=== PATIENT | female | born 1950 | race Caucasian/White ===

== ENCOUNTER 2017-10-13 09:01 | Emergency (ER) | payer OTHER, BC ==
[~2017-10-13] VITALS: Ht 154.9 cm; Wt 68.5 kg
[~2017-10-13 09:01] MED LIST: AMIT10TA6 PO; CYCL10TA9 PO; FLEC150T PO; GBPN400C PO; HUM10VIA2; HYDR-2997 PO; HYDR-31; INSASP10V SC; INSU100I5 SQ; ISM30TCR PO; LISI20TA PO; LOVA20TA2 PO; LYRICA; METF-380 PO; METO-333 PO; MOME13HF2 IH; MTF500T; RIVA1TAB PO; SOTA80TA22 PO; TRAM-21 PO
[2017-10-13] MEDS ORDERED: NS IV 1000 ML 1,000 ML IV ONE (09:09)
[2017-10-13 09:37] LABS: BASOPHILS % (AUTO) 0 % (0-10); EOSINOPHILS # (AUTO) 0.1 10^3/uL (0.0-0.3); EOSINOPHILS % (AUTO) 2 % (0-10); HEMATOCRIT 38 % (35-52); HEMOGLOBIN 13.1 G/DL (11.5-16.0); LYMPHOCYTES # (AUTO) 2.1 X 10^3 (1.0-4.0); LYMPHOCYTES % (AUTO) 29 % (12-44); MEAN CORPUSCULAR HEMOGLOBIN 30 PG (25-34); MEAN CORPUSCULAR HGB CONC 34 G/DL (32-36); MEAN CORPUSCULAR VOLUME 87 FL (80-99); MEAN PLATELET VOLUME 9.6 FL (7.4-10.4); MONOCYTES # (AUTO) 0.4 X 10^3 (0.0-1.0); MONOCYTES % (AUTO) 5 % (0-12); NEUTROPHILS # (AUTO) 4.6 X 10^3 (1.8-7.8); NEUTROPHILS % (AUTO) 64 % (42-75); PLATELET COUNT 170 10^3/uL (130-400); RED BLOOD COUNT 4.39 10^6/uL (4.35-5.85); RED CELL DISTRIBUTION WIDTH 13.4 % (10.0-14.5); WHITE BLOOD COUNT 7.2 10^3/uL (4.3-11.0)
[2017-10-13 09:47] LABS: BILIRUBIN,URINE NEGATIVE (NEGATIVE); CLARITY,URINE SLIGHTLY CLOUDY; COLOR,URINE YELLOW; GLUCOSE, URINE (UA) 2+ (NEGATIVE); KETONES,URINE NEGATIVE (NEGATIVE); LEUKOCYTE ESTERASE ,URINE 1+ (NEGATIVE); NITRITE,URINE NEGATIVE (NEGATIVE); PH,URINE 8 (5-9); PROTEIN,URINE 1+ (NEGATIVE); UROBILINOGEN,URINE NORMAL (NORMAL)
[2017-10-13 09:49] LABS: INR 1.1 (0.8-1.4); PROTHROMBIN TIME PATIENT 14.4 SEC (12.2-14.7)
[2017-10-13 10:00] LABS: ALANINE AMINOTRANSFERASE 11 U/L (0-55); ALBUMIN 4.1 GM/DL (3.2-4.5); ALKALINE PHOSPHATASE 103 U/L (40-136); BILIRUBIN,TOTAL 0.4 MG/DL (0.1-1.0); BUN/CREATININE RATIO 21; CALCIUM 9.2 MG/DL (8.5-10.1); CARBON DIOXIDE 25 MMOL/L (21-32); CHLORIDE 107 MMOL/L (98-107); CREATININE SERUM 0.78 MG/DL (0.60-1.30); GFR ESTIMATED > 60; GLUCOSE 220 MG/DL (70-105); POTASSIUM 3.8 MMOL/L (3.6-5.0); SODIUM 141 MMOL/L (135-145); TOTAL PROTEIN 7.5 GM/DL (6.4-8.2)
[2017-10-13 10:14] LABS: BACTERIA,URINE FEW /HPF; RBC,URINE RARE /HPF; SQUAMOUS EPITHELIAL CELL,UR 0-2 /HPF; WBC,URINE 0-2 /HPF
[2017-10-13] MEDS ORDERED: IOHEXOL 350 MG/ML 100 ML (OMNIPAQUE 350) VIAL IV ONE (10:15)
[2017-10-13] MEDS ORDERED: CATHETER FLUSH 10 ML SYR IV PRN (10:15)
[2017-10-13] MEDS ORDERED: NS 250 ML (IVPB) BAG IV ONE (10:15)
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
[2017-10-13] MEDS ORDERED: CYCL5TAB PO (12:20)
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
--- OUTSIDE RECORDS SUMMARY | 2017-10-13 12:43 | XMS REPORT | CCD ---
Author Author SHELLI FRANZ Organization Unknown Address [address] [address] [place], [place] [id number] Care Team Providers Care Quill Machine Tender Name Role Phone CHAMA ER, ESTRELLA DO Attphys CHAMA ER, ESTRELLA DO Prisurg Vital Signs Unknown or Not Available. Allergies Allergy Code Allergy Type Reaction Status PHENERGAN 430957 Drug allergy BREATHING PROBLEMS Active ETOMIDATE 4177 Drug allergy LARYNGOSPASM, VENTRICULAR ARRHYTHMIA Active Procedures Procedure Code Procedure Type Date FOOT [address] 07/20/2015 History of Immunizations Immunization Code Date pneumococcal, unspecified formulation 109 06/25/2012 Influenza, seasonal, injectable 141 05/10/2012 Problems Problem Code Start Date Resolved Date Status ATRIAL FIBRILLATION WITH RAPID VENTRICULAR RESPONSE 343832619 Active Results Unknown or Not Available. Active Medications Unknown or Not Available. Medications Administered During Visit Unknown or Not Available. Encounters Encounter Diagnosis Diagnosis Code Start Date Foot pain [id number] 07/20/2015 Social History Smoking Status Code Start Date End Date Never smoker [id number] Patient Decision Aids Unknown or Not Available. Discharge Instructions You were admitted to [facility] on 07/20/2015 with a principal diagnosis of Foot pain . You were discharged from [facility] on 07/20/2015. Should you have any questions prior to discharge, please contact a member of your healthcare team. If you have left the hospital and have any questions, please contact your primary care physician. Chief Complaint and Reason For Visit Chief Complaint Date of Onset FOOT PAIN Function Status Unknown or Not Available. Plan of Care Unknown or Not Available. Referral/Transition of Care Unknown or Not Available.
--- OUTSIDE RECORDS SUMMARY | 2017-10-13 12:43 | XMS REPORT | Clinical Summary ---
Author Author [facility] Organization [facility] Address Unknown Phone Unavailable Care Team Providers Care Store Group Manager Name Role Phone Unverified, Unverified Md PCP Unavailable Jovana Young MD Unavailable Source Comments Some departments are not documenting in the electronic medical record. If you do not see the information that you expected, contact Release of Information in the Health Information Management department at [phone] for further assistance in locating additional records.[facility] Allergies Not on File Current Medications Not on file Active Problems Problem Noted Date Displacement of lumbar intervertebral disc without myelopathy 05/01/2008 Social History Tobacco Use Types Packs/Day Years Used Date Never Assessed Sex Assigned at Date Recorded Not on file Last Filed Vital Signs Not on file Plan of Treatment Health Maintenance Due Date Last Done Comments HEPATITIS C SCREENING 1951 PHYSICAL (COMPREHENSIVE) 1958 EXAM PERTUSSIS VACCINE 1962 TETANUS VACCINE 01/08/1968 BREAST CANCER SCREENING 1991 COLORECTAL CANCER 2001 SCREENING SHINGLES VACCINE 2011 OSTEOPOROSIS SCREENING 01/08/2016 PREVNAR/PNEUMOVAX (#1) 01/08/2016 INFLUENZA VACCINE 04/23/2018 Results Not on filefrom Last 3 Months
--- OUTSIDE RECORDS SUMMARY | 2017-10-13 12:44 | XMS REPORT ---
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 Name Role Phone Jason Hui PCP Unavailable Jason Hui PreferredProvider Unavailable Allergies and Adverse Reactions Name Reaction Notes Phenergan Plan of Treatment Planned Activity Comments Planned Date Planned Time Plan/Goal Uncontrolled Diabetes and Thyroid Nodules [facility] 06/09/2017 12:00 AM Medications Active Name Start Date Estimated Completion Date SIG Comments Pen Needle 31 gauge x 3/16" miscellaneous needle 02/27/2014 USES 3 INJECTIONS A DAY metformin 1,000 mg oral tablet 02/28/2014 take 1 tablet (1,000 mg) by oral route 2 times per day with morning and evening meals metformin 1,000 mg oral tablet 09/05/2014 TAKE 1 TABLET BY MOUTH TWICE DAILY WITH MORNING AND EVENING MEALS metformin 1,000 mg oral tablet 09/08/2014 TAKE 1 TABLET BY MOUTH TWICE DAILY WITH MORNING AND EVENING MEALS carvedilol 3.125 mg oral tablet take 1 tablet (3.125 mg) by oral route once daily Benicar 40 mg oral tablet take 1 tablet (40 mg) by oral route once daily Levemir FlexTouch 100 unit/mL (3 mL) subcutaneous insulin pen 06/25/2015 inject 45 units by subcutaneous route twice a day tramadol 50 mg oral tablet 06/25/2015 take 1 tablet (50 mg) by oral route every 6 hours as needed Novolog Flexpen 100 unit/mL subcutaneous insulin pen 09/11/2015 INJECT 14 UNITS SUBCUTANEOUSLY WITH BREAKFAST. LUNCH, AND SUPPER acetaminophen-codeine 300-30 mg oral tablet 12/08/2015 take 1 tablet by oral route every 4 hours as needed amiodarone 400 mg oral tablet take 1 tablet (400 mg) by oral route once daily potassium chloride 10 mEq oral capsule, extended release 05/22/2017 take 2 capsules (20 meq) by oral route once daily with food for 30 days Name Start Date Expiration Date SIG Comments Bactrim DS 800-160 mg oral tablet 10/29/2009 11/08/2009 take 1 tablet by oral route every 12 hours for 10 days Keflex 500 mg oral capsule 01/21/2010 01/28/2010 take 1 capsule (500 mg) by oral route every 12 hours for 7 days Reglan 10 mg oral tablet 11/24/2010 12/24/2010 take 1 tablet (10 mg) by oral route twice daily prednisone 20 mg oral tablet 07/06/2011 07/16/2011 take 1 tablet by oral route daily for 10 days nabumetone 500 mg oral tablet 07/19/2011 take 1 tablet (500 mg) by oral route 2 times per day with food indomethacin 50 mg oral capsule 10/28/2011 11/04/2011 take 1 capsule (50 mg) by oral route 3 times per day with food for 7 days "stopped it 2-3 weeks ago due to high glucose" Bactrim DS 800-160 mg oral tablet 10/28/2011 11/04/2011 take 1 tablet by oral route every 12 hours for 7 days insulin syringe-needle U-100 1 mL 31 gauge x 5/16 miscellaneous syringe 201111/22/2011 USE DIRECTED FOUR TIMES DAILY Levemir 100 unit/mL subcutaneous solution 11/02/2011 11/14/2011 inject 45 units by subcutaneous route twice daily "using pen" Augmentin 500-125 mg oral tablet 06/26/2012 07/03/2012 take 1 tablet by oral route every 12 hours for 7 days Pen Needle 31 gauge x 3/16" miscellaneous needle 09/17/2012 09/17/2012 Uses 3 injections a day cephalexin 500 mg oral tablet 11/08/2012 11/18/2012 take 1 tablet (500 mg) by oral route every 12 hours for 10 days Augmentin 500-125 mg oral tablet 03/20/2013 03/27/2013 take 1 tablet by oral route every 12 hours for 7 days Novolog Flexpen 100 unit/mL subcutaneous insulin pen 09/05/2013 08/31/2014 INJECT 12 UNITS SUBCUTANEOUSLY WITH BREAKFAST. LUNCH, AND SUPPER gabapentin 600 mg oral tablet 02/28/2014 08/22/2015 TAKE 1 TABLET BY MOUTH FOUR TIMES DAILY Xarelto 20 mg oral tablet 06/25/2015 12/22/2015 take 1 tablet (20 mg) by oral route once daily with the evening meal for 30 days amoxicillin-pot clavulanate 500-125 mg oral tablet 08/31/2015 09/07/2015 take 1 tablet by oral route every 12 hours for 7 days Accu-Chek Compact Test miscellaneous strip 09/07/2015 02/04/2016 Check glucose 4 times a day [id number] Zostavax (PF) 19,400 unit/0.65 mL subcutaneous suspension for reconstitution 05/09/2016 05/10/2016 inject 0.65 milliliter by subcutaneous route once Discontinued Name Start Date Discontinued Date SIG Comments Aldara 5 % topical cream in packet 10/29/2009 10/05/2010 apply to the affected area(s) before bedtime by topical route 3 times per week and leave on skin for 6 to 10 hours fenofibrate 160 mg oral tablet 01/27/2010 12/03/2014 take 1 tablet (160 mg) by oral route once daily meloxicam 15 mg oral tablet 10/05/2010 07/19/2011 take 1 tablet (15 mg) by oral route once daily as needed Zofran (as hydrochloride) 4 mg/5 mL oral solution 11/22/2010 11/08/2012 take 5- 10 milliliters by oral route every 6 hours as needed Klor-Con M20 20 mEq oral tablet,ER particles/crystals 09/25/2012 take 1 tablet (20 meq) by oral route once daily with food "not takiing" Diflucan 150 mg oral tablet 03/02/2011 10/28/2011 take 1 tablet (150 mg) by oral route once amoxicillin 500 mg oral capsule 10/28/2011 take 1 capsule (500 mg) by oral route every 12 hours for 7 days Medrol (Tom) 4 mg oral tablets,dose pack 10/28/2011 take as directed Lasix 20 mg oral tablet 11/01/2011 09/25/2012 take 1 tablet (20 mg) by oral route once daily as needed amitriptyline 10 mg oral tablet 01/24/2012 12/03/2014 take 1 tablet by oral route once a day (at bedtime) cyclobenzaprine 5 mg oral tablet 01/24/2012 04/30/2013 take 1 tablet by oral route once a day (at bedtime) as needed cephalexin 500 mg oral tablet 01/24/2012 09/25/2012 take 1 tablet (500 mg) by oral route every 12 hours Tessalon 200 mg oral capsule 06/26/2012 11/08/2012 take 1 capsule (200 mg) by oral route 3 times per day as needed Claritin-D 12 Hour 5-120 mg oral tablet extended release 12 hr 06/26/20122012 take 1 tablet by oral route every 12 hours naproxen 500 mg oral tablet 11/08/2012 07/11/2014 take 1 tablet (500 mg) by oral route 2 times per day with food "not taking now" Dulera 100-5 mcg/actuation inhalation HFA aerosol inhaler 04/30/20132014 inhale 2 puffs by inhalation route 2 times per day in the morning and evening flecainide 100 mg oral tablet 12/03/2014 take 1 tablet (100 mg) by oral route every 12 hours cyclobenzaprine 10 mg oral tablet 08/05/2013 07/11/2014 take 1 tablet (10 mg ) by oral route at bedtime as needed Betapace 80 mg oral tablet 12/03/2014 take 1 tablet (80 mg) by oral route [address] Brown duloxetine 30 mg oral capsule,delayed release(/EC) 07/11/2014 06/25/2015 take 1 capsule (30 mg) by oral route once a day hydrocodone-acetaminophen 7.5-325 mg oral tablet 07/11/2014 06/25/2015 take 1 tablet by oral route every 6 hours as needed for pain diltiazem HCl 120 mg oral capsule, extended release 06/25/2015 take 1 capsule (120 mg) by oral route once daily carvedilol 12.5 mg oral tablet 06/25/2015 take 1 tablet (12.5 mg) by oral route every 12 hours with food dose change sotalol 120 mg oral tablet 06/25/2015 take 1 tablet (120 mg) by oral route 2 times per day benzonatate 200 mg oral capsule 08/31/2015 05/09/2016 take 1 capsule (200 mg) by oral route 3 times per day as needed Levemir FlexTouch 100 unit/mL (3 mL) subcutaneous insulin pen 09/22/20152015 INJECT 43 UNITS BY SUBCUTANEOUS ROUTE TWICE A DAY Levemir FlexTouch 100 unit/mL (3 mL) subcutaneous insulin pen 09/22/20152015 INJECT 43 UNITS BY SUBCUTANEOUS ROUTE TWICE A DAY has an insulin pump Problem List Description Status Onset Diabetes Mellitus, Type II Active 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 Hyperlipidemia Active Vital Signs Date Time BP-Sys(mm[Hg] BP-Helga(mm[Hg]) HR(bpm) RR(rpm) Temp WT HT HC BMI BSA BMI Percentile O2 Sat(%) 05/22/2017 10:41:00 AM 152 mmHg 88 mmHg 80 bpm 20 rpm 98.1 F 153 lbs 61 in 28.91 kg/m2 1.73 m2 100 % 05/09/2016 9:17:00 AM 138 mmHg 70 mmHg 83 bpm 20 rpm 97.7 F 160 lbs 61 in 30.2314 kg/m 1.7674 m 99 % 12/08/2015 1:34:00 PM 132 mmHg 60 mmHg 87 bpm 22 rpm 99 F 152 lbs 61 in 28.72 kg/m2 1.72 m2 99 % 06/25/2015 10:17:00 AM 138 mmHg 72 mmHg 80 bpm 20 rpm 98.2 F 152 lbs 61 in 28.7199 kg/m 1.7226 m 98 % 12/03/2014 10:31:00 AM 130 mmHg 66 mmHg 66 bpm 20 rpm 98.1 F 143 lbs 61 in 27.02 kg/m2 1.67 m2 98 % 07/11/2014 9:39:00 AM 138 mmHg 88 mmHg 153 bpm 20 rpm 98.7 F 150 lbs 61 in 28.342 kg/m 1.7112 m 98 % 12/24/2013 3:55:00 PM 130 mmHg 62 mmHg 69 bpm 18 rpm 97.9 F 151 lbs 61 in 28.53 kg/m2 1.72 m2 99 % 10/30/2013 10:56:00 AM 150 mmHg 74 mmHg 81 bpm 16 rpm 96.2 F 152 lbs 61 in 28.7199 kg/m 1.7226 m 97 % 08/05/2013 8:52:00 AM 138 mmHg 78 mmHg 61 bpm 20 rpm 98 F 168 lbs 61 in 31.74 kg/m2 1.81 m2 100 % 04/30/2013 10:08:00 AM 138 mmHg 78 mmHg 148 bpm 22 rpm 98.2 F 168 lbs 61 in 31.743 kg/m 1.811 m 98 % 03/20/2013 8:54:00 AM 150 mmHg 80 mmHg 78 bpm 16 rpm 98.9 F 163 lbs 61 in 30.80 kg/m2 1.78 m2 99 % 11/08/2012 10:13:00 AM 136 mmHg 78 mmHg 70 bpm 18 rpm 97.8 F 156 lbs 09/25/2012 9:30:00 AM 148 mmHg 80 mmHg 76 bpm 16 rpm 97.8 F 152 lbs 61 in 28.72 kg/m2 1.72 m2 06/26/2012 10:33:00 AM 136 mmHg 74 mmHg 89 bpm 18 rpm 98.6 F 154.375 lbs 61 in 29.1686 kg/m 1.736 m 99 % 01/24/2012 8:08:00 AM 134 mmHg 72 mmHg 78 bpm 22 rpm 98.2 F 145 lbs 61 in 27.40 kg/m2 1.68 m2 10/28/2011 8:03:00 AM 132 mmHg 76 mmHg 70 bpm 18 rpm 97.9 F 143 lbs 61 in 27.0193 kg/m 1.6708 m 10/17/2011 11:28:00 AM 136 mmHg 74 mmHg 89 bpm 18 rpm 97.9 F 149.125 lbs 61 in 28.18 kg/m2 1.71 m2 07/19/2011 8:12:00 AM 132 mmHg 82 mmHg 84 bpm 16 rpm 97.8 F 150 lbs 61 in 28.342 kg/m 1.7112 m 07/06/2011 3:15:00 PM 130 mmHg 74 mmHg 68 bpm 18 rpm 98.3 F 156 lbs 61 in 29.48 kg/m2 1.75 m2 03/02/2011 2:58:00 PM 120 mmHg 74 mmHg 100 bpm 20 rpm 99.4 F 169.25 lbs 02/14/2011 9:49:00 AM 134 mmHg 78 mmHg 74 bpm 18 rpm 98.3 F 164 lbs 12/01/2010 8:15:00 AM 128 mmHg 78 mmHg 62 bpm 18 rpm 98.2 F 157 lbs 11/22/2010 8:54:00 AM 128 mmHg 72 mmHg 104 bpm 22 rpm 98.6 F 153 lbs 100 % 10/05/2010 3:04:00 PM 144 mmHg 82 mmHg 72 bpm 18 rpm 98 F 163 lbs 02/08/2010 9:17:00 AM 124 mmHg 78 mmHg 76 bpm 145 lbs 01/21/2010 10:13:00 AM 130 mmHg 68 mmHg 70 bpm 16 rpm 98.3 F 144 lbs 10/29/2009 8:21:00 AM 134 mmHg 76 mmHg 70 bpm 20 rpm 98.6 F 147 lbs Social History Name Description Comments Tobacco Never smoker History of Procedures Date Ordered Description Order Status 06/25/2015 12:00 AM LIPID PANEL Reviewed 06/25/2015 12:00 AM GLYCOSYLATED HEMOGLOBIN TEST Reviewed 06/25/2015 12:00 AM COMPREHEN METABOLIC PANEL Reviewed 06/25/2015 12:00 AM Endocrinology Consultation Reviewed 07/06/2011 12:00 AM METABOLIC PANEL TOTAL CA Reviewed 07/06/2011 12:00 AM C-REACTIVE PROTEIN Reviewed 07/06/2011 12:00 AM RBC SED RATE AUTOMATED Reviewed 07/19/2011 12:00 AM X-RAY EXAM OF FOOT Reviewed 12/08/2015 12:00 AM CHEST X-RAY 2VW FRONTAL&LATL Reviewed 12/08/2015 12:00 AM Decadron, Per 1 Mg [facility]# [address]-25 Reviewed 12/08/2015 12:00 AM Depo-Medrol, Per 80 Mg [facility]#[address]-33 Reviewed 05/09/2016 12:00 AM PNEUMOCOCCAL VACC 13 HARDY IM Reviewed 10/17/2011 12:00 AM COMPLETE CBC W/AUTO DIFF WBC Reviewed 10/17/2011 12:00 AM PROTHROMBIN TIME Reviewed 10/17/2011 12:00 AM ASSAY OF BLOOD/URIC ACID Reviewed 10/18/2011 12:00 AM RBC SED RATE AUTOMATED Reviewed 10/18/2011 12:00 AM GLYCOSYLATED HEMOGLOBIN TEST Reviewed 05/22/2017 12:00 AM Rocephin 500 Mg Injection Reviewed 06/05/2017 12:00 AM METABOLIC PANEL TOTAL CA Reviewed 11/02/2009 12:00 AM BREATHING CAPACITY TEST Reviewed 04/30/2013 12:00 AM CHEST X-RAY 2VW FRONTAL&LATL Reviewed 04/30/2013 12:00 AM AIRWAY INHALATION TREATMENT Reviewed 05/09/2013 12:00 AM CHEST X-RAY 2VW FRONTAL&LATL Reviewed 08/05/2013 12:[address] HEAD/BRAIN W/O & W/DYE Reviewed 08/05/2013 12:00 AM BREATHING CAPACITY TEST Reviewed 12/24/2013 12:00 AM ECG MONIT/REPRT UP TO 48 HRS Reviewed 12/24/2013 12:00 AM TTE W/O DOPPLER COMPLETE Reviewed 12/24/2013 12:00 AM Carotid Doppler Reviewed 01/21/2010 12:00 AM COMPREHEN METABOLIC PANEL Reviewed 01/21/2010 12:00 AM LIPID PANEL Reviewed 01/21/2010 12:00 AM GLYCOSYLATED HEMOGLOBIN TEST Reviewed 01/21/2010 12:00 AM MICROALBUMIN SEMIQUANT Reviewed 01/21/2010 12:00 AM DRAINAGE OF SKIN ABSCESS Reviewed 02/08/2010 12:00 AM Urine drug screen Reviewed 07/11/2014 12:00 AM Physiatry Consult Reviewed 12/01/2010 12:00 AM METABOLIC PANEL TOTAL CA Reviewed 02/14/2011 12:00 AM METABOLIC PANEL TOTAL CA Reviewed 02/14/2011 12:00 AM C-REACTIVE PROTEIN Reviewed 03/07/2011 12:00 AM METABOLIC PANEL TOTAL CA Reviewed 03/07/2011 12:00 AM GLYCOSYLATED HEMOGLOBIN TEST Reviewed Results Summary Date and Description Results 01/22/2010 8:22 AM TRIGLYCERIDES 666.0 mg/dLCHOLESTEROL 241.0 mg/dLHDL 34.0 mg/ dLTOT CHOL/HDL 7.1 LDL (CALC) INVALID MG/DLGLYCOHEMOGLOBIN A1C 10.30 %GLUCOSE 336.0 mg/dLSODIUM 138.0 mmol/LPOTASSIUM 3.40 mmol/LCHLORIDE 102.0 mmol/LCO2 22.0 mmol/LBUN 8.0 mg/dLCREATININE 0.70 mg/dLSGOT/AST 15.0 IU/LSGPT/ALT 7.0 IU/ LALK PHOS 93.0 IU/LTOTAL PROTEIN 7.30 g/dLALBUMIN 3.90 g/dLTOTAL BILI 0.40 mg/ dLCALCIUM 9.10 mg/dLAGE 60 GFR NonAA 86 GFR AA 104 eGFR >60 mL/min/1.73 m2eGFR AA* >60 CREAT UR 57.20 mg/dLMICROALBUMIN UR 19.0 ug/mLALB:CREAT RATIO 33 12/01/2010 9:15 AM GLUCOSE 49.0 mg/dLSODIUM 143.0 mmol/LPOTASSIUM 3.30 mmol/ LCHLORIDE 101.0 mmol/LCO2 30.0 mmol/LBUN 12.0 mg/dLCREATININE 0.50 mg/dLCALCIUM 9.10 mg/dLAGE 60 GFR NonAA 126 GFR AA 153 eGFR >60 mL/min/1.73 m2eGFR AA* >60 02/14/2011 10:25 AM C REACTIVE PROTEIN 6.0 mg/LGLUCOSE 88.0 mg/dLSODIUM 143.0 mmol/LPOTASSIUM 3.60 mmol/LCHLORIDE 104.0 mmol/LCO2 26.0 mmol/LBUN 11.0 mg/ dLCREATININE 0.70 mg/dLCALCIUM 9.40 mg/dLAGE 61 GFR NonAA 85 GFR AA 103 eGFR > 60 mL/min/1.73 m2eGFR AA* >60 03/08/2011 11:00 AM GLUCOSE 160.0 mg/dLSODIUM 141.0 mmol/LPOTASSIUM 3.70 mmol/ LCHLORIDE 105.0 mmol/LCO2 21.0 mmol/LBUN 13.0 mg/dLCREATININE 0.70 mg/dLCALCIUM 9.50 mg/dLAGE 61 GFR NonAA 85 GFR AA 103 eGFR >60 mL/min/1.73 m2eGFR AA* >60 GLYCOHEMOGLOBIN A1C 6.80 % 07/06/2011 3:50 PM C REACTIVE PROTEIN 5.0 mg/LGLUCOSE 361.0 mg/dLSODIUM 140.0 mmol/LPOTASSIUM 3.80 mmol/LCHLORIDE 102.0 mmol/LCO2 24.0 mmol/LBUN 9.0 mg/ dLCREATININE 1.0 mg/dLCALCIUM 9.60 mg/dLAGE 61 GFR NonAA 57 GFR AA 69 eGFR 57 eGFR AA* >60 SEDRATE 24.0 mm/hr 10/17/2011 12:00 PM WBC 7.3 RBC 4.46 HGB 13.50 g/dLHCT 39.0 %MCV 87.0 fLMCH 30.30 pgMCHC 34.60 g/dLRDW SD 42 RDW CV 13.20 %MPV 9.60 fLPLT 142 NRBC# 0.00 NRBC% 0.0 %NEUT 59.60 %%LYMP 33.50 %%MONO 5.60 %%EOS 1.20 %%BASO 0.10 %#NEUT 4.32 #LYMP 2.43 #MONO 0.41 #EOS 0.09 #BASO 0.01 MANUAL DIFF NOT IND PROTIME 10.60 secsINR 1.0 URIC ACID 3.9 mg/dL 10/18/2011 8:45 PM GLYCOHEMOGLOBIN A1C 10.20 %SEDRATE 31.0 mm/hr 06/25/2015 11:22 AM TRIGLYCERIDES 182.0 mg/dLCHOLESTEROL 180.0 mg/dLHDL 50.0 mg /dLTOT CHOL/HDL 3.6 LDL (CALC) 94.0 mg/dLGLUCOSE 99.0 mg/dLSODIUM 142.0 mmol/ LPOTASSIUM 4.20 mmol/LCHLORIDE 112.0 mmol/LCO2 21.0 mmol/LBUN 17.0 mg/ dLCREATININE 0.70 mg/dLSGOT/AST 17.0 IU/LSGPT/ALT 12.0 IU/LALK PHOS 86.0 IU/ LTOTAL PROTEIN 6.30 g/dLALBUMIN 4.10 g/dLTOTAL BILI 0.50 mg/dLCALCIUM 9.30 mg/ dLAGE 65 GFR NonAA 84 GFR AA 102 eGFR >60 mL/min/1.73meGFR AA* >60 Hemoglobin A1c 9.10 %Estim. Avg Glu (eAG) 214 05/26/2017 8:02 AM GLUCOSE 97.0 mg/dLSODIUM 145.0 mmol/LPOTASSIUM 3.40 mmol/ LCHLORIDE 112.0 mmol/LCO2 25.0 mmol/LBUN 9.0 mg/dLCREATININE 0.70 mg/dLCALCIUM 8.80 mg/dLAGE 67 GFR NonAA 84 GFR AA 102 eGFR >60 mL/min/1.73meGFR AA* >60 History Of Immunizations Name Date Admin Mfg Name Mfg Code Trade Name Lot# Route Inj Vis Given Vis Pub CVX Pneumococcal 05/09/2016 [id number] [facility] Prevnar 13 [id number] Intramuscular Left Deltoid 05/09/2016 05/28/2015 133 History of Past Illness Name Date of Onset Comments Diabetes Mellitus, Type II Hyperlipidemia 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 Bronchitis, Chronic Oct 29 2009 8:23AM Subcutaneous Nodule Oct 29 2009 8:23AM Diabetes Mellitus, Type II Jan 21 2010 10:15AM Hyperlipidemia, Mixed Jan 21 2010 10:15AM Sebaceous Cyst Jan 21 2010 11:32PM General Medical Exam, Adult Feb 08 2010 9:19AM Bursitis, right knee Oct 05 2010 3:05PM Gastroenteritis, Viral Nov 22 2010 8:56AM Hypokalemia Dec 01 2010 8:15AM Polymyalgia Rheumatica Dec 01 2010 8:15AM Hypokalemia Feb 14 2011 9:48AM Polymyalgia Rheumatica Feb 14 2011 9:48AM Diabetes Mellitus, Type II Feb 14 2011 9:48AM Diabetes Mellitus, Type II Mar 02 2011 2:57PM Edema bilateral lower extremities Mar 02 2011 2:57PM Polymyalgia Rheumatica Jul 06 2011 3:17PM Arthralgia Jul 06 2011 3:17PM Pain in foot, Left Heel Jul 19 2011 8:16AM Edema left lower ext. Oct 17 2011 11:30AM Petechial Rash Oct 17 2011 11:30AM Diabetes Mellitus, Type II Oct 18 2011 1:39PM Polymyalgia Rheumatica Oct 18 2011 1:39PM Edema left lower ext. Oct 28 2011 8:05AM Diabetes Mellitus, Type II Oct 28 2011 8:05AM Cellulitis left foot Oct 28 2011 8:05AM Myalgia Jan 24 2012 8:10AM Headache Jan 24 2012 8:10AM Neuropathy, right foot Jan 24 2012 8:10AM Upper Respiratory Infections Jun 26 2012 10:35AM Diabetes Mellitus, Type II Sep 25 2012 9:32AM Hyperlipidemia Sep 25 2012 9:32AM Atrial Fibrillation Sep 25 2012 9:32AM Osteoarthritis, hand Sep 25 2012 9:32AM Cellulitis Nov 08 2012 10:15AM Right Acute Otitis Media Mar 20 2013 8:55AM Chronic Cough Apr 30 2013 10:10AM Shortness of breath Apr 30 2013 10:10AM Cough May 09 2013 9:40AM Tension Headache Aug 05 2013 8:54AM Blurred Vision Aug 05 2013 8:54AM Bronchitis, Acute Aug 05 2013 8:54AM Postoperative Follow-up Nov 06 2013 10:56AM Basal Cell Nov 06 2013 10:56AM Basal Cell Carcinoma of Skin Oct 30 2013 10:59AM Sebaceous Cyst Oct 30 2013 10:59AM Syncope Dec 24 2013 3:57PM Basal cell carcinoma of skin, site unspecified Jan 31 2014 7:25AM Lumbar back pain Jul 11 2014 9:42AM Left Radiculopathy of leg Jul 11 2014 9:42AM Depressive Disorder Jul 11 2014 9:42AM Diabetes Mellitus, Type II Dec 03 2014 10:33AM Hyperlipidemia Dec 03 2014 10:33AM Systolic CHF, acute Dec 03 2014 10:33AM Resolved Atrial fibrillation Dec 03 2014 10:33AM Mixed hyperlipidemia Jun 25 2015 10:19AM Diabetes mellitus type 2, uncontrolled Jun 25 2015 10:19AM Other osteoarthritis involving multiple joints Jun 25 2015 10:19AM Shortness of breath Dec 08 2015 1:36PM Chronic obstructive pulmonary disease with (acute) exacerbation Dec 08 2015 1 :36PM Need for Prevnar vaccine May 09 2016 9:19AM Paroxysmal atrial fibrillation May 09 2016 9:19AM Diabetes Mellitus, Type II May 09 2016 9:19AM Hypokalemia May 22 2017 10:43AM Hypokalemia May 26 2017 11:41AM Payers Insurance Name Company Name Plan Name Plan Number Policy Number Policy Group Number Start Date [employer] [place] [id number] Tuesday, 2015 [employer] [place] [id number] October [facility] PMRV PHYS/DS [id number] N/A History of Encounters Visit Date Visit Type Provider 05/22/2017 Office visit Jason Hui DO 05/09/2016 Office visit Jason Hui DO 12/08/2015 Office visit Jason Hui DO 06/25/2015 Office visit Jason Hui DO 12/05/2014 Hospital Oneal Madsen MD 12/03/2014 Office visit Jason Hui DO 07/11/2014 Office visit Jason Hui DO 04/15/2014 Hospital Oneal Madsen MD 2014 Procedures Ant Calvillo MD 12/24/2013 Office visit Jason Hui DO 11/06/2013 Office visit Ant Calvillo MD 10/30/2013 Procedures Ant Calvillo MD 08/18/2013 Hospital Oneal Madsen MD 08/05/2013 Office visit Jason Hui DO 04/30/2013 Office visit Jason Hui DO 03/20/2013 Office visit Jason Hui DO 11/08/2012 Office visit Jason Hui DO 09/25/2012 Office visit Jason Hui DO 09/19/2012 Hospital Oneal Madsen MD 06/26/2012 Office visit Venus Calle APRN 06/22/2012 Hospital Oneal Madsen MD 01/24/2012 Office visit Jason Hui DO 10/30/2011 Hospital Robinson Del Rosario MD 10/29/2011 Hospital Oneal Madsen MD 10/29/2011 Hospital Robinson Del Rosario MD 10/28/2011 [facility] Oneal Madsen MD 10/28/2011 Office visit Jason Hui DO 10/17/2011 Office visit Venus Luc C.O.D. CLERK 07/19/2011 Office visit Jason Hui DO 07/06/2011 Office visit Venus Luc C.O.D. CLERK 03/02/2011 Office visit Venus Luc C.O.D. CLERK 02/14/2011 Office visit Jason Hui DO 12/01/2010 Office visit Jason Hui DO 11/27/2010 Hospital Gabriele Lim MD 11/26/2010 [facility] Gabriele Lim MD 11/25/2010 [facility] Gabriele Lim MD 11/25/2010 [facility] Oneal Madsen MD 11/22/2010 Office visit Jason Hui DO 10/05/2010 Office visit Jason Hui DO 02/08/2010 Office visit Ant Toscano PA-C 01/21/2010 Office visit Jason Hui DO 12/04/2009 Laboratory Hilario Padron MD 12/04/2009 Laboratory Hilario Padron MD 10/29/2009 Office visit Jason Hui DO
--- OUTSIDE RECORDS SUMMARY | 2017-10-13 12:45 | XMS REPORT ---
Author Jason Taylor [facility] Address [address] [place], [place] [id number] Care Team Providers Care Head Transfer Clerk Name Role Phone Jason Hui PCP Unavailable Allergies and Adverse Reactions Name Reaction Notes Phenergan Plan of Treatment Not available. Medications Active Name Start Date Estimated Completion Date SIG Comments Dulera Inhalation HFA Aerosol Inhaler 100-5 mcg/actuation 04/30/2013 inhale 2 puffs by inhalation route 2 times per day in the morning and evening Levemir FlexTouch subcutaneous insulin pen 100 unit/mL (3 mL) 02/19/2014 inject 43 units by subcutaneous route twice a day Pen Needle miscellaneous needle 31 x 3/16 " 02/27/2014 USES 3 INJECTIONS A DAY metformin Oral Tablet 1,000 mg 02/28/2014 take 1 tablet (1,000 mg) by oral route 2 times per day with morning and evening meals gabapentin Oral Tablet 600 mg 02/28/2014 08/22/2015 TAKE 1 TABLET BY MOUTH FOUR TIMES DAILY Xarelto oral tablet 20 mg take 1 tablet (20 mg) by oral route once daily with the evening meal Dr. Brown duloxetine oral capsule,delayed release(/EC) 30 mg 07/11/2014 take 1 capsule (30 mg) by oral route once a day hydrocodone-acetaminophen oral tablet 7.5-325 mg 07/11/2014 take 1 tablet by oral route every 6 hours as needed for pain Novolog Flexpen subcutaneous insulin pen 100 unit/mL 09/05/2014 INJECT 12 UNITS SUBCUTANEOUSLY WITH BREAKFAST. LUNCH, AND SUPPER metformin oral tablet 1,000 mg 09/05/2014 TAKE 1 TABLET BY MOUTH TWICE DAILY WITH MORNING AND EVENING MEALS metformin oral tablet 1,000 mg 09/08/2014 TAKE 1 TABLET BY MOUTH TWICE DAILY WITH MORNING AND EVENING MEALS diltiazem HCl oral capsule, extended release 120 mg take 1 capsule (120 mg) by oral route once daily carvedilol oral tablet 12.5 mg take 1 tablet (12.5 mg) by oral route every 12 hours with food sotalol oral tablet 120 mg take 1 tablet (120 mg) by oral route 2 times per day Name Start Date Expiration Date SIG Comments Bactrim DS Oral Tablet 160-800 mg 10/29/2009 11/08/2009 take 1 tablet by oral route every 12 hours for 10 days Keflex Oral Capsule 500 mg 01/21/2010 01/28/2010 take 1 capsule (500 mg) by oral route every 12 hours for 7 days Reglan Oral Tablet 10 mg 11/24/2010 12/24/2010 take 1 tablet (10 mg) by oral route twice daily prednisone Oral Tablet 20 mg 07/06/2011 07/16/2011 take 1 tablet by oral route daily for 10 days nabumetone Oral Tablet 500 mg 07/19/2011 take 1 tablet (500 mg) by oral route 2 times per day with food indomethacin Oral Capsule 50 mg 10/28/2011 11/04/2011 take 1 capsule (50 mg) by oral route 3 times per day with food for 7 days "stopped it 2-3 weeks ago due to high glucose" Bactrim DS Oral Tablet 800-160 mg 10/28/2011 11/04/2011 take 1 tablet by oral route every 12 hours for 7 days insulin syringe-needle U-100 Miscellaneous Syringe 1 mL 31 x 5/16" 10/28/2011 USE DIRECTED FOUR TIMES DAILY Levemir Subcutaneous Solution 100 unit/mL 11/02/2011 11/14/2011 inject 45 units by subcutaneous route twice daily "using pen" Augmentin Oral tablet 500-125 mg 06/26/2012 07/03/2012 take 1 tablet by oral route every 12 hours for 7 days Pen Needle Misc.(Non-Drug; Combo Route) 31 x 3/16 " 09/17/2012 09/17/2012 Uses 3 injections a day cephalexin Oral tablet 500 mg 11/08/2012 11/18/2012 take 1 tablet (500 mg) by oral route every 12 hours for 10 days Augmentin Oral tablet 500-125 mg 03/20/2013 03/27/2013 take 1 tablet by oral route every 12 hours for 7 days Accu-Chek Compact Test Miscellaneous Strip 07/26/2013 12/23/2013 TEST DIRECTED FOUR TIMES DAILY Novolog Flexpen subcutaneous insulin pen 100 unit/mL 09/05/2013 08/31/2014 INJECT 12 UNITS SUBCUTANEOUSLY WITH BREAKFAST. LUNCH, AND SUPPER Discontinued Name Start Date Discontinued Date SIG Comments Aldara Topical Packet 5 % 10/29/2009 10/05/2010 apply to the affected area(s) before bedtime by topical route 3 times per week and leave on skin for 6 to 10 hours Fenofibrate Oral Tablet 160 mg 01/27/2010 12/03/2014 take 1 tablet (160 mg) by oral route once daily Meloxicam Oral Tablet 15 mg 10/05/2010 07/19/2011 take 1 tablet (15 mg) by oral route once daily as needed Zofran Oral Solution 4 mg/5 mL 11/22/2010 11/08/2012 take 5-10 milliliters by oral route every 6 hours as needed Klor-Con M20 Oral Tablet, ER Particles/Crystals mEq 09/25/2012 take 1 tablet (20 meq) by oral route once daily with food "not takiing" Diflucan Oral Tablet 150 mg 03/02/2011 10/28/2011 take 1 tablet (150 mg) by oral route once amoxicillin Oral Capsule 500 mg 10/28/2011 take 1 capsule (500 mg) by oral route every 12 hours for 7 days Medrol (Tom) Oral Tablets, Dose Pack 4 mg 10/28/2011 take as directed Lasix Oral Tablet 20 mg 11/01/2011 09/25/2012 take 1 tablet (20 mg) by oral route once daily as needed amitriptyline Oral Tablet 10 mg 01/24/2012 12/03/2014 take 1 tablet by oral route once a day (at bedtime) cyclobenzaprine Oral Tablet 5 mg 01/24/2012 04/30/2013 take 1 tablet by oral route once a day (at bedtime) as needed cephalexin Oral Tablet 500 mg 01/24/2012 09/25/2012 take 1 tablet (500 mg) by oral route every 12 hours Tessalon Oral capsule 200 mg 06/26/2012 11/08/2012 take 1 capsule (200 mg) by oral route 3 times per day as needed Claritin-D 12 Hour Oral tablet extended release 12 hr 5-120 mg 06/26/20122012 take 1 tablet by oral route every 12 hours naproxen Oral tablet 500 mg 11/08/2012 07/11/2014 take 1 tablet (500 mg) by oral route 2 times per day with food "not taking now" flecainide oral tablet 100 mg 12/03/2014 take 1 tablet (100 mg) by oral route every 12 hours cyclobenzaprine oral tablet 10 mg 08/05/2013 07/11/2014 take 1 tablet (10 mg ) by oral route at bedtime as needed Betapace oral tablet 80 mg 12/03/2014 take 1 tablet (80 mg) by oral route [address] 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 Hyperlipidemia Active Vital Signs Date Time BP-Sys(mm[Hg] BP-Helga(mm[Hg]) HR(bpm) RR(rpm) Temp WT HT HC BMI BSA BMI Percentile O2 Sat(%) 12/03/2014 10:31:00 AM 130 mmHg 66 mmHg [...] of Procedures Date Ordered Description Order Status 07/06/2011 12:00 AM METABOLIC PANEL TOTAL CA Reviewed 07/06/2011 12:00 AM C-REACTIVE PROTEIN Reviewed 07/06/2011 12:00 AM RBC SED RATE AUTOMATED Reviewed 07/19/2011 12:00 AM X-RAY EXAM OF FOOT Reviewed 10/17/2011 12:00 AM COMPLETE CBC W/AUTO DIFF WBC Returned 10/17/2011 12:00 AM PROTHROMBIN TIME Returned 10/17/2011 12:00 AM ASSAY OF BLOOD/URIC ACID Returned 10/18/2011 12:00 AM RBC SED RATE AUTOMATED Returned 10/18/2011 12:00 AM GLYCOSYLATED HEMOGLOBIN TEST Returned 11/02/2009 12:00 AM BREATHING CAPACITY TEST Reviewed 04/30/2013 12:00 AM CHEST X-RAY 2VW FRONTAL&LATL Reviewed 05/09/2013 12:00 AM CHEST X-RAY 2VW FRONTAL&LATL Reviewed 08/05/2013 12:[address] HEAD/BRAIN W/O & W/DYE Reviewed 12/24/2013 12:00 AM ECG MONIT/REPRT UP TO 48 HRS Reviewed 12/24/2013 12:00 AM TTE W/O DOPPLER COMPLETE Reviewed 12/24/2013 12:00 AM Carotid Doppler Reviewed 01/21/2010 12:00 AM COMPREHEN METABOLIC PANEL Reviewed 01/21/2010 12:00 AM LIPID PANEL Reviewed 01/21/2010 12:00 AM LIPID PANEL Reviewed 01/21/2010 12:00 AM GLYCOSYLATED HEMOGLOBIN TEST Reviewed 01/21/2010 12:00 AM MICROALBUMIN SEMIQUANT Reviewed 01/21/2010 12:00 AM DRAINAGE OF SKIN ABSCESS Reviewed 02/08/2010 12:00 AM Urine drug screen Reviewed 12/01/2010 12:00 AM METABOLIC PANEL TOTAL CA Reviewed 02/14/2011 12:00 AM METABOLIC PANEL TOTAL CA Reviewed 02/14/2011 12:00 AM C-REACTIVE PROTEIN Reviewed 03/07/2011 12:00 AM METABOLIC PANEL TOTAL CA Reviewed 03/07/2011 12:00 AM GLYCOSYLATED HEMOGLOBIN TEST Reviewed Results Summary Data and Description Results 01/22/2010 8:22 AM TRIGLYCERIDES 666.0 mg/dLCHOLESTEROL 241.0 mg/dLHDL 34.0 mg/ dLLDL (CALC) INVALID MG/DLGLYCOHEMOGLOBIN A1C 10.30 %GLUCOSE 336.0 mg/dLSODIUM 138.0 mmol/LPOTASSIUM 3.40 mmol/LCHLORIDE 102.0 mmol/LCO2 22.0 mmol/LBUN 8.0 mg/ dLCREATININE 0.70 mg/dLSGOT/AST 15.0 IU/LSGPT/ALT 7.0 IU/LALK PHOS 93.0 IU/ LTOTAL PROTEIN 7.30 g/dLALBUMIN 3.90 g/dLTOTAL BILI 0.40 mg/dLCALCIUM 9.10 mg/ dLeGFR >60 mL/min/1.73 [id number] UR 57.20 mg/dLMICROALBUMIN UR 19.0 ug/mLALB: CREAT RATIO 33 12/01/2010 9:15 AM GLUCOSE 49.0 mg/dLSODIUM 143.0 mmol/LPOTASSIUM 3.30 mmol/ LCHLORIDE 101.0 mmol/LCO2 30.0 mmol/LBUN 12.0 mg/dLCREATININE 0.50 mg/dLCALCIUM 9.10 mg/dLeGFR >60 mL/min/1.73 m2 02/14/2011 10:25 AM C REACTIVE PROTEIN 6.0 mg/LGLUCOSE 88.0 mg/dLSODIUM 143.0 mmol/LPOTASSIUM 3.60 mmol/LCHLORIDE 104.0 mmol/LCO2 26.0 mmol/LBUN 11.0 mg/ dLCREATININE 0.70 mg/dLCALCIUM 9.40 mg/dLeGFR >60 mL/min/1.73 m2 03/08/2011 11:00 AM GLUCOSE 160.0 mg/dLSODIUM 141.0 mmol/LPOTASSIUM 3.70 mmol/ LCHLORIDE 105.0 mmol/LCO2 21.0 mmol/LBUN 13.0 mg/dLCREATININE 0.70 mg/dLCALCIUM 9.50 mg/dLeGFR >60 mL/min/1.73 [id number] A1C 6.80 % 07/06/2011 3:50 PM C REACTIVE PROTEIN 5.0 mg/LGLUCOSE 361.0 mg/dLSODIUM 140.0 mmol/LPOTASSIUM 3.80 mmol/LCHLORIDE 102.0 mmol/LCO2 24.0 mmol/LBUN 9.0 mg/ dLCREATININE 1.0 mg/dLCALCIUM 9.60 mg/dLeGFR 57 SEDRATE 24.0 mm/hr 10/17/2011 12:00 PM WBC 7.3 RBC 4.46 HGB 13.50 g/dLHCT 39.0 %MCV 87.0 fLMCH 30.30 pgMCHC 34.60 g/dLRDW CV 13.20 %MPV 9.60 fLPLT 142 %NEUT 59.60 %%LYMP 33.50 %%MONO 5.60 %%EOS 1.20 %%BASO 0.10 %#NEUT 4.32 #LYMP 2.43 #MONO 0.41 #EOS 0.09 #BASO 0.01 PROTIME 10.60 secsINR 1.0 URIC ACID 3.9 mg/dL 10/18/2011 8:45 PM GLYCOHEMOGLOBIN A1C 10.20 %SEDRATE 31.0 mm/hr History Of Immunizations Not available. History of Past Illness Name Date of [...] Resolved Atrial fibrillation Dec 03 2014 10:33AM Payers Insurance Name Company Name Plan Name Plan Number Policy Number Policy Group Number [id number] October [facility] PMRV PHYS/DS [id number] N/A History of Encounters Visit Date Visit Type Provider 12/03/2014 Office visit Jason Hui DO 07/11/2014 [...] 10/30/2011 Hospital Robinson Del Rosario MD 10/29/2011 [facility] Robinson Del Rosario MD 10/29/2011 Hospital Oneal Madsen MD 10/28/2011 Office visit Jason Hui DO 10/28/2011 [facility] Oneal Madsen MD 10/17/2011 Office visit Venus Calle MARKET DEVELOPMENT MANAGER 07/19/2011 Office visit Jason Hui DO 07/06/2011 Office visit Venus Calle MARKET DEVELOPMENT MANAGER 03/02/2011 Office visit Venus Calle MARKET DEVELOPMENT MANAGER 02/14/2011 Office visit Jason Hui DO 12/01/2010 Office visit Jason Hui DO 11/27/2010 [facility] Gabriele Lim MD 11/26/2010 [facility] Gabriele Lim MD 11/25/2010 [facility] Oneal Madsen MD 11/25/2010 [facility] Gabriele Lim MD 11/22/2010 Office visit Jason Hui DO 10/05/2010 Office visit Jason Hui DO 02/08/2010 Office visit Ant Toscano PA-C 01/21/2010 Office visit Jason Hui DO 12/04/2009 Laboratory Hilario Padron MD 12/04/2009 Laboratory Hilario Padron MD 10/29/2009 Office visit Jason Hui DO
--- OUTSIDE RECORDS SUMMARY | 2017-10-13 12:46 | XMS REPORT ---
Author Jason Taylor [facility] Address [address] [place], [place] [address] Care Team Providers Care Meter Reader Chief Name Role Phone Jason Hui PCP Unavailable Allergies and Adverse Reactions Name Reaction Notes Phenergan Plan of Treatment Planned Activity Comments Planned Date Planned Time Plan/Goal Uncontrolled Diabetes and Thyroid Nodules AIRWAY INHALATION TREATMENT 04/30/2013 12:00 AM BREATHING CAPACITY TEST 08/05/2013 12:00 AM Medications Active Name Start Date Estimated Completion Date SIG Comments Pen Needle 31 gauge x 3/16" miscellaneous needle 02/27/2014 USES 3 INJECTIONS A DAY metformin 1,000 mg oral tablet 02/28/2014 take 1 tablet (1,000 mg) by oral route 2 times per day with morning and evening meals gabapentin 600 mg oral tablet 02/28/2014 08/22/2015 TAKE 1 TABLET BY MOUTH FOUR TIMES DAILY Novolog Flexpen 100 unit/mL subcutaneous insulin pen 09/05/2014 INJECT 12 UNITS SUBCUTANEOUSLY WITH BREAKFAST. 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 Hyperlipidemia Active Vital Signs Date Time BP-Sys(mm[Hg] BP-Helga(mm[Hg]) HR(bpm) RR(rpm) Temp WT HT HC BMI BSA BMI Percentile O2 Sat(%) 06/25/2015 10:17:00 AM 138 mmHg 72 mmHg 80 bpm 20 rpm 98.2 F 152 lbs 61 in 28.72 kg/m2 1.72 m2 98 % 12/03/2014 10:31:00 AM 130 mmHg 66 mmHg 66 bpm 20 rpm 98.1 F 143 lbs 61 in 27.0193 kg/m 1.6708 m 98 % 07/11/2014 9:39:00 AM 138 mmHg 88 mmHg 153 bpm 20 rpm 98.7 F 150 lbs 61 in 28.34 kg/m2 1.71 m2 98 % 12/24/2013 3:55:00 PM 130 mmHg 62 mmHg 69 bpm 18 rpm 97.9 F 151 lbs 61 in 28.5309 kg/m 1.7169 m 99 % 10/30/2013 10:56:00 AM 150 mmHg 74 mmHg 81 bpm 16 rpm 96.2 F 152 lbs 61 in 28.72 kg/m2 1.72 m2 97 % 08/05/2013 8:52:00 AM 138 mmHg 78 mmHg 61 bpm 20 rpm 98 F 168 lbs 61 in 31.743 kg/m 1.811 m 100 % 04/30/2013 10:08:00 AM 138 mmHg 78 mmHg 148 bpm 22 rpm 98.2 F 168 lbs 61 in 31.74 kg/m2 1.81 m2 98 % 03/20/2013 8:54:00 AM 150 mmHg 80 mmHg 78 bpm 16 rpm 98.9 F 163 lbs 61 in 30.7983 kg/m 1.7839 m 99 % 11/08/2012 10:13:00 AM 136 mmHg 78 mmHg 70 bpm 18 rpm 97.8 F 156 lbs 09/25/2012 9:30:00 AM 148 mmHg 80 mmHg 76 bpm 16 rpm 97.8 F 152 lbs 61 in 28.7199 kg/m 1.7226 m 06/26/2012 10:33:00 AM 136 mmHg 74 mmHg 89 bpm 18 rpm 98.6 F 154.375 lbs 61 in 29.17 kg/m2 1.74 m2 99 % 01/24/2012 8:08:00 AM 134 mmHg 72 mmHg 78 bpm 22 rpm 98.2 F 145 lbs 61 in 27.3972 kg/m 1.6825 m 10/28/2011 8:03:00 AM 132 mmHg 76 mmHg 70 bpm 18 rpm 97.9 F 143 lbs 61 in 27.02 kg/m2 1.67 m2 10/17/2011 11:28:00 AM 136 mmHg 74 mmHg 89 bpm 18 rpm 97.9 F 149.125 lbs 61 in 28.1766 kg/m 1.7062 m 07/19/2011 8:12:00 AM 132 mmHg 82 mmHg 84 bpm 16 rpm 97.8 F 150 lbs 61 in 28.34 kg/m2 1.71 m2 07/06/2011 3:15:00 PM 130 mmHg 74 mmHg 68 bpm 18 rpm 98.3 F 156 lbs 61 in 29.4756 kg/m 1.7451 m 03/02/2011 2:58:00 PM 120 mmHg 74 mmHg [...] 06/25/2015 12:00 AM COMPREHEN METABOLIC PANEL Reviewed 07/06/2011 12:00 AM METABOLIC PANEL TOTAL [...] 241.0 mg/dLHDL 34.0 mg/ dLLDL (CALC) INVALID MG/DLGLUCOSE 336.0 mg/dLSODIUM 138.0 mmol/LPOTASSIUM 3.40 mmol/LCHLORIDE 102.0 mmol/LCO2 22.0 mmol/LBUN 8.0 mg/dLCREATININE 0.70 mg/dLSGOT /AST 15.0 IU/LSGPT/ALT 7.0 IU/LALK PHOS 93.0 IU/LTOTAL PROTEIN 7.30 g/dLALBUMIN 3.90 g/dLTOTAL BILI 0.40 mg/dLCALCIUM 9.10 mg/dLeGFR >60 mL/min/1.73 [id number] UR 57.20 mg/dLMICROALBUMIN UR 19.0 ug/mLALB:CREAT RATIO [...] mg/dLCREATININE 0.70 mg/dLCALCIUM 9.50 mg/dLeGFR >60 mL/min/1.73 m2 07/06/2011 3:50 PM C REACTIVE PROTEIN 5.0 [...] URIC ACID 3.9 mg/dL 10/18/2011 8:45 PM SEDRATE 31.0 mm/hr 06/04/2015 10:15 AM TSH 0.390 uIU/mL 06/25/2015 11:22 AM TRIGLYCERIDES 182.0 mg/dLCHOLESTEROL 180.0 mg/dLHDL 50.0 mg /dLLDL (CALC) 94.0 mg/dLGLUCOSE 99.0 mg/dLSODIUM 142.0 mmol/LPOTASSIUM 4.20 mmol /LCHLORIDE 112.0 mmol/LCO2 21.0 mmol/LBUN 17.0 mg/dLCREATININE 0.70 mg/dLSGOT/ AST 17.0 IU/LSGPT/ALT 12.0 IU/LALK PHOS 86.0 IU/LTOTAL PROTEIN 6.30 g/dLALBUMIN 4.10 g/dLTOTAL BILI 0.50 mg/dLCALCIUM 9.30 mg/dLeGFR >60 mL/min/1.73m History Of Immunizations Not available. History of [...] involving multiple joints Jun 25 2015 10:19AM Payers Insurance Name Company Name Plan Name Plan Number Policy Number Policy Group Number Start Date [employer] [place] [id number] Tuesday, 2015 [employer] [place] [id number] October [facility] PMRV PHYS/DS [id number] N/A History of Encounters Visit Date Visit Type Provider 06/25/2015 Office visit Jason Hui DO 12/05/2014 Hospital Oneal Madsen MD 12/03/2014 Office visit Jason Hui DO 07/11/2014 Office visit Jason Hui DO 04/15/2014 Hospital Oneal Madsen MD 2014 Procedures Ant Calvillo MD 12/24/2013 Office visit Jason Hui DO 11/06/2013 Office visit Ant Calvillo MD 10/30/2013 Procedures Ant Calvillo MD 08/18/2013 [facility] Oneal Madsen MD 08/05/2013 Office visit Jason Hui DO 04/30/2013 Office visit Jason Hui DO 03/20/2013 Office visit Jason Hui DO 11/08/2012 Office visit Jason Hui DO 09/25/2012 Office visit Jason Hui DO 09/19/2012 Hospital Oneal Madsen MD 06/26/2012 Office visit Venus Calle PREDATORY ANIMAL TRAPPER 06/22/2012 Hospital Oneal Madsen MD 01/24/2012 Office visit Jason Hui DO 10/30/2011 Hospital Robinson Del Rosario MD 10/29/2011 [facility] Oneal Madsen MD 10/29/2011 [facility] Robinson Del Rosario MD 10/28/2011 Hospital Oneal Madsen MD 10/28/2011 Office visit Jason Hui DO 10/17/2011 Office visit Venus Calle PREDATORY ANIMAL TRAPPER 07/19/2011 Office visit Jason Hui DO 07/06/2011 Office visit Venus Calle PREDATORY ANIMAL TRAPPER 03/02/2011 Office visit Venus Calle PREDATORY ANIMAL TRAPPER 02/14/2011 Office visit Jason Hui DO 12/01/2010 Office visit Jason Hui DO 11/27/2010 [facility] Gabriele Lim MD 11/26/2010 [facility] Gabriele Lim MD 11/25/2010 [facility] Gabriele Lim MD 11/25/2010 [facility] Oneal Madsen MD 11/22/2010 Office visit Jason Hui DO 10/05/2010 Office visit Jason Hui DO 02/08/2010 Office visit Ant Toscano PA-C 01/21/2010 Office visit Jason Hui DO 12/04/2009 Laboratory Hilario Padron MD 12/04/2009 Laboratory Hilario Padron MD 10/29/2009 Office visit Jason Hui DO
--- OUTSIDE RECORDS SUMMARY | 2017-10-13 12:47 | XMS REPORT ---
Author Jason Taylor [facility] Address [address] [place], [place] [id number] Care Team Providers Care Camp Dining Room Attendant Name Role Phone Jason Hui PCP Unavailable [...] with the evening meal for 30 days benzonatate 200 mg oral capsule 08/31/2015 take 1 capsule (200 mg) by oral route 3 times per day as needed amoxicillin-pot clavulanate 500-125 mg oral tablet 08/31/2015 09/07/2015 take 1 tablet by oral route every 12 hours for 7 days Accu-Chek Compact Test miscellaneous strip 09/07/2015 02/04/2016 Check glucose 4 times a day Dx:e11.65 Novolog Flexpen 100 unit/mL subcutaneous insulin pen 09/07/2015 INJECT 12 UNITS SUBCUTANEOUSLY WITH BREAKFAST. LUNCH, AND SUPPER Name Start Date Expiration Date SIG Comments [...] 1 TABLET BY MOUTH FOUR TIMES DAILY Discontinued Name Start Date Discontinued Date SIG [...] BILI 0.40 mg/dLCALCIUM 9.10 mg/dLeGFR >60 mL/min/1.73 [id number] UR 57.20 mg/dLMICROALBUMIN UR 19.0 ug/mLALB:CREAT RATIO [...] Group Number Start Date [employer]BS [employer] [place] [id number] Tuesday, 2015 [employer] [place] [id number] October [facility] PMRV PHYS/DS [id number] N/A History of Encounters Visit Date Visit Type Provider 06/25/2015 Office visit Jason Hui DO 12/05/2014 Hospital Oneal Madsen MD 12/03/2014 Office visit Jason Hui DO 07/11/2014 Office visit Jason Hui DO 04/15/2014 Julien Madsen MD 2014 Procedures Ant Calvillo MD [...] Madsen MD 06/26/2012 Office visit Venus Calle TOURING PRODUCTION MANAGER 06/22/2012 Hospital Oneal Madsen MD 01/24/2012 Office visit Jason Hui DO 10/30/2011 [facility] Robinson Del Rosario MD 10/29/2011 [facility] Oneal Madsen MD 10/29/2011 [facility] Robinson Del Rosario MD 10/28/2011 [facility] Oneal Madsen MD 10/28/2011 Office visit Jason Hui DO 10/17/2011 Office visit Venus Calle TOURING PRODUCTION MANAGER 07/19/2011 Office visit Jason Hui DO 07/06/2011 Office visit Venus Calle TOURING PRODUCTION MANAGER 03/02/2011 Office visit Venus Calle TOURING PRODUCTION MANAGER 02/14/2011 Office visit Jason Hui DO 12/01/2010 Office visit Jason Hui DO 11/27/2010 [facility] Gabriele Lim MD 11/26/2010 [facility] Gabriele Lim MD 11/25/2010 [facility] Gabriele Lim MD 11/25/2010 [facility] Oneal Madsen MD 11/22/2010 Office visit Jason Hui DO 10/05/2010 Office visit Jason Hui DO 02/08/2010 Office visit Ant Toscano PA-C 01/21/2010 Office visit Jason Hui DO 12/04/2009 Laboratory Hilario Padron MD 12/04/2009 Laboratory Hilario Padron MD 10/29/2009 Office visit Jason Hui DO
--- OUTSIDE RECORDS SUMMARY | 2017-10-13 12:47 | XMS REPORT ---
Author Jason Taylor [facility] Address [address] [place], [place] [address] Care Team Providers Care Gatehouse Attendant Name Role Phone Jason Hui PCP [...] route 3 times per day as needed Accu-Chek Compact Test miscellaneous strip 09/07/2015 02/04/2016 Check glucose 4 times a day [id number]:e11.65 Novolog Flexpen 100 unit/mL subcutaneous insulin pen 09/11/2015 INJECT 14 UNITS SUBCUTANEOUSLY WITH BREAKFAST. LUNCH, AND SUPPER Levemir FlexTouch 100 unit/mL (3 mL) subcutaneous insulin pen 09/22/2015 INJECT 43 UNITS BY SUBCUTANEOUS ROUTE TWICE A DAY acetaminophen-codeine 300-30 mg oral tablet 12/08/2015 take 1 tablet by oral route every 4 hours as needed Name Start Date Expiration Date SIG Comments [...] 1 TABLET BY MOUTH FOUR TIMES DAILY amoxicillin-pot clavulanate 500-125 mg oral tablet 08/31/2015 09/07/2015 take 1 tablet by oral route every 12 hours for 7 days Discontinued Name Start Date Discontinued Date SIG [...] HC BMI BSA BMI Percentile O2 Sat(%) 12/08/2015 1:34:00 PM 132 mmHg 60 mmHg [...] 12/08/2015 12:00 AM CHEST X-RAY 2VW FRONTAL&LATL Returned 10/17/2011 12:00 AM COMPLETE CBC W/AUTO DIFF [...] BILI 0.40 mg/dLCALCIUM 9.10 mg/dLeGFR >60 mL/min/1.73 [id number] UR 57.20 mg/dLMICROALBUMIN UR 19.0 ug/mLALB:CREAT RATIO [...] BILI 0.50 mg/dLCALCIUM 9.30 mg/dLeGFR >60 mL/min/1.73m Hemoglobin A1c 9.10 % History Of Immunizations Not available. History of [...] (acute) exacerbation Dec 08 2015 1 :36PM Payers Insurance Name Company Name Plan Name Plan Number Policy Number Policy Group Number Start Date [employer] [place] [id number] Tuesday, 2015 [employer] [place] [id number] October [facility] PMRV PHYS/DS [id number] N/A History of Encounters Visit Date Visit Type Provider 12/08/2015 Office visit Jason Hui DO 06/25/2015 Office visit Jason Hui DO 12/05/2014 Hospital Oneal Madsen MD 12/03/2014 Office visit Jason Ez DO 07/11/2014 Office visit Jason Ez DO 04/15/2014 Hospital Oneal Madsen MD 2014 Procedures Ant Calvillo MD 12/24/2013 Office visit Jason Ez DO 11/06/2013 Office visit Ant Calvillo MD 10/30/2013 Procedures Ant Calvillo MD 08/18/2013 Hospital Oneal Madsen MD 08/05/2013 Office visit Jason Ez DO 04/30/2013 Office visit Jason Ez DO 03/20/2013 Office visit Jason Ez DO 11/08/2012 Office visit Jason Ez DO 09/25/2012 Office visit Jason Ez DO 09/19/2012 [facility] Oneal Madsen MD 06/26/2012 Office visit Venus Calle SUPERVISOR CHLORINE LIQUEFACTION 06/22/2012 [facility] Oneal Madsen MD 01/24/2012 Office visit Jason Ez DO 10/30/2011 [facility] Robinson Del Rosario MD 10/29/2011 [facility] Oneal Madsen MD 10/29/2011 [facility] Robinson Del Rosario MD 10/28/2011 [facility] Oneal Madsen MD 10/28/2011 Office visit Jason Ez DO 10/17/2011 Office visit Venus Calle SUPERVISOR CHLORINE LIQUEFACTION 07/19/2011 Office visit Jason Ez DO 07/06/2011 Office visit Venus Calle SUPERVISOR CHLORINE LIQUEFACTION 03/02/2011 Office visit Venus Calle SUPERVISOR CHLORINE LIQUEFACTION 02/14/2011 Office visit Jason Ez DO 12/01/2010 Office visit Jason Ez DO 11/27/2010 [facility] Gabriele Lim MD 11/26/2010 [facility] Gabriele Lim MD 11/25/2010 [facility] Gabriele Lim MD 11/25/2010 Hospital Oneal Madsen MD 11/22/2010 Office visit Jason Ez DO 10/05/2010 Office visit Jason Ez DO 02/08/2010 Office visit Ant Toscano PA-C 01/21/2010 Office visit Jason Ez DO 12/04/2009 Laboratory Hilario Padron MD 12/04/2009 Laboratory Hilario Padron MD 10/29/2009 Office visit Jason Ez DO
--- OUTSIDE RECORDS SUMMARY | 2017-10-13 12:48 | XMS REPORT ---
Author Jason Taylor [facility] Address [address] [address] [facility] [address] [place], [place] [phone] Care Team Providers Care Psychiatric Social Worker Name Role Phone Jason Hui PCP Unavailable Jason Hui PreferredProvider Unavailable Allergies and Adverse Reactions Name Reaction Notes Phenergan Plan of Treatment Planned Activity Comments Planned Date Planned Time Plan/Goal Uncontrolled Diabetes and Thyroid Nodules Medications Active Name Start Date Estimated Completion Date SIG Comments Pen Needle 31 gauge x /" miscellaneous needle 02/27/2014 USES 3 INJECTIONS A [...] syringe-needle U-100 1 mL 31 gauge x 16 miscellaneous syringe 201111/22/2011 USE DIRECTED FOUR TIMES DAILY Levemir 100 unit/mL subcutaneous solution 11/02/2011 11/14/2011 inject 45 units by subcutaneous route twice daily "using pen" Augmentin 500-125 mg oral tablet 06/26/2012 07/03/2012 take 1 tablet by oral route every 12 hours for 7 days Pen Needle 31 gauge x 16" miscellaneous needle 09/17/2012 09/17/2012 Uses 3 injections [...] 12/08/2015 12:00 AM Decadron, Per [address] [facility]# [address]-25 Reviewed 12/08/2015 12:00 AM Depo-Medrol, Per [address] [facility]#[id number] Reviewed 05/09/2016 12:00 AM PNEUMOCOCCAL VACC 13 HARDY IM Reviewed 10/17/2011 12:00 AM COMPLETE CBC W/AUTO DIFF WBC Reviewed 10/17/2011 12:00 AM PROTHROMBIN TIME Reviewed 10/17/2011 12:00 AM ASSAY OF BLOOD/URIC ACID Reviewed 10/18/2011 12:00 AM RBC SED RATE AUTOMATED Reviewed 10/18/2011 12:00 AM GLYCOSYLATED HEMOGLOBIN TEST Reviewed 06/09/2017 12:00 AM METABOLIC PANEL TOTAL CA Reviewed 05/22/2017 12:00 AM Rocephin 500 Mg [...] AA 102 eGFR >60 mL/min/1.73meGFR AA* >60 06/13/2017 7:37 AM GLUCOSE 172.0 mg/dLSODIUM 142.0 mmol/LPOTASSIUM 3.70 mmol/ LCHLORIDE 108.0 mmol/LCO2 26.0 mmol/LBUN 16.0 mg/dLCREATININE 0.90 mg/dLCALCIUM 9.20 mg/dLAGE 67 GFR NonAA 63 GFR AA 76 eGFR >60 mL/min/1.73meGFR AA* >60 History Of Immunizations Name Date Admin Mfg Name Mfg Code Trade Name Lot# Route Inj Vis Given Vis Pub CVX Pneumococcal 05/09/2016 Allen WAL Prevnar 13 [id number] Intramuscular Left Deltoid 05/09/2016 05/28/2015 133 History [...] 2017 10:43AM Hypokalemia May 26 2017 11:41AM Cellulitis of left lower extremity May 22 2017 10:43AM Payers Insurance Name Company Name Plan Name Plan Number Policy Number Policy Group Number Start Date [employer] [place] [id number] Tuesday, 2015 [employer] [place] [id number] October [facility] PMRV PHYS/DS [id number] N/A History of Encounters Visit Date Visit [...] Madsen MD 06/26/2012 Office visit Venus Calle JUNIOR NETWORK ADMINISTRATOR 06/22/2012 Hospital Oneal Madsen MD 01/24/2012 Office visit Jason Hui DO 10/30/2011 [facility] Robnison Del Rosario MD 10/29/2011 [facility] Oneal Madsen MD 10/29/2011 [facility] Robinson Del Rosario MD 10/28/2011 Hospital Oneal Madsen MD 10/28/2011 Office visit Jason Hui DO 10/17/2011 Office visit Venus Calle JUNIOR NETWORK ADMINISTRATOR 07/19/2011 Office visit Jason Hui DO 07/06/2011 Office visit Venus Calle JUNIOR NETWORK ADMINISTRATOR 03/02/2011 Office visit Venus Calle JUNIOR NETWORK ADMINISTRATOR 02/14/2011 Office visit Jason Hui DO 12/01/2010 [...]
--- OUTSIDE RECORDS SUMMARY | 2017-10-13 12:49 | XMS REPORT ---
Author Jason Taylor [facility] Address [address] [place], [place] [phone] Care Team Providers Care Band Sewer Name Role Phone Jason Hui PCP Unavailable [...] (400 mg) by oral route once daily Name Start Date Expiration Date SIG Comments [...] syringe-needle U-100 1 mL 31 gauge x 12/06 miscellaneous syringe 201111/22/2011 USE DIRECTED FOUR TIMES DAILY Levemir 100 unit/mL subcutaneous solution 11/02/2011 11/14/2011 inject 45 units by subcutaneous route twice daily "using pen" Augmentin 500-125 mg oral tablet 06/26/2012 07/03/2012 take 1 tablet by oral route every 12 hours for 7 days Pen Needle 31 gauge x 10/06" miscellaneous needle 09/17/2012 09/17/2012 Uses 3 injections [...] HC BMI BSA BMI Percentile O2 Sat(%) 05/09/2016 9:17:00 AM 138 mmHg 70 mmHg 83 bpm 20 rpm 97.7 F 160 lbs 61 in 30.23 kg/m2 1.77 m2 99 % 12/08/2015 1:34:00 PM 132 mmHg 60 mmHg 87 bpm 22 rpm 99 F 152 lbs 61 in 28.7199 kg/m 1.7226 m 99 % 06/25/2015 10:17:00 AM 138 mmHg [...] 12/08/2015 12:00 AM Decadron, Per 1 Mg [facility]# [id number] Reviewed 12/08/2015 12:00 AM Depo-Medrol, Per 80 Mg [facility]#[id number] Reviewed 05/09/2016 12:00 AM PNEUMOCOCCAL VACC 13 [...] BILI 0.40 mg/dLCALCIUM 9.10 mg/dLeGFR >60 mL/min/1.73 [id number] UR 57.20 mg/dLMICROALBUMIN UR 19.0 ug/mLALB:CREAT RATIO [...] 9.30 mg/dLeGFR >60 mL/min/1.73m History Of Immunizations Name Date Admin Mfg Name Mfg Code Trade Name Lot# Route Inj Vis Given Vis Pub CVX Pneumococcal 05/09/2016 Allen WAL Prevnar 13 [id number] Intramuscular Left Deltoid 05/09/2016 05/28/2015 133 History [...] Mellitus, Type II May 09 2016 9:19AM Payers Insurance Name Company Name Plan Name Plan Number Policy Number Policy Group Number Start Date [employer] [place] [id number] Tuesday, 2015 [employer] [place] [id number] October [facility] PMRV PHYS/DS [id number] N/A History of Encounters Visit Date Visit Type Provider 05/09/2016 Office visit Jason Hui DO 12/08/2015 [...] Madsen MD 06/26/2012 Office visit Venus Calle NUCLEAR WASTE MANAGEMENT ENGINEER 06/22/2012 Hospital Oneal Madsen MD 01/24/2012 Office visit Jason Hui DO 10/30/2011 [facility] Robinson Del Rosario MD 10/29/2011 [facility] Oneal Madsen MD 10/29/2011 [facility] Robinson Del Rosario MD 10/28/2011 [facility] Oneal Madsen MD 10/28/2011 Office visit Jason Hui DO 10/17/2011 Office visit Venus Calle NUCLEAR WASTE MANAGEMENT ENGINEER 07/19/2011 Office visit Jason Hui DO 07/06/2011 Office visit Venus Calle NUCLEAR WASTE MANAGEMENT ENGINEER 03/02/2011 Office visit Venus Calle NUCLEAR WASTE MANAGEMENT ENGINEER 02/14/2011 Office visit Jason Hui DO 12/01/2010 Office visit Jason Hui DO 11/27/2010 [facility] Gabriele Lim MD 11/26/2010 [facility] Gabriele Lim MD 11/25/2010 [facility] Gabriele Lim MD 11/25/2010 [facility] Oneal Madsen MD 11/22/2010 Office visit Jason Hui DO 10/05/2010 Office visit Jason Hui DO 02/08/2010 Office visit Ant Toscano PA-C 01/21/2010 Office visit Jason Hui DO 12/04/2009 Laboratory Hilario Padron MD 12/04/2009 Laboratory Hilario Padron MD 10/29/2009 Office visit Jason Hui DO
[2017-10-13 12:50] VITALS: BP 162/70
--- OUTSIDE RECORDS SUMMARY | 2017-10-13 12:50 | XMS REPORT ---
Author Jason Taylor [facility] Address [address] [place], [place] [phone] Care Team Providers Care Screen Printing Machine Operator Helper Name Role Phone Jason Hui PCP Unavailable Jason Hui PreferredProvider Unavailable Allergies and Adverse Reactions Name Reaction Notes Phenergan Plan of Treatment Planned Activity Comments Planned Date Planned Time Plan/Goal Uncontrolled Diabetes and Thyroid Nodules [facility] 06/09/2017 12:00 AM Medications Active Name Start [...] 12/08/2015 12:00 AM Decadron, Per 1 Mg [facility]# [id number] Reviewed 12/08/2015 12:00 AM Depo-Medrol, Per 80 Mg [facility]#[id number] Reviewed 05/09/2016 12:00 AM PNEUMOCOCCAL VACC 13 [...] Vis Given Vis Pub CVX Pneumococcal 05/09/2016 Qnefz-Fsdbtg-BirqzigMagdalena [facility] Prevnar 13 [id number] Intramuscular Left Deltoid 05/09/2016 05/28/2015 133 History [...] Group Number Start Date [employer] [place] [id number] Tuesday, 2015 [employer] [place] [id number] October [facility] PMRV PHYS/DS [id number] N/A History of Encounters Visit Date Visit Type Provider 05/22/2017 Office visit Jason Hui DO 05/09/2016 Office visit Jason Hui DO 12/08/2015 Office visit Jason Hui DO 06/25/2015 Office visit Jason Hui DO 12/05/2014 [facility] Oneal Madsen MD 12/03/2014 Office visit Jason [...] 10/30/2011 Hospital Robinson Del Rosario MD 10/29/2011 [facility] Oneal Madsen MD 10/29/2011 [facility] Robinson Del Rosario MD 10/28/2011 [facility] Oneal Madsen MD 10/28/2011 Office visit Jason Hui DO 10/17/2011 Office visit Venus Calle DRY MOLDER 07/19/2011 Office visit Jason Hui DO 07/06/2011 Office visit Venus Calle DRY MOLDER 03/02/2011 Office visit Venus Calle DRY MOLDER 02/14/2011 Office visit Jason Hui DO 12/01/2010 Office visit Jason Hui DO 11/27/2010 [facility] Gabriele Lim MD 11/26/2010 [facility] Gabriele Lim MD 11/25/2010 [facility] Gabriele Lim MD 11/25/2010 [facility] Oneal Madsen MD 11/22/2010 Office visit Jason Hui DO 10/05/2010 Office visit Jason Hui DO 02/08/2010 Office visit Ant Toscano PA-C 01/21/2010 Office visit Jason Hui DO 12/04/2009 Laboratory Hilario Padron MD 12/04/2009 Laboratory Hilario Padron MD 10/29/2009 Office visit Jason Hui DO
--- OUTSIDE RECORDS SUMMARY | 2017-10-13 12:51 | XMS REPORT ---
Author Jason Taylor [facility] Address [address] [place], [place] [phone] Care Team Providers Care Willower Name Role Phone Jason Hui PCP Unavailable Jason Hui PreferredProvider Unavailable Allergies and Adverse Reactions Name Reaction Notes Phenergan Plan of Treatment Planned Activity Comments Planned Date Planned Time Plan/Goal Uncontrolled Diabetes and Thyroid Nodules [facility] 06/09/2017 12:00 AM Medications Active Name [...] 12/08/2015 12:00 AM Decadron, Per 1 Mg [facility]# [address]-15 Reviewed 12/08/2015 12:00 AM Depo-Medrol, Per 80 Mg [facility]#[address]-84 Reviewed 05/09/2016 12:00 AM PNEUMOCOCCAL VACC 13 [...] Vis Given Vis Pub CVX Pneumococcal 05/09/2016 Ctdif-Abdofs-AvxkzauMagdalena [facility] Prevnar 13 [id number] Intramuscular Left Deltoid 05/09/2016 05/28/2015 133 History [...] Group Number Start Date [employer] [place] [id number] Tuesday, 2015 [employer] [place] [id number] October [facility] PMRV PHYS/DS [id number] N/A History of Encounters Visit Date Visit [...] 10/29/2011 Hospital Robinson Del Rosario MD 10/28/2011 [facility] Oneal Madsen MD 10/28/2011 Office visit Jason Hui DO 10/17/2011 Office visit Venus Luc TRAIN CONTROLLER 07/19/2011 Office visit Jason Hui DO 07/06/2011 Office visit Venus Luc TRAIN CONTROLLER 03/02/2011 Office visit Venus Luc TRAIN CONTROLLER 02/14/2011 Office visit Jason Hui DO 12/01/2010 Office visit Jason Hui DO 11/27/2010 Hospital Gabriele Lim MD 11/26/2010 [facility] Gabriele Lim MD 11/25/2010 [facility] Gabriele Lim MD 11/25/2010 [facility] Oneal Madsen MD 11/22/2010 Office visit Jason Hui DO 10/05/2010 Office visit Jason Hui DO 02/08/2010 Office visit Ant Toscano PA-C 01/21/2010 Office visit Jason Hui DO 12/04/2009 Laboratory Hilario Padron MD 12/04/2009 Laboratory Hilario Padron MD 10/29/2009 Office visit Jason Hui DO
--- OUTSIDE RECORDS SUMMARY | 2017-10-13 12:52 | XMS REPORT | CCD ---
Author Author BRAYAN PATTERSON Organization Unknown Address [address] [place] [phone] Care Team Providers Care Wool Puller Name Role Phone EVELYN HOSPITALISTGIOVANNI MD Attphys HUY SEWELL DO Prisurg Vital Signs Vital Sign Value Unit Date/Time Recent/Initial? Weight Measured 151.1 lbs 11/13/2014 16:55 Initial VS Height 61 in 11/13/2014 16:55 Initial VS BMI (Body Mass Index) 28.55 kg/m^2 11/13/2014 16:55 Initial VS BSA (Body Surface Area) 1.72 m^2 11/13/2014 16:55 Initial VS Body Temperature 100.7 degrees 11/13/2014 16:55 Initial VS BP Systolic 120 mmHg 11/13/2014 16:56 Initial VS BP Diastolic 75 mmHg 11/13/2014 16:56 Initial VS Respiratory Rate 22 bpm 11/13/2014 16:57 Initial VS Heart Rate 154 bpm 11/13/2014 16:57 Initial VS O2 % BldC Oximetry 97 % 11/13/2014 16:57 Initial VS Body Temperature 100 degrees 11/13/2014 21:48 Most Recent VS BP Systolic 110 mmHg 11/13/2014 22:16 Most Recent VS BP Diastolic 58 mmHg 11/13/2014 22:16 Most Recent VS Respiratory Rate 29 bpm 11/13/2014 22:18 Most Recent VS Heart Rate 89 bpm 11/13/2014 22:18 Most Recent VS O2 % BldC Oximetry 97 % 11/13/2014 22:18 Most Recent VS Allergies Allergy Code Allergy Type Reaction Status PHENERGAN 200439 Drug allergy BREATHING PROBLEMS Active ETOMIDATE 4177 Drug allergy LARYNGOSPASM, VENTRICULAR ARRHYTHMIA Active Procedures Procedure Code Procedure Type Date ATRIAL CARDIOVERSION 9961 ICD-9 CM, Volume 3 11/13/2014 US ECHO 2D COMP WITH DOPP AND COLOR 84168069 SNOMED CT LOCM 300-349 MG/ML, PER ML 449831271 SNOMED CT 11/13/2014 CT CHEST W/CONTRAST 77366901 SNOMED CT 11/13/2014 CX CHEST [address] 11/13/2014 ^SENSITIVITY 663709834 SNOMED CT 11/13/2014 BEDSIDE GLUCOSE 97567334 SNOMED [address] 11/13/[address] 11/13/2014 TROPONIN-I ADV 503221811 SNOMED CT 11/13/2014 CULTURE NASAL 223951549 SNOMED [address] 11/13/[address] 11/13/[address] 11/13/[address] 11/13/2014 ^CBC W/AUTO DIFF 7835135 SNOMED CT 11/13/2014 TROPONIN-I ADV 503362681 SNOMED CT 11/13/2014 URINALYSIS C&S IF IND 671188203 SNOMED CT 11/13/2014 C REACTIVE PROTEIN 08235401 SNOMED CT 11/13/2014 INFLUENZA A & B 953205082 SNOMED CT 11/13/2014 COMPREHENSIVE METABOLIC PANEL 878834704 SNOMED CT 2014 CBC W/ AUTO DIFF (RFLX MAN DIFF IF IND) 2305405 SNOMED CT 11/13/2014 TECH ASSIST HOURLY 290018909 SNOMED CT 11/13/2014 BAN AERO ECLIPSE TREATMENT #[address] 2014 BAN AERO ECLIPSE TREATMENT 51257807 SNOM[address] CT 11/13/2014 BAN AERO ECLIPSE TREATMENT 77893913 SNOMED CT 11/13/2014 BAN AERO ECLIPSE TREATMENT 31264201 SNOMED CT 11/13/2014 OXYGEN/HOUR 183050044 SNOMED CT 11/13/2014 History of Immunizations Immunization Code Date pneumococcal, unspecified formulation 109 06/25/2012 Influenza, seasonal, injectable 141 05/10/2012 Problems Problem Code Start Date Resolved Date Status ATRIAL FIBRILLATION WITH RAPID VENTRICULAR RESPONSE 438404869 Active Results BEDSIDE GLUCOSE - Collect Date/Time: 11/13/2014 21:28 Test Name Code Test Result Test Units Test Ref Range GLUCOSE POCT 360 MG/DL L=70 H=100 COMPREHENSIVE METABOLIC PANEL - Collect Date/Time: 11/13/2014 13:10 Test Name Code Test Result Test Units Test Ref Range GLUCOSE 2345-7 292 MG/DL L=70 H=100 SODIUM 2951-2 139 MEQ/L L=135 H=148 POTASSIUM 2823-3 3.7 MEQ/L L=3.5 H=5.3 CHLORIDE 2075-0 105 MEQ/L L=96 H=110 CO2 2028-9 19 MEQ/L L=22 H=29 BUN 3094-0 5 MG/DL L=8 H=22 CREATININE 2160-0 0.7 MG/DL L=0.6 H=1.6 SGOT/AST 1920-8 13 IU/L L=10 H=40 SGPT/ALT 1742-6 6 IU/L L=8 H=54 ALK PHOS 6768-6 72 IU/L L=35 H=115 TOTAL PROTEIN 2885-2 7.3 G/DL L=5.5 H=8.5 ALBUMIN 1751-7 4.4 G/DL L=3.1 H=5.4 TOTAL BILI 1975-2 1.6 MG/DL L=0.0 H=1.5 CALCIUM 11929-8 9.2 MG/DL L=8.2 H=10.6 AGE 64 yrs GFR NonAA 85 GFR AA 103 eGFR >60 N/A eGFR AA* >60 N/A CBC W/ AUTO DIFF (RFLX MAN DIFF IF IND) - Collect Date/Time: 11/13/2014 13:10 Test Name Code Test Result Test Units Test Ref Range WBC 17501-9 8.0 TH/CMM L=4.5 H=10.8 RBC 789-8 4.52 ML/CMM L=4.20 H=5.40 HGB 718-7 13.4 G/DL L=12.0 H=16.0 HCT 4544-3 40.0 % L=37.0 H=47.0 MCV 89 FL L=81 H=99 MCH 29.6 PG L=27.0 H=33.0 MCHC 33.5 G/DL L=31.0 H=36.0 RDW SD 44 FL L=36 H=50 RDW CV 13.6 % L=0.0 H=14.8 MPV 10.1 FL L=9.3 H=12.5 PLT 777-3 123 TH/CMM L=130 H=440 NRBC# 0.00 TH/CMM L=0.00 H=0.00 NRBC% 0.0 /100WBC L=0.0 H=2.0 %NEUT 80.6 % %LYMP 14.6 % %MONO 4.4 % %EOS 0.3 % %BASO 0.1 % #NEUT 6.41 TH/CMM L=2.10 H=8.20 #LYMP 1.16 TH/CMM L=0.90 H=5.20 #MONO 0.35 TH/CMM L=0.16 H=1.00 #EOS 0.02 TH/CMM L=0.00 H=0.80 #BASO 0.01 TH/CMM L=0.00 H=0.20 MANUAL DIFF NOT IND N/A INFLUENZA A & B - Collect Date/Time: 11/13/2014 13:10 Test Name Code Test Result Test Units Test Ref Range INFLUENZA A & B 6437-8 NO INFLUENZA A OR B DETECTED N/A RSV - Collect Date/Time: 11/13/2014 13:10 Test Name Code Test Result Test Units Test Ref Range RSV 5876-8 NEGATIVE N/A NL: NEGATIVE C REACTIVE PROTEIN - Collect Date/Time: 11/13/2014 13:10 Test Name Code Test Result Test Units Test Ref Range C REACTIVE PROTEIN 1988-5 2.6 MG/DL L=0.0 H= 1.0 TROPONIN-I ADV - Collect Date/Time: 11/13/2014 20:40 Test Name Code Test Result Test Units [place] [address]-1 <0.04 ng/mL L=0.04 H= 0.40 TROPONIN-I ADV - Collect Date/Time: 11/13/2014 13:45 Test Name Code Test Result Test Units [place] [address]-2 <0.04 ng/mL L=0.04 H= 0.40 TSH - Collect Date/Time: 11/13/2014 13:10 Test Name Code Test Result Test Units Test Ref Range TSH 55092-8 0.60 mIU/L L=0.35 H=4.94 MAGNESIUM - Collect Date/Time: 11/13/2014 20:40 Test Name Code Test Result Test Units Test Ref Range MAGNESIUM 51375-2 2.2 MG/DL L=1.7 H=2.8 MAGNESIUM - Collect Date/Time: 11/13/2014 13:10 Test Name Code Test Result Test Units Test Ref Range MAGNESIUM 88070-1 1.4 MG/DL L=1.7 H=2.8 URINALYSIS C&S IF IND - Collect Date/Time: 11/13/2014 13:30 Test Name Code Test Result Test Units Test Ref Range COLOR YELLOW N/A NL: YELLOW APPEARANCE CLEAR N/A NL: CLEAR SPEC GRAV 1.025 N/A NL: 1.002 - 1.022 pH 5.5 N/A NL: 5 - 9 PROTEIN TRACE N/A NL: NEGATIVE mg/dl GLUCOSE 500 N/A NL: NEGATIVE mg/dl KETONE >=80 N/A NL: NEGATIVE mg/dl BILIRUBIN NEGATIVE N/A NL: NEGATIVE BLOOD SMALL N/A NL: NEGATIVE NITRITE NEGATIVE N/A NL: NEGATIVE LEUK SCREEN NEGATIVE N/A NL: NEGATIVE WBC/HPF RARE N/A NL: NEGATIVE RBC/HPF 0-5 N/A NL: NEGATIVE CASTS/LPF NEGATIVE N/A NL: NEGATIVE CRYSTALS NEGATIVE N/A NL: NEGATIVE MUCOUS THRDS 1+ N/A NL: NEGATIVE BACTERIA FEW N/A NL: NEGATIVE EPITH CELLS FEW SQUAMOUS N/A NL: NEGATIVE TRICHOMONAS NEGATIVE N/A NL: NEGATIVE YEAST NEGATIVE N/A NL: NEGATIVE CULT SET UP? NO N/A Active Medications Unknown or Not Available. Medications Administered During Visit Medication Dose Units Frequency Route Date/ Time of Last Dose NS 1000 ML IV [PREDEFINED] (7983) X1 IV 11/13/2014 17:35 METOPROLOL [LOPRESSOR] INJ: 5MG/5ML VIAL 5 MG X1 IVP 11/13/2014 18:06 DUONEB [IPRATROPIUM/ALBUTEROL] 0.5/3 MG 1 UD QID (RT ONLY ) INHALE 11/13/2014 19:43 BUDESONIDE [PULMICORT] RESP 0.5MG/2ML 1 DOSE Q 12 HRS (RT ONLY) INHALE 11/13/2014 19:43 ONDANSETRON [ZOFRAN] INJ 4 MG/2 ML VIAL 4 MG PRN Q 6 HRS SIVP 11/13/2014 20:29 ROCEPHIN IV [PREDEFINED]: 1GM IV Q 12 HR Q12H IVPB 11/13/2014 20:24 ZITHROMAX 500MG ADV IV [PREDEFINED] Q24H IVPB 11/13/2014 20:54 MAGNESIUM SULFATE : 1GM/2ML 2 GM X1 IVP 18:21 ETOMIDATE 2 MG PER 1 Ml 10 mL Vial 14 MG X1 IVP 11/13/2014 18:40 METOPROLOL [LOPRESSOR] INJ: 5MG/5ML VIAL 5 MG X1 IVP 11/13/2014 18:34 NS + KCL 20MEQ 1000ML IV [PREDEFINED] CONT IV IV 11/13/2014 20:29 MORPHINE INJ: 2MG/ML 1 ML SYRINGE 2 MG X1 IVP 11/13/2014 20:59 FUROSEMIDE (LASIX): 40 MG/4 ML VIAL 40 MG X1 IVP 11/13/2014 21:12 MORPHINE INJ: 2MG/ML 1 ML SYRINGE 2 MG X1 IVP 11/13/2014 21:12 METOPROLOL [LOPRESSOR] INJ: 5MG/5ML VIAL 2.5 MG X1 IVP 11/13/2014 21:28 ONDANSETRON [ZOFRAN] INJ 4 MG/2 ML VIAL 4 MG X1 SIVP 11/13/2014 21:45 INSULIN [NOVOLOG] 100UNITS/ML (SQ) 10ML 8 EA X1 SUB Q 11/13/2014 21:53 ONDANSETRON [ZOFRAN] INJ 4 MG/2 ML VIAL 4 MG X1 SIVP 11/13/2014 22:37 Encounters Encounter Diagnosis Diagnosis Code Start Date ATRIAL FIBRILLATION 35736 11/13/2014 Social History Smoking Status Code Start Date End Date Never smoker [id number] Patient Decision Aids Unknown or Not Available. Discharge Instructions You were admitted to [facility] on 11/13/2014 with a principal diagnosis of ATRIAL FIBRILLATION. You had the following procedures done: ATRIAL CARDIOVERSION You were discharged from [facility] on 11/13/2014. Should you have any questions prior to discharge, please contact a member of your healthcare team. If you have left the hospital and have any questions, please contact your primary care physician. CHIEF COMPLAINT: SORE THROAT STARTED YESTERDAY, DURING LAST NIGHT STARTED COUGHING, APPROX [id number] THIS AM PT WOKE SHORT OF BREATH, WITH FAST HR. WAITED TO SEE IF SHE CONVERTED ON HER OWN AT HOME, CAME IN TO ER THIS AFTERNOON Chief Complaint and Reason For Visit Chief Complaint Date of Onset atrial flutter Function Status Unknown or Not Available. Plan of Care Unknown or Not Available. Referral/Transition of Care Unknown or Not Available.
--- OUTSIDE RECORDS SUMMARY | 2017-10-13 12:53 | XMS REPORT ---
Author Jason Taylor [facility] Address [address] [place], [place] [phone] Care Team Providers Care Solar Project Coordination Specialist Name Role Phone Jason Hui PCP Unavailable Jason Hui PreferredProvider Unavailable Allergies and Adverse Reactions Name Reaction Notes Phenergan Plan of Treatment Planned Activity Comments Planned Date Planned Time Plan/Goal Uncontrolled Diabetes and Thyroid Nodules [facility] 06/09/2017 12:00 AM Medications Active [...] 12:00 AM Decadron, Per 1 Mg [facility]# [address]-07 Reviewed 12/08/2015 12:00 AM Depo-Medrol, Per 80 Mg [facility]#[address]-10 Reviewed 05/09/2016 12:00 AM PNEUMOCOCCAL VACC 13 [...] Vis Given Vis Pub CVX Pneumococcal 05/09/2016 Ojfbm-Vvectc-QbcrhicMagdalena [facility] Prevnar 13 [id number] Intramuscular Left Deltoid 05/09/2016 05/28/2015 133 History [...] Number Start Date [employer] [place] [id number] Tuesday, 2015 [employer] [place] [id number] October [facility] PMRV PHYS/DS [id number] N/A History of Encounters Visit Date Visit Type Provider 05/22/2017 Office visit Jason Hui DO 05/09/2016 Office visit Jason Hui DO 12/08/2015 Office visit Jason Hui DO 06/25/2015 Office visit Jason Hui DO 12/05/2014 [facility] Oneal Madsen MD 12/03/2014 Office visit [...] 10/30/2011 Hospital Robinson Del Rosario MD 10/29/2011 [facility] Oneal Madsen MD 10/29/2011 [facility] Robinson Del Rosario MD 10/28/2011 [facility] Oneal Madsen MD 10/28/2011 Office visit Jason Hui DO 10/17/2011 Office visit Venus Calle AUTOMATIC BANDSAW TENDER 07/19/2011 Office visit Jason Hui DO 07/06/2011 Office visit Venus Calle AUTOMATIC BANDSAW TENDER 03/02/2011 Office visit Venus Calle AUTOMATIC BANDSAW TENDER 02/14/2011 Office visit Jason Hui DO 12/01/2010 Office visit Jason Hui DO 11/27/2010 [facility] Gabriele Lim MD 11/26/2010 [facility] Gabriele Lim MD 11/25/2010 [facility] Gabriele Lim MD 11/25/2010 [facility] Oneal Madsen MD 11/22/2010 Office visit Jason Hui DO 10/05/2010 Office visit Jason Hui DO 02/08/2010 Office visit Ant Toscano PA-C 01/21/2010 Office visit Jason Hui DO 12/04/2009 Laboratory Hilario Padron MD 12/04/2009 Laboratory Hilario Padron MD 10/29/2009 Office visit Jason Hui DO
--- OUTSIDE RECORDS SUMMARY | 2017-10-13 12:54 | XMS REPORT ---
Author Jason Taylor [facility] Address [address] [place], [place] [id number] Care Team Providers Care Med Admin Name Role Phone Jason Hui PCP Unavailable [...] per day with morning and evening meals Novolog Flexpen 100 unit/mL subcutaneous insulin pen [...] route every 12 hours for 7 days Name Start Date Expiration Date SIG [...] BILI 0.40 mg/dLCALCIUM 9.10 mg/dLeGFR >60 mL/min/1.73 [id number] UR 57.20 mg/dLMICROALBUMIN UR 19.0 ug/mLALB:CREAT RATIO [...] Group Number Start Date [employer] [place] [id number] Tuesday, 2015 [employer] [place] [id number] October [facility] PMRV PHYS/DS [id number] N/A History of Encounters Visit Date Visit [...] 09/25/2012 Office visit Jason Hui DO 09/19/2012 [facility] Oneal Madsen MD 06/26/2012 Office visit Venus Calle EVENT ATTENDANT 06/22/2012 Hospital Oneal Madsen MD 01/24/2012 Office visit Jason Hui DO 10/30/2011 [facility] Robinson Del Rosario MD 10/29/2011 [facility] Oneal Madsen MD 10/29/2011 [facility] Robinson Del Rosario MD 10/28/2011 [facility] Oneal Madsen MD 10/28/2011 Office visit Jason Hui DO 10/17/2011 Office visit Venus Calle EVENT ATTENDANT 07/19/2011 Office visit Jason Hui DO 07/06/2011 Office visit Venus Calle EVENT ATTENDANT 03/02/2011 Office visit Venus Calle EVENT ATTENDANT 02/14/2011 Office visit Jason Hui DO 12/01/2010 Office visit Jason Hui DO 11/27/2010 [facility] Gabriele Lim MD 11/26/2010 [facility] [...]
--- OUTSIDE RECORDS SUMMARY | 2017-10-13 12:55 | XMS REPORT ---
Author Jason Taylor [facility] Address [address] [place], [place] [id number] Care Team Providers Care Quarry Supervisor Dimension Stone Name Role Phone Jason Hui PCP Unavailable [...] BILI 0.40 mg/dLCALCIUM 9.10 mg/dLeGFR >60 mL/min/1.73 [id number] UR 57.20 mg/dLMICROALBUMIN UR 19.0 ug/mLALB:CREAT RATIO [...] type 2, uncontrolled Jun 25 2015 10:19AM Payers Insurance Name Company Name Plan Name Plan Number Policy Number Policy Group Number Start Date [employer] [place] [id number] Tuesday, 2015 [employer] [place] [id number] October [facility] PMRV PHYS/DS [id number] N/A History of Encounters Visit Date Visit Type Provider 06/25/2015 Office visit Jason Hui DO 12/05/2014 [facility] Oneal Madsen MD 12/03/2014 Office visit Jason Hui DO 07/11/2014 Office visit Jason Hui DO 04/15/2014 Hospital Oneal Madsen MD 2014 Procedures Ant Calvillo MD 12/24/2013 Office visit Jason Hui DO 11/06/2013 Office visit Ant Calvillo MD 10/30/2013 Procedures Ant Calvillo MD 08/18/2013 [facility] Oneal Madsen MD 08/05/2013 Office visit Jason Hui DO 04/30/2013 Office visit Jason Hui DO 03/20/2013 Office visit Jason Hui DO 11/08/2012 Office visit Jason Hui DO 09/25/2012 Office visit Jason Hui DO 09/19/2012 [facility] Oneal Madsen MD 06/26/2012 Office visit Venus Calle KENNEL TECHNICIAN 06/22/2012 [facility] Oneal Madsen MD 01/24/2012 Office visit Jason Hui DO 10/30/2011 [facility] Robinson Del Rosario MD 10/29/2011 [facility] Oneal Madsen MD 10/29/2011 [facility] Robinson Del Rosario MD 10/28/2011 [facility] Oneal Madsen MD 10/28/2011 Office visit Jason Hui DO 10/17/2011 Office visit Venus Calle KENNEL TECHNICIAN 07/19/2011 Office visit Jason Hui DO 07/06/2011 Office visit Venus Calle KENNEL TECHNICIAN 03/02/2011 Office visit Venus Calle KENNEL TECHNICIAN 02/14/2011 Office visit Jason Hui DO 12/01/2010 Office visit Jason Hui DO 11/27/2010 Hospital Gabriele Lim MD 11/26/2010 [facility] [...]
--- OUTSIDE RECORDS SUMMARY | 2017-10-13 12:56 | XMS REPORT ---
Author Jason Taylor [facility] Address [address] [place], [place] [id number] Care Team Providers Care Cord Tire Builder Name Role Phone Jason Hui PCP Unavailable [...] BILI 0.40 mg/dLCALCIUM 9.10 mg/dLeGFR >60 mL/min/1.73 [id number] UR 57.20 mg/dLMICROALBUMIN UR 19.0 ug/mLALB:CREAT RATIO [...] Number Start Date [employer] [place] [id number] Tuesday, 2015 [employer] [place] [id number] October [facility] PMRV PHYS/DS [id number] N/A History of Encounters Visit Date Visit Type Provider 06/25/2015 Office visit Jason Hui DO 12/05/2014 [facility] Oneal Madsen MD 12/03/2014 Office visit Jason Hui DO 07/11/2014 Office visit Jason Hui DO 04/15/2014 Hospital Oneal Madsen MD 2014 Procedures Ant Calvillo MD 12/24/2013 Office visit Jason Hui DO 11/06/2013 Office visit Ant Calvillo MD 10/30/2013 Procedures Ant Calvillo MD 08/18/2013 [facility] Oenal Madsen MD 08/05/2013 Office visit Jason Hui DO 04/30/2013 Office visit Jason Hui DO 03/20/2013 Office visit Jason Hui DO 11/08/2012 Office visit Jason Hui DO 09/25/2012 Office visit Jason Hui DO 09/19/2012 [facility] Oneal Madsen MD 06/26/2012 Office visit Venus Calle METER SUPERVISOR 06/22/2012 [facility] Oneal Madsen MD 01/24/2012 Office visit Jason Hui DO 10/30/2011 [facility] Robinson Del Rosario MD 10/29/2011 [facility] Oneal Madsen MD 10/29/2011 [facility] Robinson Del Rosario MD 10/28/2011 [facility] Oneal Madsen MD 10/28/2011 Office visit Jason Hui DO 10/17/2011 Office visit Venus Calle METER SUPERVISOR 07/19/2011 Office visit Jason Hui DO 07/06/2011 Office visit Venus Calle METER SUPERVISOR 03/02/2011 Office visit Venus Calle METER SUPERVISOR 02/14/2011 Office visit Jason Hui DO 12/01/2010 Office visit Jason Hui DO 11/27/2010 Hospital Gabriele Lim MD 11/26/2010 [facility] Gbariele Lim MD 11/25/2010 [facility] Gabriele Lim MD 11/25/2010 [facility] Oneal Madsen MD 11/22/2010 Office visit Jason Hui DO 10/05/2010 Office visit Jason Hui DO 02/08/2010 Office visit Ant Toscano PA-C 01/21/2010 Office visit Jason Hui DO 12/04/2009 Laboratory Hilario Padron MD 12/04/2009 Laboratory Hilario Padron MD 10/29/2009 Office visit Jason Hui DO
== END 2017-10-13 12:50 ==
LOC: EDUNIT# 09:01 → ER 09:02 → UNDOADMOB 12:30 → 4TH 12:30 → ER 12:50
DX: S16.1XXA Strain of muscle, fascia and tendon at neck level, initial encounter (principal); S39.012A Strain of muscle, fascia and tendon of lower back, initial encounter; Z87.59 Personal history of other complications of pregnancy, childbirth and the puerperium; Z79.4 Long term (current) use of insulin; Z90.710 Acquired absence of both cervix and uterus; Z88.8 Allergy status to other drugs, medicaments and biological substances; V47.5XXA Car driver injured in collision with fixed or stationary object in traffic accident, initial encounter
CPT/HCPCS: 36415; 70450; 71045; 71260; 72125; 72128; 72131; 73030; 73523; 74177; 80053; 81000; 85025; 85610; 85730; 93005; 93041; 96360

== ENCOUNTER 2019-01-14 11:32 | Emergency (ER) | payer BC ==
[~2019-01-14] VITALS: Ht 154.9 cm; Wt 68.5 kg
[~2019-01-14 11:32] MED LIST changes: +CYCL5TAB PO
--- OUTSIDE RECORDS SUMMARY | 2019-01-14 11:37 | XMS REPORT | CCD ---
Author Author TIFFANIE SAMSON Unknown Address [address] [facility] [address] [place] [address] Care Team Providers Care Assisted Living Administrator Name Role Phone CORONA ER, ESTRELLA DO Attphys [place] ER, ESTRELLA DO Prisurg Allergies Allergy Code Allergy Type Reaction Status PHENERGAN 843015 Drug allergy BREATHING PROBLEMS Active ETOMIDATE 4170 Drug allergy LARYNGOSPASM, VENTRICULAR ARRHYTHMIA Active Active Medications Unknown or Not Available. Problems Problem Code Start Date Resolved Date Status ATRIAL FIBRILLATION WITH RAPID VENTRICULAR RESPONSE 937030002 09/19/2012 Active Procedures Procedure Code Procedure Type Date VENOUS UPP OR LOW EXT UNILATERAL 315186492 SNOMED CT 05/04/2017 C REACTIVE PROTEIN 18544040 SNOMED CT 05/04/2017 LACTIC ACID 6922017 SNOM[address] 05/04/2017 D DIMER QUANT 994401474 SNOMED CT 05/04/2017 COMPREHENSIVE METABOLIC PANEL 314959510 SNOMED CT 05/04/2017 CBC W/ AUTO DIFF (RFLX MAN DIFF IF IND) 0404539 SNOMED CT 05/04/2017 ^CBC W/AUTO DIFF 4561610 SNOMED CT 05/04/2017 Results COMPREHENSIVE METABOLIC PANEL - Collect Date/Time: 05/04/2017 10:35 Test Name Code Test Result Test Units Test Ref Range GLUCOSE 2345-7 146 MG/DL L=70 H=100 SODIUM 2951-2 143 MEQ/L L=135 H=148 POTASSIUM 2823-3 3.2 MEQ/L L=3.5 H=5.3 CHLORIDE 2075-0 107 MEQ/L L=96 H=110 CO2 2028-9 29 MEQ/L L=22 H=29 BUN 3094-0 10 MG/DL L=8 H=22 CREATININE 2160-0 0.7 MG/DL L=0.6 H=1.6 SGOT/AST 1920-8 17 IU/L L=10 H=40 SGPT/ALT 1742-6 6 IU/L L=8 H=54 ALK PHOS 6768-6 94 IU/L L=35 H=115 TOTAL PROTEIN 2885-2 7.8 G/DL L=5.5 H=8.5 ALBUMIN 1751-7 4.2 G/DL L=3.1 H=5.4 TOTAL BILI 1975-2 0.5 MG/DL L=0.0 H=1.5 CALCIUM 40565-0 9.4 MG/DL L=8.2 H=10.6 AGE 67 yrs GFR NonAA 84 GFR AA 102 eGFR >60 N/A eGFR AA* >60 N/A CBC W/ AUTO DIFF (RFLX MAN DIFF IF IND) - Collect Date/Time: 05/04/2017 10:35 Test Name Code Test Result Test Units Test Ref Range WBC 21547-8 6.1 TH/CMM L=4.5 H=10.8 RBC 789-8 4.21 ML/CMM L=4.20 H=5.40 HGB 718-7 12.6 G/DL L=12.0 H=16.0 HCT 4544-3 37.1 % L=37.0 H=47.0 MCV 88 FL L=81 H=99 MCH 29.9 PG L=27.0 H=33.0 MCHC 34.0 G/DL L=31.0 H=36.0 RDW SD 43 FL L=36 H=50 RDW CV 13.5 % L=0.0 H=14.8 MPV 9.0 FL L=9.3 H=12.5 PLT 777-3 191 TH/CMM L=130 H=440 NRBC# 0.00 TH/CMM L=0.00 H=0.00 NRBC% 0.0 /100WBC L=0.0 H=2.0 %NEUT 47.7 % %LYMP 42.0 % %MONO 6.9 % %EOS 2.8 % %BASO 0.3 % #NEUT 2.92 TH/CMM L=2.10 H=8.20 #LYMP 2.57 TH/CMM L=0.90 H=5.20 #MONO 0.42 TH/CMM L=0.16 H=1.00 #EOS 0.17 TH/CMM L=0.00 H=0.80 #BASO 0.02 TH/CMM L=0.00 H=0.20 MANUAL DIFF NOT IND N/A D DIMER QUANT - Collect Date/Time: 05/04/2017 10:35 Test Name Code Test Result Test Units Test Ref Range D-DIMER QUANT 58572-2 0.33 MG/L FEU L=0.00 H=0.50 PT/PTT - Collect Date/Time: 05/04/2017 10:35 Test Name Code Test Result Test Units Test Ref Range PROTIME 5964-2 10.8 SEC L=9.9 H=11.9 INR 00222-4 1.0 PTT 3173-2 25.6 SEC L=22.2 H=37.2 C REACTIVE PROTEIN - Collect Date/Time: 05/04/2017 10:35 Test Name Code Test Result Test Units Test Ref Range C REACTIVE PROTEIN 1988-5 <0.5 MG/DL L=0.0 H=1.0 LACTIC ACID - Collect Date/Time: 05/04/2017 10:35 Test Name Code Test Result Test Units Test Ref Range LACTIC ACID 2524-7 1.2 mmol/L L=0.5 H=1.6 Function Status Unknown or Not Available. History of Immunizations Immunization Code Date pneumococcal, unspecified formulation 109 06/25/2012 Pneumococcal conjugate PCV 13 133 05/09/2016 Influenza, seasonal, injectable 141 05/10/2012 Plan of Treatment Unknown or Not Available. Social History Smoking Status Code Start Date End Date Never smoker [id number] Vital Signs Unknown or Not Available. Function Status Unknown or Not Available. Goals Unknown or Not Available. ASSESSMENTS Unknown or Not Available. Health Concerns Section Unknown or Not Available.
--- OUTSIDE RECORDS SUMMARY | 2019-01-14 11:37 | XMS REPORT | Clinical Summary ---
Author Author [facility] Address Unknown Phone Unavailable Care Team Providers Care Reagent Tender Helper Name Role Phone Unverified, Unverified Md PCP Unavailable Jovana Young MD Unavailable Source Comments Some departments are not documenting in the electronic medical record. If you d o not see the information that you expected, contact Release of Information in [facility] Health Information Management department at [phone] for further assistan ce in locating additional records.[facility] Allergies Not on File Medications Not on file Active Problems Problem Noted Date Displacement of lumbar intervertebral disc without myelopathy 05/01/2008 Social History Date Tobacco Use Types Packs/Day Years Used Never Assessed Sex Assigned at Date Recorded Not on file Industry Job Start Date Occupation Not on file Not on file Not on file Travel End Travel History Travel Start No recent travel history available. Last Filed Vital Signs Not on file Plan of Treatment Health Maintenance Due Date Last Done Comments HEPATITIS C SCREENING 1951 PHYSICAL (COMPREHENSIVE) 1958 EXAM DTAP/TDAP VACCINES (1 - 1969 Tdap) BREAST CANCER SCREENING 1991 COLORECTAL CANCER 2001 SCREENING SHINGLES RECOMBINANT 2001 VACCINE (1 of 2) OSTEOPOROSIS 01/08/2016 SCREENING/MONITORING PNEUMONIA (PCV13/PPSV23) 01/08/2016 VACCINES (1 of 2 - PCV13) INFLUENZA VACCINE 04/23/2019 Results Not on filefrom Last 3 Months
--- OUTSIDE RECORDS SUMMARY | 2019-01-14 11:37 | XMS REPORT | Clinical Summary ---
Author Author [facility] Organization [facility] Address Unknown Phone Unavailable Care Team Providers Care President Sales And Marketing Name Role Phone PCP Unavailable Allergies Not on File Current Medications Not on file Active Problems Not on file Social History Tobacco Use Types Packs/Day Years Used Date Never Assessed Sex Assigned at Date Recorded Not on file Last Filed Vital Signs Not on file Plan of Treatment Not on file Results Not on filefrom Last 3 Months
--- OUTSIDE RECORDS SUMMARY | 2019-01-14 11:38 | XMS REPORT | CCD ---
Author Author TIFFANIE SAMSON Unknown Address [address] [facility] [address] [place] [address] Care Team Providers Care Silo Operator Name Role Phone JOEY RAGLAND MD Attphys 0 JOEY RAGLAND MD Prisurg 0 Allergies Allergy Code Allergy Type Reaction Status PHENERGAN 784990 Drug allergy BREATHING PROBLEMS Active ETOMIDATE 4177 Drug allergy LARYNGOSPASM, VENTRICULAR ARRHYTHMIA Active Active Medications Unknown or Not Available. Problems Problem Code Start Date Resolved Date Status ATRIAL FIBRILLATION WITH RAPID VENTRICULAR RESPONSE [id number] 09/19/2012 Active Procedures Procedure Code Procedure Type Date LACTIC ACID 1329789 SNOMED CT 05/21/2017 BASIC METABOLIC PANEL 551761936 SNOMED CT 05/21/2017 CBC W/ AUTO DIFF (RFLX MAN DIFF IF IND) 1162499 SNOMED CT 05/21/2017 ^CBC W/AUTO DIFF 6381310 SNOMED CT 05/21/2017 Results BASIC METABOLIC PANEL - Collect Date/Time: 05/21/2017 14:55 Test Name Code Test Result Test Units Test Ref Range GLUCOSE 2345-7 177 MG/DL L=70 H=100 SODIUM 2951-2 141 MEQ/L L=135 H=148 POTASSIUM 2823-3 2.9 MEQ/L L=3.5 H=5.3 CHLORIDE 2075-0 106 MEQ/L L=96 H=110 CO2 2028-9 23 MEQ/L L=22 H=29 BUN 3094-0 9 MG/DL L=8 H=22 CREATININE 2160-0 0.7 MG/DL L=0.6 H=1.6 CALCIUM 35123-7 9.2 MG/DL L=8.2 H=10.6 AGE 67 yrs GFR NonAA 84 GFR AA 102 eGFR >60 N/A eGFR AA* >60 N/A CBC W/ AUTO DIFF (RFLX MAN DIFF IF IND) - Collect Date/Time: 05/21/2017 14:55 Test Name Code Test Result Test Units Test Ref Range WBC 91587-0 8.8 TH/CMM L=4.5 H=10.8 RBC 789-8 4.02 ML/CMM L=4.20 H=5.40 HGB 718-7 12.0 G/DL L=12.0 H=16.0 HCT 4544-3 34.8 % L=37.0 H=47.0 MCV 87 FL L=81 H=99 MCH 29.9 PG L=27.0 H=33.0 MCHC 34.5 G/DL L=31.0 H=36.0 RDW SD 42 FL L=36 H=50 RDW CV 13.2 % L=0.0 H=14.8 MPV 9.3 FL L=9.3 H=12.5 PLT 777-3 162 TH/CMM L=130 H=440 NRBC# 0.00 TH/CMM L=0.00 H=0.00 NRBC% 0.0 /100WBC L=0.0 H=2.0 %NEUT 64.4 % %LYMP 27.6 % %MONO 6.9 % %EOS 0.6 % %BASO 0.2 % #NEUT 5.68 TH/CMM L=2.10 H=8.20 #LYMP 2.43 TH/CMM L=0.90 H=5.20 #MONO 0.61 TH/CMM L=0.16 H=1.00 #EOS 0.05 TH/CMM L=0.00 H=0.80 #BASO 0.02 TH/CMM L=0.00 H=0.20 MANUAL DIFF NOT IND N/A LACTIC ACID - Collect Date/Time: 05/21/2017 14:55 Test Name Code Test Result Test Units Test Ref Range LACTIC ACID 2524-7 2.5 mmol/L L=0.5 H=1.6 Function Status Unknown or Not Available. History of Immunizations Immunization Code Date pneumococcal, unspecified formulation 109 06/25/2012 Pneumococcal conjugate PCV 13 133 05/09/2016 Influenza, seasonal, injectable 141 05/10/2012 Plan of Treatment Unknown or Not Available. Social History Smoking Status Code Start Date End Date Never smoker [id number] Vital Signs Unknown or Not Available. Function Status Unknown or Not Available. Goals Unknown or Not Available. ASSESSMENTS Unknown or Not Available. Health Concerns Section Unknown or Not Available.
--- OUTSIDE RECORDS SUMMARY | 2019-01-14 11:39 | XMS REPORT ---
Author Jason Taylor [facility] Address [address] [facility] [address] [place], [place] [id number] Care Team Providers Care Climatologist Name Role Phone Jason uHi PCP Jason Hui PreferredProvider Allergies and Adverse Reactions Name Reaction Notes Phenergan etomidate "stopped heart" Plan of Treatment Planned Activity Comments Planned Date Planned Time Plan/Goal Uncontrolled Diabetes and Thyroid Nodules Medications Active Name Start Date Estimated Completion Date SIG Comments Novolog Flexpen 100 unit/mL subcutaneous insulin pen 09/11/2015 INJECT 14 UNITS SUBCUTANEOUSLY WITH BREAKFAST. LUNCH, AND SUPPER acetaminophen-codeine 300-30 mg oral tablet 12/08/2015 take 1 tablet by oral route every 4 hours as needed gabapentin 600 mg oral tablet 07/06/2018 12/28/2019 TAKE 1 TABLET BY MOUTH FOUR TIMES DAILY metformin 1,000 mg oral tablet 07/06/2018 07/01/2019 TAKE 1 TABLET BY MOUTH TWICE DAILY WITH MORNING AND EVENING MEALS for 90 days diltiazem HCl 120 mg oral capsule,extended release 24 hr take 1 capsule (120 mg) by oral route once daily pravastatin 20 mg oral tablet take 1 tablet (20 mg) by oral route once daily duloxetine 30 mg oral capsule,delayed release(DR/EC) take 2 capsules (60 mg) by oral route once daily amiodarone 400 mg oral tablet take 1 tablet (400 mg) by oral route once daily Toprol XL 50 mg oral tablet extended release 24 hr take 1 tablet (50 mg) by oral route once daily Lasix 40 mg oral tablet take 1 tablet (40 mg) by oral route once daily potassium chloride 10 mEq oral tablet extended release take 1 tablet (10 meq) by oral route once daily with food clindamycin HCl 300 mg oral capsule 12/27/2018 01/06/2019 take 1 capsule (300 mg) by oral route 2 times per day for 10 days Name Start Date Expiration Date SIG [...] route every 12 hours for 7 days Levemir 100 unit/mL subcutaneous solution 11/02/2011 11/14/2011 inject 45 units by subcutaneous route twice daily "using pen" Augmentin 500-125 mg oral tablet 06/26/2012 07/03/2012 take 1 tablet by oral route every 12 hours for 7 days cephalexin 500 mg oral tablet 11/08/2012 11/18/2012 take 1 tablet (500 mg) by oral route every 12 hours for 10 days Augmentin 500-125 mg oral tablet 03/20/2013 03/27/2013 take 1 tablet by oral route every 12 hours for 7 days Xarelto 20 mg oral tablet 06/25/2015 12/22/2015 take 1 tablet (20 mg) by oral route once daily with the evening meal for 30 days amoxicillin-pot clavulanate 500-125 mg oral tablet 08/31/2015 09/07/2015 take 1 tablet by oral route every 12 hours for 7 days Zostavax (PF) 19,400 unit/0.65 mL subcutaneous suspension [...] mg/5 mL oral solution 11/22/2010 11/08/2012 take 5-10 milliliters by oral [...] mg oral tablet extended release 12 hr 06/26/2012 09/25/2012 take 1 tablet by oral route every 12 hours naproxen 500 mg oral tablet 11/08/2012 07/11/2014 take 1 tablet (500 mg) by oral route 2 times per day with food "not taking now" Dulera 100-5 mcg/actuation inhalation HFA aerosol inhaler 04/30/2013 06/25/2015 inhale 2 puffs by inhalation route 2 times per day in the morning and evening flecainide 100 mg oral tablet 12/03/2014 take 1 tablet (100 mg) by oral route every 12 hours cyclobenzaprine 10 mg oral tablet 08/05/2013 07/11/2014 take 1 tablet (10 mg) by oral route at bedtime as needed Betapace 80 mg oral tablet 12/03/2014 take 1 tablet (80 mg) by oral route 2 times per day duloxetine 30 mg oral capsule,delayed release(DR/EC) 07/11/2014 06/25/2015 take 1 capsule (30 mg) [...] by oral route 2 times per day carvedilol 3.125 mg oral tablet 12/11/2018 take 1 tablet (3.125 mg) by oral route once daily Benicar 40 mg oral tablet 07/06/2018 take 1 tablet (40 mg) by oral route once daily tramadol 50 mg oral tablet 06/25/2015 07/06/2018 take 1 tablet (50 mg) by oral route every 6 hours as needed benzonatate 200 mg oral capsule 08/31/2015 05/09/2016 take 1 capsule (200 mg) by oral route 3 times per day as needed Levemir FlexTouch 100 unit/mL (3 mL) subcutaneous insulin pen 09/22/2015 05/09/2016 INJECT 43 UNITS BY SUBCUTANEOUS ROUTE TWICE A DAY has an insulin pump amiodarone 400 mg oral tablet 07/06/2018 take 1 tablet (400 mg) by oral route once daily dose change potassium chloride 10 mEq oral capsule, extended release 05/22/2017 07/06/2018 take 2 capsules (20 meq) by oral route once daily with food for 30 days amiodarone 400 mg oral tablet 12/11/2018 take 2 tablets by oral route once daily dose updated Problem List Description Status Onset Diabetes Mellitus, Type II Active 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# [address]-07 Reviewed 12/08/2015 12:00 AM Depo-Medrol, Per [address] [facility]#[address]-41 Reviewed 05/09/2016 12:00 AM PNEUMOCOCCAL VACC 13 [...] 12:00 AM CHEST X-RAY 2VW FRONTAL&LATL Reviewed 12/11/2018 12:00 AM COMPLETE CBC W/AUTO DIFF WBC Reviewed 12/11/2018 12:00 AM COMPREHEN METABOLIC PANEL Reviewed 08/05/2013 12:[address] HEAD/BRAIN W/O [...] AM TRIGLYCERIDES 666.0 mg/dLCHOLESTEROL 241.0 mg/dLHDL 34.0 mg/dLTOT CHOL/HDL 7.1 LDL (CALC) INVALID MG/DLGLYCOHEMOGLOBIN A1C 10.30 %GLUCOSE 336.0 mg/dLSODIUM 138.0 mmol/LPOTASSIUM 3.40 mmol/LCHLORIDE 102.0 mmol/LCO2 22.0 mmol/LBUN 8.0 mg/dLCREATININE 0.70 mg/dLSGOT/AST 15.0 IU/LSGPT/ALT 7.0 IU/LALK PHOS 93.0 IU/LTOTAL PROTEIN 7.30 g/dLALBUMIN 3.90 g/dLTOTAL BILI 0.40 mg/dLCALCIUM 9.10 mg/dLAGE 60 GFR NonAA 86 GFR AA 104 eGFR >60 mL/min/1.73 m2eGFR AA* >60 CREAT UR 57.20 mg/dLMICROALBUMIN UR 19.0 ug/mLALB:CREAT RATIO 33 12/01/2010 9:15 AM GLUCOSE 49.0 mg/dLSODIUM 143.0 mmol/LPOTASSIUM 3.30 mmol/LCHLORIDE 101.0 mmol/LCO2 30.0 mmol/LBUN 12.0 mg/dLCREATININE 0.50 mg/dLCALCIUM 9.10 mg/dLAGE 60 GFR NonAA 126 GFR AA 153 eGFR >60 mL/min/1.73 m2eGFR AA* >60 02/14/2011 10:25 AM C REACTIVE PROTEIN 6.0 mg/LGLUCOSE 88.0 mg/dLSODIUM 143.0 mmol/LPOTASSIUM 3.60 mmol/LCHLORIDE 104.0 mmol/LCO2 26.0 mmol/LBUN 11.0 mg/dLCREATININE 0.70 mg/dLCALCIUM 9.40 mg/dLAGE 61 GFR NonAA 85 GFR AA 103 eGFR >60 mL/min/1.73 m2 eGFR AA* >60 03/08/2011 11:00 AM GLUCOSE 160.0 mg/dLSODIUM 141.0 mmol/LPOTASSIUM 3.70 mmol/LCHLORIDE 105.0 mmol/LCO2 21.0 mmol/LBUN 13.0 mg/dLCREATININE 0.70 mg/dLCALCIUM 9.50 mg/dLAGE 61 GFR NonAA 85 GFR AA 103 eGFR >60 mL/min/1.73 m2eGFR AA* >60 GLYCOHEMOGLOBIN A1C 6.80 % 07/06/2011 3:50 PM C REACTIVE PROTEIN 5.0 mg/LGLUCOSE 361.0 mg/dLSODIUM 140.0 mmol/LPOTASSIUM 3.80 mmol/LCHLORIDE 102.0 mmol/LCO2 24.0 mmol/LBUN 9.0 mg/dLCREATININE 1.0 mg/dLCALCIUM 9.60 mg/dLAGE 61 GFR NonAA [...] AM TRIGLYCERIDES 182.0 mg/dLCHOLESTEROL 180.0 mg/dLHDL 50.0 mg/dLTOT CHOL/HDL 3.6 LDL (CALC) 94.0 mg/dLGLUCOSE 99.0 mg/dLSODIUM 142.0 mmol/LPOTASSIUM 4.20 mmol/LCHLORIDE 112.0 mmol/LCO2 21.0 mmol/LBUN 17.0 mg/dLCREATININE 0.70 mg/dLSGOT/AST 17.0 IU/LSGPT/ALT 12.0 IU/LALK PHOS 86.0 IU/LTOTAL PROTEIN 6.30 g/dLALBUMIN 4.10 g/dLTOTAL BILI 0.50 mg/dLCALCIUM 9.30 mg/dLAGE 65 GFR NonAA 84 GFR AA 102 eGFR >60 mL/min/1.73meGFR AA* >60 Hemoglobin A1c 9.10 %Estim. Avg Glu (eAG) 214 05/26/2017 8:02 AM GLUCOSE 97.0 mg/dLSODIUM 145.0 mmol/LPOTASSIUM 3.40 mmol/LCHLORIDE 112.0 mmol/LCO2 25.0 mmol/LBUN 9.0 mg/dLCREATININE 0.70 mg/dLCALCIUM 8.80 mg/dLAGE 67 GFR NonAA 84 GFR AA 102 eGFR >60 mL/min/1.73meGFR AA* >60 06/13/2017 7:37 AM GLUCOSE 172.0 mg/dLSODIUM 142.0 mmol/LPOTASSIUM 3.70 mmol/LCHLORIDE 108.0 mmol/LCO2 26.0 mmol/LBUN 16.0 mg/dLCREATININE 0.90 mg/dLCALCIUM 9.20 mg/dLAGE 67 GFR NonAA 63 GFR AA 76 eGFR >60 mL/min/1.73meGFR AA* >60 07/06/2018 8:23 AM Falls in last 6 months? No Unsteady or worry about falling? No Fall Risk Assessment Not At Risk 12/11/2018 2:00 PM GLUCOSE 241 SODIUM 143 POTASSIUM 3.4 CHLORIDE 99 CO2 30 BUN 13 CREATININE 0.98 SGOT/AST 26 SGPT/ALT 18 ALK PHOS 92 TOTAL PROTEIN 7.8 ALBUMIN 4.6 TOTAL BILI 1.6 CALCIUM 9.8 AGE 68 GFR NonAA 57 GFR AA 69 eGFR 57 eGFR AA* >60 WBC 8.5 RBC 4.91 HGB 14.1 HCT 44.2 MCV 90 MCH 28.7 MCHC 31.9 RDW SD 46 RDW CV 14.2 MPV 9.6 PLT 264 NRBC# 0.00 NRBC% 0.0 %NEUT 70.1 %LYMP 22.5 %MONO 5.8 %EOS 0.8 %BASO 0.4 #NEUT 5.97 #LYMP 1.91 #MONO 0.49 #EOS 0.07 #BASO 0.03 MANUAL DIFF NOT IND History Of Immunizations Name Date Admin Mfg Name Mfg Code Trade Name Lot# Route Inj Vis Given Vis Pub CVX Pneumococcal 05/09/2016 Ryan-Magdalena WAL PREVNAR 13 [id number] Intramuscular Left Deltoid 05/09/2016 05/28/2015 133 History [...] disease with (acute) exacerbation Dec 08 2015 1:36PM Need for Prevnar vaccine May 09 2016 9:19AM Paroxysmal atrial fibrillation May 09 2016 9:19AM Diabetes Mellitus, Type II May 09 2016 9:19AM Hypokalemia May 22 2017 10:43AM Hypokalemia May 26 2017 11:41AM Cellulitis of left lower extremity May 22 2017 10:43AM Diabetes Mellitus, Type II Jul 06 2018 8:01AM Hyperlipidemia Jul 06 2018 8:01AM Atrial fibrillation with controlled ventricular rate Jul 06 2018 8:01AM Diabetes Mellitus, Type II Dec 11 2018 1:17PM Hyperlipidemia Dec 11 2018 1:17PM Acute on chronic systolic (congestive) heart failure Dec 11 2018 1:17PM Cellulitis of right lower extremity Dec 27 2018 9:07AM Payers Insurance Name Company Name Plan Name Plan Number Policy Number Policy Group Number Start Date [employer] [place] [id number] Tuesday, 2015 [employer] [place] [id number] N/A [employer] [place] [id number] October [facility] PMRV PHYS/DS [id number] N/A History of Encounters Visit Date Visit Type Provider 12/27/2018 Office visit Jason Hui DO 12/11/2018 Office visit Jason Hui DO 12/05/2018 Hospital Cheikh Marrero MD 11/14/2018 Hospital Oneal Madsen MD 07/06/2018 Office visit 07/06/2018 Office visit Jason Hui DO 06/21/2018 Julien Madsen MD 05/22/2017 Office visit Jason Hui DO 05/21/2017 Hospital Oneal Madsen MD 05/09/2016 Office visit Jason Hui DO 12/08/2015 Office visit Jason Hui DO 06/25/2015 Office visit Jason Hui DO 12/05/2014 Hospital Oneal Madsen MD 12/03/2014 Office visit Jason Hui DO 07/11/2014 Office visit Jason Hui DO 04/15/2014 Julien Madsen MD 2014 Procedures Ant Calvillo MD 12/24/2013 Office visit Jason Hui DO 11/06/2013 Office visit Ant Calvillo MD 10/30/2013 Procedures Ant Calvillo MD 08/18/2013 [facility] Oneal Madsen MD 08/05/2013 Office visit Jason Ez DO 04/30/2013 Office visit Jason Ez DO 03/20/2013 Office visit Jason Ez DO 11/08/2012 Office visit Jason Leggettte DO 09/25/2012 Office visit Jason Hui DO 09/19/2012 Hospital Oneal Madsen MD 06/26/2012 Office visit Venus Calle HUB BORER 06/22/2012 Hospital Oneal Madsen MD 01/24/2012 Office visit Jason Hui DO 10/30/2011 [facility] Robinson Del Rosario MD 10/29/2011 Hospital Oneal Madsen MD 10/29/2011 [facility] Robinson Del Rosario MD 10/28/2011 Hospital Oneal Madsen MD 10/28/2011 Office visit Jason Hui DO 10/17/2011 Office visit Venus Calle HUB BORER 07/19/2011 Office visit Jason Hui DO 07/06/2011 Office visit Venus Calle HUB BORER 03/02/2011 Office visit Venus Calle HUB BORER 02/14/2011 Office visit Jason Hui DO 12/01/2010 Office visit Jason Hui DO 11/27/2010 [facility] Gabriele Lim MD 11/26/2010 [facility] Gabriele Lim MD 11/25/2010 Hospital Gabriele Lim MD 11/25/2010 [facility] Oneal Madsen MD 11/22/2010 Office visit Jason Hui DO 10/05/2010 Office visit Jason Hui DO 02/08/2010 Office visit Ant Toscano PA-C 01/21/2010 Office visit Jason Hui DO 12/04/2009 Laboratory Hilario Padron MD 12/04/2009 Laboratory Hilario Padron MD 10/29/2009 Office visit Jason Hui DO
--- OUTSIDE RECORDS SUMMARY | 2019-01-14 11:40 | XMS REPORT ---
Author Author Jason Hui [facility] Address [address] [facility] [address] [place], [place] [id number] Care Team Providers Care Structural Steel Worker Apprentice Name Role Phone Jason Hui PCP Jason uHi PreferredProvider Allergies and Adverse Reactions Name Reaction [...] by oral route once daily with food Name Start Date Expiration Date SIG Comments [...] HC BMI BSA BMI Percentile O2 Sat(%) 12/11/2018 1:15:00 PM 116 mmHg 70 mmHg 89 bpm 22 rpm 97.5 F 155 lbs 61 in 29.2867 kg/m 1.7395 m 98 % 07/06/2018 7:59:00 AM 160 mmHg 82 mmHg 87 bpm 18 rpm 97.5 F 160 lbs 61 in 30.23 kg/m2 1.77 m2 100 % 05/22/2017 10:41:00 AM 152 mmHg 88 mmHg 80 bpm 20 rpm 98.1 F 153 lbs 61 in 28.9088 kg/m 1.7283 m 100 % 05/09/2016 9:17:00 AM 138 mmHg [...] 12/08/2015 12:00 AM Decadron, Per 1 Mg [facility][NOTE 3]# [id number] Reviewed 12/08/2015 12:00 AM Depo-Medrol, Per 80 Mg [facility][NOTE 3]#[id number] Reviewed 05/09/2016 12:00 AM PNEUMOCOCCAL VACC 13 [...] Vis Pub CVX Pneumococcal 05/09/2016 Allen WAL PREVNAR 13 [id number] Intramuscular Left Deltoid 05/09/2016 05/28/2015 133 History [...] (congestive) heart failure Dec 11 2018 1:17PM Payers Insurance Name Company Name Plan Name Plan Number Policy Number Policy Group Number Start Date [employer] [place] [id number] Tuesday, 2015 [employer] [place] [id number] N/A [employer] [place] [id number] October [facility] PMRV PHYS/DS [id number] N/A History of Encounters Visit Date Visit Type Provider 12/11/2018 Office visit Jason Hui DO 07/06/2018 Office visit 07/06/2018 Office visit Jason Hui DO 06/21/2018 Hospital Oneal Madsen MD 05/22/2017 Office visit Jason Hui [...] MD 10/30/2013 Procedures Ant Calvillo MD 08/18/2013 [facility] Oneal Madsen MD 08/05/2013 Office visit Jason Hui DO 04/30/2013 Office visit Jason Hui DO 03/20/2013 Office visit Jason Hui DO 11/08/2012 Office visit Jason Hui DO 09/25/2012 Office visit Jason Hui DO 09/19/2012 [facility] Oneal Madsen MD 06/26/2012 Office visit Venus Calle APRN 06/22/2012 [facility] Oneal Madsen MD 01/24/2012 Office visit Jason Hui DO 10/30/2011 Hospital Robinson Del Rosario MD 10/29/2011 Hospital Oneal Madsen MD 10/29/2011 [facility] Robinson Del Rosario MD 10/28/2011 Hospital Oneal Madsen MD 10/28/2011 Office visit Jason Hui DO 10/17/2011 Office visit Venus Calle BREAK UP WORKER 07/19/2011 Office visit Jason Hui DO 07/06/2011 Office visit Venus Calle BREAK UP WORKER 03/02/2011 Office visit Venus Calle BREAK UP WORKER 02/14/2011 Office visit Jason Hui DO 12/01/2010 Office visit Jason Hui DO 11/27/2010 [facility] Gabriele Lim MD 11/26/2010 [facility] Gabriele Lim MD 11/25/2010 [facility] Gabriele Lim MD 11/25/2010 [facility] Oneal Madsen MD 11/22/2010 Office visit Jason Hui DO 10/05/2010 Office visit Jason Hui DO 02/08/2010 Office visit Ant Toscano PA-C 01/21/2010 Office visit Jason Hui DO 12/04/2009 Laboratory Hilario Padron MD 12/04/2009 Laboratory Hilario Padron MD 10/29/2009 Office visit Jason Hui DO
--- OUTSIDE RECORDS SUMMARY | 2019-01-14 11:41 | XMS REPORT ---
Author Jason Taylor [facility] Address [address] [place], [place] [id number] Care Team Providers Care Roofing Superintendent Name Role Phone aJson Hui PCP Jason Hui PreferredProvider Allergies and Adverse Reactions Name Reaction Notes Phenergan etomidate "stopped heart" Plan of Treatment Planned Activity Comments Planned Date Planned Time Plan/Goal Uncontrolled Diabetes and Thyroid Nodules CBC W/ AUTO DIFF (RFLX MAN DIFF IF IND). 12/11/2018 12:00 AM CMP 12/11/2018 12:00 AM Medications Active Name Start Date [...] 12/08/2015 12:00 AM Decadron, Per 1 Mg [facility]# [address]-81 Reviewed 12/08/2015 12:00 AM Depo-Medrol, Per 80 Mg [facility]#[id number] Reviewed 05/09/2016 12:00 AM PNEUMOCOCCAL VACC 13 [...] No Fall Risk Assessment Not At Risk History Of Immunizations Name Date Admin Mfg Name Mfg Code Trade Name Lot# Route Inj Vis Given Vis Pub CVX Pneumococcal 05/09/2016 Allen CUELLAR 13 [id number] Intramuscular Left Deltoid 05/09/2016 05/28/2015 133 History [...] 2018 1:17PM Hyperlipidemia Dec 11 2018 1:17PM Payers Insurance Name Company Name Plan Name Plan Number Policy Number Policy Group Number Start Date [employer] [place] [id number] Tuesday, 2015 [employer] [place] [id number] N/A [employer] [place] [id number] October [facility] PMRV PHYS/DS [id number] N/A History of Encounters Visit Date Visit Type Provider 12/11/2018 Office visit Jason Hui DO 07/06/2018 Office visit 07/06/2018 Office visit Jason Hui DO 06/21/2018 [facility] Oneal Madsen MD 05/22/2017 Office visit Jason Hui DO 05/21/2017 Hospital Oneal Madsen MD 05/09/2016 Office visit Jason Ez DO 12/08/2015 Office visit Jason Ez DO 06/25/2015 Office visit Jason Ez DO 12/05/2014 [facility] Oneal Madsen MD 12/03/2014 Office visit Jason Ez DO 07/11/2014 Office visit Jason Ez DO 04/15/2014 [facility] Oneal Madsen MD 2014 Procedures Ant Calvillo MD 12/24/2013 Office visit Jason Hui DO 11/06/2013 Office visit Ant Calvillo MD 10/30/2013 Procedures Ant Calvillo MD 08/18/2013 [facility] Oneal Madsen MD 08/05/2013 Office visit Jason Ez DO 04/30/2013 Office visit Jason Ez DO 03/20/2013 Office visit Jason Ez DO 11/08/2012 Office visit Jason Ez DO 09/25/2012 Office visit Jason Hui DO 09/19/2012 [facility] Oneal Madsen MD 06/26/2012 Office visit Venus Calle DRY HOUSE OPERATOR 06/22/2012 [facility] Oneal Madsen MD 01/24/2012 Office visit Jason Hui DO 10/30/2011 [facility] Robinson Del Rosario MD 10/29/2011 [facility] Oneal Madsen MD 10/29/2011 [facility] Robinson Del Rosario MD 10/28/2011 [facility] Oneal Madsen MD 10/28/2011 Office visit Jason Hui DO 10/17/2011 Office visit Venus Calle DRY HOUSE OPERATOR 07/19/2011 Office visit Jason Hui DO 07/06/2011 Office visit Venus Calle DRY HOUSE OPERATOR 03/02/2011 Office visit Venus Calle DRY HOUSE OPERATOR 02/14/2011 Office visit Jason Ez DO 12/01/2010 Office visit Jason Hui DO [...]
--- OUTSIDE RECORDS SUMMARY | 2019-01-14 11:42 | XMS REPORT ---
Author Author Jason Hui [facility] Address [address] [facility] [address] [place], [place] [id number] Care Team Providers Care In Classroom Tutor Name Role Phone Jason Hui PCP Jason Hui PreferredProvider Allergies and Adverse Reactions Name Reaction Notes Phenergan etomidate "stopped heart" Plan of Treatment Planned Activity Comments Planned Date Planned Time Plan/Goal Uncontrolled Diabetes and Thyroid Nodules Medications Active Name Start Date Estimated Completion Date SIG Comments carvedilol 3.125 mg oral tablet take 1 tablet (3.125 mg) by oral route once daily Levemir FlexTouch 100 unit/mL (3 mL) subcutaneous insulin pen 06/25/2015 inject 45 units by subcutaneous route twice a day Novolog Flexpen 100 unit/mL subcutaneous insulin pen 09/11/2015 INJECT 14 UNITS SUBCUTANEOUSLY WITH BREAKFAST. LUNCH, AND SUPPER acetaminophen-codeine 300-30 mg oral tablet 12/08/2015 take 1 tablet by oral route every 4 hours as needed amiodarone 400 mg oral tablet take 2 tablets by oral route once daily gabapentin 600 mg oral tablet 07/06/2018 12/28/2019 TAKE 1 TABLET BY MOUTH FOUR TIMES DAILY metformin 1,000 mg oral tablet 07/06/2018 07/01/2019 TAKE 1 TABLET BY MOUTH TWICE DAILY WITH MORNING AND EVENING MEALS for 90 days Name Start Date Expiration Date SIG [...] UNITS SUBCUTANEOUSLY WITH BREAKFAST. 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# [id number] Reviewed 12/08/2015 12:00 AM Depo-Medrol, Per [address] [facility]#[id number] Reviewed 05/09/2016 12:00 AM PNEUMOCOCCAL VACC 13 [...] CVX Pneumococcal 05/09/2016 Allen WAL PREVNAR 13 [id number] Intramuscular Left Deltoid 05/09/2016 05/28/2015 133 History [...] controlled ventricular rate Jul 06 2018 8:01AM Payers Insurance Name Company Name Plan Name Plan Number Policy Number Policy Group Number Start Date [employer] [place] [id number] Tuesday, 2015 [employer] [place] [id number] October [facility] PMRV PHYS/DS [id number] N/A History of Encounters Visit Date Visit Type Provider 07/06/2018 Office visit 07/06/2018 Office visit Jason Hui DO 05/22/2017 Office visit Jason Hui DO 05/21/2017 Hospital Oneal Madsen MD 05/09/2016 Office visit Jason Hui DO 12/08/2015 Office visit Jason Hui DO 06/25/2015 Office visit Jason Hui DO 12/05/2014 [facility] Oneal Madsen MD 12/03/2014 Office visit Jason Hui DO 07/11/2014 Office visit Jason Hui DO 04/15/2014 Julien Madsen MD 2014 Procedures Ant Calvillo MD 12/24/2013 Office visit Jason Hui DO 11/06/2013 Office visit Ant Calvillo MD 10/30/2013 Procedures Ant Calvillo MD 08/18/2013 [facility] Oneal Madsen MD 08/05/2013 Office visit Jason Hui DO 04/30/2013 Office visit Jason Hui DO 03/20/2013 Office visit Jason Hui DO 11/08/2012 Office visit Jason Hui DO 09/25/2012 Office visit Jason Hui DO 09/19/2012 Hospital Oneal Madsen MD 06/26/2012 Office visit Venus Calle PRINCIPLE SOFTWARE ENGINEER 06/22/2012 Hospital Oneal Madsen MD 01/24/2012 Office visit Jason Hui DO 10/30/2011 [facility] Robinson Del Rosario MD 10/29/2011 [facility] Oneal Madsen MD 10/29/2011 [facility] Robinson Del Rosario MD 10/28/2011 [facility] Oneal Madsen MD 10/28/2011 Office visit Jason Hui DO 10/17/2011 Office visit Venus Calle PRINCIPLE SOFTWARE ENGINEER 07/19/2011 Office visit Jason Hui DO 07/06/2011 Office visit Venus Calle PRINCIPLE SOFTWARE ENGINEER 03/02/2011 Office visit Venus Calle PRINCIPLE SOFTWARE ENGINEER 02/14/2011 Office visit Jason Hui DO 12/01/2010 Office visit Jason Hui DO 11/27/2010 [facility] Gabriele Lim MD 11/26/2010 [facility] Gabriele Lim MD 11/25/2010 [facility] Gabriele Lim MD 11/25/2010 [facility] Oneal Madsen MD 11/22/2010 Office visit Jason Hui DO 10/05/2010 Office visit Jason Hui DO 02/08/2010 Office visit Ant Toscano PA-C 01/21/2010 Office visit Jason Hui DO 12/04/2009 Laboratory Hilario Padron MD 12/04/2009 Laboratory Hilario Padrno MD 10/29/2009 Office visit Jason Hui DO
[2019-01-14] MEDS ORDERED: NS IV 1000 ML 1,000 ML IV SCH (11:47)
--- OUTSIDE RECORDS SUMMARY | 2019-01-14 11:53 | XMS REPORT ---
Author Author Jason Hui [facility] Address [address] [place], [place] [id number] Care Team Providers Care Lipcoat Sprayer Name Role Phone Jason Hui PCP Jason [...] mL 31 gauge x 5/16 miscellaneous syringe 10/28/2011 11/22/2011 USE DIRECTED FOUR TIMES DAILY Levemir 100 [...] 12:00 AM Decadron, Per 1 Mg [facility]# [id number] Reviewed 12/08/2015 12:00 AM Depo-Medrol, Per 80 Mg [facility]#[id number] Reviewed 05/09/2016 12:00 AM PNEUMOCOCCAL VACC 13 [...] CVX Pneumococcal 05/09/2016 [facility] Prevnar 13 [id number] Intramuscular Left Deltoid 05/09/2016 05/28/2015 133 History of Past Illness Name Date of Onset Comments Diabetes Mellitus, Type II Hyperlipidemia 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 Bronchitis, Chronic Apr 8 2010 8:23AM Subcutaneous Nodule Oct 29 2009 8:23AM [...] Group Number Start Date [employer] [place] [id number] Tuesday, 2015 [employer] [place] [id number] October [facility] PMRV PHYS/DS [id number] N/A History of Encounters Visit Date Visit Type Provider 05/22/2017 Office visit Jason Hui DO 05/21/2017 [...] Madsen MD 06/26/2012 Office visit Venus Calle DISASTER RECOVERY MANAGER 06/22/2012 Hospital Oneal Madsen MD 01/24/2012 Office visit Jason Hui DO 10/30/2011 [facility] Robinson Del Rosario MD 10/29/2011 Hospital Oneal Madsen MD 10/29/2011 [facility] Robinson Del Rosario MD 10/28/2011 [facility] Oneal Madsen MD 10/28/2011 Office visit Jason Hui DO 10/17/2011 Office visit Venus Calle DISASTER RECOVERY MANAGER 07/19/2011 Office visit Jason Hui DO 07/06/2011 Office visit Venus Calle DISASTER RECOVERY MANAGER 03/02/2011 Office visit Venus Calle DISASTER RECOVERY MANAGER 02/14/2011 Office visit Jason Hui DO 12/01/2010 Office visit Jason Hui DO 11/27/2010 [facility] Gabriele Lim MD 11/26/2010 [facility] Gabriele Lim MD 11/25/2010 [facility] Gabriele Lim MD 11/25/2010 [facility] Oneal Madsen MD 11/22/2010 Office visit Jason Hui DO 10/05/2010 Office visit Jason Hui DO 02/08/2010 Office visit Ant Toscano PA-C 01/21/2010 Office visit Jason Hui DO 12/04/2009 Laboratory Hilario Padron MD 12/04/2009 Laboratory Hilario Padron MD 10/29/2009 Office visit Jason Hui DO
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
[2019-01-14] MEDS ORDERED: ACETAMINOPHEN 500 MG TAB (TYLENOL) PO PRN (12:00)
[2019-01-14 12:21] LABS: BASOPHILS % (AUTO) 0 % (0-10); EOSINOPHILS # (AUTO) 0.2 10^3/uL (0.0-0.3); EOSINOPHILS % (AUTO) 4 % (0-10); HEMATOCRIT 39 % (35-52); HEMOGLOBIN 12.1 G/DL (11.5-16.0); LYMPHOCYTES # (AUTO) 1.4 X 10^3 (1.0-4.0); LYMPHOCYTES % (AUTO) 28 % (12-44); MEAN CORPUSCULAR HEMOGLOBIN 28 PG (25-34); MEAN CORPUSCULAR HGB CONC 31 G/DL (32-36); MEAN CORPUSCULAR VOLUME 92 FL (80-99); MEAN PLATELET VOLUME 9.8 FL (7.4-10.4); MONOCYTES # (AUTO) 0.3 X 10^3 (0.0-1.0); MONOCYTES % (AUTO) 6 % (0-12); NEUTROPHILS # (AUTO) 3.1 X 10^3 (1.8-7.8); NEUTROPHILS % (AUTO) 62 % (42-75); PLATELET COUNT 201 10^3/uL (130-400); RED CELL DISTRIBUTION WIDTH 15.6 % (10.0-14.5); WHITE BLOOD COUNT 5.1 10^3/uL (4.3-11.0)
[2019-01-14 12:36] LABS: INR 1.3 (0.8-1.4); PROTHROMBIN TIME PATIENT 16.8 SEC (12.2-14.7)
[2019-01-14 12:41] LABS: ALANINE AMINOTRANSFERASE 7 U/L (0-55); ALBUMIN 4.1 GM/DL (3.2-4.5); ALKALINE PHOSPHATASE 82 U/L (40-136); BILIRUBIN,TOTAL 0.7 MG/DL (0.1-1.0); BUN/CREATININE RATIO 8; CALCIUM 9.1 MG/DL (8.5-10.1); CARBON DIOXIDE 22 MMOL/L (21-32); CHLORIDE 107 MMOL/L (98-107); CREATININE SERUM 0.97 MG/DL (0.60-1.30); GFR ESTIMATED 57; GLUCOSE 281 MG/DL (70-105); POTASSIUM 3.5 MMOL/L (3.6-5.0); SODIUM 141 MMOL/L (135-145); TOTAL PROTEIN 7.2 GM/DL (6.4-8.2)
[2019-01-14] MEDS ORDERED: PIPERACILLIN/TAZOBACTAM (BULK) 4.5 GM in NS (IVPB) 100 ML IV ONE (13:00)
--- NOTE | 2019-01-14 13:24 | Diagnostic Imaging Report ---
Indication: Fever and leg swelling. Time of exam: 1:19 PM Correlation is made with prior study from 10/13/2017. The heart is enlarged but stable. Dual-lead left subclavian cardiac pacemaker has tips in the region of the right atrium and right ventricle. Lungs are clear. No infiltrate or failure is seen. There is no effusion or pneumothorax. Impression: Stable chest. No acute feature is detected. Dictated by: Dictated on workstation # [id number]
[2019-01-14 13:44] LABS: BILIRUBIN,URINE NEGATIVE (NEGATIVE); CLARITY,URINE CLEAR; COLOR,URINE YELLOW; GLUCOSE, URINE (UA) 1+ (NEGATIVE); KETONES,URINE NEGATIVE (NEGATIVE); LEUKOCYTE ESTERASE ,URINE 1+ (NEGATIVE); NITRITE,URINE NEGATIVE (NEGATIVE); PH,URINE 5 (5-9); PROTEIN,URINE 2+ (NEGATIVE); UROBILINOGEN,URINE NORMAL (NORMAL)
--- NOTE | 2019-01-14 13:46 | ED Integumentary General ---
General Chief Complaint: Skin/Wound Problems Stated Complaint: BLISTERS Nursing Triage Note: PT HAS WEEPING CELLULITUS TO RIGHT LEG THAT STARTED ABOUT 3 DAYS AGO. PT STATES FEVER YESTERDAY. PT STATES NAUSEA BUT NO VOMITING. PT STATES SHE WAS IN THE HOSPITAL 1 MONTH AGO WITH SEPSIS DUE TO RIGHT LEG BEING INFECTED. History of Present Illness Date Seen by Provider: Jan 14, 2019 Time Seen by Provider: 11:40 Initial Comments 69-year-old female reports 2-3 day history of blisters, cellulitis and weeping wounds from her right lower extremity. 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 She was treated for similar symptoms at [facility] in October 2018, she finished a course of doxycycline and clindamycin. She is a type I diabetic reports her morning glucose to be 120. She has a history of atrial fibrillation and was cardioverted by her environmental health officer at [facility] last Monday. She desires to be evaluated here but if she needs to be admitted she wants to be taken to [facility]. Timing/Duration: getting worse Severity: moderate Location: extremities (right lower extremity cellulitis with weeping wounds) Possible Cause: no cause identified Associated Symptoms: blisters, change in skin texture, edema Allergies and Home Medications Allergies Coded Allergies: promethazine (Verified Allergy, Intermediate, 10/02/07) Home Medications Amitriptyline Hcl 10 Mg Tablet, 1 EACH PO DAILY, (Reported) Cyclobenzaprine HCl 5 Mg Tablet, 5 MG PO Q8H Prescribed by: VAMSHI ZIMMERMAN on 10/13/17 1220 Cyclobenzaprine Hcl 10 Mg Tablet, 1 EACH PO TID PRN for SPASMS, (Reported) Flecainide Acetate 150 Mg Tablet, 100 MG PO BID PRN for palpitations, (Reported) Gabapentin 400 Mg Cap, 600 MG PO QID, (Reported) Insulin Aspart 10 Unit/0.1 Ml Vial, 8 UNIT SC UD, (Reported) DAILY AT LUNCH Insulin Aspart 10 Unit/0.1 Ml Vial, 6 UNIT SC UD, (Reported) DAILY WITH EVENING MEAL Insulin Aspart 10 Unit/0.1 Ml Vial, 6 UNIT SC UD, (Reported) DAILY WITH BREAKFAST Insulin Determir 100 Unit/1 Ml Insuln.pen, 100 UNIT SQ BID, (Reported) Metformin Hcl 1,000 Mg Tablet, 1 EACH PO BID WITH MEALS, (Reported) Rivaroxaban 1 Each Tab.ds.pk, 1 EACH PO DAILY, (Reported) Sotalol Hcl 80 Mg Tablet, 40 MG PO BID, (Reported) Tramadol Hcl 50 Mg Tablet, 100 MG PO Q6H PRN for PAIN, (Reported) Patient Home Medication List Home Medication List Reviewed: Yes Review of Systems Review of Systems Constitutional: no symptoms reported, see HPI Cardiovascular: see HPI; No chest pain; Hx of Intervention, other (atrial fibrillation) Gastrointestinal: no symptoms reported, see HPI Skin: see HPI, change in color, rash (right lower extremity distal to the knee extending to the ankle, no right foot involvement.) Psychiatric/Neurological: No Symptoms Reported, See HPI All Other Systems Reviewed Negative Unless Noted: Yes Past Hbwqhyi-Ffjgxx-Siotve Hx Past Med/Social Hx: Reviewed Nursing Past Med/Soc Hx Patient Social History Alcohol Use: Denies Use Recreational Drug Use: No Smoking Status: Never a Smoker 2nd Hand Smoke Exposure: No Recent Foreign Travel: No Contact w/Someone Who Travel: No Recent Infectious Disease Expo: No Recent Hopitalizations: Yes Physical Abuse: No Sexual Abuse: No Past Medical History Surgeries: Yes Section, Gallbladder, Hysterectomy, Orthopedic, Pacemaker Respiratory: Yes COPD Cardiac: Yes Atrial Fibrillation, High Cholesterol, Hypertension Neurological: No Reproductive Disorders: No Genitourinary: No Gastrointestinal: Yes Gastroesophageal Reflux Musculoskeletal: Yes Chronic Back Pain Endocrine: Yes (INSULIN PUMP) Diabetes, Insulin dep HEENT: No Cancer: No Psychosocial: No Blood Disorders: No Physical Exam Vital Signs Vital Signs - First Documented 01/14/19 01/14/19 11:40 13:40 Temp 98.0 Pulse 164 Resp 18 B/P (MAP) 144/108 (120) Pulse Ox 99 O2 Delivery Room Air Capillary Refill : Less Than 3 Seconds General Appearance: WD/WN, no apparent distress HEENT: PERRL/EOMI, normal ENT inspection, TMs normal, pharynx normal Neck: non-tender, full range of motion, supple, normal inspection Cardiovascular: normal peripheral pulses, no edema, tachycardia Respiratory: chest non-tender, lungs clear, normal breath sounds Gastrointestinal: normal bowel sounds, non tender, soft; No distended, No guarding, No rebound, No tenderness Extremities: normal range of motion, no pedal edema, normal capillary refill, other (pedal pulses 1+ and symmetric) Neurologic/Psychiatric: no motor/sensory deficits, alert, normal mood/affect, oriented x 3 Skin: normal color, warm/dry Skin Problem Location: lower extremities (right lower extremity distal to the knee) Skin Problem Character: drainage (serosanguineous. Distal to knee and extending to just above ankle. No foot invlovment. Circumferential), rash, scales, swelling, vesicular Lymphatic: no adenopathy Progress/Results/Core Measures Results/Orders Lab Results Laboratory Tests Test 01/14/19 12:00 01/14/19 13:35 01/14/19 14:20 Range/Units White Blood Count 5.1 4.3-11.0 10^3/uL Red Blood Count 4.27 L 4.35-5.85 10^6/uL Hemoglobin 12.1 11.5-16.0 G/DL Hematocrit 39 35-52 % Mean Corpuscular Volume 92 80-99 FL Mean Corpuscular Hemoglobin 28 25-34 PG Mean Corpuscular Hemoglobin Concent 31 L 32-36 G/DL Red Cell Distribution Width 15.6 H 10.0-14.5 % Platelet Count 201 130-400 10^3/uL Mean Platelet Volume 9.8 7.4-10.4 FL Neutrophils (%) (Auto) 62 42-75 % Lymphocytes (%) (Auto) 28 12-44 % Monocytes (%) (Auto) 6 0-12 % Eosinophils (%) (Auto) 4 0-10 % Basophils (%) (Auto) 0 0-10 % Neutrophils # (Auto) 3.1 1.8-7.8 X 10^3 Lymphocytes # (Auto) 1.4 1.0-4.0 X 10^3 Monocytes # (Auto) 0.3 0.0-1.0 X 10^3 Eosinophils # (Auto) 0.2 0.0-0.3 10^3/uL Basophils # (Auto) 0.0 0.0-0.1 10^3/uL Prothrombin Time 16.8 H 12.2-14.7 SEC INR Comment 1.3 0.8-1.4 Activated Partial Thromboplast Time 29 24-35 SEC Sodium Level 141 135-145 MMOL/L Potassium Level 3.5 L 3.6-5.0 MMOL/L Chloride Level 107 98-107 MMOL/L Carbon Dioxide Level 22 21-32 MMOL/L Anion Gap 12 5-14 MMOL/L Blood Urea Nitrogen 8 7-18 MG/DL Creatinine 0.97 0.60-1.30 MG/DL Estimat Glomerular Filtration Rate 57 BUN/Creatinine Ratio 8 Glucose Level 281 H 70-105 MG/DL Lactic Acid Level 2.39 *H 2.32 *H 0.50-2.00 MMOL/L Calcium Level 9.1 8.5-10.1 MG/DL Corrected Calcium 9.0 8.5-10.1 MG/DL Total Bilirubin 0.7 0.1-1.0 MG/DL Aspartate Amino Transf (AST/SGOT) 14 5-34 U/L Alanine Aminotransferase (ALT/SGPT) 7 0-55 U/L Alkaline Phosphatase 82 40-136 U/L Troponin I < 0.028 <0.028 NG/ML Total Protein 7.2 6.4-8.2 GM/DL Albumin 4.1 3.2-4.5 GM/DL Digoxin Level < 0.30 L 0.80-2.00 NG/ML Urine Color YELLOW Urine Clarity CLEAR Urine pH 5 5-9 Urine Specific [place] 1.025 H 1.016-1.022 Urine Protein 2+ H NEGATIVE Urine Glucose (UA) 1+ H NEGATIVE Urine Ketones NEGATIVE NEGATIVE Urine Nitrite NEGATIVE NEGATIVE Urine Bilirubin NEGATIVE NEGATIVE Urine Urobilinogen NORMAL NORMAL MG/DL Urine Leukocyte Esterase 1+ H NEGATIVE Urine RBC (Auto) NEGATIVE NEGATIVE Urine RBC NONE /HPF Urine WBC 2-5 /HPF Urine Squamous Epithelial Cells 10-25 H /HPF Urine Crystals NONE /LPF Urine Bacteria TRACE /HPF Urine Casts NONE /LPF Urine Mucus NEGATIVE /LPF Urine Culture Indicated CULTURE PENDING My Orders Orders - DAVID SIMEON Cbc With Automated Diff (01/14/19 11:47) Comprehensive Metabolic Panel (01/14/19 11:47) Blood Culture (01/14/19 11:47) Urinalysis (01/14/19 11:47) Urine Culture (01/14/19 11:47) Protime With Inr (01/14/19 11:47) Partial Thromboplastin Time (01/14/19 11:47) Chest 1 View, Ap/Pa Only (01/14/19 11:47) Acetaminophen Tablet (Tylenol Tablet) (01/14/19 12:00) Ed Iv/Invasive Line Start (01/14/19 11:47) Ekg Tracing (01/14/19 11:47) Troponin I (01/14/19 11:47) Vital Signs Adult Sepsis Patie Q15M (01/14/19 11:47) O2 (01/14/19 11:47) Ns Iv 1000 Ml (Sodium Chloride 0.9%) (01/14/19 11:47) Lactic Acid Analyzer (01/14/19 11:47) Piperacillin/Tazobactam (Bulk) (Zosyn In (01/14/19 13:00) Digoxin (01/14/19 14:12) Metoprolol Tartrate Injection (Lopressor (01/14/19 14:30) Wound Culture (01/14/19 14:32) Metoprolol Tartrate Injection (Lopressor (01/14/19 14:31) Medications Given in ED Current Medications Medications Dose Ordered Sig/Mariza Route Start Time Stop Time Status Last Admin Dose Admin Acetaminophen 1,000 mg ONCE PRN PO 01/14/19 12:00 01/14/19 12:52 DC 01/14/19 12:51 1,000 MG Metoprolol Tartrate 5 mg ONCE ONCE IV 01/14/19 14:30 01/14/19 14:35 DC 01/14/19 14:40 5 MG Piperacillin Sod/ Tazobactam Sod 4.5 gm/Sodium Chloride 120 ml @ 240 mls/hr ONCE ONCE IV 01/14/19 13:00 01/14/19 13:29 DC 01/14/19 13:20 240 MLS/HR Vital Signs/I&O 01/14/19 01/14/19 01/14/19 01/14/19 11:40 13:32 13:40 15:14 Temp 98.0 98.0 98.0 Pulse 164 164 164 Resp 18 18 18 B/P (MAP) 144/108 (120) 144/108 144/108 (120) Pulse Ox 99 99 100 100 O2 Delivery Room Air Room Air Blood Pressure Mean: 120 Progress Progress Note : Time: 11:40 Progress Note Patient seen and evaluated will start normal saline 30 ML's per kilogram, labs for sepsis workup, EKG, troponin, and wound cultures. Will monitor her cardiac rhythm. She denies any pain at the present time. 1245 patient continues to have weeping from the right leg wound. Discussed her EKG and labs with her. She is requesting transfer to [place], to [facility], she reports a bad experience with a environmental health officer here and she would prefer to be treated where she is normally admitted. 1330 spoke to her PCP, Dr. Gray, she does not admit patients to the hospital recommended contacting the hospitalist. Spoke to Dr. Witt at [facility] is the hospitalist he would prefer the patient be seen in the emergency department at [facility] and admitted from there. [address] Limon in ED at [facility], agreed to accept patient on transfer. Continues to have A-Fib, rate 100-140, will give to Toprol 5 mg per IV. Second lactic acid drawn. Dressing applied to right lower extremity wound. 1430 Contacted [facility] for transport. 1500 repeat lactic acid was 2.3, digoxin level less than 0.3. Heart rate improved after metoprolol 80-100. Initial ECG Impression Date: Jan 14, 2019 Initial ECG Impression Time: 12:18 Initial ECG Rate: 147 Initial ECG Rhythm: A Fib/Flutter Initial ECG Intervals QRSD 92, QT 320, QTC 501. Menard QRS 91, T 2129. Initial ECG Impression: Atrial Fibrillation Initial ECG Comparisson: Unchanged Comment Reviewed with Dr. Munoz, agreed with interpretation. Diagnostic Imaging Diagonstic Imaging: Xray Plain Films/CT/US/NM/MRI: chest Comments NAME: RAVI PAYAN MED REC#: [id number] PT STATUS: REG ER : 1950 PHYSICIAN: DAVID SIMEON ADMIT DATE: 01/14/19/ER Draft Date of Exam:01/14/19 CHEST 1 VIEW, AP/PA ONLY Indication: Fever and leg swelling. Time of exam: 1:19 PM Correlation is made with prior study from 10/13/2017. The heart is enlarged but stable. Dual-lead left subclavian cardiac pacemaker has tips in the region of the right atrium and right ventricle. Lungs are clear. No infiltrate or failure is seen. There is no effusion or pneumothorax. Impression: Stable chest. No acute feature is detected. Dictated on workstation # [id number] Dict: 01/14/19 1322 Trans: 01/14/19 1324 [facility] [id number] Interpreted by: ANKUSH GUZMAN MD Electronically signed by: Departure Impression Primary Impression: Cellulitis of right lower extremity Additional Impression: Atrial fibrillation Qualified Codes: I48.2 - Chronic atrial fibrillation Disposition: XFER SHT-TRM HOSP Condition: Stable Transfer Time Spoke to Accepting Phy: 14:00 Transfer Progress Notes Spoke to [facility] Hospitalist, Dr. Ben Lundberg and then ED Dr. Limon, agreed to accept patient via ED. Transfer Facility: [facility] Method of Transfer: EMS Departure-Patient Inst. Referrals: SALLY HOBBS DO (PCP/Family) Primary Care Physician DAVID SIMEON Jan 14, 2019 13:46
[2019-01-14 13:53] LABS: BACTERIA,URINE TRACE /HPF
[2019-01-14] MEDS ORDERED: meTOprolol 5 MG/5 ML (LOPRESSOR) VIAL IV ONE (14:30)
[2019-01-14] MEDS ORDERED: meTOprolol 5 MG/5 ML (LOPRESSOR) VIAL ONE (14:31)
[2019-01-14 15:14] VITALS: BP 110/68
--- NOTE | 2019-01-16 18:10 | NUR ---
LAB REPORT A CULTURE REPORT FROM ON LICENSE OF [facility] PATIENT WAS TRANSFERED TO [facility],[place] CALLED LAB AND ASKED SILVIA TO FAX TO [facility].
== END 2019-01-14 15:15 | disposition short-term general hospital (02) ==
LOC: EDUNIT# 11:32 → ER 11:33
DX: L03.115 Cellulitis of right lower limb (principal); I48.91 Unspecified atrial fibrillation; J44.9 Chronic obstructive pulmonary disease, unspecified; I10 Essential (primary) hypertension; E78.00 Pure hypercholesterolemia, unspecified; K21.9 Gastro-esophageal reflux disease without esophagitis; E11.9 Type 2 diabetes mellitus without complications; Z88.8 Allergy status to other drugs, medicaments and biological substances; Z79.4 Long term (current) use of insulin; Z90.710 Acquired absence of both cervix and uterus; Z95.0 Presence of cardiac pacemaker
CPT/HCPCS: 36415; 71045; 80053; 80162; 81000; 83605; 84484; 85025; 85610; 85730; 87040; 87070; 87077; 87088; 87186; 87205; 93005

== ENCOUNTER 2019-05-23 13:40 | Outpatient (RCR) | payer BC | END 2019-05-23 15:04 | disposition home or self-care (01) | PROVIDERS: ATTEND Nurse Practitioner Family | DX: I69.354 Hemiplegia and hemiparesis following cerebral infarction affecting left non-dominant side (principal); I48.91 Unspecified atrial fibrillation; Z95.0 Presence of cardiac pacemaker ==

== ENCOUNTER 2020-09-27 18:35 | Observation (INO) | payer BC, MEDICARE ==
[2020-09-27] VITALS (9 sets, daily range): BP systolic 127–158; BP diastolic 67–81
[~2020-09-27] VITALS: Ht 152.4 cm; Wt 59.0 kg
[2020-09-27] MEDS ORDERED: NITROGLYCERIN 2% OINT 1 GM UNIT DOSE PACKET TOP STA (18:47)
[2020-09-27 18:55] LABS: BASOPHILS % (AUTO) 0 % (0-10); EOSINOPHILS # (AUTO) 0.1 10^3/uL (0.0-0.3); EOSINOPHILS % (AUTO) 1 % (0-10); HEMATOCRIT 36 % (35-52); HEMOGLOBIN 11.9 g/dL (11.5-16.0); LYMPHOCYTES # (AUTO) 2.2 10^3/uL (1.0-4.0); LYMPHOCYTES % (AUTO) 33 % (12-44); MEAN CORPUSCULAR HEMOGLOBIN 30 pg (25-34); MEAN CORPUSCULAR HGB CONC 33 g/dL (32-36); MEAN CORPUSCULAR VOLUME 89 fL (80-99); MEAN PLATELET VOLUME 9.6 fL (9.0-12.2); MONOCYTES # (AUTO) 0.4 10^3/uL (0.0-1.0); MONOCYTES % (AUTO) 6 % (0-12); NEUTROPHILS % (AUTO) 60 % (42-75); PLATELET COUNT 196 10^3/uL (130-400); WHITE BLOOD COUNT 6.6 10^3/uL (4.3-11.0)
[2020-09-27 19:03] LABS: ALBUMIN 3.9 GM/DL (3.2-4.5); CHLORIDE 111 MMOL/L (98-107); POTASSIUM 3.9 MMOL/L (3.6-5.0); SODIUM 143 MMOL/L (135-145)
[2020-09-27 19:05] LABS: AMYLASE 77 U/L (25-125); CALCIUM 8.7 MG/DL (8.5-10.1); INR 1.1 (0.8-1.4); PROTHROMBIN TIME PATIENT 14.2 SEC (12.2-14.7)
[2020-09-27 19:06] LABS: GLUCOSE 133 MG/DL (70-105); TOTAL PROTEIN 7.1 GM/DL (6.4-8.2)
[2020-09-27 19:07] LABS: CARBON DIOXIDE 21 MMOL/L (21-32)
[2020-09-27 19:08] LABS: BILIRUBIN,TOTAL 0.4 MG/DL (0.1-1.0)
[2020-09-27 19:09] LABS: ALKALINE PHOSPHATASE 88 U/L (40-136)
[2020-09-27 19:10] LABS: CREATININE SERUM 0.86 MG/DL (0.60-1.30); GFR ESTIMATED > 60
[2020-09-27 19:11] LABS: BUN/CREATININE RATIO 19
[2020-09-27 19:12] LABS: ALANINE AMINOTRANSFERASE 11 U/L (0-55)
--- NOTE | 2020-09-27 19:13 | ED Chest Pain ---
General Chief Complaint: Chest Pain Stated Complaint: CP Nursing Triage Note: PT HAS A CHIEF COMPLAINT OF CHEST PAIN THAT STARTED THIS MORNING. PT ARRIVED BY [facility]. 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 EMS BROUGHT PATIENT IN, STARTED AN IV IN LEFT HAND (20 GAUGE) AND GAVE PT ONE SUBLINGUAL NITRO. THE NITRO HELPED THE PAIN TO BRING IT DOWN FROM A 10 TO A 7/8. PT STATED SHE BROUGHT THE PAIN UP PREVIOUSLY WITH STATISTICAL METHODS TEACHER ABOUT PAIN AROUND PACEMAKER AND UNDER LEFT BREAST. PT HAS ANOTHER APPOINTMENT NEXT MONDAY. PT IS ALERT, ORIENTED X 4 ON ARRIVAL. VITALS WERE DONE, EKG WAS COMPLETED, BLOOD WAS DRAWN AND REPORT WAS GIVEN TO PROVIDER. 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 STATES SHE HAS HAD PAIN OVER HER PACEMAKER SINCE IT WAS PUT IN 4 YEARS AGO. STATES PAIN WAS 10/10--[facility] GAVE 324 MG ASPIRIN AND EMS GAVE NTG X 1--STATES PAIN DOWN TO 7-8/10 NOW. WAS SLIGHTLY SHORT OF BREATH WHEN THE PAIN BEGAN WAS NAUSEATED BEFORE SHE LEFT TO GO TO WORK BROKE OUT IN A SWEAT WHEN PAIN BEGAN BECAME DIZZY SO SHE PULLED OVER AND CALLED 911. NOT DIZZY NOW NOT SURE IF SHE WAS HAVING SOME PALPITATIONS OR NOT PT HAS ATRIAL FIBRILLATION AND IS ON ELIQUIS AND AMIODARIONE AND ENTRESTO AND METOPROLOL. PT HAS A PACEMAKER IN PLACE X 4 YEARS PT HAS HAD CARDIAC ABLATION 05/2019, FOLLOWED BY MAZE PROCEDURE 05/2020 AND LEFT LATERAL APPENDAGE CLIP 05/2020 NO HISTORY OF CAD OR WI OR STENTS. STATES SHE HAD SOME CHEST PAIN THIS AM, BUT WENT AWAY ON IT'S OWN, AND FELT FINE FOR THE REST OF THE DAY, UNTIL SHE WAS DRIVING TO WORK [employer] [employer]. PT IS ALSO INSULIN DEPENDENT DIABETIC WITH INSULIN PUMP. PCP: [facility]. [facility] [place] STATISTICAL METHODS TEACHER": DR. DE LA CRUZ AND DR. PIERSON IN [place], [place]--HAS ROUTINE CARDIOLOGY FOLLOW UP 10/06/20 Allergies and Home Medications Allergies Coded Allergies: promethazine (Verified Allergy, Intermediate, 10/02/07) clindamycin (Verified Allergy, Unknown, 09/27/20) hydrocodone (Verified Allergy, Unknown, 09/27/20) morphine (Verified Allergy, Unknown, 09/27/20) Home Medications Amitriptyline Hcl 10 Mg Tablet, 1 EACH PO DAILY, (Reported) Cyclobenzaprine HCl 5 Mg Tablet, 5 MG PO Q8H Prescribed by: VAMSHI ZIMMERMAN on 10/13/17 1220 Cyclobenzaprine Hcl 10 Mg Tablet, 1 EACH PO TID PRN for SPASMS, (Reported) Flecainide Acetate 150 Mg Tablet, 100 MG PO BID PRN for palpitations, (Reported) Gabapentin 400 Mg Cap, 600 MG PO QID, (Reported) Insulin Aspart 10 Unit/0.1 Ml Vial, 8 UNIT SC UD, (Reported) DAILY AT LUNCH Insulin Aspart 10 Unit/0.1 Ml Vial, 6 UNIT SC UD, (Reported) DAILY WITH EVENING MEAL Insulin Aspart 10 Unit/0.1 Ml Vial, 6 UNIT SC UD, (Reported) DAILY WITH BREAKFAST Insulin Determir 100 Unit/1 Ml Insuln.pen, 100 UNIT SQ BID, (Reported) Metformin Hcl 1,000 Mg Tablet, 1 EACH PO BID WITH MEALS, (Reported) Rivaroxaban 1 Each Tab.ds.pk, 1 EACH PO DAILY, (Reported) Sotalol Hcl 80 Mg Tablet, 40 MG PO BID, (Reported) Tramadol Hcl 50 Mg Tablet, 100 MG PO Q6H PRN for PAIN, (Reported) Patient Home Medication List Home Medication List Reviewed: Yes Review of Systems Review of Systems Constitutional: see HPI, diaphoresis, dizziness Respiratory: See HPI, Shortness of Air Cardiovascular: See HPI, Chest Pain; Denies Edema; Lightheadedness Gastrointestinal: See HPI; Denies Abdominal Pain; Nausea; Denies Vomiting Genitourinary: No Symptoms Reported Musculoskeletal: no symptoms reported Skin: no symptoms reported Psychiatric/Neurological: Anxiety, Pre-Existing Deficit (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) Endocrine: See HPI Hematologic/Lymphatic: No Symptoms Reported Past Gaakttr-Rjbycl-Nyacyx Hx Patient Social History Alcohol Use: Denies Use Drug of Choice: GRAHAM Smoking Status: Never a Smoker 2nd Hand Smoke Exposure: No Recent Infectious Disease Expo: No Past Medical History Surgeries: Yes Cardiac, Section, Gallbladder, Hysterectomy, Orthopedic, Pacemaker Respiratory: Yes COPD Cardiac: Yes (PACEMAKER, CARDIAC ABLATION, MAZE PROCEDURE, LEFT APPENDAGE CLIPPED) Atrial Fibrillation, High Cholesterol, Hypertension, Irregular Heartbeat Neurological: Yes Neuropathy (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) Reproductive Disorders: No Genitourinary: No Gastrointestinal: Yes Gastroesophageal Reflux Musculoskeletal: Yes Chronic Back Pain Endocrine: Yes (INSULIN PUMP) Diabetes, Insulin dep HEENT: No Cancer: No Psychosocial: No Integumentary: No Blood Disorders: No Family Medical History PAST SURGICAL HISTORY: -LEFT EYE SURGERY FOR RETINAL BLEED 3 YEARS AGO - X 2 IN 1969, 1970 -HYSTERECTOMY 1979 -CHOLECYSTECTOMY ( OPEN ) 1983 -LEFT FOOT SURGERY 7 YEARS AGO -LUMBAR LAMINECTOMY 20 YEARS AGO -PACEMAKER 4 YEARS AGO -CARDIAC ABLATION 05/2019 -MAZE PROCEDURE 05/2020 -LEFT LATERAL APPENDAGE CLIP 05/2020 Physical Exam Vital Signs Vital Signs - First Documented Capillary Refill : Less Than 3 Seconds Height, Weight, BMI Height: 5'1.00" Weight: 151lbs. 0.0oz. 68.804454ap; 24.00 BMI Method:Stated General Appearance: No Apparent Distress, WD/WN, Anxious (VERY ) Neck: Full Range of Motion, Normal Inspection, Non Tender, Supple; No Carotid Bruit, No JVD Respiratory: Normal Breath Sounds, No Accessory Muscle Use, No Respiratory Distress, Other (DOES HAVE TENDERNESS OVER PACEMAKER SITE. NO SIGNS OF INFECTION) Cardiovascular: Regular Rate, Rhythm, No Edema, No JVD, No Murmur, Normal Peripheral Pulses Gastrointestinal: Non Tender, Soft, Other (INSULIN PUMP IN PLACE) Extremity: Normal Capillary Refill, Normal Inspection, Normal Range of Motion, Non Tender, No Calf Tenderness, No Pedal Edema Neurologic/Psychiatric: Alert, Oriented x3, No Motor/Sensory Deficits (PERIPHERAL NEUROPATHY WITH SUBJECTIVE TINGLING TO HANDS AND FEET), public relations senior associate II-XII Norm as Tested, Other (VERY ANXIOUS) Skin: Normal Color, Warm/Dry Progress/Results/Core Measures Results/Orders Lab Results Laboratory Tests Test 09/27/20 18:44 Range/Units White Blood Count 6.6 4.3-11.0 10^3/uL Red Blood Count 3.98 3.80-5.11 10^6/uL Hemoglobin 11.9 11.5-16.0 g/dL Hematocrit 36 35-52 % Mean Corpuscular Volume 89 80-99 fL Mean Corpuscular Hemoglobin 30 25-34 pg Mean Corpuscular Hemoglobin Concent 33 32-36 g/dL Red Cell Distribution Width 12.7 10.0-14.5 % Platelet Count 196 130-400 10^3/uL Mean Platelet Volume 9.6 9.0-12.2 fL Immature Granulocyte % (Auto) 0 % Neutrophils (%) (Auto) 60 42-75 % Lymphocytes (%) (Auto) 33 12-44 % Monocytes (%) (Auto) 6 0-12 % Eosinophils (%) (Auto) 1 0-10 % Basophils (%) (Auto) 0 0-10 % Neutrophils # (Auto) 4.0 1.8-7.8 10^3/uL Lymphocytes # (Auto) 2.2 1.0-4.0 10^3/uL Monocytes # (Auto) 0.4 0.0-1.0 10^3/uL Eosinophils # (Auto) 0.1 0.0-0.3 10^3/uL Basophils # (Auto) 0.0 0.0-0.1 10^3/uL Immature Granulocyte # (Auto) 0.0 0.0-0.1 10^3/uL Prothrombin Time 14.2 12.2-14.7 SEC INR Comment 1.1 0.8-1.4 Activated Partial Thromboplast Time 26 24-35 SEC Sodium Level 143 135-145 MMOL/L Potassium Level 3.9 3.6-5.0 MMOL/L Chloride Level 111 H 98-107 MMOL/L Carbon Dioxide Level 21 21-32 MMOL/L Anion Gap 11 5-14 MMOL/L Blood Urea Nitrogen 16 7-18 MG/DL Creatinine 0.86 0.60-1.30 MG/DL Estimat Glomerular Filtration Rate > 60 BUN/Creatinine Ratio 19 Glucose Level 133 H 70-105 MG/DL Calcium Level 8.7 8.5-10.1 MG/DL Corrected Calcium 8.8 8.5-10.1 MG/DL Magnesium Level 2.0 1.6-2.4 MG/DL Total Bilirubin 0.4 0.1-1.0 MG/DL Aspartate Amino Transf (AST/SGOT) 26 5-34 U/L Alanine Aminotransferase (ALT/SGPT) 11 0-55 U/L Alkaline Phosphatase 88 40-136 U/L Total Creatine Kinase 34 29-168 U/L Creatine Kinase MB 0.7 <6.6 NG/ML Myoglobin 18.1 10.0-92.0 NG/ML Troponin I < 0.028 <0.028 NG/ML B-Type Natriuretic Peptide 27.7 <100.0 PG/ML Total Protein 7.1 6.4-8.2 GM/DL Albumin 3.9 3.2-4.5 GM/DL Amylase Level 77 25-125 U/L Lipase 30 8-78 U/L TSH [place] Testing 0.79 0.35-4.94 UIU/ML My Orders Orders - VAMSHI ZIMMERMAN DO Ed Iv/Invasive Line Start (09/27/20 18:47) Ekg Tracing (09/27/20 18:47) O2 (09/27/20 18:47) Monitor-Rhythm Ecg Trace Only (09/27/20 18:47) Amylase (09/27/20 18:47) BNP (09/27/20 18:47) Cbc With Automated Diff (09/27/20 18:47) Comprehensive Metabolic Panel (09/27/20 18:47) Creatine Kinase (09/27/20 18:47) Creatine Kinase Mb (09/27/20 18:47) Lipase (09/27/20 18:47) Magnesium (09/27/20 18:47) Protime With Inr (09/27/20 18:47) Partial Thromboplastin Time (09/27/20 18:47) Thyroid Analyzer (09/27/20 18:47) Myoglobin Serum (09/27/20 18:47) Troponin I (09/27/20 18:47) Chest 1 View, Ap/Pa Only (09/27/20 18:47) Nitroglycerin Ointment (Nitrobid Ointme (09/27/20 18:47) Fentanyl Injection (Sublimaze Injection (09/27/20 20:30) Vital Signs/I&O 09/27/20 09/27/20 18:40 18:40 Temp 37.3 Pulse 86 Resp 18 B/P (MAP) 148/86 (106) Pulse Ox 98 O2 Delivery Room Air Room Air Blood Pressure Mean: 106 Progress Progress Note : Progress Note GIVEN NITROPASTE--STATES PAIN DOWN TO 5/10 GIVEN FENTANYL FOR PAIN WITH SOME IMPROVEMENT NO DETERIORATION IN PT'S CONDITION DURING ER STAY Initial ECG Impression Date: Sep 27, 2020 Initial ECG Impression Time: 18:43 Initial ECG Rate: 83 Initial ECG Rhythm: Normal Sinus (ATRIAL PACED COMPLEXES) Diagnostic Imaging Comments CXR--PER RADIOLOGIST REPORT FINDINGS: There is a dual-chamber pacemaker. There are postop changes from left atrial appendage clipping. Heart size and pulmonary vascularity are normal. Lungs are clear. There is no effusion or pneumothorax. IMPRESSION: No acute abnormality in the chest. Reviewed: Reviewed by Me Departure Communication (Admissions) 2019--SPOKE WITH DR. ROCHA, HOSPITALIST, ACCEPTS PT FOR ADMIT. WILL CONSULT CARDIOLOGY IN AM. Impression Primary Impression: Chest pain Additional Impressions: History of permanent cardiac pacemaker placement History of atrial fibrillation Anxiety HTN (hypertension) IDDM (insulin dependent diabetes mellitus) Disposition: ADMITTED INPATIENT Condition: Improved Admissions Decision to Admit Reason: Admit from ER (General) Decision to Admit/Date: Sep 27, 2020 Time/Decision to Admit Time: 20:20 Departure-Patient Inst. Referrals: JAZMIN HELTON APRN (PCP) Primary Care Physician VAMSHI ZIMMERMAN DO Sep 27, 2020 19:13
[2020-09-27 19:14] LABS: CREATINE KINASE 34 U/L (29-168); LIPASE 30 U/L (8-78)
[2020-09-27 19:22] LABS: CREATINE KINASE MB 0.7 NG/ML (<6.6)
[2020-09-27 19:34] LABS: TSH (THYROID ANALYZER) 0.79 UIU/ML (0.35-4.94)
--- NOTE | 2020-09-27 19:34 | Diagnostic Imaging Report ---
INDICATION: Chest pain. EXAMINATION: Portable chest at 7:22 p.m. FINDINGS: There is a dual-chamber pacemaker. There are postop changes from left atrial appendage clipping. Heart size and pulmonary vascularity are normal. Lungs are clear. There is no effusion or pneumothorax. IMPRESSION: No acute abnormality in the chest. Dictated by: Dictated on workstation # [id number]
[2020-09-27] MEDS ORDERED: fentaNYL INJ 100 MCG/2 ML AMP IVP ONE (20:30)
[2020-09-27] MEDS ORDERED: ONDANSETRON 4 MG/2 ML (SDV) Z0FRAN IV PRN (21:15)
[2020-09-27] MEDS ORDERED: CATHETER FLUSH 10 ML SYR IV PRN (21:15)
[2020-09-27] MEDS ORDERED: fentaNYL INJ 100 MCG/2 ML AMP IV PRN (21:15)
[2020-09-27] MEDS: CATHETER FLUSH 10 ML SYR IV SCH (22:00)
[2020-09-28] VITALS (11 sets, daily range): BP systolic 114–140; BP diastolic 53–84
[2020-09-28 03:11] LABS: BASOPHILS % (AUTO) 0 % (0-10); EOSINOPHILS # (AUTO) 0.1 10^3/uL (0.0-0.3); EOSINOPHILS % (AUTO) 1 % (0-10); HEMATOCRIT 35 % (35-52); HEMOGLOBIN 11.5 g/dL (11.5-16.0); LYMPHOCYTES # (AUTO) 2.4 10^3/uL (1.0-4.0); LYMPHOCYTES % (AUTO) 37 % (12-44); MEAN CORPUSCULAR HEMOGLOBIN 30 pg (25-34); MEAN CORPUSCULAR HGB CONC 33 g/dL (32-36); MEAN CORPUSCULAR VOLUME 91 fL (80-99); MEAN PLATELET VOLUME 9.2 fL (9.0-12.2); MONOCYTES # (AUTO) 0.4 10^3/uL (0.0-1.0); MONOCYTES % (AUTO) 6 % (0-12); NEUTROPHILS # (AUTO) 3.5 10^3/uL (1.8-7.8); NEUTROPHILS % (AUTO) 55 % (42-75); PLATELET COUNT 166 10^3/uL (130-400); WHITE BLOOD COUNT 6.4 10^3/uL (4.3-11.0)
[2020-09-28 03:32] LABS: ALBUMIN 3.7 GM/DL (3.2-4.5); CHLORIDE 112 MMOL/L (98-107); POTASSIUM 3.4 MMOL/L (3.6-5.0); SODIUM 144 MMOL/L (135-145)
[2020-09-28 03:33] LABS: CALCIUM 8.4 MG/DL (8.5-10.1)
[2020-09-28 03:34] LABS: TOTAL PROTEIN 6.3 GM/DL (6.4-8.2); TRIGLYCERIDES 69 MG/DL (<150); VLDL CHOLESTEROL 14 MG/DL (5-40)
[2020-09-28 03:35] LABS: CARBON DIOXIDE 23 MMOL/L (21-32); GLUCOSE 92 MG/DL (70-105)
[2020-09-28 03:36] LABS: BILIRUBIN,TOTAL 0.4 MG/DL (0.1-1.0)
[2020-09-28 03:38] LABS: ALKALINE PHOSPHATASE 77 U/L (40-136); CREATININE SERUM 0.78 MG/DL (0.60-1.30); GFR ESTIMATED > 60
[2020-09-28 03:39] LABS: BUN/CREATININE RATIO 17; CHOLESTEROL 149 MG/DL (< 200)
[2020-09-28 03:40] LABS: HDL CHOLESTEROL 54 MG/DL (40-60)
[2020-09-28 03:41] LABS: ALANINE AMINOTRANSFERASE 9 U/L (0-55)
[2020-09-28] MEDS: NITROGLYCERIN 2% OINT 1 GM UNIT DOSE PACKET TOP SCH ×2 (04:32→08:14)
[2020-09-28] MEDS: inSUlin ASPART (NovoLOG) 1 UNIT/0.01 ML (CHARGE PER UNIT) SC SCH ×4 (06:04→21:00)
[2020-09-28] MEDS: CATHETER FLUSH 10 ML SYR IV SCH ×3 (06:04→23:55)
[2020-09-28] MEDS: ASPIRIN E.C. 81 MG (ECOTRIN) TAB PO SCH ×2 (08:14→09:47)
--- NOTE | 2020-09-28 08:21 | Consultation-Cardiology ---
HPI-Cardiology Cardiology Consultation: Date of Consultation 09/28/20 Date of Admission 09-27-20 Attending Physician Mariaa Piper MD Admitting Physician Brooke Zheng Aprn Consulting Physician Suzie Jackson MD HPI: Chief Complaint: Chest pain Ms. Payan is a 70 yr old female admitted to ICU 1 from the ED with c/o CP. She is very tearful this morning. She states she has had chest pain off and on for approx 8-9 yrs. She reports yesterday she had chest pain, left sided, radiated around to her back which lasted all day. She reports at times activity would make it worse, at other times it did not affect it at all. She denies any c/o SOB, syncope or near syncope. She reports when she has chest pain she will usually rest and it will resolve on its own. She reports she received nitro in the ED which did provide some relief, but has not completely resolved her pain. She states she sees Dr. Rich with cardiology services at [place] and Dr. Lake of EP services at [place]. She reports she saw him approx a month ago and is d/t see him next week. She reports she has had LA appendage clip with MAZE procedure in [address] Shannon and feels her pain has been worse since then. She reports she had a pacemaker placed by Dr. Madsen at [facility] approx 5 yrs ago. She states she did have a stress test and echo with Dr. Shannon last year, she is unsure of the results. No c/o fever or chills. No c/o injury to chest or pacemaker site recently. She reports no n/v/d. Review of Systems-Cardiology Review of Systems Constitutional: No chills, No fever; lightheadedness, tiredness Eyes: No vision change Ears/Nose/Throat: No epistaxis, No recent hearing loss Respiratory: As described under HPI Cardiovascular: As described under HPI Gastrointestinal: As described under HPI Genitourinary: No dysuria, No hematuria Musculoskeletal: As describe under HPI Skin: No rash on exposed areas, No ulcerations on exposed areas Psychiatric/Neurological: anxiety; No depression, No seizure, No focal weakness, No syncope Hematologic: No bleeding abnormalities WHD-Derjlp-Pzdvvp Hx Patient Social History Smoking Status: Never a Smoker 2nd Hand Smoke Exposure: No Have you traveled recently?: No Alcohol Use?: No Pt feels they are or have been: No Past Medical History PMH As described under Assessment. Family Medical History Family Medical History: She reports her mother had cancer and her father had emphysema. She does not report any family h/o CAD. Allergies and Home Medications Allergies Coded Allergies: promethazine (Verified Allergy, Intermediate, 10/02/07) clindamycin (Verified Allergy, Unknown, 09/27/20) hydrocodone (Verified Allergy, Unknown, 09/27/20) morphine (Verified Allergy, Unknown, 09/27/20) Home Medications Amiodarone HCl 100 Mg Tablet, 100 MG PO DAILY, (Reported) LAST FILLED 07-10-2020 #30 Apixaban 5 Mg Tablet, 5 MG PO BID, (Reported) Benzonatate 200 Mg Capsule, 200 MG PO TID PRN for COUGH, (Reported) Insulin Aspart 100 Unit/1 Ml Susp, UNITS SC PER PUMP, (Reported) Insulin Determir 1,000 Units/10 Ml Soln, 11 UNITS SC DAILY PRN for IF INSULIN PUMP IS UNAVALIABLE, (Reported) Metoprolol Succinate 50 Mg Tab.er.24h, 50 MG PO DAILY, (Reported) HOLD IF SBP IS LESS THAN 120 Peg 400/Hypromellose/Glycerin 15 Ml Drops, 2 DROPS OU PRN PRN for DRY EYES, (Reported) Polyethylene Glycol 3350 17 Gm Powd.pack, 17 GM PO DAILY PRN for CONSTIPATION- 2ND LINE, (Reported) Potassium Chloride 10 Meq Tablet.er, 10 MEQ PO DAILY, (Reported) Pravastatin Sodium 20 Mg Tablet, 20 MG PO HS, (Reported) Sacubitril/Valsartan 1 Each Tablet, 1 EA PO BID, (Reported) Spironolactone 25 Mg Tablet, 12.5 MG PO DAILY, (Reported) TAKES OF A 25MG Vit C/E/Zn/Coppr/Lutein/Zeaxan 1 Each Capsule, 1 EACH PO DAILY, (Reported) Physical Exam-Cardiology Physical Exam Vital Signs/I&O 09/29/20 09/29/20 09/29/20 09/29/20 01:00 04:00 06:46 07:58 Temp 36.8 Pulse 71 77 72 87 Resp 18 18 B/P (MAP) 122/66 (84) 133/77 (95) Pulse Ox 99 97 O2 Delivery Room Air Room Air 09/29/20 09/29/20 08:00 10:05 Pulse 86 Resp 16 B/P (MAP) 153/74 (100) Pulse Ox 100 95 O2 Delivery Room Air Room Air 09/29/20 00:00 Intake Total 900 ml Balance 900 ml Capillary Refill : Less Than 3 Seconds Constitutional: AAO x 3, well-developed, well-nourished HEENT: PERRL, hearing is well preserved, oral hygience is good Neck: No carotid bruit; carotid pulses are 2 + bilaterally Respiratory: No accessory muscle use, No respiratory distress; chest expansion is symmetric, chest is bilaterally symmetric, lungs clear to auscultation Cardiovascular: regular rate-rhythm; No JVD; S1 and S2 Gastrointestinal: No tender; soft, round, audible bowel sounds Extremities: no lower extremity edema bilateral Neurologic/Psychiatric: grossly intact (moves all extremities) Skin: No rash on exposed areas, No ulcerations on exposed areas Data Review Labs Radiology NAME: RAVI PAYAN [facility] REC#: [id number] PT STATUS: REG ER : 1950 PHYSICIAN: VAMSHI ZIMMERMAN DO ADMIT DATE: 09/27/20/ER Signed Date of Exam:09/27/20 CHEST 1 VIEW, AP/PA ONLY INDICATION: Chest pain. EXAMINATION: Portable chest at 7:22 p.m. FINDINGS: There is a dual-chamber pacemaker. There are postop changes from left atrial appendage clipping. Heart size and pulmonary vascularity are normal. Lungs are clear. There is no effusion or pneumothorax. IMPRESSION: No acute abnormality in the chest. Dictated by: Dictated on workstation # [id number] Dict: 09/27/201928 Trans: 09/27/201934 [facility] [id number] Interpreted by: MARGARITA CARRASCO MD Electronically signed by: MARGARITA CARRASCO MD 09/27/201934 ECG Impression ECG Comment atrial pacing A/P-Cardiology Assessment/Admission Diagnosis Chest pain of undetermined etiology H/O SSS - post pacemaker implant [address] Madsen at [facility] for stroke prophylaxis H/O LA appendage clip with MAZE procedure by Dr. Shannon in May 2020 H/O ablation [place] [address] Shannon Reports h/o CHF DM - insulin pump - managed by Dr. Durand of endocrinology services HLD - statin tx H/O CVA approx 2 years ago - no residual Discussion and Recomendations Chest pain of undetermined etiology - no evidence of ACS thus far Request records from [place], Dr. Shannon Request records from [facility] Advise resumption of Entresto, Amiodarone, Aldactone, BB and OAC Echocardiogram today Continue tele Monitor lab closely Replace electrolytes as indicated Further recs will be based on her hospital course We would like to thank medical services for this consult I have spoken with Dr. Naidu of medical services this morning JESSICA PRINCE Sep 28, 2020 08:21
[2020-09-28] MEDS ORDERED: hydrOXYzine (ATARAX) 10 MG TAB PO PRN (09:00)
[2020-09-28] MEDS ORDERED: KCL 10 MEQ TAB (MICRO K) PO ONE (09:00)
--- NOTE | 2020-09-28 09:03 | History & Physical-Hospitalist ---
History of Present Illness HPI/Chief Complaint Pt is a 70yoCF with a PMH of IDDM, HTn, and a-fib who presented to the ER due to chest pain. She states she was driving to work and her pain started bu really it has been going on for a while. She varied the timeframe of symptoms from a few days to a few months throughout our interview but ultimately she believes it started before her surgery in May but has worsened recently. She states she had 10/10 chest pain around her left chest. She was SOB and diaphoretic with this. She called EMS from the side of the road and was given a nitro which took her pain down to a 7/10. She has a LA appendage clipping with [facility] in [facility] on last year with Dr Shannon in [place]. She is supposed to see him next week. She is very tearful during my exam and reports she thinks some of her symptoms are due to her anxiety. Source: patient Date Seen 09/28/20 Time Seen by a Provider: 08:45 Attending Physician Mariaa Piper MD PCP Brooke Zheng Aprn Referring Physician Date of Admission Sep 27, 2020 at 20:20 Home Medications & Allergies Home Medications Reviewed patient Home Medication Reconciliation performed by pharmacy medication reconciliations robot technician and/or nursing. Patients Allergies have been reviewed. Allergies Allergies Coded Allergies promethazine (Verified Allergy, Intermediate, 10/02/07) clindamycin (Verified Allergy, Unknown, 09/27/20) hydrocodone (Verified Allergy, Unknown, 09/27/20) morphine (Verified Allergy, Unknown, 09/27/20) Past Mndwusd-Vmnrqj-Eplgnp Hx Past Med/Social Hx: Reviewed Nursing Past Med/Soc Hx Patient Social History Alcohol Use: Denies Use Recreational Drug Use: No Drug of Choice: DEINIES Smoking Status: Never a Smoker 2nd Hand Smoke Exposure: No Recent Foreign Travel: No Contact w/other who traveled: No Recent Infectious Disease Expo: No Past Medical History Surgeries: Cardiac, Section, Gallbladder, Hysterectomy, Orthopedic, Pacemaker Cardiac: Atrial Fibrillation, High Cholesterol, Hypertension, Irregular Heartbeat Neurological: Neuropathy (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) Reproductive: No Gastrointestinal: Gastroesophageal Reflux Musculoskeletal: Chronic Back Pain Endocrine: Diabetes, Insulin dep History of Blood Disorders: No Family History PAST SURGICAL HISTORY: -LEFT EYE SURGERY FOR RETINAL BLEED 3 YEARS AGO - X 2 IN 1969, 1970 -HYSTERECTOMY 1979 -CHOLECYSTECTOMY ( OPEN ) 1983 -LEFT FOOT SURGERY 7 YEARS AGO -LUMBAR LAMINECTOMY 20 YEARS AGO -PACEMAKER 4 YEARS AGO -CARDIAC ABLATION 05/2019 -MAZE PROCEDURE 05/2020 -LEFT LATERAL APPENDAGE CLIP 05/2020 Review of Systems Constitutional: No chills, No fever EENTM: no symptoms reported Respiratory: see HPI, short of breath Cardiovascular: see HPI, chest pain; No edema; Hx of Intervention, palpitations Gastrointestinal: see HPI Genitourinary: No dysuria, No frequency Musculoskeletal: no symptoms reported Skin: no symptoms reported Psychiatric/Neurological: Anxiety Physical Exam Physical Exam Vital Signs Vital Signs - First Documented 09/27/20 23:16 O2 Flow Rate 1.00 Capillary Refill : Less Than 3 Seconds Height, Weight, BMI Height: 5'1.00" Weight: 151lbs. 0.0oz. 68.234789od; 25.57 BMI Method:Stated General Appearance: No Apparent Distress, Anxious, Other (tearful during exam) HEENT: PERRL/EOMI, Moist Mucous Membranes Neck: Normal Inspection, Supple Respiratory: Lungs Clear, No Respiratory Distress Cardiovascular: Regular Rate, Rhythm, No Murmur Gastrointestinal: Normal Bowel Sounds, Non Tender, Soft Extremity: No Calf Tenderness, No Pedal Edema Neurologic/Psychiatric: Alert, Oriented x3 Skin: Normal Color, Warm/Dry Results Results/Procedures Labs Patient resulted labs reviewed. Imaging: Reviewed Imaging Report Imaging [facility] [place] NAME: RAVI PAYAN [facility] REC#: [id number] PT STATUS: REG ER : 1950 PHYSICIAN: VAMSHI ZIMMERMAN DO ADMIT DATE: 09/27/20/ER Signed Date of Exam:09/27/20 CHEST 1 VIEW, AP/PA ONLY INDICATION: Chest pain. EXAMINATION: Portable chest at 7:22 p.m. FINDINGS: There is a dual-chamber pacemaker. There are postop changes from left atrial appendage clipping. Heart size and pulmonary vascularity are normal. Lungs are clear. There is no effusion or pneumothorax. IMPRESSION: No acute abnormality in the chest. Dictated by: Dictated on workstation # [id number] Dict: 09/27/201928 Trans: 09/27/201934 [facility] [id number] Interpreted by: MARGARITA CARRASCO MD Electronically signed by: MARGARITA CARRASCO MD 09/27/201934 Assessment/Plan Admission Diagnosis Chest pain Admission Status: Observation Assessment and Plan Chest pain A-fib Troponin negative x2 Monitor on telemetry Request records from [place] Cardiology consulted, appreciate recs Continue home meds when med rec available IDDMII On insulin pump and BS 92 Continue home insulin regimen Anxiety Reports worsening anxiety due to symptoms, tearful while I was in room Atarax added prn DVT ppx: FRANCISCA Willoughby MD Sep 28, 2020 09:03
[2020-09-28] MEDS: SACUBITRIL/VALSARTAN 24/26 MG (ENTRESTO) TABLET PO SCH ×2 (09:46→21:14)
[2020-09-28] MEDS: APIXABAN 5 MG (ELIQUIS) TABLET PO SCH ×2 (09:47→21:14)
[2020-09-28] MEDS: AMIODARONE 200 MG (CORDARONE) TAB PO SCH (09:47)
[2020-09-28] MEDS ORDERED: INSU100V5 SC (10:09)
[2020-09-28] MEDS ORDERED: BENZ200C51 PO (10:09)
[2020-09-28] MEDS ORDERED: SPIR25TA5 PO (10:09)
[2020-09-28] MEDS ORDERED: POTA10TA PO (10:09)
[2020-09-28] MEDS ORDERED: PEG15DRO9 OU (10:09)
[2020-09-28] MEDS ORDERED: PRAV20TA3 PO (10:09)
[2020-09-28] MEDS ORDERED: METO50TA7 PO (10:09)
[2020-09-28] MEDS ORDERED: POLY17PO6 PO (10:09)
[2020-09-28] MEDS ORDERED: APIX5TAB PO (10:09)
[2020-09-28] MEDS ORDERED: INSU100V16 SC (10:09)
[2020-09-28] MEDS ORDERED: SACU1TAB2 PO (10:09)
[2020-09-28] MEDS ORDERED: VIT1CAPS44 PO (10:09)
[2020-09-28] MEDS ORDERED: AMIO100T PO (10:16)
--- NOTE | 2020-09-28 16:46 | Consultation-Cardiology ---
HPI-Cardiology Cardiology Consultation: Date of Consultation 09/28/20 Time Seen by a Provider: 09:10 Date of Admission Attending Physician Mariaa Piper MD Admitting Physician Brooke Zheng Aprn Consulting Physician PRESTON ARENAS MD, MA, FACP, FACC, FSCAI, CCDS HPI: Chief Complaint: CC: Chest pain HPI Ms. Oneal is a 70 yr old female admitted to ICU 1 from the ED with c/o CP. She is very tearful this morning. She states she has had chest pain off and on for approx 8-9 yrs. She reports yesterday she had chest pain, left sided, radiated around to her back which lasted all day. She reports at times activity would make it worse, at other times it did not affect it at all. She denies any c/o SOB, syncope or near syncope. She reports when she has chest pain she will usually rest and it will resolve on its own. She reports she received nitro in the ED which did provide some relief, but has not completely resolved her pain. She states she sees Dr. Rich with cardiology services at [place] and Dr. Lake of EP services at [facility]. She reports she saw him approx a month ago and is d/t see him next week. She reports she has had LA appendage clip with MAZE procedure in May [address] Shannon and feels her pain has been worse since then. She reports she had a pacemaker placed by Dr. Madsen at [facility] approx 5 yrs ago. She states she did have a stress test and echo with Dr. Shannon last year, she is unsure of the results. No c/o fever or chills. No c/o injury to chest or pacemaker site recently. She reports no n/v/d. Review of Systems-Cardiology Review of Systems Constitutional: No chills, No fever; lightheadedness, tiredness Eyes: No vision change Ears/Nose/Throat: No epistaxis, No recent hearing loss Respiratory: As described under HPI Cardiovascular: As described under HPI Gastrointestinal: As described under HPI Genitourinary: No dysuria, No hematuria Musculoskeletal: As describe under HPI Skin: No rash on exposed areas, No ulcerations on exposed areas Psychiatric/Neurological: anxiety; No depression, No seizure, No focal weakness, No syncope Hematologic: No bleeding abnormalities HSS-Clkovz-Rxuwug Hx Patient Social History Smoking Status: Never a Smoker 2nd Hand Smoke Exposure: No Have you traveled recently?: No Alcohol Use?: No Pt feels they are or have been: No Past Medical History PMH As described under Assessment. Family Medical History Family Medical History: She reports her mother had cancer and her father had emphysema. She does not report any family h/o CAD. Allergies and Home Medications Allergies Coded Allergies: promethazine (Verified Allergy, Intermediate, 10/02/07) clindamycin (Verified Allergy, Unknown, 09/27/20) hydrocodone (Verified Allergy, Unknown, 09/27/20) morphine (Verified Allergy, Unknown, 09/27/20) Home Medications Amiodarone HCl 100 Mg Tablet, 100 MG PO DAILY, (Reported) LAST FILLED 07-10-2020 #30 Apixaban 5 Mg Tablet, 5 MG PO BID, (Reported) Benzonatate 200 Mg Capsule, 200 MG PO TID PRN for COUGH, (Reported) Insulin Aspart 100 Unit/1 Ml Susp, UNITS SC PER PUMP, (Reported) Insulin Determir 1,000 Units/10 Ml Soln, 11 UNITS SC DAILY PRN for IF INSULIN PUMP IS UNAVALIABLE, (Reported) Metoprolol Succinate 50 Mg Tab.er.24h, 50 MG PO DAILY, (Reported) HOLD IF SBP IS LESS THAN 120 Peg 400/Hypromellose/Glycerin 15 Ml Drops, 2 DROPS OU PRN PRN for DRY EYES, (Reported) Polyethylene Glycol 3350 17 Gm Powd.pack, 17 GM PO DAILY PRN for CONSTIPATION- 2ND LINE, (Reported) Potassium Chloride 10 Meq Tablet.er, 10 MEQ PO DAILY, (Reported) Pravastatin Sodium 20 Mg Tablet, 20 MG PO HS, (Reported) Sacubitril/Valsartan 1 Each Tablet, 1 EA PO BID, (Reported) Spironolactone 25 Mg Tablet, 12.5 MG PO DAILY, (Reported) TAKES OF A 25MG Vit C/E/Zn/Coppr/Lutein/Zeaxan 1 Each Capsule, 1 EACH PO DAILY, (Reported) Patient Home Medication List Home Medication List Reviewed: Yes Physical Exam-Cardiology Physical Exam Vital Signs/I&O 09/28/20 09/28/20 09/28/20 09/28/20 05:00 06:00 06:31 07:27 Temp 36.6 Pulse 70 67 69 Resp 13 14 B/P (MAP) 134/75 (94) 124/72 (89) Pulse Ox 97 94 O2 Delivery Nasal Cannula Room Air O2 Flow Rate 1.00 09/28/20 09/28/20 09/28/20 09/28/20 08:00 08:00 11:33 12:00 Temp 36.1 Pulse 76 88 Resp 18 B/P (MAP) 137/64 (88) Pulse Ox 99 100 87 O2 Delivery Room Air Room Air Room Air 09/28/20 09/28/20 12:36 13:00 Pulse 79 89 Resp 18 B/P (MAP) 120/64 (82) Pulse Ox 99 O2 Delivery Room Air 09/28/20 00:00 Intake Total 50 ml Balance 50 ml Capillary Refill : Less Than 3 Seconds Constitutional: AAO x 3, well-developed, well-nourished HEENT: PERRL, hearing is well preserved, oral hygience is good Neck: No carotid bruit; carotid pulses are 2 + bilaterally Respiratory: No accessory muscle use, No respiratory distress; chest expansion is symmetric, chest is bilaterally symmetric, lungs clear to auscultation Cardiovascular: regular rate-rhythm; No JVD; S1 and S2 Gastrointestinal: No tender; soft, round, audible bowel sounds Extremities: no lower extremity edema bilateral Neurologic/Psychiatric: grossly intact (moves all extremities) Skin: No rash on exposed areas, No ulcerations on exposed areas Data Review Labs Laboratory Tests 09/27/20 18:44: White Blood Count 6.6, Red Blood Count 3.98, Hemoglobin 11.9, Hematocrit 36, Mean Corpuscular Volume 89, Mean Corpuscular Hemoglobin 30, Mean Corpuscular Hemoglobin Concent 33, Red Cell Distribution Width 12.7, Platelet Count 196, Mean Platelet Volume 9.6, Immature Granulocyte % (Auto) 0, Neutrophils (%) (Auto) 60, Lymphocytes (%) (Auto) 33, Monocytes (%) (Auto) 6, Eosinophils (%) (Auto) 1, Basophils (%) (Auto) 0, Neutrophils # (Auto) 4.0, Lymphocytes # (Auto) 2.2, Monocytes # (Auto) 0.4, Eosinophils # (Auto) 0.1, Basophils # (Auto) 0.0, Immature Granulocyte # (Auto) 0.0, Prothrombin Time 14.2, INR Comment 1.1, Activated Partial Thromboplast Time 26, Sodium Level 143, Potassium Level 3.9, Chloride Level 111H, Carbon Dioxide Level 21, Anion Gap 11, Blood Urea Nitrogen 16, Creatinine 0.86, Estimat Glomerular Filtration Rate > 60, BUN/Creatinine Ratio 19, Glucose Level 133H, Calcium Level 8.7, Corrected Calcium 8.8, Magnesium Level 2.0, Total Bilirubin 0.4, Aspartate Amino Transf (AST/SGOT) 26, Alanine Aminotransferase (ALT/SGPT) 11, Alkaline Phosphatase 88, Total Creatine Kinase 34, Creatine Kinase MB 0.7, Myoglobin 18.1, Troponin I < 0.028, B-Type Natriuretic Peptide 27.7, Total Protein 7.1, Albumin 3.9, Amylase Level 77, Lipase 30, TSH [place] Testing 0.79 09/28/20 02:50: White Blood Count 6.4, Red Blood Count 3.87, Hemoglobin 11.5, Hematocrit 35, Zahraa n Corpuscular Volume 91, Mean Corpuscular Hemoglobin 30, Mean Corpuscular Hemoglobin Concent 33, Red Cell Distribution Width 12.7, Platelet Count 166, Mean Platelet Volume 9.2, Immature Granulocyte % (Auto) 0, Neutrophils (%) (Auto) 55, Lymphocytes (%) (Auto) 37, Monocytes (%) (Auto) 6, Eosinophils (%) (Auto) 1, Basophils (%) (Auto) 0, Neutrophils # (Auto) 3.5, Lymphocytes # (Auto) 2.4, Monocytes # (Auto) 0.4, Eosinophils # (Auto) 0.1, Basophils # (Auto) 0.0, Immature Granulocyte # (Auto) 0.0, Sodium Level 144, Potassium Level 3.4L, Chloride Level 112H, Carbon Dioxide Level 23, Anion Gap 9, Blood Urea Nitrogen 13, Creatinine 0.78, Estimat Glomerular Filtration Rate > 60, BUN/Creatinine Ratio 17, Glucose Level 92, Calcium Level 8.4L, Corrected Calcium 8.6, Total Bilirubin 0.4, Aspartate Amino Transf (AST/SGOT) 18, Alanine Aminotransferase (ALT/SGPT) 9, Alkaline Phosphatase 77, Troponin I < 0.028, Total Protein 6.3L, Albumin 3.7, Triglycerides Level 69, Cholesterol Level 149, LDL Cholesterol Direct 92, VLDL Cholesterol 14, HDL Cholesterol 54 Laboratory Tests 09/27/20 18:44 09/28/20 02:50 A/P-Cardiology Assessment/Admission Diagnosis Chest pain of undetermined etiology; no evidence of ACS. Pt reports a card cath last year in did not show significant CAD H/O SSS - post pacemaker implant [address] Madsen at [facility] PAF Eliquis for stroke prophylaxis H/O LA appendage clip with MAZE procedure by Dr. Shannon in May 2020 H/O ablation [place] [address] Shannon Reports h/o CHF DM - insulin pump - managed by Dr. Durand of endocrinology services HLD - statin tx H/O CVA approx 2 years ago - no residual Discussion and Recomendations Chest pain of undetermined etiology - no evidence of ACS thus far Request records from [place], Dr. Shannon Request records from [facility] Advise resumption of Entresto, Amiodarone, Aldactone, BB and OAC Echocardiogram today Continue tele Monitor lab closely Replace electrolytes as indicated Further recs will be based on her hospital course We would like to thank Medical services for this consult PRESTON ARENAS MD FACP FACC CCDS Sep 28, 2020 16:46
[2020-09-28] MEDS ORDERED: ACETAMINOPHEN 500 MG TAB (TYLENOL) PO PRN (17:45)
[2020-09-29] VITALS: BP 122/66
[2020-09-29 04:00] VITALS: BP 122/66
[2020-09-29] MEDS: inSUlin ASPART (NovoLOG) 1 UNIT/0.01 ML (CHARGE PER UNIT) SC SCH ×3 (06:35→16:00)
[2020-09-29] MEDS: CATHETER FLUSH 10 ML SYR IV SCH ×2 (06:35→10:07)
[2020-09-29] MEDS: APIXABAN 5 MG (ELIQUIS) TABLET PO SCH (07:56)
[2020-09-29] MEDS: SACUBITRIL/VALSARTAN 24/26 MG (ENTRESTO) TABLET PO SCH (07:56)
[2020-09-29] MEDS: ASPIRIN E.C. 81 MG (ECOTRIN) TAB PO SCH (07:56)
[2020-09-29] MEDS: AMIODARONE 200 MG (CORDARONE) TAB PO SCH (07:56)
[2020-09-29 07:58] VITALS: BP 133/77
[2020-09-29] MEDS ORDERED: REGADENOSON 0.4 MG/5 ML SYR (LEXISCAN) IV ONE ×2 (08:30→09:03)
--- NOTE | 2020-09-29 09:28 | Progress Note - Hospitalist ---
Subjective HPI/CC On Admission Date Seen by Provider: Sep 29, 2020 Time Seen by Provider: 09:25 Pt is a 70yoCF with a PMH of IDDM, HTn, and a-fib who presented to the ER due to chest pain. She states she was driving to work and her pain started bu really it has been going on for a while. She varied the timeframe of symptoms from a few days to a few months throughout our interview but ultimately she believes it started before her surgery in May but has worsened recently. She states she had 10/10 chest pain around her left chest. She was SOB and diaphoretic with th is. She called EMS from the side of the road and was given a nitro which took her pain down to a 7/10. She has a LA appendage clipping with [facility] in [facility] on last year with Dr Shannon in [place]. She is supposed to see him next week. She is very tearful during my exam and reports she thinks some of her symptoms are due to her anxiety. Subjective/Events-last exam Pt reports feeling much better today. Still anxious but no more chest pain and overall feeling better. Discussed plan with her about stress test today per Dr Jackson and she is very relieved to have a further workup. Objective Exam Vital Signs Vital Signs Date Time Temp Pulse Resp B/P (MAP) Pulse Ox O2 Delivery O2 Flow Rate FiO2 09/29/20 08:00 100 Room Air 09/29/20 07:58 36.8 87 18 133/77 (95) 09/28/20 05:00 1.00 Capillary Refill : Less Than 3 Seconds General Appearance: No Apparent Distress, Anxious Respiratory: Lungs Clear, No Respiratory Distress Cardiovascular: Regular Rate, Rhythm, No Murmur Neurologic/Psychiatric: Alert, Oriented x3 Results/Procedures Lab Patient resulted labs reviewed. Assessment/Plan Assessment and Plan Assess & Plan/Chief Complaint Chest pain A-fib Troponin negative x2 Monitor on telemetry Request records from [place], still awaiting these Cardiology consulted, appreciate recs Plan for stress test today Continue amiodarona, entresto, ASA, and Eliquis IDDMII On insulin pump and BS 92 Continue home insulin regimen Anxiety Reports worsening anxiety due to symptoms Atarax added prn DVT ppx: FRANCISCA Rodriguez MD Sep 29, 2020 09:28
[2020-09-29 10:05] VITALS: BP 153/74
[2020-09-29 12:00] VITALS: BP 119/75
--- NOTE | 2020-09-29 12:45 | Progress Note - Cardiology ---
Cardiology SOAP Progress Note Subjective: No c/o CP this morning No c/o SOB, palpitations, syncope or near syncope States she is feeling better Objective: I&O/Vital Signs Weight (Pounds): 151 Weight (Ounces): 0.0 Weight (Calculated Kilograms): 68.587549 Constitutional: AAO x 3, well-developed, well-nourished Respiratory: No accessory muscle use, No respiratory distress; chest expansion is symmetric, chest is bilaterally symmetric, lungs clear to auscultation Cardiovascular: regular rate-rhythm; No JVD; S1 and S2 Gastrointestional: No tender; soft, round, audible bowel sounds Extremities: no lower extremity edema bilateral Neurologic/Psychiatric: grossly intact (moves all extremities) Skin: No rash on exposed areas, No ulcerations on exposed areas Results/Procedures: Labs A/P: Assessment: Chest pain of undetermined etiology; no evidence of ACS. Pt reports a card cath last year in did not show significant CAD Echo of 3--21 shows LVEF 55-60%. H/O SSS - post pacemaker implant [address] Madsen at [facility] PAF Eliquis for stroke prophylaxis H/O LA appendage clip with MAZE procedure by Dr. Shannon in May 2020 H/O ablation [place] [address] Shannon Reports h/o CHF DM - insulin pump - managed by Dr. Durand of endocrinology services HLD - statin tx H/O CVA approx 2 years ago - no residual Plan: Chest pain of undetermined etiology - no evidence of ACS thus far - advis MPI to be done today Request records from Dr. Mirtha Hays - still waiting Request records from [facility] - per [facility] - no records found Continue current medication regimen Monitor lab closely Replace electrolytes as indicated JESSICA PRINCE Sep 29, 2020 12:45
[2020-09-29 15:52] VITALS: BP 125/71
--- NOTE | 2020-09-29 17:29 | STRESS TEST ---
DATE OF SERVICE: 09/29/2020 RESTING AND POST REGADENOSON TECHNETIUM-99M TETROFOSMIN SPECT CT IMAGING ORDERING PHYSICIAN: Janelle Sandoval APRN PRIMARY PHYSICIAN: Dr. Naidu. CLINICAL DIAGNOSIS: Chest discomfort. Baseline images were carried out after injection of 11 mCi of technetium-99m Tetrofosmin. This was followed by 0.4 mg regadenoson and 31.4 mCi of technetium-99m Tetrofosmin for stress imaging. The electrocardiogram showed sinus rhythm at baseline. Isolated premature atrial contractions were seen. The electrocardiogram did not change significantly with regadenoson infusion. Review of images at rest and following stress does not indicate any significant perfusion defects consistent with myocardial ischemia or infarction. Gated images showed normal global left ventricular systolic function with normal regional wall motion. Left ventricular ejection fraction is calculated to be 53%. Left ventricular end diastolic volume is 31 mL. TID is absent (1.07). CONCLUSIONS: 1. No evidence of any significant myocardial ischemia or infarction on this study. 2. Normal regional wall motion. 3. Normal global left ventricular systolic function with a calculated ejection fraction of 53%. Job ID: [id number] DocumentID: [id number] Dictated Date: 09/29/2020 16:43:42 Machine Tool Technician Instructor Date: 09/29/2020 17:28:37 Dictated By: PRESTON ARENAS MD, MA, FACP, FACC,
--- NOTE | 2020-09-29 18:55 | Progress Note - Cardiology ---
Cardiology SOAP Progress Note Subjective: No cp or palp or syncope No shortness of breath No weakness No n/v/d Wishes to go home and resume work tomorrow Objective: I&O/Vital Signs 09/29/20 09/29/20 09/29/20 09/29/20 07:58 08:00 10:05 12:00 Temp 36.8 Pulse 87 86 88 Resp 18 16 16 B/P (MAP) 133/77 (95) 153/74 (100) 119/75 (90) Pulse Ox 97 100 95 97 O2 Delivery Room Air Room Air Room Air Room Air 09/29/20 09/29/20 12:57 15:52 Temp 36.4 Pulse 88 86 Resp 18 B/P (MAP) 125/71 (89) Pulse Ox 96 O2 Delivery Room Air 09/29/20 00:00 Intake Total 900 ml Balance 900 ml Weight (Pounds): 151 Weight (Ounces): 0.0 Weight (Calculated Kilograms): 68.546229 Constitutional: AAO x 3, well-developed, well-nourished Respiratory: No accessory muscle use, No respiratory distress; chest expansion is symmetric, chest is bilaterally symmetric, lungs clear to auscultation Cardiovascular: regular rate-rhythm; No JVD; S1 and S2 Gastrointestional: No tender; soft, round, audible bowel sounds Extremities: no lower extremity edema bilateral Neurologic/Psychiatric: grossly intact (moves all extremities) Skin: No rash on exposed areas, No ulcerations on exposed areas Results/Procedures: Labs Laboratory Tests 09/28/20 02:50 A/P: Assessment: Chest pain of undetermined etiology; no evidence of ACS - Pt reports a card cath last year in did not show significant CAD - Echo of 09-28-20 shows LVEF 55-60% - MPI of 09-29-20: no ischemia or infarcton H/o SSS and PAF - post pacemaker implant in or around [address] Madsen at [facility] for stroke prophylaxis - H/o ablation [place] [address] Shannon - H/o LA appendage clip with MAZE procedure by Dr. Shannon in May 2020 Cardiac risk factors - DM - insulin pump - managed by Dr. Durand of endocrinology services - HLD - statin tx H/O CVA approx 2 years ago - no residual Plan: Cardiac w/u at this hospital (see above) does not indicate any ACS Continue current medication regimen I discussed her w/u with her I discussed her case with Dr Naidu Outpt cardiac f/u advised PRESTON ARENAS MD FACP FAC CCDS Sep 29, 2020 18:55
--- NOTE | 2020-10-02 10:39 | Physician Query-Final Dx ---
NATHEN QUINONES 10/02/20 1039: Final Diagnosis Give Final Diagnosis Please give Final Diagnosis FRANCISCA SOLORIO MD 10/04/20 1726: Final Diagnosis Give Final Diagnosis Chest pain NATHEN QUINONES Oct 02, 2020 10:39 FRANCISCA SOLORIO MD Oct 04, 2020 17:26
== END 2020-09-29 18:38 | disposition home or self-care (01) ==
LOC: EDUNIT# 18:35 → ER 18:36 → ICU 20:20 → CSD 09-29 12:36 → UNDODISOB 09-29 18:30
PROVIDERS: ADMIT Internal Medicine; ATTEND Internal Medicine
DX: R07.9 Chest pain, unspecified (principal); I11.0 Hypertensive heart disease with heart failure; I50.9 Heart failure, unspecified; I48.0 Paroxysmal atrial fibrillation; E78.5 Hyperlipidemia, unspecified; J44.9 Chronic obstructive pulmonary disease, unspecified; G89.29 Other chronic pain; E78.00 Pure hypercholesterolemia, unspecified; K21.9 Gastro-esophageal reflux disease without esophagitis; E11.40 Type 2 diabetes mellitus with diabetic neuropathy, unspecified; F41.9 Anxiety disorder, unspecified; Z79.4 Long term (current) use of insulin; Z79.899 Other long term (current) drug therapy; Z79.01 Long term (current) use of anticoagulants; Z88.5 Allergy status to narcotic agent; Z88.1 Allergy status to other antibiotic agents; Z88.8 Allergy status to other drugs, medicaments and biological substances; Z95.0 Presence of cardiac pacemaker; Z90.710 Acquired absence of both cervix and uterus; Z86.73 Personal history of transient ischemic attack (TIA), and cerebral infarction without residual deficits; Z96.41 Presence of insulin pump (external) (internal)
CPT/HCPCS: 71045; 78452; 80053 ×2; 80061; 82150; 82550; 82553; 83690; 83735; 83874; 83880; 84443; 84484 ×2; 85025 ×2; 85610; 85730; 93005 ×3; 93017; 93041; 93306; 96374; 99284; A9502; G0378; 36415

== ENCOUNTER 2020-10-30 13:46 | Observation (INO) | payer BC, MEDICARE ==
[~2020-10-30] VITALS: Ht 154 cm; Wt 63.0 kg
[~2020-10-30 13:46] MED LIST changes: +AMIO100T PO; +APIX5TAB PO; +BENZ200C51 PO; +INSU100V16 SC; +INSU100V5 SC; +METO50TA7 PO; +PEG15DRO9 OU; +POLY17PO6 PO; +POTA10TA PO; +PRAV20TA3 PO; +SACU1TAB2 PO; +SPIR25TA5 PO; +VIT1CAPS44 PO
[2020-10-30] MEDS ORDERED: ASPIRIN 81 MG CHEW (CHILDREN'S ASA) PO ONE (14:00)
--- NOTE | 2020-10-30 14:05 | ED Cardiac General ---
History of Present Illness General Chief Complaint: Chest Pain Stated Complaint: CP,DIZZINESS Source: patient (SOMEWHAT LIMITED HISTORIAN) History of Present Illness Date Seen by Provider: Oct 30, 2020 Time Seen by Provider: 13:48 Initial Comments PT ARRIVES VIA POV FROM HOME C/O CHEST PAIN, PALPITATIONS, SHORTNESS OF BREATH, FEELING TIRED, AND DIZZINESS AND FEELING LIKE SHE IS GOING TO PASS OUT FOR THE LAST 2-3 DAYS WENT TO [facility] IN [place] EARLIER THIS MORNING FOR THIS PROBLEM. EKG WAS DONE WHICH SHOWED ATRIAL FIBRILLATION PT HAS LONGSTANDING HISTORY OF ATRIAL FIBRILLATION, HAS HAD MULTIPLE PROCEDURES, INCLUDING PACEMAKER, AND IS ON ELIQUIS DENIES ANY MISSED DOSES OF MEDICATIONS OR CHANGES IN MEDICATIONS--TOOK MORNING MEDICATIONS PT IS ALSO ON ENTRESTO AND METOPROLOL RATES PAIN 5-12/31. NO RADIATION OF PAIN PAIN IN CENTER OF CHEST AND ALSO OVER PACEMAKER--STATES SHE ALWAYS HAS PAIN OVER PACEMAKER LATER PT STATES THAT AMIODARONE WAS STOPPED A MONTH AGO, AND WAS SUPPOSED TO HAVE STARTED SOTALOL, BUT STATES "THE PHARMACY NEVER GOT THE ORDER"--HAS NOT ATTEMPTED TO CONTACT HER CARDIOLOGISTS AT ANY TIME NO SWEATS NO NAUSEA/VOMITING NO ACTUAL SYNCOPE NO SWELLING IN FEET /LEGS--STATES RIGHT LEG IS ALWAYS A LITTLE SWOLLEN HAS HAD THE SAME MULTIPLE TIMES IN THE PAST. PT IS ALSO INSULIN DEPENDENT DIABETIC ON INSULIN PUM--STATES BLOOD GLUCOSE WAS 113 EARLIER DENIES ANY OTHER COVID-19 SYMPTOMS OR KNOWN EXPOSURE TO COVID-19 HAS NOT HAD COVID-19 VACCINE. PT SEEN HERE 09/27/20 FOR CHEST PAIN PCP: [facility] IN [place] PLATING DEPARTMENT HELPER: DR. DE LA CRUZ, EP PLATING DEPARTMENT HELPER IN [place], [place] AND DR. CODY PIERSON IN [place], [place] Allergies and Home Medications Allergies Coded Allergies: promethazine (Verified Allergy, Intermediate, 10/02/07) clindamycin (Verified Allergy, Unknown, 09/27/20) hydrocodone (Verified Allergy, Unknown, 09/27/20) morphine (Verified Allergy, Unknown, 09/27/20) Home Medications Amiodarone HCl 100 Mg Tablet, 100 MG PO DAILY, (Reported) LAST FILLED 07-10-2020 #30 Apixaban 5 Mg Tablet, 5 MG PO BID, (Reported) Benzonatate 200 Mg Capsule, 200 MG PO TID PRN for COUGH, (Reported) Insulin Aspart 100 Unit/1 Ml Susp, UNITS SC PER PUMP, (Reported) Insulin Determir 1,000 Units/10 Ml Soln, 11 UNITS SC DAILY PRN for IF INSULIN PUMP IS UNAVALIABLE, (Reported) Metoprolol Succinate 50 Mg Tab.er.24h, 50 MG PO DAILY, (Reported) HOLD IF SBP IS LESS THAN 120 Peg 400/Hypromellose/Glycerin 15 Ml Drops, 2 DROPS OU PRN PRN for DRY EYES, (Reported) Polyethylene Glycol 3350 17 Gm Powd.pack, 17 GM PO DAILY PRN for CONSTIPATION- 2ND LINE, (Reported) Potassium Chloride 10 Meq Tablet.er, 10 MEQ PO DAILY, (Reported) Pravastatin Sodium 20 Mg Tablet, 20 MG PO HS, (Reported) Sacubitril/Valsartan 1 Each Tablet, 1 EA PO BID, (Reported) Spironolactone 25 Mg Tablet, 12.5 MG PO DAILY, (Reported) TAKES OF A 25MG Vit C/E/Zn/Coppr/Lutein/Zeaxan 1 Each Capsule, 1 EACH PO DAILY, (Reported) Patient Home Medication List Home Medication List Reviewed: Yes Review of Systems Review of Systems Constitutional: see HPI; No diaphoresis; dizziness, malaise Respiratory: See HPI, Shortness of Air Cardiovascular: See HPI, Chest Pain; Denies Edema; Irregular Heart Rate, Lightheadedness, Palpitations; Denies Syncope Gastrointestinal: No Symptoms Reported; Denies Abdominal Pain, Denies Nausea, Denies Vomiting Genitourinary: No Symptoms Reported Musculoskeletal: no symptoms reported; No gout Skin: no symptoms reported Psychiatric/Neurological: Anxiety; Denies Headache, Denies Numbness, Denies Paresthesia, Denies Seizure, Denies Tingling, Denies Weakness Endocrine: No Symptoms Reported Hematologic/Lymphatic: No Symptoms Reported Past Ndmxoed-Pdnfnn-Bkvvpf Hx Past Med/Social Hx: Reviewed and Corrections made Patient Social History Alcohol Use: Denies Use Drug of Choice: DENIES Smoking Status: Never a Smoker 2nd Hand Smoke Exposure: No Past Medical History Surgeries: Yes Cardiac, Section, Gallbladder, Hysterectomy, Orthopedic, Pacemaker Respiratory: Yes COPD Cardiac: Yes (PACEMAKER, CARDIAC ABLATION, MAZE PROCEDURE, LEFT APPENDAGE CLI PPED) Atrial Fibrillation, High Cholesterol, Hypertension, Irregular Heartbeat Neurological: Yes (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;HX OF CVA 2019-NO RESIDUAL) Neuropathy, Stroke Reproductive Disorders: No Genitourinary: No Gastrointestinal: Yes Gastroesophageal Reflux Musculoskeletal: Yes Chronic Back Pain Endocrine: Yes (INSULIN PUMP) Diabetes, Insulin dep HEENT: Yes (DIABETIC RETINOPATHY) Cancer: No Psychosocial: No Integumentary: No Blood Disorders: No Family Medical History PAST SURGICAL HISTORY: -LEFT EYE SURGERY FOR RETINAL BLEED 3 YEARS AGO - X 2 IN 1969, 1970 -HYSTERECTOMY 1979 -CHOLECYSTECTOMY ( OPEN ) 1983 -LEFT FOOT SURGERY 7 YEARS AGO -LUMBAR LAMINECTOMY 20 YEARS AGO -PACEMAKER 4 YEARS AGO -CARDIAC ABLATION 05/2019 -MAZE PROCEDURE 05/2020 -LEFT LATERAL APPENDAGE CLIP 05/2020 -PT REPORTS CARDIAC CATH DONE IN IN 2019 SHOWED NO SIGNIFICANT CAD. ECHOCARDIOGRAM 09/28/20--EF 55-60% MPI 09/29/20--NO INSCHEMIA OR INFARCTIONS Physical Exam Vital Signs Vital Signs - First Documented 10/30/20 13:46 Temp 36.3 Pulse 84 Resp 16 B/P (MAP) 140/68 (92) Pulse Ox 98 O2 Delivery Room Air Capillary Refill : Height, Weight, BMI Height: 5'1.00" Weight: 151lbs. 0.0oz. 68.342390df; 25.57 BMI Method:Stated General Appearance: No Apparent Distress, WD/WN, Anxious (EXTREMELY ANXIOUS), Other (WALKS INTO ER ON HER OWN WITHOUT DIFFICULTY) Neck: Normal Inspection, Non Tender, Supple; No Carotid Bruit, No JVD Respiratory: Normal Breath Sounds, No Accessory Muscle Use, No Respiratory Distress, Other (DOES HAVE TENDERNESS OVER PACEMAKER SITE. NO SIGNS OF INFECTION) Cardiovascular: No Edema, No JVD, No Murmur, Normal Peripheral Pulses, Irregularly Irregular, Other (RATE VARIES FROM 80-120'S) Gastrointestinal: Non Tender, Soft, Other (INSULIN PUMP IN PLACE) Extremity: Normal Capillary Refill, Normal Inspection, Normal Range of Motion, Non Tender, No Calf Tenderness, No Pedal Edema Neurologic/Psychiatric: Alert, Oriented x3, No Motor/Sensory Deficits (SUBJECTIVE TINGLING IN HANDS AND FEET, BUT DOES HAVE SENSATION), supervisor photoengraving II-XII Norm as Tested Skin: Normal Color, Warm/Dry; No Rash Progress/Results/Core Measures Results/Orders Lab Results Laboratory Tests Test 10/30/20 13:55 Range/Units White Blood Count 7.5 4.3-11.0 10^3/uL Red Blood Count 4.42 3.80-5.11 10^6/uL Hemoglobin 13.2 11.5-16.0 g/dL Hematocrit 39 35-52 % Mean Corpuscular Volume 88 80-99 fL Mean Corpuscular Hemoglobin 30 25-34 pg Mean Corpuscular Hemoglobin Concent 34 32-36 g/dL Red Cell Distribution Width 13.2 10.0-14.5 % Platelet Count 197 130-400 10^3/uL Mean Platelet Volume 9.3 9.0-12.2 fL Immature Granulocyte % (Auto) 0 % Neutrophils (%) (Auto) 65 42-75 % Lymphocytes (%) (Auto) 27 12-44 % Monocytes (%) (Auto) 6 0-12 % Eosinophils (%) (Auto) 1 0-10 % Basophils (%) (Auto) 0 0-10 % Neutrophils # (Auto) 4.9 1.8-7.8 10^3/uL Lymphocytes # (Auto) 2.1 1.0-4.0 10^3/uL Monocytes # (Auto) 0.4 0.0-1.0 10^3/uL Eosinophils # (Auto) 0.1 0.0-0.3 10^3/uL Basophils # (Auto) 0.0 0.0-0.1 10^3/uL Immature Granulocyte # (Auto) 0.0 0.0-0.1 10^3/uL Prothrombin Time 13.9 12.2-14.7 SEC INR Comment 1.0 0.8-1.4 Activated Partial Thromboplast Time 28 24-35 SEC Sodium Level 144 135-145 MMOL/L Potassium Level 3.1 L 3.6-5.0 MMOL/L Chloride Level 111 H 98-107 MMOL/L Carbon Dioxide Level 21 21-32 MMOL/L Anion Gap 12 5-14 MMOL/L Blood Urea Nitrogen 12 7-18 MG/DL Creatinine 0.91 0.60-1.30 MG/DL Estimat Glomerular Filtration Rate > 60 BUN/Creatinine Ratio 13 Glucose Level 120 H 70-105 MG/DL Calcium Level 9.3 8.5-10.1 MG/DL Corrected Calcium 9.1 8.5-10.1 MG/DL Magnesium Level 1.9 1.6-2.4 MG/DL Total Bilirubin 0.7 0.1-1.0 MG/DL Aspartate Amino Transf (AST/SGOT) 17 5-34 U/L Alanine Aminotransferase (ALT/SGPT) 9 0-55 U/L Alkaline Phosphatase 100 40-136 U/L Total Creatine Kinase 52 29-168 U/L Creatine Kinase MB 1.1 <6.6 NG/ML Myoglobin 38.9 10.0-92.0 NG/ML Troponin I < 0.028 <0.028 NG/ML B-Type Natriuretic Peptide 37.1 <100.0 PG/ML Total Protein 7.4 6.4-8.2 GM/DL Albumin 4.3 3.2-4.5 GM/DL Amylase Level 79 25-125 U/L Lipase 20 8-78 U/L TSH [place] Testing 0.79 0.35-4.94 UIU/ML My Orders Orders - VAMSHI ZIMMERMAN DO Cbc With Automated Diff (10/30/20 13:58) Magnesium (10/30/20 13:58) Chest 1 View, Ap/Pa Only (10/30/20 13:58) Ekg Tracing (10/30/20 13:58) Comprehensive Metabolic Panel (10/30/20 13:58) Myoglobin Serum (10/30/20 13:58) Protime With Inr (10/30/20 13:58) Partial Thromboplastin Time (10/30/20 13:58) O2 (10/30/20 13:58) Monitor-Rhythm Ecg Trace Only (10/30/20 13:58) Ed Iv/Invasive Line Start (10/30/20 13:58) Creatine Kinase (10/30/20 13:58) Creatine Kinase Mb (10/30/20 13:58) Lipase (10/30/20 13:58) Amylase (10/30/20 13:58) BNP (10/30/20 13:58) Troponin I (10/30/20 13:58) Nitroglycerin 0.4 Mg Btl 25's (Nitrostat (10/30/20 14:00) Aspirin Chewable Tablet (Baby Aspirin Ch (10/30/20 14:00) Thyroid Analyzer (10/30/20 13:58) Ekg Tracing (10/30/20 15:02) Medications Given in ED Current Medications Medications Dose Ordered Sig/Mariza Route Start Time Stop Time Status Last Admin Dose Admin Aspirin 324 mg ONCE ONCE PO 10/30/20 14:00 10/30/20 14:01 DC 10/30/20 14:11 324 MG Nitroglycerin 0.4 mg UD PRN SL 10/30/20 14:00 10/30/20 16:11 DC 10/30/20 14:28 0.4 MG Vital Signs/I&O 10/30/20 13:46 Temp 36.3 Pulse 84 Resp 16 B/P (MAP) 140/68 (92) Pulse Ox 98 O2 Delivery Room Air Progress Progress Note : Progress Note GIVEN ASPIRIN AND NTG X 2 WITH COMPLETE RELIEF OF PAIN HEART RATE DOWN TO 90'S AND REMAINED THERE. PT MUCH CALMER Initial ECG Impression Date: Oct 30, 2020 Initial ECG Impression Time: 13:50 Initial ECG Rate: 125 Initial ECG Rhythm: A Fib/Flutter (WITH SOME ATRIAL PACED COMPLEXES) Initial ECG Impression: Nonspecific Changes EKG : EKG Time: 15:07 Rate: 86 Comment ATRIAL PACED COMPLEXES, IVCD, PAC'S Diagnostic Imaging Comments CXR--PER RADIOLOGIST REPORT IMPRESSION: 1. Chronic findings in the chest with no acute pulmonary abnormality seen. Reviewed: Reviewed by Mi Departure Communication (Admissions) 1504--SPOKE WITH DR. SOLORIO, HOSPITALIST, ACCEPTS PT FOR ADMIT 1505--SPOKE WITH DR. KHAN, PLATING DEPARTMENT HELPER, NO ADDITIONAL RECOMMENDATIONS AT THIS TIME Impression Primary Impression: Chest pain Additional Impressions: ATRIAL FIBRILLATION Anxiety IDDM (insulin dependent diabetes mellitus) HTN (hypertension) History of permanent cardiac pacemaker placement Disposition: ADMITTED INPATIENT Condition: Improved Admissions Decision to Admit Reason: Admit from ER (General) Decision to Admit/Date: Oct 30, 2020 Time/Decision to Admit Time: 15:00 Departure-Patient Inst. Referrals: FERNANDO RAMOS MD (PCP) Primary Care Physician JAZMIN HELTON APRN (Family) Primary Care Physician VAMSHI ZIMMERMAN DO Oct 30, 2020 14:05
[2020-10-30 14:10] LABS: BASOPHILS % (AUTO) 0 % (0-10); EOSINOPHILS # (AUTO) 0.1 10^3/uL (0.0-0.3); EOSINOPHILS % (AUTO) 1 % (0-10); HEMATOCRIT 39 % (35-52); HEMOGLOBIN 13.2 g/dL (11.5-16.0); LYMPHOCYTES # (AUTO) 2.1 10^3/uL (1.0-4.0); LYMPHOCYTES % (AUTO) 27 % (12-44); MEAN CORPUSCULAR HEMOGLOBIN 30 pg (25-34); MEAN CORPUSCULAR HGB CONC 34 g/dL (32-36); MEAN CORPUSCULAR VOLUME 88 fL (80-99); MEAN PLATELET VOLUME 9.3 fL (9.0-12.2); MONOCYTES # (AUTO) 0.4 10^3/uL (0.0-1.0); MONOCYTES % (AUTO) 6 % (0-12); NEUTROPHILS # (AUTO) 4.9 10^3/uL (1.8-7.8); NEUTROPHILS % (AUTO) 65 % (42-75); PLATELET COUNT 197 10^3/uL (130-400); WHITE BLOOD COUNT 7.5 10^3/uL (4.3-11.0)
[2020-10-30] MEDS: NITROGLYCERIN 0.4 MG SL TABS BTL 25'S SL PRN ×3 (14:12→14:28)
[2020-10-30 14:17] LABS: PROTHROMBIN TIME PATIENT 13.9 SEC (12.2-14.7)
[2020-10-30 14:18] LABS: ALBUMIN 4.3 GM/DL (3.2-4.5); CHLORIDE 111 MMOL/L (98-107); POTASSIUM 3.1 MMOL/L (3.6-5.0); SODIUM 144 MMOL/L (135-145)
[2020-10-30 14:19] LABS: AMYLASE 79 U/L (25-125); CALCIUM 9.3 MG/DL (8.5-10.1)
[2020-10-30 14:20] LABS: GLUCOSE 120 MG/DL (70-105); TOTAL PROTEIN 7.4 GM/DL (6.4-8.2)
[2020-10-30 14:21] LABS: CARBON DIOXIDE 21 MMOL/L (21-32)
[2020-10-30 14:22] LABS: BILIRUBIN,TOTAL 0.7 MG/DL (0.1-1.0)
[2020-10-30 14:24] LABS: ALKALINE PHOSPHATASE 100 U/L (40-136); CREATININE SERUM 0.91 MG/DL (0.60-1.30); GFR ESTIMATED > 60
[2020-10-30 14:25] LABS: BUN/CREATININE RATIO 13
[2020-10-30 14:27] LABS: ALANINE AMINOTRANSFERASE 9 U/L (0-55); MAGNESIUM 1.9 MG/DL (1.6-2.4)
[2020-10-30 14:28] LABS: CREATINE KINASE 52 U/L (29-168); LIPASE 20 U/L (8-78)
[2020-10-30 14:36] LABS: CREATINE KINASE MB 1.1 NG/ML (<6.6)
--- NOTE | 2020-10-30 14:46 | Diagnostic Imaging Report ---
HISTORY: Chest pain COMPARISON: 09/27/2020 TECHNIQUE: Frontal view of the chest. FINDINGS: Lung volumes are large. There is stable cardiomegaly. There is no pleural effusion or pneumothorax. The left-sided pacemaker leads appear normal. Calcification adjacent to the right humeral head likely represents calcific tendinitis. IMPRESSION: 1. Chronic findings in the chest with no acute pulmonary abnormality seen. Dictated by: Dictated on workstation # [id number]
[2020-10-30 14:48] LABS: TSH (THYROID ANALYZER) 0.79 UIU/ML (0.35-4.94)
[2020-10-30] MEDS ORDERED: NITROGLYCERIN 0.4 MG SL TABS BTL 25'S SL PRN (16:15)
[2020-10-30] MEDS ORDERED: CATHETER FLUSH 10 ML SYR IV PRN (16:15)
[2020-10-30] MEDS ORDERED: ONDANSETRON 4 MG/2 ML (SDV) Z0FRAN IVP PRN (16:15)
[2020-10-30] MEDS: inSUlin ASPART (NovoLOG) 1 UNIT/0.01 ML (CHARGE PER UNIT) SC SCH ×2 (16:19→20:46)
[2020-10-30] MEDS ORDERED: fentaNYL INJ 100 MCG/2 ML AMP IV PRN (16:30)
[2020-10-30] MEDS ORDERED: AMLO-250 PO (17:05)
[2020-10-30] MEDS ORDERED: TOPI25TA10 PO (17:30)
[2020-10-30] MEDS ORDERED: SOTA80TA62 PO (17:30)
[2020-10-30] MEDS: CATHETER FLUSH 10 ML SYR IV SCH (22:21)
[2020-10-30] MEDS ORDERED: MILK OF MAGNESIA 400 MG/5 ML 30 ML UDC PO PRN (22:45)
[2020-10-30] MEDS ORDERED: MELATONIN 3 MG TABLET PO PRN (22:45)
[2020-10-30] MEDS ORDERED: ANTACID SUSP 30 ML UDC (MYLANTA) PO PRN (22:45)
[2020-10-30] MEDS ORDERED: ONDANSETRON 4 MG/2 ML (SDV) Z0FRAN IV PRN (22:45)
[2020-10-30] MEDS ORDERED: BENZONATATE 100 MG (TESSALON) CAPSULE PO PRN (22:45)
[2020-10-30] MEDS ORDERED: ACETAMINOPHEN 325 MG TABLET PO PRN (22:45)
[2020-10-31 03:16] LABS: BASOPHILS % (AUTO) 0 % (0-10); EOSINOPHILS # (AUTO) 0.1 10^3/uL (0.0-0.3); EOSINOPHILS % (AUTO) 2 % (0-10); HEMATOCRIT 37 % (35-52); HEMOGLOBIN 12.2 g/dL (11.5-16.0); LYMPHOCYTES # (AUTO) 2.3 10^3/uL (1.0-4.0); LYMPHOCYTES % (AUTO) 39 % (12-44); MEAN CORPUSCULAR HEMOGLOBIN 29 pg (25-34); MEAN CORPUSCULAR HGB CONC 33 g/dL (32-36); MEAN CORPUSCULAR VOLUME 90 fL (80-99); MEAN PLATELET VOLUME 9.5 fL (9.0-12.2); MONOCYTES # (AUTO) 0.4 10^3/uL (0.0-1.0); MONOCYTES % (AUTO) 7 % (0-12); NEUTROPHILS # (AUTO) 3.1 10^3/uL (1.8-7.8); NEUTROPHILS % (AUTO) 52 % (42-75); PLATELET COUNT 173 10^3/uL (130-400)
[2020-10-31 03:40] LABS: ALANINE AMINOTRANSFERASE 8 U/L (0-55); ALBUMIN 3.9 GM/DL (3.2-4.5); ALKALINE PHOSPHATASE 85 U/L (40-136); BILIRUBIN,TOTAL 0.8 MG/DL (0.1-1.0); BUN/CREATININE RATIO 12; CALCIUM 8.8 MG/DL (8.5-10.1); CARBON DIOXIDE 21 MMOL/L (21-32); CHOLESTEROL 159 MG/DL (< 200); CREATININE SERUM 0.81 MG/DL (0.60-1.30); GFR ESTIMATED > 60; GLUCOSE 73 MG/DL (70-105); HDL CHOLESTEROL 57 MG/DL (40-60); POTASSIUM 2.8 MMOL/L (3.6-5.0); SODIUM 145 MMOL/L (135-145); TOTAL PROTEIN 6.7 GM/DL (6.4-8.2); TRIGLYCERIDES 94 MG/DL (<150); VLDL CHOLESTEROL 19 MG/DL (5-40)
[2020-10-31 03:42] LABS: CHLORIDE 112 MMOL/L (98-107)
[2020-10-31] MEDS ORDERED: DEXTROSE 50% 50 ML (IMS) SYR IV ONE (04:15)
[2020-10-31] MEDS: CATHETER FLUSH 10 ML SYR IV SCH (04:26)
[2020-10-31] MEDS: inSUlin ASPART (NovoLOG) 1 UNIT/0.01 ML (CHARGE PER UNIT) SC SCH ×2 (06:24→11:50)
[2020-10-31] MEDS ORDERED: KCL 20 MEQ TAB (K-DUR) PO SCH (07:00)
[2020-10-31] MEDS ORDERED: NS IV 500 ML 500 ML IV SCH (07:45)
[2020-10-31] MEDS ORDERED: NS IV 1000 ML 1,000 ML ONE (07:52)
[2020-10-31] MEDS: POTASSIUM CL 10MEQ/50ML IVPB 50 ML IV SCH ×2 (08:02→11:50)
[2020-10-31] MEDS ORDERED: AMIO200T6 PO (08:36)
--- NOTE | 2020-10-31 08:38 | Discharge Inst-Simple/Standard ---
Discharge Inst-Standard Discharge Medications New, Converted or Re-Newed RX: Transmitted to Pharmacy Patient Instructions/Follow Up Plan of Care/Instructions/FU: Please continue to take your medications as written. Please follow up with your primary care doctor next week and with your research center director/EP in the next 1-2 weeks to follow up this hospital stay. Activity as Tolerated: Yes Discharge Diet: Cardiac Diet Return to The Hospital For: Chest pain, dizziness, cough, fever, shortness of breath, palpitations, if you feel you are getting worse. FRANCISCA SOLORIO MD Oct 31, 2020 08:38
[2020-10-31] MEDS ORDERED: ASPIRIN E.C. 81 MG (ECOTRIN) TAB PO SCH (09:00)
[2020-10-31] MEDS ORDERED: amLODIPine 5 MG (NORVASC) TAB PO SCH (09:00)
[2020-10-31] MEDS ORDERED: SPIRONOLACTONE 25 MG (ALDACTONE) TAB PO SCH (09:00)
[2020-10-31] MEDS ORDERED: AMIODARONE 200 MG (CORDARONE) TAB PO SCH (09:00)
[2020-10-31] MEDS ORDERED: meTOproloL SUCCINATE 50 MG (TOPROL XL) TAB PO SCH (09:00)
[2020-10-31] MEDS ORDERED: APIXABAN 5 MG (ELIQUIS) TABLET PO SCH (09:00)
[2020-10-31] MEDS ORDERED: SACUBITRIL/VALSARTAN 24/26 MG (ENTRESTO) TABLET PO SCH (09:00)
--- NOTE | 2020-10-31 09:05 | Short Stay Summary-Hospitalist ---
History of Present Illness HPI/Chief Complaint Pt is a 70yoCF with a PMH of atrial fibrillation, CHF, IDDM, HTn, who presented to the ER due to chest pain and dizziness. She was here roughly 1 month ago with similar symptoms and had a negative stress test. She follow up with Dr Shannon on 10/06 who took her off her amiodarone and scheduled her for a cath. Dr Pinto did a cath on 10/08 and it was reported as clean. Over the past week or so she has had dizziness and palpitations and she thought she was in a-fib. Dr Pinto thought she was supposed to be on sotalol but this was never arranged by her EP. She saw her PCP yesterday and an EKG was done and revealed her to be in a-fib with a rate of 144. She was refer to the ER. Her rate was controlled by the time she arrived here though but she was admitted for observation. She has done well overnight and is in sinus rhythm now. She became slightly hypoglycemia last night and got a half amp of D50 and her BS has improved. Source: patient Date Seen 10/31/20 Time Seen by a Provider: 08:55 Attending Physician Francisca Naidu MD PCP Carloz Zayas MD Referring Physician Date of Admission Oct 30, 2020 at 15:27 Home Medications & Allergies Home Medications Reviewed patient Home Medication Reconciliation performed by pharmacy medication reconciliations insulator technician and/or nursing. Patients Allergies have been reviewed. Allergies Allergies Coded Allergies promethazine (Verified Allergy, Intermediate, 10/02/07) clindamycin (Verified Allergy, Unknown, 09/27/20) hydrocodone (Verified Allergy, Unknown, 09/27/20) morphine (Verified Allergy, Unknown, 09/27/20) Past Icotqqo-Dqhiyd-Dmpwnp Hx Past Med/Social Hx: Reviewed and Corrections made Patient Social History Alcohol Use: Denies Use Recreational Drug Use: No Drug of Choice: DENIES Smoking Status: Never a Smoker 2nd Hand Smoke Exposure: No Recent Foreign Travel: No Contact w/other who traveled: No Recent Hopitalizations: Yes Recent Infectious Disease Expo: No Immunizations Up To Date Tetanus Booster (TDap): Unknown Date of Influenza Vaccine: Jun 23, 2020 Past Medical History Surgeries: Cardiac, Section, Gallbladder, Hysterectomy, Orthopedic, Pacemaker Cardiac: Atrial Fibrillation, High Cholesterol, Hypertension, Irregular Heartbeat Neurological: Neuropathy, Stroke Reproductive: No Gastrointestinal: Gastroesophageal Reflux Musculoskeletal: Chronic Back Pain Endocrine: Diabetes, Insulin dep History of Blood Disorders: No Family History Reviewed Nursing Family Hx PAST SURGICAL HISTORY: -LEFT EYE SURGERY FOR RETINAL BLEED 3 YEARS AGO - X 2 IN 1969, 1970 -HYSTERECTOMY 1979 -CHOLECYSTECTOMY ( OPEN ) 1983 -LEFT FOOT SURGERY 7 YEARS AGO -LUMBAR LAMINECTOMY 20 YEARS AGO -PACEMAKER 4 YEARS AGO -CARDIAC ABLATION 05/2019 -MAZE PROCEDURE 05/2020 -LEFT LATERAL APPENDAGE CLIP 05/2020 -PT REPORTS CARDIAC CATH DONE IN IN 2019 SHOWED NO SIGNIFICANT CAD. ECHOCARDIOGRAM 09/28/20--EF 55-60% MPI 09/29/20--NO INSCHEMIA OR INFARCTIONS Review of Systems Constitutional: No chills, No diaphoresis, No fever, No malaise EENTM: no symptoms reported Respiratory: No cough, No short of breath Cardiovascular: chest pain; No edema; Hx of Intervention, palpitations Gastrointestinal: no symptoms reported Genitourinary: no symptoms reported Musculoskeletal: no symptoms reported Skin: no symptoms reported Psychiatric/Neurological: No Symptoms Reported Physical Exam Physical Exam Vital Signs Vital Signs - First Documented 10/30/20 13:46 Temp 36.3 Pulse 84 Resp 16 B/P (MAP) 140/68 (92) Pulse Ox 98 O2 Delivery Room Air Capillary Refill : Less Than 3 Seconds Height, Weight, BMI Height: 5'1.00" Weight: 151lbs. 0.0oz. 68.681476jd; 26.56 BMI Method:Stated General Appearance: No Apparent Distress, WD/WN, Anxious (EXTREMELY ANXIOUS), Other (WALKS INTO ER ON HER OWN WITHOUT DIFFICULTY) Neck: Normal Inspection, Non Tender, Supple; No Carotid Bruit, No JVD Respiratory: Normal Breath Sounds, No Accessory Muscle Use, No Respiratory Distress, Other (DOES HAVE TENDERNESS OVER PACEMAKER SITE. NO SIGNS OF INFECTION) Cardiovascular: No Edema, No JVD, No Murmur, Normal Peripheral Pulses, Irregularly Irregular, Other (RATE VARIES FROM 80-120'S) Gastrointestinal: Non Tender, Soft, Other (INSULIN PUMP IN PLACE) Extremity: Normal Capillary Refill, Normal Inspection, Normal Range of Motion, Non Tender, No Calf Tenderness, No Pedal Edema Neurologic/Psychiatric: Alert, Oriented x3, No Motor/Sensory Deficits (SUB JECTIVE TINGLING IN HANDS AND FEET, BUT DOES HAVE SENSATION), real estate loan processor II-XII Norm as Tested Skin: Normal Color, Warm/Dry; No Rash Results Results/Procedures Labs Laboratory Tests 10/30/20 13:55 10/31/20 02:50 Patient resulted labs reviewed. Imaging: Reviewed Imaging Report Imaging [facility], [place] NAME: RAVI PAYAN [facility] REC#: [id number] PT STATUS: REG ER : 1950 PHYSICIAN: VAMSHI ZIMMERMAN DO ADMIT DATE: 10/30/20/ER Signed Date of Exam:10/30/20 CHEST 1 VIEW, AP/PA ONLY HISTORY: Chest pain COMPARISON: 09/27/2020 TECHNIQUE: Frontal view of the chest. FINDINGS: Lung volumes are large. There is stable cardiomegaly. There is no pleural effusion or pneumothorax. The left-sided pacemaker leads appear normal. Calcification adjacent to the right humeral head likely represents calcific tendinitis. IMPRESSION: 1. Chronic findings in the chest with no acute pulmonary abnormality seen. Dictated by: Dictated on workstation # [id number] Dict: 10/30/20 1441 Trans: 10/30/20 1514 CVB [id number] Interpreted by: JANINE BLUM MD Electronically signed by: JANINE BLUM MD 10/30/20 1514 Short Stay Diagnosis Discharge Diagnosis-Short Stay Admission Diagnosis Atrial Fibrillation Final Discharge Diagnosis Atrial Fibrillation Conclusion Plan Atrial Fibrillation Hypokalemia HTN CHF s/p multiple procedures and pacemaker; follows with EP at [facility] Cardiology consulted, appreciate recs Resume amiodarone per Dr Fernandez until she can follow up with Dr Shannon Replace potassium Has an appointment with Dr Pinto next week Troponin negative x2 Will DC home with outpatient follow up on amiodarone IDDM Was hypoglycemic last night Start regular diet Insulin pump on patient with CGM DVT ppx: On audraquFRANCISCA Ugalde MD Oct 31, 2020 09:05
--- NOTE | 2020-10-31 10:02 | Consultation-Cardiology ---
HPI-Cardiology Cardiology Consultation Date of Consultation 10/31/20 Date of Admission Time Seen by Provider: 09:57 Indication: Chest pain HPI 70-year-old lady with extensive cardiac history including congestive heart failure, atrial fibrillation, permanent pacemaker. Following with Dr. Gomez. Had extensive work-up as described below. Started to have chest pain, reported that she was in atrial fibrillation and came into the emergency room, since her hospitalization she has been in sinus rhythm/atrial paced rhythm. Denied any shortness of breath. No pedal edema. No syncope or near syncopal episode. Cardiac enzymes were negative, EKG did not show any acute changes Home Medications & Allergies Allergies: Coded Allergies: promethazine (Verified Allergy, Intermediate, 10/02/07) clindamycin (Verified Allergy, Unknown, 09/27/20) hydrocodone (Verified Allergy, Unknown, 09/27/20) morphine (Verified Allergy, Unknown, 09/27/20) Home Medication List Reviewed: Yes OTB-Xaxhie-Pdadls Hx Patient Social History Marital Status: Employed/Student: retired Recreational Drug Use: No Drug of Choice: DENIES Smoking Status: Never a Smoker 2nd Hand Smoke Exposure: No Recent Hopitalizations: Yes Have you traveled recently?: No Alcohol Use?: No Immunizations Up To Date Tetanus Booster (TDap): Unknown Date of Influenza Vaccine: Jun 23, 2020 Past Medical History Discussed below Review of Systems-General Review of Systems Constitutional: see HPI; No diaphoresis; dizziness, malaise EENTM: see HPI, no symptoms reported Respiratory: see HPI; No cough, No dyspnea on exertion, No hemoptysis, No orthopnea, No phlegm, No short of breath, No stridor, No wheezing, No other Cardiovascular: see HPI, chest pain, palpitations Gastrointestinal: no symptoms reported, see HPI Genitourinary: no symptoms reported, see HPI Musculoskeletal: no symptoms reported, see HPI; No gout Skin: no symptoms reported, see HPI Psychiatric/Neurological: See HPI, Anxiety; Denies Headache, Denies Numbness, Denies Paresthesia, Denies Seizure, Denies Tingling, Denies Weakness Reviewed Test Results Reviewed Test Results Lab Laboratory Tests Test 10/30/20 13:55 10/30/20 17:25 10/31/20 02:50 Range/Units White Blood Count 7.5 6.0 4.3-11.0 10^3/uL Red Blood Count 4.42 4.16 3.80-5.11 10^6/uL Hemoglobin 13.2 12.2 11.5-16.0 g/dL Hematocrit 39 37 35-52 % Mean Corpuscular Volume 88 90 80-99 fL Mean Corpuscular Hemoglobin 30 29 25-34 pg Mean Corpuscular Hemoglobin Concent 34 33 32-36 g/dL Red Cell Distribution Width 13.2 13.2 10.0-14.5 % Platelet Count 197 173 130-400 10^3/uL Mean Platelet Volume 9.3 9.5 9.0-12.2 fL Immature Granulocyte % (Auto) 0 0 % Neutrophils (%) (Auto) 65 52 42-75 % Lymphocytes (%) (Auto) 27 39 12-44 % Monocytes (%) (Auto) 6 7 0-12 % Eosinophils (%) (Auto) 1 2 0-10 % Basophils (%) (Auto) 0 0 0-10 % Neutrophils # (Auto) 4.9 3.1 1.8-7.8 10^3/uL Lymphocytes # (Auto) 2.1 2.3 1.0-4.0 10^3/uL Monocytes # (Auto) 0.4 0.4 0.0-1.0 10^3/uL Eosinophils # (Auto) 0.1 0.1 0.0-0.3 10^3/uL Basophils # (Auto) 0.0 0.0 0.0-0.1 10^3/uL Immature Granulocyte # (Auto) 0.0 0.0 0.0-0.1 10^3/uL Prothrombin Time 13.9 12.2-14.7 SEC INR Comment 1.0 0.8-1.4 Activated Partial Thromboplast Time 28 24-35 SEC Sodium Level 144 145 135-145 MMOL/L Potassium Level 3.1 L 2.8 L 3.6-5.0 MMOL/L Chloride Level 111 H 112 H 98-107 MMOL/L Carbon Dioxide Level 21 21 21-32 MMOL/L Anion Gap 12 12 5-14 MMOL/L Blood Urea Nitrogen 12 10 7-18 MG/DL Creatinine 0.91 0.81 0.60-1.30 MG/DL Estimat Glomerular Filtration Rate > 60 > 60 BUN/Creatinine Ratio 13 12 Glucose Level 120 H 73 70-105 MG/DL Calcium Level 9.3 8.8 8.5-10.1 MG/DL Corrected Calcium 9.1 8.9 8.5-10.1 MG/DL Magnesium Level 1.9 1.6-2.4 MG/DL Total Bilirubin 0.7 0.8 0.1-1.0 MG/DL Aspartate Amino Transf (AST/SGOT) 17 17 5-34 U/L Alanine Aminotransferase (ALT/SGPT) 9 8 0-55 U/L Alkaline Phosphatase 100 85 40-136 U/L Total Creatine Kinase 52 29-168 U/L Creatine Kinase MB 1.1 <6.6 NG/ML Myoglobin 38.9 10.0-92.0 NG/ML Troponin I < 0.028 < 0.028 <0.028 NG/ML B-Type Natriuretic Peptide 37.1 <100.0 PG/ML Total Protein 7.4 6.7 6.4-8.2 GM/DL Albumin 4.3 3.9 3.2-4.5 GM/DL Amylase Level 79 25-125 U/L Lipase 20 8-78 U/L TSH [place] Testing 0.79 0.35-4.94 UIU/ML Triglycerides Level 94 <150 MG/DL Cholesterol Level 159 < 200 MG/DL LDL Cholesterol Direct 90 1-129 MG/DL VLDL Cholesterol 19 5-40 MG/DL HDL Cholesterol 57 40-60 MG/DL Physical Exam Physical Exam Vital Signs Vital Signs - First Documented 10/30/20 13:46 Temp 36.3 Pulse 84 Resp 16 B/P (MAP) 140/68 (92) Pulse Ox 98 O2 Delivery Room Air Capillary Refill : Less Than 3 Seconds Height, Weight, BMI Height: 5'1.00" Weight: 151lbs. 0.0oz. [id number]; 26.56 BMI Method:Stated General Appearance: No Apparent Distress, WD/WN, Anxious (EXTREMELY ANXIOUS), Other (WALKS INTO ER ON HER OWN WITHOUT DIFFICULTY) Eyes: Bilateral Eye Normal Inspection, Bilateral Eye PERRL, Bilateral Eye EOMI HEENT: PERRL/EOMI, TMs Normal, Normal ENT Inspection, Pharynx Normal, Moist Mucous Membranes Neck: Normal Inspection, Non Tender, Supple; No Carotid Bruit, No JVD Respiratory: Normal Breath Sounds, No Accessory Muscle Use, No Respiratory Distress, Other (DOES HAVE TENDERNESS OVER PACEMAKER SITE. NO SIGNS OF INFECTION) Cardiovascular: Regular Rate, Rhythm, No Edema, No JVD, No Murmur, Normal Peripheral Pulses, Other (RATE VARIES FROM 80-120'S) Gastrointestinal: Non Tender, Soft, Other (INSULIN PUMP IN PLACE) Back: Normal Inspection, No CVA Tenderness, No Vertebral Tenderness Extremity: Normal Capillary Refill, Normal Inspection, Normal Range of Motion, Non Tender, No Calf Tenderness, No Pedal Edema Neurologic/Psychiatric: Alert, Oriented x3, No Motor/Sensory Deficits (SUBJECTIVE TINGLING IN HANDS AND FEET, BUT DOES HAVE SENSATION), noc engineer II-XII Norm as Tested Skin: Normal Color, Warm/Dry; No Rash Lymphatic: No Adenopathy A/P-Cardiology Admission Diagnosis Chest pain Palpitation Paroxysmal atrial fibrillation Congestive heart failure, chronic compensated left ventricular systolic dysfunction, nonischemic cardiomyopathy Assessment/Plan Paroxysmal atrial fibrillation, maintained on oral anticoagulation, patient was on amiodarone until about a month ago where it was stopped by Dr. Gomez, patient was not sure if she needed to start on sotalol. At this point she is back into atrial paced rhythm, I will restart her on amiodarone and advised her to contact her church administrator for any changes in the future. At this point it is safe to resume amiodarone at 200 mg twice daily and continue on Eliquis and monitor tolerance and response History of Maze procedure, left atrial appendage closure done in the past. Maintained on oral anticoagulation Congestive heart failure, nonischemic cardiomyopathy, chronic left ventricular systolic dysfunction, no documentation of her ejection fraction, maintained on Entresto and Coreg. Continue on current medications and monitor Hypokalemia, will replace it and instructed her on increasing potassium supp lement to 20 mEq daily. History of cardiac catheterization done multiple times in the past at least twice in the past 6 months and did not have any obstructive coronary artery disease Chest pain nonspecific etiology probably secondary to atrial fibrillation with rapid response. History of permanent pacemaker, [employer], did not interrogate it on this evaluation Diabetes mellitus, followed and managed by primary care physician STEVE KHAN MD Oct 31, 2020 10:02
[2020-10-31] MEDS ORDERED: KCL 10 MEQ TAB (MICRO K) PO ONE (14:30)
[2020-10-31 15:27] VITALS: BP 117/80
[2020-10-31] MEDS ORDERED: SIMvastatin 10 MG (ZOCOR) TAB PO SCH (21:00)
== END 2020-10-31 15:20 | disposition home or self-care (01) ==
LOC: EDUNIT# 13:46 → ER 13:47 → CSD 15:27
PROVIDERS: ADMIT Family Medicine; ATTEND Family Medicine
DX: I48.0 Paroxysmal atrial fibrillation (principal); I11.0 Hypertensive heart disease with heart failure; I42.8 Other cardiomyopathies; I50.22 Chronic systolic (congestive) heart failure; E78.00 Pure hypercholesterolemia, unspecified; E11.40 Type 2 diabetes mellitus with diabetic neuropathy, unspecified; E87.6 Hypokalemia; F41.9 Anxiety disorder, unspecified; K21.9 Gastro-esophageal reflux disease without esophagitis; G89.29 Other chronic pain; M54.9 Dorsalgia, unspecified; Z86.73 Personal history of transient ischemic attack (TIA), and cerebral infarction without residual deficits; Z79.899 Other long term (current) drug therapy; Z88.5 Allergy status to narcotic agent; Z79.4 Long term (current) use of insulin; Z90.710 Acquired absence of both cervix and uterus; Z95.0 Presence of cardiac pacemaker
CPT/HCPCS: 71045; 80053 ×2; 80061; 82150; 82550; 82553; 82962; 83690; 83735; 83874; 83880; 84443; 84484; 85025 ×2; 85610; 85730; 93005; 93041; 99284; G0378; 36415

== ENCOUNTER 2020-12-14 16:10 | Observation (INO) | payer BC, MEDICARE ==
[~2020-12-14] VITALS: Ht 154.9 cm; Wt 62.6 kg
[~2020-12-14 16:10] MED LIST changes: +AMIO200T6 PO; +AMLO-250 PO; +SOTA80TA62 PO; +TOPI25TA10 PO
--- NOTE | 2020-12-14 16:51 | ED Neurological Problem ---
General Chief Complaint: Altered Mental Status Stated Complaint: CONFUSION Source: patient, EMS Exam Limitations: no limitations History of Present Illness Date Seen by Provider: December 14, 2020 Time Seen by Provider: 16:30 Initial Comments Patient is a 70-year-old female who presents to the emergency department today with a chief complaint of altered mental status. Patient states that she was at home and had a sudden onset just prior to arrival of feeling confused not being able to remember her phone number or her son's phone number or her birthdate. Patient tells me that she has had a previous stroke about 2 years ago with left her with a little bit of left-sided weakness. Patient states for the last 2 years she has had intermittent infrequent episodes of memory loss/confusion. Patient is an insulin-dependent diabetic with an insulin pump. Her blood sugar is normal today. She denies any recent illnesses such as fevers, chills, cough, congestion. No recent nausea, vomiting, diarrhea or urinary complaints. Patient states that she suffers with chronic headaches. She states she saw a neurologist, Dr. Marlow with [facility] a couple of days ago with a complaint of some balance issues in recent weeks. 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 She has had no recent trauma. All other review of systems reviewed and negative except as stated above. Timing/Duration: 1 hour Severity: moderate Associated Symptoms: confusion Allergies and Home Medications Allergies Coded Allergies: promethazine (Verified Allergy, Intermediate, 10/02/07) clindamycin (Verified Allergy, Unknown, 09/27/20) hydrocodone (Verified Allergy, Unknown, 09/27/20) morphine (Verified Allergy, Unknown, 09/27/20) Home Medications Amiodarone HCl 200 Mg Tablet, 200 MG PO BID Prescribed by: FRANCISCA SOLORIO on 10/31/20 0836 Amlodipine Besylate 5 Mg Tablet, 5 MG PO DAILY, (Reported) Apixaban 5 Mg Tablet, 5 MG PO BID, (Reported) Benzonatate 200 Mg Capsule, 200 MG PO TID PRN for COUGH, (Reported) Insulin Aspart 100 Unit/1 Ml Susp, UNITS SC PER PUMP, (Reported) Insulin Determir 1,000 Units/10 Ml Soln, 11 UNITS SC DAILY PRN for IF INSULIN PUMP IS UNAVALIABLE, (Reported) Metoprolol Succinate 50 Mg Tab.er.24h, 50 MG PO DAILY, (Reported) HOLD IF SBP IS LESS THAN 120 Peg 400/Hypromellose/Glycerin 15 Ml Drops, 2 DROPS OU PRN PRN for DRY EYES, (Reported) Polyethylene Glycol 3350 17 Gm Powd.pack, 17 GM PO DAILY PRN for CONSTIPATION- 2ND LINE, (Reported) Potassium Chloride 10 Meq Tablet.er, 10 MEQ PO DAILY, (Reported) Pravastatin Sodium 20 Mg Tablet, 20 MG PO HS, (Reported) Sacubitril/Valsartan 1 Each Tablet, 1 EA PO BID, (Reported) Spironolactone 25 Mg Tablet, 12.5 MG PO DAILY, (Reported) TAKES OF A 25MG Topiramate 25 Mg Tablet, 25 MG PO BID, (Reported) Vit C/E/Zn/Coppr/Lutein/Zeaxan 1 Each Capsule, 1 EACH PO DAILY, (Reported) Patient Home Medication List Home Medication List Reviewed: Yes Review of Systems Review of Systems Constitutional: see HPI Eyes: No Symptoms Reported Ears, Nose, Mouth, Throat: no symptoms reported Respiratory: no symptoms reported Cardiovascular: no symptoms reported Gastrointestinal: no symptoms reported Genitourinary: no symptoms reported Musculoskeletal: no symptoms reported Skin: no symptoms reported Psychiatric/Neurological: Anxiety, Headache, Other (Trouble with memory) All Other Systems Reviewed Negative Unless Noted: Yes Past Ujkrnxb-Dpanfl-Okwkyq Hx Patient Social History Alcohol Use: Denies Use Drug of Choice: DENIES 2nd Hand Smoke Exposure: No Recent Hopitalizations: Yes Immunizations Up To Date Tetanus Booster (TDap): Unknown Date of Influenza Vaccine: Jun 23, 2020 Past Medical History Surgeries: Yes Cardiac, Section, Gallbladder, Hysterectomy, Orthopedic, Pacemaker Respiratory: Yes COPD Cardiac: Yes (PACEMAKER, CARDIAC ABLATION, MAZE PROCEDURE, LEFT APPENDAGE CLIPPED) Atrial Fibrillation, High Cholesterol, Hypertension, Irregular Heartbeat Neurological: Yes (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;HX OF CVA 2018-NO RESIDUAL) Neuropathy, Stroke Reproductive Disorders: No Genitourinary: No Gastrointestinal: Yes Gastroesophageal Reflux Musculoskeletal: Yes Chronic Back Pain Endocrine: Yes (INSULIN PUMP) Diabetes, Insulin dep HEENT: Yes (DIABETIC RETINOPATHY) Cancer: No Psychosocial: No Integumentary: No Blood Disorders: No Family Medical History PAST SURGICAL HISTORY: -LEFT EYE SURGERY FOR RETINAL BLEED 3 YEARS AGO - X 2 IN 1969, 1970 -HYSTERECTOMY 1979 -CHOLECYSTECTOMY ( OPEN ) 1983 -LEFT FOOT SURGERY 7 YEARS AGO -LUMBAR LAMINECTOMY 20 YEARS AGO -PACEMAKER 4 YEARS AGO -CARDIAC ABLATION 05/2019 -MAZE PROCEDURE 05/2020 -LEFT LATERAL APPENDAGE CLIP 05/2020 -PT REPORTS CARDIAC CATH DONE IN IN 2019 SHOWED NO SIGNIFICANT CAD. ECHOCARDIOGRAM 09/28/20--EF 55-60% MPI 09/29/20--NO INSCHEMIA OR INFARCTIONS Physical Exam Vital Signs Vital Signs - First Documented 12/14/20 16:12 Temp 36.0 Pulse 68 Resp 14 B/P (MAP) 141/74 (96) Pulse Ox 99 O2 Delivery Room Air Capillary Refill : Height, Weight, BMI Height: 5'1.00" Weight: 151lbs. 0.0oz. 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 She has a little bit of left-sided drift to the upper and lower extremity secondary to previous weakness from previous stroke. She initially presented confused and unable to remember her birthdate however this has cleared since she has been in the department. She has mild sensory deficit to the left leg which she states is chronic since her stroke 2 years ago she has a little bit of chronic weakness in the left upper extremity since her stroke 2 years ago) Crainal Nerves: normal hearing, normal speech, PERRL Coordination/Gait: normal finger to nose (Slow and deliberate), negative Romberg's sign Skin: normal color, warm/dry Stroke NIH Stroke Scale Assessment Select: Initial Level of Consciousness: 0=Alert (0), Level of Consciousness- Questions: 0=Answers both month/age (0), LOC Commands: 0=Performs both tasks (0), Gaze: Normal (0), Visual Jaramillo: 0=No visual loss (0), Facial Movement (Facial Paresis): 0=Normal symmetrical mnt (0), Motor Function-Arms Right: 0=No drift (0), Motor Function-Arms Left: 0=No drift (0), Motor Function-Legs Right: 0=No drift (0), Motor Function-Legs Left: 1=Drift (1), Limb Ataxia: 0=Absent (0), Sensory: 1=Mild to Moderate loss (1), Best Language: 1=Mild to moderat aphasia (1), Dysarthria: 0=Normal (0), Extinction & Inattention: 0=No abnormality (0), Total: 3 Progress/Results/Core Measures Results/Orders Lab Results Laboratory Tests Test 12/14/20 16:18 12/14/20 16:32 12/14/20 16:50 12/14/20 17:10 Range/Units White Blood Count 6.6 4.3-11.0 10^3/uL Red Blood Count 4.25 3.80-5.11 10^6/uL Hemoglobin 12.7 11.5-16.0 g/dL Hematocrit 38 35-52 % Mean Corpuscular Volume 88 80-99 fL Mean Corpuscular Hemoglobin 30 25-34 pg Mean Corpuscular Hemoglobin Concent 34 32-36 g/dL Red Cell Distribution Width 13.5 10.0-14.5 % Platelet Count 162 130-400 10^3/uL Mean Platelet Volume 10.8 9.0-12.2 fL Immature Granulocyte % (Auto) 0 % Neutrophils (%) (Auto) 58 42-75 % Lymphocytes (%) (Auto) 33 12-44 % Monocytes (%) (Auto) 7 0-12 % Eosinophils (%) (Auto) 2 0-10 % Basophils (%) (Auto) 1 0-10 % Neutrophils # (Auto) 3.8 1.8-7.8 10^3/uL Lymphocytes # (Auto) 2.2 1.0-4.0 10^3/uL Monocytes # (Auto) 0.4 0.0-1.0 10^3/uL Eosinophils # (Auto) 0.1 0.0-0.3 10^3/uL Basophils # (Auto) 0.0 0.0-0.1 10^3/uL Immature Granulocyte # (Auto) 0.0 0.0-0.1 10^3/uL Glucometer 128 H 70-110 MG/DL Urine Color YELLOW Urine Clarity SL CLOUDY Urine pH 7.5 5-9 Urine Specific [place] 1.015 L 1.016-1.022 Urine Protein TRACE H NEGATIVE Urine Glucose (UA) NEGATIVE NEGATIVE Urine Ketones NEGATIVE NEGATIVE Urine Nitrite NEGATIVE NEGATIVE Urine Bilirubin NEGATIVE NEGATIVE Urine Urobilinogen 0.2 < = 1.0 MG/DL Urine Leukocyte Esterase 1+ H NEGATIVE Urine RBC (Auto) NEGATIVE NEGATIVE Urine RBC NONE /HPF Urine WBC 5-10 H /HPF Urine Squamous Epithelial Cells 2-5 /HPF Urine Crystals NONE /LPF Urine Bacteria TRACE /HPF Urine Casts PRESENT /LPF Urine Hyaline Casts 10-25 H /LPF Urine Mucus NEGATIVE /LPF Urine Culture Indicated YES Urine Opiates Screen NEGATIVE NEGATIVE Urine Oxycodone Screen NEGATIVE NEGATIVE Urine Methadone Screen NEGATIVE NEGATIVE Urine Propoxyphene Screen NEGATIVE NEGATIVE Urine Barbiturates Screen NEGATIVE NEGATIVE Ur Tricyclic Antidepressants Screen NEGATIVE NEGATIVE Urine Phencyclidine Screen NEGATIVE NEGATIVE Urine Amphetamines Screen NEGATIVE NEGATIVE Urine Methamphetamines Screen NEGATIVE NEGATIVE Urine Benzodiazepines Screen NEGATIVE NEGATIVE Urine Cocaine Screen NEGATIVE NEGATIVE Urine Cannabinoids Screen NEGATIVE NEGATIVE Prothrombin Time 17.1 H 12.2-14.7 SEC INR Comment 1.4 0.8-1.4 Activated Partial Thromboplast Time 29 24-35 SEC Sodium Level 146 H 135-145 MMOL/L Potassium Level 3.9 3.6-5.0 MMOL/L Chloride Level 112 H 98-107 MMOL/L Carbon Dioxide Level 23 21-32 MMOL/L Anion Gap 11 5-14 MMOL/L Blood Urea Nitrogen 20 H 7-18 MG/DL Creatinine 1.32 H 0.60-1.30 MG/DL Estimat Glomerular Filtration Rate 40 BUN/Creatinine Ratio 15 Glucose Level 112 H 70-105 MG/DL Calcium Level 9.7 8.5-10.1 MG/DL Corrected Calcium 9.5 8.5-10.1 MG/DL Total Bilirubin 0.7 0.1-1.0 MG/DL Aspartate Amino Transf (AST/SGOT) 18 5-34 U/L Alanine Aminotransferase (ALT/SGPT) 11 0-55 U/L Alkaline Phosphatase 95 40-136 U/L Troponin I < 0.028 <0.028 NG/ML Total Protein 7.1 6.4-8.2 GM/DL Albumin 4.2 3.2-4.5 GM/DL Salicylates Level < 5.0 L 5.0-20.0 MG/DL Acetaminophen Level 13 10-30 UG/ML Serum Alcohol < 10 <10 MG/DL My Orders Orders - SARI JAMES MD Ed Iv/Invasive Line Start (12/14/20 16:46) Cbc With Automated Diff (12/14/20 16:46) Comprehensive Metabolic Panel (12/14/20 16:46) Troponin I (12/14/20 16:46) Ua Culture If Indicated (12/14/20 16:46) Ekg Tracing (12/14/20 16:46) Chest 1 View, Ap/Pa Only (12/14/20 16:46) Protime With Inr (12/14/20 16:46) Partial Thromboplastin Time (12/14/20 16:46) Drug Screen Stat (Urine) (12/14/20 16:46) Acetaminophen (12/14/20 16:46) Salicylate (12/14/20 16:46) Alcohol (12/14/20 16:46) Ct Head Wo (12/14/20 16:51) Urine Culture (12/14/20 16:50) Ns Iv 1000 Ml (Sodium Chloride 0.9%) (12/14/20 18:30) Vital Signs/I&O 12/14/20 16:12 Temp 36.0 Pulse 68 Resp 14 B/P (MAP) 141/74 (96) Pulse Ox 99 O2 Delivery Room Air Progress Progress Note : Time: 18:26 Progress Note Patient seen and examined, 70-year-old female with a presentation of altered mental status this evening. Patient evaluation includes CT scan of the brain without contrast, chest x-ray, basic laboratory studies including coagulation profile and urine toxicology with aspirin Tylenol and alcohol levels. Patient is noted to have an increase in her BUN and creatinine. Her normal creatinine is 0.7- 0.8 and today it is 1.3. Patient continues to be confused. She has repetitive questioning. She has no focal other neurologic deficits. She has an old stroke that affected her left side with a little sensory disturbance to the left lower extremity more than the left upper extremity. She has a little bit of left lower extremity drift greater than right. She states that this is old as a result of her stroke from 2 years ago. At baseline I believe her presentation NIH stroke scale would be at most a 2 for some confusion and the sensory and drift issues. I do not believe she would be a candidate for TPA. Her CT scan of the brain did show evidence of old stroke on the right side of her brain. Nothing new. The rest of her laboratory studies were unremarkable. I talked to her about staying in the hospital and receiving some fluid rehydration therapy and monitoring for her mental status change. She is agreeable to this plan of care but would like to be discharged tomorrow. I discussed the case with Dr. Piper on for the hospitalist service who accepts th e patient for observation admission to monitor her mental status and repeat her renal function panel in the morning. All questions are sought and answered. Initial ECG Impression Date: December 14, 2020 Initial ECG Impression Time: 16:21 Initial ECG Rate: 60 Initial ECG Intervals paced rhythm Initial ECG Impression: Normal Diagnostic Imaging Diagonstic Imaging: CT Comments [facility], [place] NAME: RAVI PAYAN [facility] REC#: [id number] PT STATUS: REG ER : 1950 PHYSICIAN: SARI JAMES MD ADMIT DATE: 12/14/20/ER Signed Date of Exam:12/14/20 CT HEAD WO EXAMINATION: CT head without contrast. TECHNIQUE: Multiple contiguous axial images were obtained through the brain without the use of intravenous contrast. All CT scans use one or more of the following dose optimizing techniques: automated exposure control, MA and/or KvP adjustment based on patient size and exam type or iterative reconstruction. HISTORY: Altered mental status. Confusion. COMPARISON: 10/13/2017. FINDINGS: No large acute territorial ischemia, mass, or hemorrhage. No midline shift or mass effect. Old infarct is seen in the right occipital lobe. The ventricles, cortical sulci, and basilar cisterns are patent and unremarkable. The orbits are normal. Paranasal sinuses are normal. Left-sided mastoid effusion is present. No soft tissue abnormality is seen. No osseus lesions or fractures are seen. IMPRESSION: 1. No large acute territorial ischemia, mass, or hemorrhage. 2. Old infarct in the right occipital lobe. Dictated by: Dictated on workstation # [id number] Dict: 12/14/20 1734 Trans: 12/14/20 174 [facility] [id number] Interpreted by: JAVIER CABRERA DO Electronically signed by: JAVIER CABRERA DO 12/14/201742 Departure Communication (Admissions) Time/Spoke to Admitting Phy: 18:[address] 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 Referrals: FERNANDO RAMOS MD (PCP) Primary Care Physician JAZMIN HELTON APRN (Family) Primary Care Physician SARI JAMES MD December 14, 2020 16:51
[2020-12-14 16:58] LABS: BASOPHILS % (AUTO) 1 % (0-10); EOSINOPHILS # (AUTO) 0.1 10^3/uL (0.0-0.3); EOSINOPHILS % (AUTO) 2 % (0-10); HEMATOCRIT 38 % (35-52); HEMOGLOBIN 12.7 g/dL (11.5-16.0); LYMPHOCYTES # (AUTO) 2.2 10^3/uL (1.0-4.0); LYMPHOCYTES % (AUTO) 33 % (12-44); MEAN CORPUSCULAR HEMOGLOBIN 30 pg (25-34); MEAN CORPUSCULAR HGB CONC 34 g/dL (32-36); MEAN CORPUSCULAR VOLUME 88 fL (80-99); MEAN PLATELET VOLUME 10.8 fL (9.0-12.2); MONOCYTES # (AUTO) 0.4 10^3/uL (0.0-1.0); MONOCYTES % (AUTO) 7 % (0-12); NEUTROPHILS # (AUTO) 3.8 10^3/uL (1.8-7.8); NEUTROPHILS % (AUTO) 58 % (42-75); PLATELET COUNT 162 10^3/uL (130-400); WHITE BLOOD COUNT 6.6 10^3/uL (4.3-11.0)
[2020-12-14 17:03] LABS: BILIRUBIN,URINE NEGATIVE (NEGATIVE); CLARITY,URINE SL CLOUDY; COLOR,URINE YELLOW; GLUCOSE, URINE (UA) NEGATIVE (NEGATIVE); KETONES,URINE NEGATIVE (NEGATIVE); LEUKOCYTE ESTERASE ,URINE 1+ (NEGATIVE); NITRITE,URINE NEGATIVE (NEGATIVE); PH,URINE 7.5 (5-9); PROTEIN,URINE TRACE (NEGATIVE)
[2020-12-14 17:14] LABS: BACTERIA,URINE TRACE /HPF
[2020-12-14 17:27] LABS: AMPHETAMINE SCREEN, URINE NEGATIVE (NEGATIVE); BARBITURATE SCREEN URINE NEGATIVE (NEGATIVE); BENZODIAZEPINES SCREEN URINE NEGATIVE (NEGATIVE); CANNABINOID SCREEN, URINE NEGATIVE (NEGATIVE); COCAINE SCREEN URINE NEGATIVE (NEGATIVE); METHADONE STAT NEGATIVE (NEGATIVE); METHAMPHETAMINE SCREEN URINE S NEGATIVE (NEGATIVE); OPIATE SCREEN URINE NEGATIVE (NEGATIVE); OXYCODONE STAT NEGATIVE (NEGATIVE); PROPOXYPHENE STAT NEGATIVE (NEGATIVE); TRICYCLIC ANTIDEPRESSANTS SCRE NEGATIVE (NEGATIVE)
[2020-12-14 17:30] LABS: ALBUMIN 4.2 GM/DL (3.2-4.5); CHLORIDE 112 MMOL/L (98-107); POTASSIUM 3.9 MMOL/L (3.6-5.0); SODIUM 146 MMOL/L (135-145)
[2020-12-14 17:31] LABS: CALCIUM 9.7 MG/DL (8.5-10.1); INR 1.4 (0.8-1.4); PROTHROMBIN TIME PATIENT 17.1 SEC (12.2-14.7)
[2020-12-14 17:32] LABS: GLUCOSE 112 MG/DL (70-105)
[2020-12-14 17:33] LABS: TOTAL PROTEIN 7.1 GM/DL (6.4-8.2)
[2020-12-14 17:34] LABS: BILIRUBIN,TOTAL 0.7 MG/DL (0.1-1.0); CARBON DIOXIDE 23 MMOL/L (21-32)
[2020-12-14 17:36] LABS: ALKALINE PHOSPHATASE 95 U/L (40-136); CREATININE SERUM 1.32 MG/DL (0.60-1.30); GFR ESTIMATED 40
[2020-12-14 17:37] LABS: ACETAMINOPHEN 13 UG/ML (10-30)
--- NOTE | 2020-12-14 17:37 | Diagnostic Imaging Report ---
EXAMINATION: CT head without contrast. TECHNIQUE: Multiple contiguous axial images were obtained through the brain without the use of intravenous contrast. All CT scans use one or more of the following dose optimizing techniques: automated exposure control, MA and/or KvP adjustment based on patient size and exam type or iterative reconstruction. HISTORY: Altered mental status. Confusion. COMPARISON: 10/13/2017. FINDINGS: No large acute territorial ischemia, mass, or hemorrhage. No midline shift or mass effect. Old infarct is seen in the right occipital lobe. The ventricles, cortical sulci, and basilar cisterns are patent and unremarkable. The orbits are normal. Paranasal sinuses are normal. Left-sided mastoid effusion is present. No soft tissue abnormality is seen. No osseus lesions or fractures are seen. IMPRESSION: 1. No large acute territorial ischemia, mass, or hemorrhage. 2. Old infarct in the right occipital lobe. Dictated by: Dictated on workstation # [id number]
[2020-12-14 17:38] LABS: BUN/CREATININE RATIO 15
[2020-12-14 17:39] LABS: ALANINE AMINOTRANSFERASE 11 U/L (0-55); SALICYLATE < 5.0 MG/DL (5.0-20.0)
--- NOTE | 2020-12-14 18:00 | Diagnostic Imaging Report ---
EXAMINATION: Chest 1 view. HISTORY: Altered mental status. COMPARISON: 10/30/2020. FINDINGS: The lung volumes are normal. No focal consolidation is seen. No large pleural effusion or pneumothorax is seen. The cardiomediastinal silhouette is normal in size and contour. A left pectoral pacemaker is in place. No acute osseous abnormality is seen. IMPRESSION: 1. No acute pleuroparenchymal process. Dictated by: Dictated on workstation # [id number]
[2020-12-14] MEDS ORDERED: NS IV 1000 ML 1,000 ML IV SCH (18:30)
[2020-12-14 20:00] VITALS: BP 138/63
[2020-12-14] MEDS ORDERED: CATHETER FLUSH 10 ML SYR IV PRN (20:30)
[2020-12-14] MEDS: NS IV 1000 ML 1,000 ML IV SCH (21:29)
[2020-12-14] MEDS: inSUlin ASPART (NovoLOG) 1 UNIT/0.01 ML (CHARGE PER UNIT) SC SCH (21:29)
[2020-12-15 00:15] VITALS: BP 102/64
[2020-12-15 00:24] VITALS: BP 141/74
[2020-12-15] MEDS ORDERED: RT-ALBUTEROL SULF 2.5 MG/3 ML PRE-MIX VIAL INH PRN (00:45)
[2020-12-15] MEDS: NS IV 1000 ML 1,000 ML IV SCH ×2 (02:01→12:30)
[2020-12-15 04:13] VITALS: BP 159/72
[2020-12-15 06:18] LABS: POTASSIUM 3.9 MMOL/L (3.6-5.0)
[2020-12-15 06:19] LABS: CALCIUM 8.4 MG/DL (8.5-10.1)
[2020-12-15 06:24] LABS: CREATININE SERUM 1.05 MG/DL (0.60-1.30)
[2020-12-15] MEDS: inSUlin ASPART (NovoLOG) 1 UNIT/0.01 ML (CHARGE PER UNIT) SC SCH ×3 (06:25→16:49)
[2020-12-15] MEDS ORDERED: cefTRIAXone FOR IV USE 1,000 MG in WATER (STERILE) FOR INJECTION 10 ML IV SCH (07:30)
[2020-12-15 08:00] VITALS: BP 134/63
[2020-12-15] MEDS ORDERED: ERGO50006 PO (10:30)
[2020-12-15] MEDS ORDERED: AMIO200T6 PO (10:30)
[2020-12-15] MEDS ORDERED: INDO50CA82 PO (10:30)
[2020-12-15] MEDS ORDERED: CLON0.5T4 PO (10:30)
[2020-12-15] MEDS ORDERED: AMPICILLIN IV NR ×2 (11:00)
[2020-12-15] MEDS ORDERED: [UNRECOGNIZED DRUG - OTHER] IV NR ×2 (11:00)
[2020-12-15] MEDS ORDERED: AMOX500C2 PO (11:04)
[2020-12-15 12:00] VITALS: BP 128/64
[2020-12-15 16:00] VITALS: BP 120/58
--- NOTE | 2020-12-16 12:44 | Discharge Summary ---
Discharge Summary Hospital Course Problems/Dx: (1) UTI (urinary tract infection) Status: Acute Qualifiers: Qualified Codes: N30.00 - Acute cystitis without hematuria (2) Acute kidney injury Status: Acute Hospital Course Date of Admission: December 14, 2020 at 18:23 Admission Diagnosis : UTI, AMIRA Family Physician/Provider: Brooke Zheng Aprn Date of Discharge: 12/15/20 Discharge Diagnosis: UTI, AMIRA Hospital Course: Rox Oneal is a 70 year old female who presented with altered mental status and was admitted with UTI and AMIRA. She was started on antibiotics and fluids and improved. Her urine culture was growing Enterococcus faecalis. She was discharged on Amoxicillin. She was discharged home in stable condition. Labs and Pending Lab Test: Laboratory Tests 12/15/20 16:11: Glucometer 136H Microbiology 12/14/20 Urine Culture - Preliminary, Resulted Enterococcus faecalis Home Meds Active Amoxicillin 500 Mg Capsule 500 Mg PO Q12H 7 Days Reported Amiodarone HCl 200 Mg Tablet 200 Mg PO DAILY Clonazepam 0.5 Mg Tablet 0.25-0.5 Mg PO BID PRN Vitamin D2 (Ergocalciferol (Vitamin D2)) 1,250 Mcg Capsule 1,250 Mcg PO SAT Indomethacin 50 Mg Capsule 50 Ng PO BID PRN Topiramate 25 Mg Tablet 50 Mg PO BID TAKES 2 (25MG) TABS Miralax (Polyethylene Glycol 3350) 17 Gm Powd.pack 17 Gm PO DAILY PRN Preservision Areds 2 Softgel (Vit C/E/Zn/Coppr/Lutein/Zeaxan) 1 Each Capsule 1 Each PO DAILY Visine Dry Eye Relief Drop (Peg 400/Hypromellose/Glycerin) 15 Ml Drops 2 Drops OU PRN PRN Benzonatate 200 Mg Capsule 200 Mg PO TID PRN K-Tab ER (Potassium Chloride) 10 Meq Tablet.er 10 Meq PO DAILY Entresto 24 mg-26 mg Tablet (Sacubitril/Valsartan) 1 Each Tablet 1 Ea PO BID LAST FILLED 10-09-2020 #60/30 DAY SUPPLY Eliquis (Apixaban) 5 Mg Tablet 5 Mg PO BID Levemir (Insulin Determir) 1,000 Units/10 Ml Soln 11 Units SC DAILY PRN Novolog (Insulin Aspart) 100 Unit/1 Ml Susp Units SC PER PUMP Pravastatin Sodium 20 Mg Tablet 20 Mg PO HS Metoprolol Succinate 50 Mg Tab.er.24h 50 Mg PO DAILY HOLD IF SBP IS LESS THAN 120 Spironolactone 25 Mg Tablet 12.5 Mg PO DAILY TAKES OF A 25MG Assessment/Pt Instructions Take medications as prescribed. Follow up with your PCP. Return with worsening symptoms. Discharge Planning: <30 minutes discharge planning Discharge Instructions Discharge Diet: No Restrictions Activity as Tolerated: Yes Discharge Physical Examination Vital Signs Vital Signs Date Time Temp Pulse Resp B/P (MAP) Pulse Ox O2 Delivery O2 Flow Rate FiO2 12/15/20 16:00 36.0 62 18 120/58 (78) 95 Room Air 12/15/20 00:24 21 General Appearance: No Apparent Distress, WD/WN HEENT: PERRL/EOMI, Pharynx Normal Respiratory: Lungs Clear, Normal Breath Sounds, No Respiratory Distress Cardiovascular: Regular Rate, Rhythm, No Edema, No Murmur Gastrointestinal: Normal Bowel Sounds, Non Tender, Soft Extremity: Normal Inspection, Non Tender, No Pedal Edema Skin: Normal Color, Warm/Dry Neurologic/Psychiatric: Alert, Oriented x3, No Motor/Sensory Deficits, Normal Mood/Affect Allergies: Coded Allergies: promethazine (Verified Allergy, Intermediate, 10/02/07) clindamycin (Verified Allergy, Unknown, 09/27/20) hydrocodone (Verified Allergy, Unknown, 09/27/20) morphine (Verified Allergy, Unknown, 09/27/20) Copy Copies To 1: FERNANDO RAMOS MD Discharge Summary Date of Admission December 14, 2020 at 18:23 Date of Discharge December 15, 2020 at 17:00 Discharge Date: December 15, 2020 Discharge Time: 17:00 Admission Diagnosis UTI, AMIRA Discharge Diagnosis (1) UTI (urinary tract infection) Status: Acute Qualifiers: Qualified Codes: N30.00 - Acute cystitis without hematuria (2) Acute kidney injury Status: Acute DENIZ ROCHA MD December 16, 2020 12:44
== END 2020-12-15 17:00 | disposition home or self-care (01) ==
LOC: EDUNIT# 16:10 → ER 16:11 → 4TH 18:23
PROVIDERS: ADMIT Internal Medicine; ATTEND Internal Medicine
DX: N30.00 Acute cystitis without hematuria (principal); N17.9 Acute kidney failure, unspecified; R41.82 Altered mental status, unspecified; I48.91 Unspecified atrial fibrillation; I10 Essential (primary) hypertension; E78.00 Pure hypercholesterolemia, unspecified; E11.40 Type 2 diabetes mellitus with diabetic neuropathy, unspecified; G89.29 Other chronic pain; M54.9 Dorsalgia, unspecified; K21.9 Gastro-esophageal reflux disease without esophagitis; Z79.899 Other long term (current) drug therapy; Z79.4 Long term (current) use of insulin; Z86.73 Personal history of transient ischemic attack (TIA), and cerebral infarction without residual deficits; Z90.710 Acquired absence of both cervix and uterus; Z95.0 Presence of cardiac pacemaker
CPT/HCPCS: 70450; 71045; 80048; 80053; 80306; 81000; 82947 ×2; 84484; 85025; 85610; 85730; 87077; 87088; 93005; 99283; G0480 ×3; 36415; 80320; 80329; 87186; G0378

== ENCOUNTER 2021-02-01 15:31 | Emergency (ER) | payer BC, MEDICARE ==
[~2021-02-01] VITALS: Ht 167 cm; Wt 62.6 kg
[~2021-02-01 15:31] MED LIST changes: +AMOX500C2 PO; +CLON0.5T4 PO; +ERGO1250 PO; +INDO50CA82 PO
[2021-02-01] MEDS ORDERED: ONDANSETRON 4 MG/2 ML (SDV) Z0FRAN IVP ONE (15:45)
[2021-02-01] MEDS ORDERED: PANTOPRAZOLE 40 MG (PROTONIX) VIAL IV ONE (15:45)
--- NOTE | 2021-02-01 15:54 | ED GI ---
General Stated Complaint: VOMITING BLOOD/CP Source of Information: Patient Exam Limitations: No Limitations History of Present Illness Date Seen by Provider: Feb 01, 2021 Time Seen by Provider: 15:36 Initial Comments Patient presents ER by private conveyance from home with chief complaint that she has been nauseated having some vomiting off and on since about 7:00 last night. She ate just prior to that. She feels some burning going up to the middle of her chest. She does not have a history of coronary disease. She had a cardiac catheterization a few months ago as a follow-up after an ablation for her atrial fibrillation. She is on Eliquis. Her cardiology team is at [facility]. Her primary care doctor is Dr. Zayas in [place]. She does not have a history of coronary disease stents or heart attacks. She is not having any shortness of air. She had an episode of vomiting just prior to coming in and saw bright red blood in it and this concerned her so she came to the ER. She does not have a history of cirrhosis, hepatitis, alcohol drinking, ulcers. She is not having any abdominal pain and rates her pain is just a mild discomfort now. She did not take anything for the discomfort or the nausea at home. She does have a history of hypertension, hyperlipidemia, diabetes. She is on an insulin pump. She does not smoke use drugs or drink alcohol. Allergies and Home Medications Allergies Coded Allergies: promethazine (Verified Allergy, Intermediate, 10/02/07) clindamycin (Verified Allergy, Unknown, 09/27/20) hydrocodone (Verified Allergy, Unknown, 09/27/20) morphine (Verified Allergy, Unknown, 09/27/20) Home Medications Amiodarone HCl 200 Mg Tablet, 200 MG PO DAILY, (Reported) Amoxicillin 500 Mg Capsule, 500 MG PO Q12H Prescribed by: DENIZ ROCHA on 12/15/20 1104 Apixaban 5 Mg Tablet, 5 MG PO BID, (Reported) Benzonatate 200 Mg Capsule, 200 MG PO TID PRN for COUGH, (Reported) Clonazepam 0.5 Mg Tablet, 0.25-0.5 MG PO BID PRN for ANXIETY, (Reported) Ergocalciferol (Vitamin D2) 1,250 Mcg Capsule, 1,250 MCG PO SAT, (Reported) Indomethacin 50 Mg Capsule, 50 NG PO BID PRN for PAIN-BREAKTHROUGH, (Reported) Insulin Aspart 100 Unit/1 Ml Susp, UNITS SC PER PUMP, (Reported) Insulin Determir 1,000 Units/10 Ml Soln, 11 UNITS SC DAILY PRN for IF INSULIN PUMP IS UNAVALIABLE, (Reported) Metoprolol Succinate 50 Mg Tab.er.24h, 50 MG PO DAILY, (Reported) HOLD IF SBP IS LESS THAN 120 Peg 400/Hypromellose/Glycerin 15 Ml Drops, 2 DROPS OU PRN PRN for DRY EYES, (Reported) Polyethylene Glycol 3350 17 Gm Powd.pack, 17 GM PO DAILY PRN for CONSTIPATION- 2ND LINE, (Reported) Potassium Chloride 10 Meq Tablet.er, 10 MEQ PO DAILY, (Reported) Pravastatin Sodium 20 Mg Tablet, 20 MG PO HS, (Reported) Sacubitril/Valsartan 1 Each Tablet, 1 EA PO BID, (Reported) LAST FILLED 10-09-2020 #60/30 DAY SUPPLY Spironolactone 25 Mg Tablet, 12.5 MG PO DAILY, (Reported) TAKES OF A 25MG Topiramate 25 Mg Tablet, 50 MG PO BID, (Reported) TAKES 2 (25MG) TABS Vit C/E/Zn/Coppr/Lutein/Zeaxan 1 Each Capsule, 1 EACH PO DAILY, (Reported) Patient Home Medication List Home Medication List Reviewed: Yes Review of Systems Review of Systems Constitutional: No chills, No diaphoresis EENTM: No Blurred Vision, No Double Vision Respiratory: Denies Cough, Denies Shortness of Air Cardiovascular: See HPI, Chest Pain; Denies Lightheadedness Gastrointestinal: Denies Constipated, Denies Diarrhea; Nausea; Denies Poor Fluid Intake; Vomiting Genitourinary: Denies Burning, Denies Discharge All Other Systems Reviewed Negative Unless Noted: Yes Past Gzpobhy-Jqowvy-Gljhfn Hx Patient Social History Tobacco Use?: No Use of E-Cig and/or Vaping dev: No Substance use?: No Alcohol Use?: No Immunizations Up To Date Tetanus Booster (TDap): Unknown Past Medical History Surgeries: Yes Cardiac, Section, Gallbladder, Hysterectomy, Orthopedic, Pacemaker Respiratory: Yes COPD Cardiac: Yes (PACEMAKER, CARDIAC ABLATION, MAZE PROCEDURE, LEFT APPENDAGE CLIPPED) Atrial Fibrillation, High Cholesterol, Hypertension, Irregular Heartbeat Neurological: Yes (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;HX OF CVA 2018-NO RESIDUAL) Neuropathy, Stroke Reproductive Disorders: No Genitourinary: No Gastrointestinal: Yes Gastroesophageal Reflux Musculoskeletal: Yes Chronic Back Pain Endocrine: Yes (INSULIN PUMP) Diabetes, Insulin dep HEENT: Yes (DIABETIC RETINOPATHY) Cancer: No Psychosocial: No Integumentary: No Blood Disorders: No Family Medical History PAST SURGICAL HISTORY: -LEFT EYE SURGERY FOR RETINAL BLEED 3 YEARS AGO - X 2 IN 1969, 1970 -HYSTERECTOMY 1979 -CHOLECYSTECTOMY ( OPEN ) 1983 -LEFT FOOT SURGERY 7 YEARS AGO -LUMBAR LAMINECTOMY 20 YEARS AGO -PACEMAKER 4 YEARS AGO -CARDIAC ABLATION 05/2019 -MAZE PROCEDURE 05/2020 -LEFT LATERAL APPENDAGE CLIP 05/2020 -PT REPORTS CARDIAC CATH DONE IN IN 2019 SHOWED NO SIGNIFICANT CAD. ECHOCARDIOGRAM 09/28/20--EF 55-60% MPI 09/29/20--NO INSCHEMIA OR INFARCTIONS Physical Exam Vital Signs Vital Signs - First Documented 02/01/21 15:38 O2 Delivery Room Air Capillary Refill : Height/Weight/BMI Height: 5'1.00" Weight: 151lbs. 0.0oz. 68.288245kf; 26.08 BMI Method:Stated General Appearance: WD/WN, other (Anxious affect) HEENT: PERRL/EOMI, pharynx normal Neck: full range of motion, normal inspection Respiratory: lungs clear, normal breath sounds, no respiratory distress, no accessory muscle use Cardiovascular: normal peripheral pulses, regular rate, rhythm Gastrointestinal: normal bowel sounds, non tender, soft Extremities: normal inspection, normal capillary refill Neurologic/Psychiatric: alert, oriented x 3 Skin: normal color, warm/dry Progress/Results/Core Measures Results/Orders Lab Results Laboratory Tests Test 02/01/21 15:50 Range/Units White Blood Count 4.9 4.3-11.0 10^3/uL Red Blood Count 4.07 3.80-5.11 10^6/uL Hemoglobin 12.1 11.5-16.0 g/dL Hematocrit 36 35-52 % Mean Corpuscular Volume 89 80-99 fL Mean Corpuscular Hemoglobin 30 25-34 pg Mean Corpuscular Hemoglobin Concent 34 32-36 g/dL Red Cell Distribution Width 13.6 10.0-14.5 % Platelet Count 166 130-400 10^3/uL Mean Platelet Volume 8.8 L 9.0-12.2 fL Immature Granulocyte % (Auto) 0 % Neutrophils (%) (Auto) 61 42-75 % Lymphocytes (%) (Auto) 30 12-44 % Monocytes (%) (Auto) 6 0-12 % Eosinophils (%) (Auto) 2 0-10 % Basophils (%) (Auto) 0 0-10 % Neutrophils # (Auto) 3.0 1.8-7.8 10^3/uL Lymphocytes # (Auto) 1.5 1.0-4.0 10^3/uL Monocytes # (Auto) 0.3 0.0-1.0 10^3/uL Eosinophils # (Auto) 0.1 0.0-0.3 10^3/uL Basophils # (Auto) 0.0 0.0-0.1 10^3/uL Immature Granulocyte # (Auto) 0.0 0.0-0.1 10^3/uL Prothrombin Time 13.8 12.2-14.7 SEC INR Comment 1.0 0.8-1.4 Activated Partial Thromboplast Time 30 24-35 SEC Sodium Level 145 135-145 MMOL/L Potassium Level 3.6 3.6-5.0 MMOL/L Chloride Level 112 H 98-107 MMOL/L Carbon Dioxide Level 23 21-32 MMOL/L Anion Gap 10 5-14 MMOL/L Blood Urea Nitrogen 15 7-18 MG/DL Creatinine 0.86 0.60-1.30 MG/DL Estimat Glomerular Filtration Rate > 60 BUN/Creatinine Ratio 17 Glucose Level 137 H 70-105 MG/DL Calcium Level 9.2 8.5-10.1 MG/DL Corrected Calcium 9.2 8.5-10.1 MG/DL Total Bilirubin 0.5 0.1-1.0 MG/DL Aspartate Amino Transf (AST/SGOT) 16 5-34 U/L Alanine Aminotransferase (ALT/SGPT) 7 0-55 U/L Alkaline Phosphatase 84 40-136 U/L Troponin I < 0.028 <0.028 NG/ML Total Protein 6.9 6.4-8.2 GM/DL Albumin 4.0 3.2-4.5 GM/DL Lipase 27 8-78 U/L My Orders Orders - RON ROBBINS Pantoprazole Injection (Protonix Injecti (02/01/21 15:45) Cbc With Automated Diff (02/01/21 15:45) Comprehensive Metabolic Panel (02/01/21 15:45) Protime With Inr (02/01/21 15:45) Partial Thromboplastin Time (02/01/21 15:45) Lipase (02/01/21 15:45) Ondansetron Injection (Zofran Injectio (02/01/21 15:45) Ed Iv/Invasive Line Start (02/01/21 15:45) Troponin I (02/01/21 16:04) Chest 1 View, Ap/Pa Only (02/01/21 16:04) Medications Given in ED Current Medications Medications Dose Ordered Sig/Mariza Route Start Time Stop Time Status Last Admin Dose Admin Ondansetron HCl 4 mg ONCE ONCE IVP 02/01/21 15:45 02/01/21 15:48 DC 02/01/21 15:56 4 MG Pantoprazole 40 mg ONCE ONCE IV 02/01/21 15:45 02/01/21 15:48 DC 02/01/21 15:56 40 MG Vital Signs/I&O 02/01/21 15:38 O2 Delivery Room Air Progress Progress Note #1: Time: 15:55 Progress Note Plan to check a CBC and some labs. Suspect she has erosive esophagitis from the vomiting and because of the Eliquis she had some bleeding. She has not had any black tarry stools to suggest this is an ongoing problem. Her previous hemoglobin was 12.7 from November, 2 months ago. Progress Note #2: Time: 16:56 Progress Note Hemoglobin is stable and the patient's had no further nausea or discomfort. Plan to let her go home with some Zofran and follow-up with Dr. Felix to discuss endoscopy. Told her to stop taking the Eliquis. She can resume the Eliquis after the surgeon tells her or after her symptoms have abated for a couple days. We will put her on Carafate and double her omeprazole to 20 twice daily. Initial ECG Impression Date: Feb 01, 2021 Initial ECG Impression Time: 15:39 Initial ECG Rate: 77 Initial ECG Intervals: Normal Initial ECG Impression: Normal, Nonspecific Changes Comment Atrial paced complexes. No clinically relevant ST elevation or depression. Diagnostic Imaging Diagonstic Imaging: Xray Plain Films/CT/US/NM/MRI: chest Comments NAME: RAVI PAYAN [facility] REC#: [id number] PT STATUS: REG ER : 1950 PHYSICIAN: RON ROBBINS MD ADMIT DATE: 02/01/21/ER Signed Date of Exam:02/01/21 CHEST 1 VIEW, AP/PA ONLY Indication: Chest pain, hematemesis Portable chest 4:32 PM There is a dual-chamber pacemaker. Patient's had left atrial appendage clipping. Heart size and pulmonary vascularity are normal. Lungs are clear. There are no effusions or pneumothoraces. IMPRESSION: Postsurgical changes in the chest. No acute abnormality seen. Dictated by: Dictated on workstation # [id number] Dict: 02/01/21 1635 Trans: 02/01/21 1636 TCB [id number] Interpreted by: MARGARITA CARRASCO MD Electronically signed by: MARGARITA CARRASCO MD 02/01/21 1636 Reviewed: Reviewed by Me Departure Impression Primary Impression: Esophagitis, acute Additional Impression: Gastroenteritis Disposition: 01 HOME, SELF-CARE Condition: Stable Departure-Patient Inst. Decision time for Depature: 16:57 Referrals: FAHAD FELIX,LOCAL PHYSICIAN (PCP) Primary Care Physician Patient Instructions: Acid Reflux, Adult and Adolescent ED Add. Discharge Instructions: Because you are on a blood thinner I suspect the esophagitis caused some extra bleeding today. This could be from a viral infection of the gut. I expect the symptoms will be self-limiting to 3 to 5 days or less. Use Zofran 1 tablet every 6 hours as necessary to quell your nausea. Stick to a liquid diet until you are no longer needing the Zofran and then you can advance to a soft diet. Call Dr. Felix and request follow-up appointment in the clinic to discuss EGD to look in your esophagus and stomach. Omeprazole 20 mg twice a day for the next 2 weeks and then resume your normal course. Carafate 1 tablet half an hour prior before meals and at bedtime for the next 2 weeks to help protect the lining of your stomach. If you have worsening vomiting and bleeding, chest pain or other worrisome symptoms then promptly return to the nearest ER. Scripts Ondansetron (Ondansetron Odt) 4 Mg Tab.rapdis 4 MG PO Q6H PRN for NAUSEA/VOMITING, #15 TAB 0 Refills Prov: RON ROBBINS 02/01/21 Omeprazole (Omeprazole) 20 Mg Tablet.dr 20 MG PO BID for 14 Days, #3 TAB 0 Refills Prov: RON ROBBINS 02/01/21 Sucralfate (Carafate) 1 Gm Tablet 1 GM PO QIDACHS for 14 Days, #56 TAB 0 Refills Prov: RON ROBBINS 02/01/21 Copy Copies To 1: FAHAD FELIX DO RON ROBBINS Feb 01, 2021 15:54
[2021-02-01 15:58] LABS: BASOPHILS % (AUTO) 0 % (0-10); EOSINOPHILS # (AUTO) 0.1 10^3/uL (0.0-0.3); EOSINOPHILS % (AUTO) 2 % (0-10); HEMATOCRIT 36 % (35-52); HEMOGLOBIN 12.1 g/dL (11.5-16.0); LYMPHOCYTES # (AUTO) 1.5 10^3/uL (1.0-4.0); LYMPHOCYTES % (AUTO) 30 % (12-44); MEAN CORPUSCULAR HEMOGLOBIN 30 pg (25-34); MEAN CORPUSCULAR HGB CONC 34 g/dL (32-36); MEAN CORPUSCULAR VOLUME 89 fL (80-99); MEAN PLATELET VOLUME 8.8 fL (9.0-12.2); MONOCYTES # (AUTO) 0.3 10^3/uL (0.0-1.0); MONOCYTES % (AUTO) 6 % (0-12); NEUTROPHILS % (AUTO) 61 % (42-75); PLATELET COUNT 166 10^3/uL (130-400); WHITE BLOOD COUNT 4.9 10^3/uL (4.3-11.0)
[2021-02-01 16:23] LABS: ALANINE AMINOTRANSFERASE 7 U/L (0-55); ALKALINE PHOSPHATASE 84 U/L (40-136); BILIRUBIN,TOTAL 0.5 MG/DL (0.1-1.0); BUN/CREATININE RATIO 17; CALCIUM 9.2 MG/DL (8.5-10.1); CARBON DIOXIDE 23 MMOL/L (21-32); CHLORIDE 112 MMOL/L (98-107); CREATININE SERUM 0.86 MG/DL (0.60-1.30); GFR ESTIMATED > 60; GLUCOSE 137 MG/DL (70-105); LIPASE 27 U/L (8-78); POTASSIUM 3.6 MMOL/L (3.6-5.0); SODIUM 145 MMOL/L (135-145); TOTAL PROTEIN 6.9 GM/DL (6.4-8.2)
[2021-02-01 16:33] LABS: PROTHROMBIN TIME PATIENT 13.8 SEC (12.2-14.7)
--- NOTE | 2021-02-01 16:37 | Diagnostic Imaging Report ---
Indication: Chest pain, hematemesis Portable chest 4:32 PM There is a dual-chamber pacemaker. Patient's had left atrial appendage clipping. Heart size and pulmonary vascularity are normal. Lungs are clear. There are no effusions or pneumothoraces. IMPRESSION: Postsurgical changes in the chest. No acute abnormality seen. Dictated by: Dictated on workstation # [id number]
[2021-02-01] MEDS ORDERED: SUCR1TAB36 PO (17:01)
[2021-02-01] MEDS ORDERED: ONDA4TAB11 PO (17:01)
[2021-02-01] MEDS ORDERED: OMEP20TA7 PO (17:01)
[2021-02-01 17:10] VITALS: BP 143/68
== END 2021-02-01 17:10 | disposition home or self-care (01) ==
LOC: EDUNIT# 15:31 → ER 15:33
DX: K20.90 Esophagitis, unspecified without bleeding (principal); K52.9 Noninfective gastroenteritis and colitis, unspecified; J44.9 Chronic obstructive pulmonary disease, unspecified; I10 Essential (primary) hypertension; I48.91 Unspecified atrial fibrillation; E78.00 Pure hypercholesterolemia, unspecified; E11.9 Type 2 diabetes mellitus without complications; Z86.73 Personal history of transient ischemic attack (TIA), and cerebral infarction without residual deficits; Z79.899 Other long term (current) drug therapy; Z79.01 Long term (current) use of anticoagulants; Z79.4 Long term (current) use of insulin
CPT/HCPCS: 36415; 71045; 80053; 83690; 84484; 85025; 85610; 85730; 93005

== ENCOUNTER 2021-02-02 09:42 | Outpatient (RCR) | payer BC, MEDICARE ==
[~2021-02-02 09:42] MED LIST changes: +OMEP20TA7 PO; +ONDA4TAB11 PO; +SUCR1TAB36 PO
== END 2021-03-09 15:30 | disposition home or self-care (01) ==
PROVIDERS: ATTEND Specialist
DX: R26.0 Ataxic gait (principal); I10 Essential (primary) hypertension; E11.9 Type 2 diabetes mellitus without complications; I48.91 Unspecified atrial fibrillation; Z95.0 Presence of cardiac pacemaker; Z79.4 Long term (current) use of insulin; Z86.73 Personal history of transient ischemic attack (TIA), and cerebral infarction without residual deficits

== ENCOUNTER 2021-02-09 19:54 | Emergency (ER) | payer BC, MEDICARE ==
[~2021-02-09] VITALS: Ht 167 cm; Wt 62.6 kg
[2021-02-09] MEDS ORDERED: ASPIRIN 81 MG CHEW (CHILDREN'S ASA) PO ONE (20:30)
[2021-02-09 20:33] LABS: BASOPHILS % (AUTO) 0 % (0-10); EOSINOPHILS % (AUTO) 0 % (0-10); HEMATOCRIT 38 % (35-52); HEMOGLOBIN 12.3 g/dL (11.5-16.0); LYMPHOCYTES # (AUTO) 0.7 10^3/uL (1.0-4.0); LYMPHOCYTES % (AUTO) 8 % (12-44); MEAN CORPUSCULAR HEMOGLOBIN 29 pg (25-34); MEAN CORPUSCULAR HGB CONC 33 g/dL (32-36); MEAN CORPUSCULAR VOLUME 90 fL (80-99); MONOCYTES # (AUTO) 0.5 10^3/uL (0.0-1.0); MONOCYTES % (AUTO) 6 % (0-12); NEUTROPHILS # (AUTO) 7.4 10^3/uL (1.8-7.8); NEUTROPHILS % (AUTO) 85 % (42-75); PLATELET COUNT 154 10^3/uL (130-400); WHITE BLOOD COUNT 8.7 10^3/uL (4.3-11.0)
[2021-02-09 20:44] LABS: FIBRIN DEGRADATION PRODUCTS 0.62 UG/ML (0.00-0.49); INR 1.1 (0.8-1.4); PROTHROMBIN TIME PATIENT 14.6 SEC (12.2-14.7)
[2021-02-09 20:49] LABS: ALBUMIN 4.2 GM/DL (3.2-4.5); BILIRUBIN,TOTAL 0.9 MG/DL (0.1-1.0); CALCIUM 8.9 MG/DL (8.5-10.1); CREATININE SERUM 1.19 MG/DL (0.60-1.30); MAGNESIUM 3.2 MG/DL (1.6-2.4); POTASSIUM 3.7 MMOL/L (3.6-5.0); TOTAL PROTEIN 7.3 GM/DL (6.4-8.2)
[2021-02-09] MEDS ORDERED: IOHEXOL 350 MG/ML 100 ML (OMNIPAQUE 350) VIAL IV ONE (21:30)
[2021-02-09] MEDS ORDERED: HOLD METFORMIN - RECEIVED CONTRAST 20 ML VIAL IV SCH (21:30)
[2021-02-09] MEDS ORDERED: NS 100 ML (IVPB) BAG IV ONE (21:30)
[2021-02-09] MEDS ORDERED: CATHETER FLUSH 10 ML SYR IV PRN (21:30)
[2021-02-09] MEDS ORDERED: LACTATED RINGERS 1,000 ML IV ONE (21:30)
[2021-02-09 21:34] LABS: BILIRUBIN,URINE NEGATIVE (NEGATIVE); CLARITY,URINE CLEAR; COLOR,URINE YELLOW; GLUCOSE, URINE (UA) NEGATIVE (NEGATIVE); KETONES,URINE 1+ (NEGATIVE); LEUKOCYTE ESTERASE ,URINE NEGATIVE (NEGATIVE); NITRITE,URINE NEGATIVE (NEGATIVE); PH,URINE 5.5 (5-9); PROTEIN,URINE NEGATIVE (NEGATIVE)
[2021-02-09 21:44] LABS: AMORPHOUS SEDIMENT,UR RARE AMOR URATES /LPF; BACTERIA,URINE TRACE /HPF
--- NOTE | 2021-02-09 21:47 | Diagnostic Imaging Report ---
PROCEDURE: CT angiography of the chest with contrast. TECHNIQUE: Multiple contiguous axial images were obtained through the chest after uneventful bolus administration of intravenous contrast. 3D reconstructed CTA MIP acquisitions were also performed. Auto Exposure Controls were utilized during the CT exam to meet ALARA standards for radiation dose reduction. INDICATION: Chest pain. Cardiac pacemaker. COMPARISON: 10/13/2017 FINDINGS: The heart is mildly enlarged but stable. Cardiac pacemaker leads are seen in the right heart. There is no pericardial effusion. There is no lymphadenopathy. The pulmonary arteries and aorta are grossly unremarkable. There is no dissection or aneurysm. No pulmonary embolism is seen. The lungs are clear throughout. No mass or nodular infiltrate is seen. There is no pleural effusion. Small hiatal hernia is present. Osseous structures are age-appropriate. Visualized upper abdominal solid organs are intact. IMPRESSION: 1. Small hiatal hernia. 2. Cardiac enlargement without pulmonary edema or acute infiltrate. 3. No pulmonary embolism or acute aortic pathology identified. Dictated by: Dictated on workstation # [id number]
--- NOTE | 2021-02-09 21:48 | Diagnostic Imaging Report ---
INDICATION: Chest pain COMPARISON: 02/01/2021 FINDINGS: Single view of the chest demonstrates stable cardiac enlargement. The lungs are clear. There is no pneumothorax. The pacemaker is in stable position. Osseous structures are age-appropriate. IMPRESSION: Stable cardiac enlargement without pulmonary edema or acute infiltrate. Dictated by: Dictated on workstation # [id number]
--- NOTE | 2021-02-09 21:52 | ED Chest Pain ---
General Chief Complaint: Chest Pain Stated Complaint: CHEST PAIN Nursing Triage Note: TO ED VIA POV AND AMBULATORY TO ROOM 3 WITH C/O CP ON AND OFF SINCE NOON TODAY. STATES IN CENTER OF CHEST AND LEFT ARM FEELS NUMB. 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 PT HX AFIB AND TAKES AMIODARONES QDAY AND ELIQUIS BID AND HAS NOT MISSED ANY DOSES. Source: patient, old records Exam Limitations: no limitations History of Present Illness Date Seen by Provider: Feb 09, 2021 Time Seen by Provider: 19:57 Initial Comments This is 71-year-old woman presents to the emergency room with complaints of intermittent left-sided chest pain throughout the day today. She is not having pain at present. She has had some radiation and numbness of pain into the left upper arm. She has a low-grade fever and also has felt a bit confused today. She denies any other symptoms of infectious illness. She has received 1 dose of the Covid vaccine. She has a significant cardiac history which includes atrial fibrillation, permanent pacemaker, heart failure, history of ablation, and history of Maze procedure. She denies missing any doses of her medications. Her primary academic manager is Dr. Shannon at [facility]. Patient had recent ED visit for gastritis/esophagitis. She reports compliance with medications prescribed at that time. She was advised follow-up for endoscopy during that visit. She is a type I diabetic with a blood sugar of 126. Pain has dissipated and she is not experiencing any pain at this time. Seems to be worse when lying flat or taking a deep breath. She later stated she has had intermittent episodes of this pain for the past 3 years since having her cardiac procedures. She has no evidence of coronary artery disease by cardiac catheterizations performed over the last several years. Allergies and Home Medications Allergies Coded Allergies: promethazine (Verified Allergy, Intermediate, 10/02/07) clindamycin (Verified Allergy, Unknown, 09/27/20) hydrocodone (Verified Allergy, Unknown, 09/27/20) morphine (Verified Allergy, Unknown, 09/27/20) Home Medications Amiodarone HCl 200 Mg Tablet, 200 MG PO DAILY, (Reported) Amoxicillin 500 Mg Capsule, 500 MG PO Q12H Prescribed by: DENIZ ROCHA on 12/15/20 1104 Apixaban 5 Mg Tablet, 5 MG PO BID, (Reported) Benzonatate 200 Mg Capsule, 200 MG PO TID PRN for COUGH, (Reported) Clonazepam 0.5 Mg Tablet, 0.25-0.5 MG PO BID PRN for ANXIETY, (Reported) Ergocalciferol (Vitamin D2) 1,250 Mcg Capsule, 1,250 MCG PO SAT, (Reported) Indomethacin 50 Mg Capsule, 50 NG PO BID PRN for PAIN-BREAKTHROUGH, (Reported) Insulin Aspart 100 Unit/1 Ml Susp, UNITS SC PER PUMP, (Reported) Insulin Determir 1,000 Units/10 Ml Soln, 11 UNITS SC DAILY PRN for IF INSULIN PUMP IS UNAVALIABLE, (Reported) Metoprolol Succinate 50 Mg Tab.er.24h, 50 MG PO DAILY, (Reported) HOLD IF SBP IS LESS THAN 120 Omeprazole 20 Mg Tablet.dr, 20 MG PO BID Prescribed by: RON ROBBINS on 02/01/211700 Ondansetron 4 Mg Tab.rapdis, 4 MG PO Q6H PRN for NAUSEA/VOMITING Prescribed by: RON ROBBINS on 02/01/211700 Peg 400/Hypromellose/Glycerin 15 Ml Drops, 2 DROPS OU PRN PRN for DRY EYES, (Reported) Polyethylene Glycol 3350 17 Gm Powd.pack, 17 GM PO DAILY PRN for CONSTIPATION- 2ND LINE, (Reported) Potassium Chloride 10 Meq Tablet.er, 10 MEQ PO DAILY, (Reported) Pravastatin Sodium 20 Mg Tablet, 20 MG PO HS, (Reported) Sacubitril/Valsartan 1 Each Tablet, 1 EA PO BID, (Reported) LAST FILLED 10-09-2020 #60/30 DAY SUPPLY Spironolactone 25 Mg Tablet, 12.5 MG PO DAILY, (Reported) TAKES OF A 25MG Sucralfate 1 Gm Tablet, 1 GM PO QIDACHS Prescribed by: RON ROBBINS on 02/01/211700 Topiramate 25 Mg Tablet, 50 MG PO BID, (Reported) TAKES 2 (25MG) TABS Vit C/E/Zn/Coppr/Lutein/Zeaxan 1 Each Capsule, 1 EACH PO DAILY, (Reported) Patient Home Medication List Home Medication List Reviewed: Yes Review of Systems Review of Systems Constitutional: no symptoms reported EENTM: No Symptoms Reported Respiratory: No Symptoms Reported Cardiovascular: See HPI Gastrointestinal: See HPI Genitourinary: No Symptoms Reported Musculoskeletal: no symptoms reported Skin: no symptoms reported Psychiatric/Neurological: See HPI Endocrine: No Symptoms Reported Hematologic/Lymphatic: No Symptoms Reported Past Veqdsfj-Byavqr-Zqbnoi Hx Patient Social History Tobacco Use?: No Substance use?: No Alcohol Use?: No Immunizations Up To Date Tetanus Booster (TDap): Unknown First/Initial COVID19 Vaccinat: APPROX 3 WEEKS AGO Second COVID19 Vaccination Jamie: TO BE HAD COVID19 Vaccine Cable Swager: LURDES Past Medical History Surgeries: Yes Cardiac (Ablation and maze procedure), Section, Gallbladder, Hysterectomy, Orthopedic, Pacemaker Respiratory: Yes COPD Cardiac: Yes (PACEMAKER, CARDIAC ABLATION, MAZE PROCEDURE, LEFT APPENDAGE CLIPPED) Atrial Fibrillation, High Cholesterol, Hypertension, Irregular Heartbeat Neurological: Yes (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;HX OF CVA 2018-NO RESIDUAL) Neuropathy, Stroke : No Reproductive Disorders: No Genitourinary: No Gastrointestinal: Yes Gastroesophageal Reflux Musculoskeletal: Yes Chronic Back Pain Endocrine: Yes (INSULIN PUMP) Diabetes, Insulin dep HEENT: Yes (DIABETIC RETINOPATHY) Cancer: No Psychosocial: No Integumentary: No Blood Disorders: No Family Medical History PAST SURGICAL HISTORY: -LEFT EYE SURGERY FOR RETINAL BLEED 3 YEARS AGO - X 2 IN 1969, 1970 -HYSTERECTOMY 1979 -CHOLECYSTECTOMY ( OPEN ) 1983 -LEFT FOOT SURGERY 7 YEARS AGO -LUMBAR LAMINECTOMY 20 YEARS AGO -PACEMAKER 4 YEARS AGO -CARDIAC ABLATION 05/2019 -MAZE PROCEDURE 05/2020 -LEFT LATERAL APPENDAGE CLIP 05/2020 -PT REPORTS CARDIAC CATH DONE IN IN 2019 SHOWED NO SIGNIFICANT CAD. ECHOCARDIOGRAM 09/28/20--EF 55-60% MPI 09/29/20--NO INSCHEMIA OR INFARCTIONS Physical Exam Vital Signs Vital Signs - First Documented 02/09/21 02/09/21 20:01 23:25 Temp 37.8 Pulse 90 Resp 16 B/P (MAP) 152/75 (100) Pulse Ox 96 O2 Delivery Room Air Capillary Refill : Less Than 3 Seconds Height, Weight, BMI Height: 5'1.00" Weight: 151lbs. 0.0oz. 68.493962eu; 22.00 BMI Method:Stated General Appearance: No Apparent Distress, WD/WN, Thin HEENT: PERRL/EOMI, Normal ENT Inspection Neck: Normal Inspection Respiratory: Chest Non Tender, Lungs Clear, Normal Breath Sounds, No Accessory Muscle Use Cardiovascular: Regular Rate, Rhythm, No Edema, No Murmur, Normal Peripheral Pulses Gastrointestinal: Non Tender, Soft; No Distended Extremity: Normal Inspection, Non Tender, No Pedal Edema Neurologic/Psychiatric: Alert, Oriented x3, No Motor/Sensory Deficits, Normal Mood/Affect, director targeted marketing II-XII Norm as Tested Skin: Normal Color, Warm/Dry Progress/Results/Core Measures Results/Orders Lab Results Laboratory Tests Test 02/09/21 20:14 02/09/21 20:15 02/09/21 20:30 02/09/21 21:30 Range/Units Glucometer 126 H 70-110 MG/DL White Blood Count 8.7 4.3-11.0 10^3/uL Red Blood Count 4.18 3.80-5.11 10^6/uL Hemoglobin 12.3 11.5-16.0 g/dL Hematocrit 38 35-52 % Mean Corpuscular Volume 90 80-99 fL Mean Corpuscular Hemoglobin 29 25-34 pg Mean Corpuscular Hemoglobin Concent 33 32-36 g/dL Red Cell Distribution Width 13.5 10.0-14.5 % Platelet Count 154 130-400 10^3/uL Mean Platelet Volume 9.0 9.0-12.2 fL Immature Granulocyte % (Auto) 0 % Neutrophils (%) (Auto) 85 H 42-75 % Lymphocytes (%) (Auto) 8 L 12-44 % Monocytes (%) (Auto) 6 0-12 % Eosinophils (%) (Auto) 0 0-10 % Basophils (%) (Auto) 0 0-10 % Neutrophils # (Auto) 7.4 1.8-7.8 10^3/uL Lymphocytes # (Auto) 0.7 L 1.0-4.0 10^3/uL Monocytes # (Auto) 0.5 0.0-1.0 10^3/uL Eosinophils # (Auto) 0.0 0.0-0.3 10^3/uL Basophils # (Auto) 0.0 0.0-0.1 10^3/uL Immature Granulocyte # (Auto) 0.0 0.0-0.1 10^3/uL Prothrombin Time 14.6 12.2-14.7 SEC INR Comment 1.1 0.8-1.4 Activated Partial Thromboplast Time 32 24-35 SEC D-Dimer 0.62 H 0.00-0.49 UG/ML Sodium Level 139 135-145 MMOL/L Potassium Level 3.7 3.6-5.0 MMOL/L Chloride Level 109 H 98-107 MMOL/L Carbon Dioxide Level 19 L 21-32 MMOL/L Anion Gap 11 5-14 MMOL/L Blood Urea Nitrogen 14 7-18 MG/DL Creatinine 1.19 0.60-1.30 MG/DL Estimat Glomerular Filtration Rate 45 BUN/Creatinine Ratio 12 Glucose Level 131 H 70-105 MG/DL Calcium Level 8.9 8.5-10.1 MG/DL Corrected Calcium 8.7 8.5-10.1 MG/DL Magnesium Level 3.2 H 1.6-2.4 MG/DL Total Bilirubin 0.9 0.1-1.0 MG/DL Aspartate Amino Transf (AST/SGOT) 18 5-34 U/L Alanine Aminotransferase (ALT/SGPT) 7 0-55 U/L Alkaline Phosphatase 104 40-136 U/L Myoglobin 51.3 10.0-92.0 NG/ML Troponin I < 0.028 <0.028 NG/ML C-Reactive Protein High Sensitivity 1.49 H 0.00-0.50 MG/DL B-Type Natriuretic Peptide 62.9 <100.0 PG/ML Total Protein 7.3 6.4-8.2 GM/DL Albumin 4.2 3.2-4.5 GM/DL Procalcitonin 0.16 H <0.10 NG/ML Influenza Type A (RT-PCR) Not Detected Not Detecte Influenza Type B (RT-PCR) Not Detected Not Detecte SARS-CoV-2 RNA (RT-PCR) Not Detected Not Detecte Urine Color YELLOW Urine Clarity CLEAR Urine pH 5.5 5-9 Urine Specific Brea 1.025 H 1.016-1.022 Urine Protein NEGATIVE NEGATIVE Urine Glucose (UA) NEGATIVE NEGATIVE Urine Ketones 1+ H NEGATIVE Urine Nitrite NEGATIVE NEGATIVE Urine Bilirubin NEGATIVE NEGATIVE Urine Urobilinogen 0.2 < = 1.0 MG/DL Urine Leukocyte Esterase NEGATIVE NEGATIVE Urine RBC (Auto) NEGATIVE NEGATIVE Urine RBC NONE /HPF Urine WBC 2-5 /HPF Urine Crystals PRESENT H /LPF Urine Amorphous Sediment RARE JOSEPHINE URATES H /LPF Urine Bacteria TRACE /HPF Urine Casts NONE /LPF Urine Mucus SMALL H /LPF Urine Culture Indicated NO Test 7/20/21 22:15 Range/Units Troponin I < 0.028 <0.028 NG/ML My Orders Orders - EMMIE CHAMPAGNE MD Cbc With Automated Diff (02/09/21 20:09) Magnesium (02/09/21 20:09) Chest 1 View, Ap/Pa Only (02/09/21 20:09) Comprehensive Metabolic Panel (02/09/21 20:09) Myoglobin Serum (02/09/21 20:09) Protime With Inr (02/09/21 20:09) Partial Thromboplastin Time (02/09/21 20:09) O2 (02/09/21 20:) Monitor-Rhythm Ecg Trace Only (02/09/21 20:) Ed Iv/Invasive Line Start (02/09/21 20:09) Troponin I (02/09/21 20:09) BNP (02/09/21 20:17) Hs C Reactive Protein (02/09/21 20:17) Aspirin Chewable Tablet (Baby Aspirin Ch (02/09/21 20:30) Procalcitonin (Pct) (02/09/21 20:18) Covid 19 Inhouse Test (02/09/21 20:18) Influenza A And B By Pcr (02/09/21 20:18) Fibrin Degradation Products (02/09/21 20:15) Ua Culture If Indicated (02/09/21 20:49) Lactated Ringers (Lr 1000 Ml Iv Solution (02/09/21 21:30) Ct Angio Chest W (02/09/21 21:19) Iohexol Injection (Omnipaque 350 Mg/Ml 1 (02/09/21 21:30) Received Contrast (Hold Metformin- Contr (02/09/21 21:30) Sodium Chloride Flush (Catheter Flush Sy (02/09/21 21:30) Ns (Ivpb) (Sodium Chloride 0.9% Ivpb Bag (02/09/21 21:30) Acetaminophen Tablet (Tylenol Tablet) (02/09/21 22:00) Troponin I (02/09/21 22:15) Medications Given in ED Vital Signs/I&O 02/09/21 02/09/21 02/09/21 20:01 20:01 23:25 Temp 37.8 37.0 Pulse 90 75 Resp 16 18 B/P (MAP) 152/75 (100) 119/53 Pulse Ox 96 O2 Delivery Room Air Room Air Room Air Blood Pressure Mean: 100 FSBG Bedside Testing Finger Stick Blood Glucose: 126 Progress Progress Note : Progress Note Covid screening was performed due to her fever. Result was negative. No other source of infection was identified. Tylenol was given for the fever. Fever is presumed to be caused by some other viral illness. D-dimer was elevated and CT angiogram of the chest was obtained. There is no evidence of pneumonia or pulmonary embolus. No other dangerous pathologies were seen on CT. Chart was reviewed and patient has no evidence of coronary artery disease by prior studies. A repeat troponin was negative. Ultimately patient was discharged home to outpatient follow-up. See discharge instructions for discussion. Initial ECG Impression Date: Feb 09, 2021 Initial ECG Impression Time: 20:06 Initial ECG Rate: 85 Comment Atrial paced complexes with no ischemic changes. No ST elevation or depression. No significant abnormal intervals or axis deviation. Diagnostic Imaging Diagonstic Imaging: Xray Plain Films/CT/US/NM/MRI: chest Comments Chest x-ray viewed by me and report reviewed. See report below: NAME: RAVI PAYAN MED REC#: [id number] PT STATUS: REG ER : 1950 PHYSICIAN: EMMIE CHAMPAGNE MD ADMIT DATE: 02/09/21/ER Draft Date of Exam:02/09/21 CHEST 1 VIEW, AP/PA ONLY INDICATION: Chest pain COMPARISON: 02/01/2021 FINDINGS: Single view of the chest demonstrates stable cardiac enlargement. The lungs are clear. There is no pneumothorax. The pacemaker is in stable position. Osseous structures are age-appropriate. IMPRESSION: Stable cardiac enlargement without pulmonary edema or acute infiltrate. Dictated on workstation # [id number] Dict: 02/09/212144 Trans: 02/09/212146 [facility] [id number] Interpreted by: TRE WANG Diagonstic Imaging: CT Plain Films/CT/US/NM/MRI: chest Comments CT angiogram chest viewed by me and report reviewed. See report below: NAME: RAVI PAYAN MED REC#: [id number] PT STATUS: REG ER : 1950 PHYSICIAN: EMMIE CHAMPAGNE MD ADMIT DATE: 02/09/21/ER Signed Date of Exam:02/09/21 CT ANGIO CHEST W PROCEDURE: CT angiography of the chest with contrast. TECHNIQUE: Multiple contiguous axial images were obtained through the chest after uneventful bolus administration of intravenous contrast. 3D reconstructed CTA MIP acquisitions were also performed. Auto Exposure Controls were utilized during the CT exam to meet ALARA standards for radiation dose reduction. INDICATION: Chest pain. Cardiac pacemaker. COMPARISON: 10/13/2017 FINDINGS: The heart is mildly enlarged but stable. Cardiac pacemaker leads are seen in the right heart. There is no pericardial effusion. There is no lymphadenopathy. The pulmonary arteries and aorta are grossly unremarkable. There is no dissection or aneurysm. No pulmonary embolism is seen. The lungs are clear throughout. No mass or nodular infiltrate is seen. There is no pleural effusion. Small hiatal hernia is present. Osseous structures are age-appropriate. Visualized upper abdominal solid organs are intact. IMPRESSION: 1. Small hiatal hernia. 2. Cardiac enlargement without pulmonary edema or acute infiltrate. 3. No pulmonary embolism or acute aortic pathology identified. Dictated by: Dictated on workstation # [id number] Dict: 02/09/212141 Trans: 02/09/212152 [facility] [id number] Interpreted by: TRE WANG Electronically signed by: TRE WANG 02/09/212152 Departure Impression Primary Impression: Chest pain Qualified Codes: R07.9 - Chest pain, unspecified Additional Impressions: Fever Qualified Codes: R50.9 - Fever, unspecified Hiatal hernia Disposition: 01 HOME, SELF-CARE Condition: Improved Departure-Patient Inst. Decision time for Depature: 22:49 Referrals: FAHAD FELIX,LOCAL PHYSICIAN (PCP) Primary Care Physician Patient Instructions: Chest Pain That Is Not Caused by the Heart (DC), Fever, Adult ED Add. Discharge Instructions: Continue with your medications for acid reflux and hiatal hernia as previously directed. For your fever and chest pain you may take Tylenol (acetaminophen) up to 1000 mg every 6 hours as needed. Avoid the following: Eating large meals, eating close to bedtime, caffeine, carbonation, tomato products, citrus fruits and juices, alcohol, tobacco, mints, chocolate, NSAID medications such as ibuprofen or naproxen, fatty or greasy foods, spicy foods, or anything else you know irritates your stomach or causes acid reflux. Elevating the head of your bed when you lay down may also be helpful. Seek referral to a surgeon such as Dr. Felix (see below) to discuss potential for scoping your esophagus and the stomach. Your primary care provider can also assist you with arranging a referral for endoscopy. Follow-up with your primary care provider as soon as possible. Call with questions or concerns. Return to the ER if you have worsening symptoms. All discharge instructions reviewed with patient and/or family. Voiced under standing. EMMIE CHAMPAGNE MD Feb 09, 2021 21:52
[2021-02-09] MEDS ORDERED: ACETAMINOPHEN 500 MG TAB (TYLENOL) PO ONE (22:00)
[2021-02-09 23:25] VITALS: BP 119/53
== END 2021-02-09 23:30 | disposition home or self-care (01) ==
LOC: EDUNIT# 19:54 → ER 19:56
DX: R07.9 Chest pain, unspecified (principal); R50.9 Fever, unspecified; K44.9 Diaphragmatic hernia without obstruction or gangrene; I48.91 Unspecified atrial fibrillation; J44.9 Chronic obstructive pulmonary disease, unspecified; I10 Essential (primary) hypertension; E11.9 Type 2 diabetes mellitus without complications; K21.9 Gastro-esophageal reflux disease without esophagitis; E78.00 Pure hypercholesterolemia, unspecified; Z86.73 Personal history of transient ischemic attack (TIA), and cerebral infarction without residual deficits; Z20.822 Contact with and (suspected) exposure to COVID-19; Z79.01 Long term (current) use of anticoagulants; Z79.899 Other long term (current) drug therapy; Z79.4 Long term (current) use of insulin
CPT/HCPCS: 36415; 71045; 71275; 80053; 81000; 82947; 83735; 83874; 83880; 84145; 84484; 85025; 85379; 85610; 85730; 86141; 87636; 93005; 93041

== ENCOUNTER 2021-07-26 21:32 | Emergency (ER) | payer BC, MEDICARE ==
[~2021-07-26] VITALS: Ht 167 cm; Wt 63.0 kg
[~2021-07-26 21:32] MED LIST changes: -AMIO200T6 PO; +AMIO200T65 PO
[2021-07-26] MEDS ORDERED: CELE100C84 PO (21:54)
[2021-07-26] MEDS ORDERED: COLC0.6T59 PO (21:54)
[2021-07-26] MEDS ORDERED: TERB250T88 PO (21:54)
[2021-07-26] MEDS ORDERED: LACTATED RINGERS 1,000 ML IV ONE (22:00)
[2021-07-26 22:16] LABS: BILIRUBIN,URINE NEGATIVE (NEGATIVE); CLARITY,URINE CLEAR; COLOR,URINE YELLOW; GLUCOSE, URINE (UA) NEGATIVE (NEGATIVE); KETONES,URINE NEGATIVE (NEGATIVE); LEUKOCYTE ESTERASE ,URINE NEGATIVE (NEGATIVE); NITRITE,URINE NEGATIVE (NEGATIVE); PROTEIN,URINE NEGATIVE (NEGATIVE)
[2021-07-26 22:27] LABS: BACTERIA,URINE LARGE /HPF; SQUAMOUS EPITHELIAL CELL,UR 0-2 /HPF
[2021-07-26 22:37] LABS: BASOPHILS % (AUTO) 0 % (0-10); EOSINOPHILS % (AUTO) 0 % (0-10); HEMATOCRIT 29 % (35-52); HEMOGLOBIN 8.8 g/dL (11.5-16.0); LYMPHOCYTES # (AUTO) 1.2 10^3/uL (1.0-4.0); LYMPHOCYTES % (AUTO) 17 % (12-44); MEAN CORPUSCULAR HEMOGLOBIN 25 pg (25-34); MEAN CORPUSCULAR HGB CONC 30 g/dL (32-36); MEAN CORPUSCULAR VOLUME 82 fL (80-99); MEAN PLATELET VOLUME 8.1 fL (9.0-12.2); MONOCYTES # (AUTO) 0.3 10^3/uL (0.0-1.0); MONOCYTES % (AUTO) 5 % (0-12); NEUTROPHILS # (AUTO) 5.2 10^3/uL (1.8-7.8); NEUTROPHILS % (AUTO) 77 % (42-75); PLATELET COUNT 208 10^3/uL (130-400); WHITE BLOOD COUNT 6.8 10^3/uL (4.3-11.0)
[2021-07-26 22:49] LABS: ALBUMIN 3.6 GM/DL (3.2-4.5); INR 1.2 (0.8-1.4); POTASSIUM 3.9 MMOL/L (3.6-5.0); PROTHROMBIN TIME PATIENT 15.9 SEC (12.2-14.7)
[2021-07-26 22:50] LABS: CALCIUM 8.6 MG/DL (8.5-10.1)
[2021-07-26 22:52] LABS: TOTAL PROTEIN 7.7 GM/DL (6.4-8.2)
[2021-07-26 22:53] LABS: BILIRUBIN,TOTAL 0.7 MG/DL (0.1-1.0)
[2021-07-26 22:55] LABS: CREATININE SERUM 0.86 MG/DL (0.60-1.30); ERYTHROCYTE SEDIMENTATION RATE 54 MM/HR (0-30)
--- NOTE | 2021-07-26 23:06 | Diagnostic Imaging Report ---
CLINICAL INDICATION: Patient with fever. EXAM: Portable chest x-ray upright view. COMPARISON: Chest x-ray dated 02/09/2021. FINDINGS: Lungs/pleura: Bibasilar atelectasis is seen. There is no definite lung infiltrate. There is no pneumothorax. There is no pleural effusion. Mediastinum: Unremarkable. Pulmonary vasculature: Unremarkable. Heart: Heart size is mildly enlarged. Cardiac pacemaker again seen. Bones/extrathoracic soft tissue: There are degenerative spurs involving the spine. IMPRESSION: 1: There is no radiographic evidence of acute cardiopulmonary process. There is mild bibasilar atelectasis. 2: The remainder of this exam shows no significant interval change compared to the prior study of comparison. Dictated by: Dictated on workstation # [id number]
[2021-07-26] MEDS ORDERED: cefTRIAXone 1 GM PRE-MIX 50 ML IV STA (23:10)
[2021-07-26] MEDS ORDERED: CEFD300C3 PO (23:41)
--- NOTE | 2021-07-26 23:42 | ED General ---
General Chief Complaint: Altered Mental Status Stated Complaint: FEVER,CONFUSION Nursing Triage Note: brought in for confusion/fever since 1929. glucose per insulin pump 119. pt alert/oreinted to place/time/self/situation. Allergies and Home Medications Allergies Coded Allergies: promethazine (Verified Allergy, Intermediate, 10/02/07) clindamycin (Verified Allergy, Unknown, 09/27/20) hydrocodone (Verified Allergy, Unknown, 09/27/20) morphine (Verified Allergy, Unknown, 09/27/20) Patient Home Medication List Amiodarone HCl (Amiodarone HCl) 200 Mg Tablet, 200 MG PO DAILY, (Reported) Entered as Reported by: KINZA CHAVIRA on 12/15/20 1030 Amoxicillin (Amoxicillin) 500 Mg Capsule, 500 MG PO Q12H Prescribed by: DENIZ ROCHA on 12/15/20 1104 Apixaban (Eliquis) 5 Mg Tablet, 5 MG PO BID, (Reported) Entered as Reported by: KINZA CHAVIRA on 09/28/20 1009 Benzonatate (Benzonatate) 200 Mg Capsule, 200 MG PO TID PRN for COUGH, (Reported) Entered as Reported by: KINZA CHAVIRA on 09/28/20 1009 Celecoxib (Celecoxib) 100 Mg Capsule, (Reported) Entered as Reported by: JOLIE العراقي on 07/26/212153 Last Action: New Order Clonazepam (Clonazepam) 0.5 Mg Tablet, 0.25-0.5 MG PO BID PRN for ANXIETY, (Reported) Entered as Reported by: KINZA CHAVIRA on 12/15/20 1030 Colchicine (Colchicine) 0.6 Mg Tablet, (Reported) Entered as Reported by: JOLIE العراقي on 07/26/212153 Last Action: New Order Ergocalciferol (Vitamin D2) (Vitamin D2) 1,250 Mcg Capsule, 1,250 MCG PO SAT, (Reported) Entered as Reported by: KINZA CHAVIRA on 12/15/20 1030 Indomethacin (Indomethacin) 50 Mg Capsule, 50 NG PO BID PRN for PAIN- BREAKTHROUGH, (Reported) Entered as Reported by: KINZA CHAVIRA on 12/15/20 1030 Insulin Aspart (Novolog) 100 Unit/1 Ml Susp, UNITS SC PER PUMP, (Reported) Entered as Reported by: KINZA CHAVIRA on 3/8/21 1009 Insulin Determir (Levemir) 1,000 Units/10 Ml Soln, 11 UNITS SC DAILY PRN for IF INSULIN PUMP IS UNAVALIABLE, (Reported) Entered as Reported by: KINZA CHAVIRA on 09/28/201008 Metoprolol Succinate (Metoprolol Succinate) 50 Mg Tab.er.24h, 50 MG PO DAILY, (Reported) Entered as Reported by: KINZA CHAVIRA on 09/28/201008 Omeprazole (Omeprazole) 20 Mg Tablet.dr, 20 MG PO BID Prescribed by: RON ROBBINS on 02/01/211700 Ondansetron (Ondansetron Odt) 4 Mg Tab.rapdis, 4 MG PO Q6H PRN for NAUSEA/VOMITING Prescribed by: RON ROBBINS on 02/01/211700 Peg 400/Hypromellose/Glycerin (Visine Dry Eye Relief Drop) 15 Ml Drops, 2 DROPS OU PRN PRN for DRY EYES, (Reported) Entered as Reported by: KINZA CHAVIRA on 09/28/201008 Polyethylene Glycol 3350 (Miralax) 17 Gm Powd.pack, 17 GM PO DAILY PRN for CONSTIPATION-2ND LINE, (Reported) Entered as Reported by: KINZA CHAVIRA on 09/28/201008 Potassium Chloride (K-Tab ER) 10 Meq Tablet.er, 10 MEQ PO DAILY, (Reported) Entered as Reported by: KINZA CHAVIRA on 09/28/201008 Pravastatin Sodium (Pravastatin Sodium) 20 Mg Tablet, 20 MG PO HS, (Reported) Entered as Reported by: KINZA CHAVIRA on 09/28/201008 Sacubitril/Valsartan (Entresto 24 mg-26 mg Tablet) 1 Each Tablet, 1 EA PO BID, (Reported) Entered as Reported by: KINZA CHAVIRA on 09/28/201008 Spironolactone (Spironolactone) 25 Mg Tablet, 12.5 MG PO DAILY, (Reported) Entered as Reported by: KINZA CHAVIRA on 09/28/201008 Sucralfate (Carafate) 1 Gm Tablet, 1 GM PO QIDACHS Prescribed by: RON ROBBINS on 02/01/211700 Terbinafine HCl (Terbinafine HCl) 250 Mg Tablet, (Reported) Entered as Reported by: JOLIE العراقي on 07/26/212153 Last Action: New Order Topiramate (Topiramate) 25 Mg Tablet, 50 MG PO BID, (Reported) Entered as Reported by: EDEN GUO on 10/30/20 1730 Vit C/E/Zn/Coppr/Lutein/Zeaxan (Preservision Areds 2 Softgel) 1 Each Capsule, 1 EACH PO DAILY, (Reported) Entered as Reported by: KINZA CHAVIRA on 09/28/20 1009 Past Osqwfcl-Zrrotb-Jsbhmh Hx Patient Social History Tobacco Use?: No Substance use?: No Alcohol Use?: No Pt feels they are or have been: No Immunizations Up To Date Tetanus Booster (TDap): Unknown First/Initial COVID19 Vaccinat: 03/13 Second COVID19 Vaccination Jamie: 04/13 COVID19 Vaccine Costumer Assistant: modernizzy Past Medical History Surgery/Hospitalization HX: cardiac ablation, ppm, c-sect, hysterectomy, cholecystectomy, lumbar laminectomy, heart cath, htn, iddm, gerd, high cholesterol, a-fib, peripheral neuropathy, cva Surgeries: Yes Cardiac, Section, Gallbladder, Hysterectomy, Orthopedic, Pacemaker Respiratory: Yes COPD Cardiac: Yes (PACEMAKER, CARDIAC ABLATION, MAZE PROCEDURE, LEFT APPENDAGE CLIPPED) Atrial Fibrillation, High Cholesterol, Hypertension, Irregular Heartbeat Neurological: Yes (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;HX OF CVA 2018-NO RESIDUAL) Neuropathy, Stroke Reproductive Disorders: No Genitourinary: No Gastrointestinal: Yes Gastroesophageal Reflux Musculoskeletal: Yes Chronic Back Pain Endocrine: Yes (INSULIN PUMP) Diabetes, Insulin dep HEENT: Yes (DIABETIC RETINOPATHY) Cancer: No Psychosocial: No Integumentary: No Blood Disorders: No Family Medical History PAST SURGICAL HISTORY: -LEFT EYE SURGERY FOR RETINAL BLEED 3 YEARS AGO - X 2 IN 1969, 1970 -HYSTERECTOMY 1979 -CHOLECYSTECTOMY ( OPEN ) 1983 -LEFT FOOT SURGERY 7 YEARS AGO -LUMBAR LAMINECTOMY 20 YEARS AGO -PACEMAKER 4 YEARS AGO -CARDIAC ABLATION 05/2019 -MAZE PROCEDURE 05/2020 -LEFT LATERAL APPENDAGE CLIP 05/2020 -PT REPORTS CARDIAC CATH DONE IN IN 2019 SHOWED NO SIGNIFICANT CAD. ECHOCARDIOGRAM 09/28/20--EF 55-60% MPI 09/29/20--NO INSCHEMIA OR INFARCTIONS Physical Exam Vital Signs Vital Signs - First Documented 07/26/21 21:45 Temp 36.9 Pulse 83 Resp 18 B/P (MAP) 145/62 (89) Pulse Ox 99 O2 Delivery Room Air Capillary Refill : Less Than 3 Seconds Height, Weight, BMI Height: 5'1.00" Weight: 151lbs. 0.0oz. 68.416862ms; 22.00 BMI Method:Stated Focused Exam Lactate Level 07/26/21 22:16: Lactic Acid Level 0.96 Lactic Acid Level Laboratory Tests Test 07/26/21 22:16 Lactic Acid Level 0.96 MMOL/L (0.50-2.00) Progress/Results/Core Measures Suspected Sepsis SIRS Temperature: Pulse: 83 Respiratory Rate: 18 Laboratory Tests 07/26/21 22:16: White Blood Count 6.8 Blood Pressure 145 /62 Mean: 89 07/26/21 22:16: Lactic Acid Level 0.96 Laboratory Tests 07/26/21 22:16: Creatinine 0.86, INR Comment 1.2, Platelet Count 208, Total Bilirubin 0.7 Results/Orders Lab Results Laboratory Tests Test 07/26/21 10:10 07/26/21 22:16 07/26/21 22:27 Range/Units Urine Color YELLOW Urine Clarity CLEAR Urine pH 8.0 5-9 Urine Specific [place] 1.015 L 1.016-1.022 Urine Protein NEGATIVE NEGATIVE Urine Glucose (UA) NEGATIVE NEGATIVE Urine Ketones NEGATIVE NEGATIVE Urine Nitrite NEGATIVE NEGATIVE Urine Bilirubin NEGATIVE NEGATIVE Urine Urobilinogen 0.2 < = 1.0 MG/DL Urine Leukocyte Esterase NEGATIVE NEGATIVE Urine RBC (Auto) NEGATIVE NEGATIVE Urine RBC NONE /HPF Urine WBC 2-5 /HPF Urine Squamous Epithelial Cells 0-2 /HPF Urine Renal Epithelial Cells NONE /HPF Urine Crystals NONE /LPF Urine Bacteria LARGE H /HPF Urine Casts NONE /LPF Urine Mucus NEGATIVE /LPF Urine Culture Indicated CULTURE PENDING White Blood Count 6.8 4.3-11.0 10^3/uL Red Blood Count 3.54 L 3.80-5.11 10^6/uL Hemoglobin 8.8 L 11.5-16.0 g/dL Hematocrit 29 L 35-52 % Mean Corpuscular Volume 82 80-99 fL Mean Corpuscular Hemoglobin 25 25-34 pg Mean Corpuscular Hemoglobin Concent 30 L 32-36 g/dL Red Cell Distribution Width 15.9 H 10.0-14.5 % Platelet Count 208 130-400 10^3/uL Mean Platelet Volume 8.1 L 9.0-12.2 fL Immature Granulocyte % (Auto) 0 % Neutrophils (%) (Auto) 77 H 42-75 % Lymphocytes (%) (Auto) 17 12-44 % Monocytes (%) (Auto) 5 0-12 % Eosinophils (%) (Auto) 0 0-10 % Basophils (%) (Auto) 0 0-10 % Neutrophils # (Auto) 5.2 1.8-7.8 10^3/uL Lymphocytes # (Auto) 1.2 1.0-4.0 10^3/uL Monocytes # (Auto) 0.3 0.0-1.0 10^3/uL Eosinophils # (Auto) 0.0 0.0-0.3 10^3/uL Basophils # (Auto) 0.0 0.0-0.1 10^3/uL Immature Granulocyte # (Auto) 0.0 0.0-0.1 10^3/uL Erythrocyte Sedimentation Rate 54 H 0-30 MM/HR Prothrombin Time 15.9 H 12.2-14.7 SEC INR Comment 1.2 0.8-1.4 Activated Partial Thromboplast Time 35 24-35 SEC Sodium Level 135 135-145 MMOL/L Potassium Level 3.9 3.6-5.0 MMOL/L Chloride Level 101 98-107 MMOL/L Carbon Dioxide Level 25 21-32 MMOL/L Anion Gap 9 5-14 MMOL/L Blood Urea Nitrogen 14 7-18 MG/DL Creatinine 0.86 0.60-1.30 MG/DL Estimat Glomerular Filtration Rate 65 BUN/Creatinine Ratio 16 Glucose Level 143 H 70-105 MG/DL Lactic Acid Level 0.96 0.50-2.00 MMOL/L Calcium Level 8.6 8.5-10.1 MG/DL Corrected Calcium 8.9 8.5-10.1 MG/DL Total Bilirubin 0.7 0.1-1.0 MG/DL Aspartate Amino Transf (AST/SGOT) 14 5-34 U/L Alanine Aminotransferase (ALT/SGPT) 6 0-55 U/L Alkaline Phosphatase 79 40-136 U/L Lactate Dehydrogenase 260 H 125-220 U/L C-Reactive Protein High Sensitivity 2.26 H 0.00-0.50 MG/DL Total Protein 7.7 6.4-8.2 GM/DL Albumin 3.6 3.2-4.5 GM/DL Procalcitonin 0.19 H <0.10 NG/ML Influenza Type A Antigen NEGATIVE NEGATIVE Influenza Type B Antigen NEGATIVE NEGATIVE SARS-CoV-2 RNA (RT-PCR) Negative Negative My Orders Orders - VAMSHI ZIMMERMAN DO Cbc With Automated Diff (07/26/21 21:55) Comprehensive Metabolic Panel (07/26/21 21:55) Procalcitonin (Pct) (07/26/21 21:55) Hs C Reactive Protein (07/26/21 21:55) Erythrocyte Sedimentation Rate (07/26/21 21:55) LDH (07/26/21 21:55) Blood Culture (07/26/21 21:55) Chest 1 View, Ap/Pa Only (07/26/21 21:55) Covid 19 Inhouse Test (07/26/21 21:55) Influenza A & B Antigens (07/26/21 21:55) Sputum Culture (07/26/21 21:55) Urinalysis (07/26/21 21:55) Urine Culture (07/26/21 21:55) Protime With Inr (07/26/21 21:55) Partial Thromboplastin Time (07/26/21 21:55) Ed Iv/Invasive Line Start (07/26/21 21:55) Ed Iv/Invasive Line Start (07/26/21 21:55) Vital Signs Adult Sepsis Patie Q15M (07/26/21 21:55) O2 (07/26/21 21:55) Remove Rings In Anticipation O (07/26/21 21:55) Lactic Acid Analyzer (07/26/21 21:55) Isolation Central Supply Req (07/26/21 21:55) Ed Iv/Invasive Line Start (07/26/21 21:55) Lactated Ringers (Lr 1000 Ml Iv Solution (07/26/21 22:00) Ceftriaxone 1 Gm Pre-Mix (Rocephin 1 Gm (07/26/21 23:10) Coronavirus Sars-Cov-2 So 2018 (07/26/21 23:24) Medications Given in ED Current Medications Medications Dose Ordered Sig/Mariza Route Start Time Stop Time Status Last Admin Dose Admin Lactated Ringer's 1,000 ml @ 0 mls/hr Q0M ONCE IV 07/26/21 22:00 07/26/21 22:01 DC 07/26/21 22:25 0 MLS/HR Vital Signs/I&O 07/26/21 21:45 Temp 36.9 Pulse 83 Resp 18 B/P (MAP) 145/62 (89) Pulse Ox 99 O2 Delivery Room Air Capillary Refill : Less Than 3 Seconds Blood Pressure Mean: 89 Departure Impression Primary Impression: UTI (urinary tract infection) Additional Impression: IDDM (insulin dependent diabetes mellitus) Disposition: HOME, SELF-CARE Condition: Stable Departure-Patient Inst. Decision time for Depature: 23:40 Referrals: FERNANDO RAMOS MD (PCP) Primary Care Physician NO,LOCAL PHYSICIAN (Family) Primary Care Physician Patient Instructions: DIABETES, Urinary Tract Infection, Adult (DC) Add. Discharge Instructions: TAKE YOUR MEDICATION PRESCRIBED CHECK YOUR TEMPERATURE EVERY 2-3 HOURS AND ALTERNATE TYLENOL AND MOTRIN EVERY 2- 3 HOURS NEEDED FOR PAIN OR FEVER OVER 100 LOTS OF FLUIDS FOLLOW UP WITH YOUR DR IN 2-3 DAYS FOR FURTHER CARE, RETURN TO ER IF WORSE All discharge instructions reviewed with patient and/or family. Voiced understanding. Scripts Cefdinir (Cefdinir) 300 Mg Capsule 300 MG PO BID, #20 CAP Prov: VAMSHI ZIMMERMAN DO 07/26/21 VAMSHI ZIMMERMAN DO Jul 26, 2021 23:42
[2021-07-26 23:45] VITALS: BP 155/61
[2021-07-29] MEDS ORDERED: AMOX-358 PO (12:30)
== END 2021-07-26 23:48 | disposition home or self-care (01) ==
LOC: EDUNIT# 21:32 → ER 21:38
DX: N39.0 Urinary tract infection, site not specified (principal); J44.9 Chronic obstructive pulmonary disease, unspecified; E11.9 Type 2 diabetes mellitus without complications; I48.91 Unspecified atrial fibrillation; E78.00 Pure hypercholesterolemia, unspecified; K21.9 Gastro-esophageal reflux disease without esophagitis; Z20.822 Contact with and (suspected) exposure to COVID-19; Z86.73 Personal history of transient ischemic attack (TIA), and cerebral infarction without residual deficits; Z79.01 Long term (current) use of anticoagulants; Z79.4 Long term (current) use of insulin; Z79.899 Other long term (current) drug therapy
CPT/HCPCS: 36415; 71045; 80053; 81000; 83605; 83615; 84145; 85025; 85610; 85652; 85730; 86141; 87040; 87077; 87088; 87186; 87635; 87636; 87804; 96361; 96365

== ENCOUNTER 2021-07-28 16:14 | Inpatient (IN) | payer BC, MEDICARE ==
[~2021-07-28] VITALS: Ht 155 cm; Wt 54.5 kg
[~2021-07-28 16:14] MED LIST changes: +CEFD300C3 PO; +CELE100C84 PO; +COLC0.6T59 PO; +TERB250T88 PO
[2021-07-28] MEDS ORDERED: NS IV 1000 ML 1,000 ML IV SCH (16:45)
[2021-07-28 16:50] LABS: BASOPHILS % (AUTO) 0 % (0-10); EOSINOPHILS % (AUTO) 1 % (0-10); HEMATOCRIT 31 % (35-52); HEMOGLOBIN 9.4 g/dL (11.5-16.0); LYMPHOCYTES # (AUTO) 1.2 X 10^3 (1.0-4.0); LYMPHOCYTES % (AUTO) 25 % (12-44); MEAN CORPUSCULAR HEMOGLOBIN 26 pg (25-34); MEAN CORPUSCULAR HGB CONC 31 g/dL (32-36); MEAN CORPUSCULAR VOLUME 85 fL (80-99); MEAN PLATELET VOLUME 8.2 fL (9.0-12.2); MONOCYTES # (AUTO) 0.3 X 10^3 (0.0-1.0); MONOCYTES % (AUTO) 7 % (0-12); NEUTROPHILS # (AUTO) 3.1 X 10^3 (1.8-7.8); NEUTROPHILS % (AUTO) 67 % (42-75); PLATELET COUNT 203 10^3/uL (130-400); WHITE BLOOD COUNT 4.7 10^3/uL (4.3-11.0)
[2021-07-28 16:54] LABS: ALBUMIN 3.7 GM/DL (3.2-4.5); CHLORIDE 105 MMOL/L (98-107); POTASSIUM 3.5 MMOL/L (3.6-5.0); SODIUM 141 MMOL/L (135-145)
[2021-07-28 16:55] LABS: CALCIUM 8.9 MG/DL (8.5-10.1)
[2021-07-28 16:56] LABS: GLUCOSE 142 MG/DL (70-105); TOTAL PROTEIN 8.1 GM/DL (6.4-8.2)
[2021-07-28 16:57] LABS: CARBON DIOXIDE 25 MMOL/L (21-32)
[2021-07-28 16:58] LABS: BILIRUBIN,TOTAL 0.6 MG/DL (0.1-1.0)
--- NOTE | 2021-07-28 16:58 | ED General ---
General Chief Complaint: General Problems/Pain Stated Complaint: SEPTIC Nursing Triage Note: WAS TOLD BY HER DR THAT SHE NEEDED TO COME BACK TO THE ED TO BE EVALUATED FOR POSSIBLE SEPSIS. PATIENT WAS CONTACTED ABOUT POSITIVE BLOOD CULTURES THIS AM. DENIES ADDITIONAL SYMPTOMS OTHER THAN JUST FEELING WEAK. (LENNY CROUCH STUDENT) History of Present Illness Date Seen by Provider: Jul 28, 2021 Time Seen by Provider: 16:45 Initial Comments Ms. Oneal is a 71yoF who presents to ED with her [id number] at the request of her PCP due to positive blood culture for Enterobacter. She came to [place] ED on 07/26/21 for confusion and fever and was diagnosed with a UTI caused by E.coli, given IV Ceftriaxone and sent home with oral Omnicef. She has had 3 doses of her Omnicef and taken Tylenol PRN. She complains of weakness and dizziness as well as mild dysuria. She is afebrile. She presents today seeking further treatment and has been told IV abx may be required. Timing/Duration: 2-3 Days Severity: Mild Associated Systoms: No Chest Pain, No Cough, No Diaphoresis, No Fever/Chills, No Headaches; Loss of Appetite, Malaise; No Nausea/Vomiting, No Rash, No Shortne ss of Air; Weakness (LENNY CROUCH STUDENT) Allergies and Home Medications Allergies Coded Allergies: promethazine (Verified Allergy, Intermediate, 10/02/07) clindamycin (Verified Allergy, Unknown, 09/27/20) hydrocodone (Verified Allergy, Unknown, 09/27/20) morphine (Verified Allergy, Unknown, 09/27/20) Patient Home Medication List Home Medication List Reviewed: Yes (SARI RECINOS MD) Amoxicillin/Potassium Clav (Augmentin 875-125 Tablet) 1 Each Tablet, 1 EACH PO BID Prescribed by: DENIZ ROCHA on 07/29/21 1230 Celecoxib (Celecoxib) 100 Mg Capsule, 100 MG PO BID PRN for ARTHRITIS PAIN, (Reported) Entered as Reported by: JOLIE العراقي on 07/26/212153 Last Action: Reviewed Colchicine (Colchicine) 0.6 Mg Tablet, 0.6 MG PO BID, (Reported) Entered as Reported by: JOLIE العراقي on 07/26/212153 Last Action: Reviewed Insulin Aspart (Novolog) 100 Unit/1 Ml Susp, UNITS SC PER PUMP, (Reported) Entered as Reported by: KINZA CHAVIRA on 09/28/201008 Last Action: Reviewed Metoprolol Succinate (Metoprolol Succinate) 50 Mg Tab.er.24h, 50 MG PO DAILY, (Reported) Entered as Reported by: KINZA CHAVIRA on 09/28/201008 Last Action: Reviewed Potassium Chloride (K-Tab ER) 10 Meq Tablet.er, 10 MEQ PO DAILY, (Reported) Entered as Reported by: KINZA CHAVIRA on 09/28/201008 Last Action: Reviewed Pravastatin Sodium (Pravastatin Sodium) 20 Mg Tablet, 20 MG PO HS, (Reported) Entered as Reported by: KINZA CHAVIRA on 09/28/201008 Last Action: Reviewed Sacubitril/Valsartan (Entresto 24 mg-26 mg Tablet) 1 Each Tablet, 1 EA PO BID, (Reported) Entered as Reported by: KINZA CHAVIRA on 09/28/201008 Last Action: Reviewed Terbinafine HCl (Terbinafine HCl) 250 Mg Tablet, 250 MG PO DAILY, (Reported) Entered as Reported by: JOLIE العراقي on 07/26/212153 Last Action: Reviewed Discontinued Medications Amoxicillin (Amoxicillin) 500 Mg Capsule, 500 MG PO Q12H Discontinued Reason: No Longer Taking Prescribed by: DENIZ ROCHA on 12/15/20 1104 Last Action: Discontinued Apixaban (Eliquis) 5 Mg Tablet, 5 MG PO BID, (Reported) Discontinued Reason: No Longer Taking Entered as Reported by: KINZA CHAVIRA on 09/28/201008 Last Action: Discontinued Benzonatate (Benzonatate) 200 Mg Capsule, 200 MG PO TID PRN for COUGH, (Reported) Discontinued Reason: No Longer Taking Entered as Reported by: KINZA CHAVIRA on 09/28/201008 Last Action: Discontinued Cefdinir (Cefdinir) 300 Mg Capsule, 300 MG PO BID Discontinued Reason: No Longer Taking Prescribed by: VAMSHI ZIMMERMAN on 07/26/21 2341 Last Action: Discontinued Cefdinir (Cefdinir) 300 Mg Capsule, 300 MG PO BID, (Reported) Entered as Reported by: KINZA CHAVIRA on 07/29/21 1217 Last Action: Reviewed Clonazepam (Clonazepam) 0.5 Mg Tablet, 0.25-0.5 MG PO BID PRN for ANXIETY, (Reported) Discontinued Reason: No Longer Taking Entered as Reported by: KINZA CHAVIRA on 12/15/201029 Last Action: Discontinued Ergocalciferol (Vitamin D2) (Vitamin D2) 1,250 Mcg Capsule, 1,250 MCG PO SAT, (Reported) Discontinued Reason: No Longer Taking Entered as Reported by: KINZA CHAVIRA on 12/15/201029 Last Action: Discontinued Indomethacin (Indomethacin) 50 Mg Capsule, 50 NG PO BID PRN for PAIN- BREAKTHROUGH, (Reported) Discontinued Reason: No Longer Taking Entered as Reported by: KINZA CHAVIRA on 12/15/201029 Last Action: Discontinued Insulin Determir (Levemir) 1,000 Units/10 Ml Soln, 11 UNITS SC DAILY PRN for IF INSULIN PUMP IS UNAVALIABLE, (Reported) Discontinued Reason: No Longer Taking Entered as Reported by: KINZA CHAVIRA on 09/28/201008 Last Action: Discontinued Omeprazole (Omeprazole) 20 Mg Tablet.dr, 20 MG PO BID Discontinued Reason: No Longer Taking Prescribed by: RON ROBBINS on 02/01/211700 Last Action: Discontinued Ondansetron (Ondansetron Odt) 4 Mg Tab.rapdis, 4 MG PO Q6H PRN for NAUSEA /VOMITING Discontinued Reason: No Longer Taking Prescribed by: RON ROBBINS on 02/01/211700 Last Action: Discontinued Peg 400/Hypromellose/Glycerin (Visine Dry Eye Relief Drop) 15 Ml Drops, 2 DROPS OU PRN PRN for DRY EYES, (Reported) Discontinued Reason: No Longer Taking Entered as Reported by: KINZA CHAVIRA on 09/28/201008 Last Action: Discontinued Polyethylene Glycol 3350 (Miralax) 17 Gm Powd.pack, 17 GM PO DAILY PRN for CO NSTIPATION-2ND LINE, (Reported) Discontinued Reason: Duplicate Order Entered as Reported by: KINZA CHAVIRA on 09/28/201008 Last Action: Discontinued Spironolactone (Spironolactone) 25 Mg Tablet, 12.5 MG PO DAILY, (Reported) Discontinued Reason: No Longer Taking Entered as Reported by: KINZA CHAVIRA on 09/28/201008 Last Action: Discontinued Sucralfate (Carafate) 1 Gm Tablet, 1 GM PO QIDACHS Discontinued Reason: No Longer Taking Prescribed by: RON ROBBINS on 02/01/21 1701 Last Action: Discontinued Topiramate (Topiramate) 25 Mg Tablet, 50 MG PO BID, (Reported) Discontinued Reason: No Longer Taking Entered as Reported by: EDEN GUO on 10/30/20 1730 Last Action: Discontinued Vit C/E/Zn/Coppr/Lutein/Zeaxan (Preservision Areds 2 Softgel) 1 Each Capsule, 1 EACH PO DAILY, (Reported) Discontinued Reason: No Longer Taking Entered as Reported by: KINZA CHAVIRA on 09/28/20 1009 Last Action: Discontinued Review of Systems Review of Systems Constitutional: No chills, No diaphoresis; dizziness, malaise, weakness EENTM: No blurred vision, No nose congestion, No throat pain Respiratory: No cough, No short of breath, No wheezing Cardiovascular: No chest pain, No edema, No palpitations Gastrointestinal: RLQ, LLQ, loss of appetite; No nausea, No vomiting Genitourinary: dysuria, frequency; No hematuria Musculoskeletal: back pain; No neck pain Skin: No change in color, No dryness Psychiatric/Neurological: Denies Anxiety, Denies Depressed Hematologic/Lymphatic: No Symptoms Reported Immunological/Allergic: no symptoms reported (LENNY CROUCH [email or web address] STUDENT) Past Yrpcmdq-Nvgbxq-Rzeceq Hx Patient Social History Tobacco Use?: No Substance use?: No Alcohol Use?: No Pt feels they are or have been: No (LENNY CROUCH [email or web address] STUDENT) Immunizations Up To Date Tetanus Booster (TDap): Unknown Influenza Vaccine Up-to-Date: Yes; Up-to-Date First/Initial COVID19 Vaccinat: 03/13 Second COVID19 Vaccination Jamie: 04/13 COVID19 Vaccine Search Engineer: LURDES (LENNY CROUCH [email or web address] STUDENT) Past Medical History Surgery/Hospitalization HX: cardiac ablation, ppm, c-sect, hysterectomy, cholecystectomy, lumbar laminectomy, heart cath, htn, iddm, gerd, high cholesterol, a-fib, peripheral neuropathy, cva Surgeries: Yes Cardiac, Section, Gallbladder, Hysterectomy, Orthopedic, Pacemaker Respiratory: Yes COPD Cardiac: Yes (PACEMAKER, CARDIAC ABLATION, MAZE PROCEDURE, LEFT APPENDAGE CLIPPED) Atrial Fibrillation, High Cholesterol, Hypertension, Irregular Heartbeat Neurological: Yes (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;HX OF CVA 2018-NO RESIDUAL) Neuropathy, Stroke Reproductive Disorders: No Genitourinary: No Gastrointestinal: Yes Gastroesophageal Reflux Musculoskeletal: Yes Chronic Back Pain Endocrine: Yes (INSULIN PUMP) Diabetes, Insulin dep HEENT: Yes (DIABETIC RETINOPATHY) Cancer: No Psychosocial: No Integumentary: No Blood Disorders: No (LENNY CROUCH STUDENT) Family Medical History PAST SURGICAL HISTORY: -LEFT EYE SURGERY FOR RETINAL BLEED 3 YEARS AGO - X 2 IN 1969, 1970 -HYSTERECTOMY 1979 -CHOLECYSTECTOMY ( OPEN ) 1983 -LEFT FOOT SURGERY 7 YEARS AGO -LUMBAR LAMINECTOMY 20 YEARS AGO -PACEMAKER 4 YEARS AGO -CARDIAC ABLATION 05/2019 -MAZE PROCEDURE 05/2020 -LEFT LATERAL APPENDAGE CLIP 05/2020 -PT REPORTS CARDIAC CATH DONE IN IN 2019 SHOWED NO SIGNIFICANT CAD. ECHOCARDIOGRAM 09/28/20--EF 55-60% MPI 09/29/20--NO INSCHEMIA OR INFARCTIONS (LENNY CROUCH STUDENT) Physical Exam-Suspected Sepsis Physical Exam Vital Signs Vital Signs - First Documented 07/28/21 07/28/21 16:20 20:52 Temp 36.6 Pulse 64 Resp 18 B/P (MAP) 162/76 (104) Pulse Ox 100 O2 Delivery Room Air FiO2 21 (SARI RECINOS MD) Vital Signs Capillary Refill : Less Than 3 Seconds (LENNY CROUCH STUDENT) Blood Pressure Mean: 104 Height, Weight, BMI Height: 5'1.00" Weight: 151lbs. 0.0oz. [id number]; 26.00 BMI Method:Stated General Appearance: No Apparent Distress, WD/WN Eyes: Bilateral Eye Normal Inspection HEENT: PERRL/EOMI, Pharynx Normal; No Moist Mucous Membranes Neck: Full Range of Motion, Non Tender Respiratory: Chest Non Tender, Normal Breath Sounds, No Accessory Muscle Use, No Respiratory Distress Cardiovascular: Regular Rate, Rhythm, No Edema, No Gallop, Normal Peripheral Pulses Gastrointestinal: Normal Bowel Sounds, Soft Back: Normal Inspection, No Vertebral Tenderness Extremity: Normal Capillary Refill, Non Tender, No Calf Tenderness Neurologic/Psychiatric: Alert, Oriented x3, No Motor/Sensory Deficits, Normal Mood/Affect, dental amalgam processor II-XII Norm as Tested Skin: warm/dry; No diaphoresis; pallor Lymphatic: No Adenopathy (LENNY CROUCH MED STUDENT) Focused Exam Lactate Level 07/28/21 16:47: Lactic Acid Level 1.36 (SARI RECINOS MD) Lactic Acid Level (SAIR RECINOS MD) Progress/Results/Core Measures Suspected Sepsis SIRS Temperature: Pulse: 64 Respiratory Rate: 18 Laboratory Tests 07/28/21 16:25: White Blood Count 4.7 Blood Pressure 162 /76 Mean: 104 07/28/21 16:47: Laboratory Tests 07/28/21 16:25: Creatinine 0.85, INR Comment 1.2, Platelet Count 203, Total Bilirubin 0.6 (LENNY CROUCH MED STUDENT) Results/Orders Lab Results Laboratory Tests Test 07/28/21 16:25 07/28/21 16:47 07/28/21 16:52 07/28/21 21:08 Range/Units White Blood Count 4.7 4.3-11.0 10^3/uL Red Blood Count 3.62 L 3.80-5.11 10^6/uL Hemoglobin 9.4 L 11.5-16.0 g/dL Hematocrit 31 L 35-52 % Mean Corpuscular Volume 85 80-99 fL Mean Corpuscular Hemoglobin 26 25-34 pg Mean Corpuscular Hemoglobin Concent 31 L 32-36 g/dL Red Cell Distribution Width 16.2 H 10.0-14.5 % Platelet Count 203 130-400 10^3/uL Mean Platelet Volume 8.2 L 9.0-12.2 fL Immature Granulocyte % (Auto) 0 % Neutrophils (%) (Auto) 67 42-75 % Lymphocytes (%) (Auto) 25 12-44 % Monocytes (%) (Auto) 7 0-12 % Eosinophils (%) (Auto) 1 0-10 % Basophils (%) (Auto) 0 0-10 % Neutrophils # (Auto) 3.1 1.8-7.8 X 10^3 Lymphocytes # (Auto) 1.2 1.0-4.0 X 10^3 Monocytes # (Auto) 0.3 0.0-1.0 X 10^3 Eosinophils # (Auto) 0.0 0.0-0.3 10^3/uL Basophils # (Auto) 0.0 0.0-0.1 10^3/uL Immature Granulocyte # (Auto) 0.0 0.0-0.1 10^3/uL Prothrombin Time 15.6 H 12.2-14.7 SEC INR Comment 1.2 0.8-1.4 Activated Partial Thromboplast Time 31 24-35 SEC Sodium Level 141 135-145 MMOL/L Potassium Level 3.5 L 3.6-5.0 MMOL/L Chloride Level 105 98-107 MMOL/L Carbon Dioxide Level 25 21-32 MMOL/L Anion Gap 11 5-14 MMOL/L Blood Urea Nitrogen 13 7-18 MG/DL Creatinine 0.85 0.60-1.30 MG/DL Estimat Glomerular Filtration Rate 66 BUN/Creatinine Ratio 15 Glucose Level 142 H 70-105 MG/DL Calcium Level 8.9 8.5-10.1 MG/DL Corrected Calcium 9.1 8.5-10.1 MG/DL Total Bilirubin 0.6 0.1-1.0 MG/DL Aspartate Amino Transf (AST/SGOT) 14 5-34 U/L Alanine Aminotransferase (ALT/SGPT) < 6 0-55 U/L Alkaline Phosphatase 73 40-136 U/L C-Reactive Protein High Sensitivity 3.55 H 0.00-0.50 MG/DL Total Protein 8.1 6.4-8.2 GM/DL Albumin 3.7 3.2-4.5 GM/DL Procalcitonin 0.21 H <0.10 NG/ML Lactic Acid Level 1.36 0.50-2.00 MMOL/L Urine Color YELLOW Urine Clarity CLEAR Urine pH 6.5 5-9 Urine Specific [place] 1.015 L 1.016-1.022 Urine Protein NEGATIVE NEGATIVE Urine Glucose (UA) NEGATIVE NEGATIVE Urine Ketones NEGATIVE NEGATIVE Urine Nitrite NEGATIVE NEGATIVE Urine Bilirubin NEGATIVE NEGATIVE Urine Urobilinogen 0.2 < = 1.0 MG/DL Urine Leukocyte Esterase TRACE H NEGATIVE Urine RBC (Auto) TRACE-I H NEGATIVE Urine RBC 0-2 /HPF Urine WBC 2-5 /HPF Urine Crystals PRESENT H /LPF Urine Amorphous Sediment RARE JOSEPHINE URATES H /LPF Urine Bacteria TRACE /HPF Urine Casts NONE /LPF Urine Mucus NEGATIVE /LPF Urine Culture Indicated NO Glucometer 108 70-110 MG/DL Test 07/29/21 06:25 Range/Units White Blood Count 3.9 L 4.3-11.0 10^3/uL Red Blood Count 3.24 L 3.80-5.11 10^6/uL Hemoglobin 8.2 L 11.5-16.0 g/dL Hematocrit 27 L 35-52 % Mean Corpuscular Volume 82 80-99 fL Mean Corpuscular Hemoglobin 25 25-34 pg Mean Corpuscular Hemoglobin Concent 31 L 32-36 g/dL Red Cell Distribution Width 15.8 H 10.0-14.5 % Platelet Count 176 130-400 10^3/uL Mean Platelet Volume 8.3 L 9.0-12.2 fL Immature Granulocyte % (Auto) 0 % Neutrophils (%) (Auto) 71 42-75 % Lymphocytes (%) (Auto) 22 12-44 % Monocytes (%) (Auto) 6 0-12 % Eosinophils (%) (Auto) 1 0-10 % Basophils (%) (Auto) 0 0-10 % Neutrophils # (Auto) 2.8 1.8-7.8 10^3/uL Lymphocytes # (Auto) 0.8 L 1.0-4.0 10^3/uL Monocytes # (Auto) 0.2 0.0-1.0 10^3/uL Eosinophils # (Auto) 0.0 0.0-0.3 10^3/uL Basophils # (Auto) 0.0 0.0-0.1 10^3/uL Immature Granulocyte # (Auto) 0.0 0.0-0.1 10^3/uL Sodium Level 139 135-145 MMOL/L Potassium Level 3.5 L 3.6-5.0 MMOL/L Chloride Level 108 H 98-107 MMOL/L Carbon Dioxide Level 21 21-32 MMOL/L Anion Gap 10 5-14 MMOL/L Blood Urea Nitrogen 9 7-18 MG/DL Creatinine 0.69 0.60-1.30 MG/DL Estimat Glomerular Filtration Rate 84 BUN/Creatinine Ratio 13 Glucose Level 143 H 70-105 MG/DL Calcium Level 8.2 L 8.5-10.1 MG/DL Corrected Calcium 8.9 8.5-10.1 MG/DL Total Bilirubin 0.4 0.1-1.0 MG/DL Aspartate Amino Transf (AST/SGOT) 13 5-34 U/L Alanine Aminotransferase (ALT/SGPT) < 6 0-55 U/L Alkaline Phosphatase 68 40-136 U/L Total Protein 6.6 6.4-8.2 GM/DL Albumin 3.1 L 3.2-4.5 GM/DL (SARI RECINOS MD) Micro Results Microbiology 07/28/21 Urine Culture - Final, Complete NO GROWTH (SARI RECINOS MD) My Orders Orders - SARI RECINOS MD Cbc With Automated Diff (07/28/21 16:43) Comprehensive Metabolic Panel (07/28/21 16:43) Blood Culture (07/28/21 16:43) Sputum Culture (07/28/21 16:43) Urinalysis (07/28/21 16:43) Urine Culture (07/28/21 16:43) Protime With Inr (07/28/21 16:43) Partial Thromboplastin Time (07/28/21 16:43) Chest 1 View, Ap/Pa Only (07/28/21 16:43) Ed Iv/Invasive Line Start (07/28/21 16:43) Ed Iv/Invasive Line Start (07/28/21 16:43) Vital Signs Adult Sepsis Patie Q15M (07/28/21 16:43) O2 (07/28/21 16:43) Remove Rings In Anticipation O (07/28/21 16:43) Lactic Acid Analyzer (07/28/21 16:43) Ns Iv 1000 Ml (Sodium Chloride 0.9%) (07/28/21 16:45) Hs C Reactive Protein (07/28/21 16:46) Procalcitonin (Pct) (07/28/21 16:46) (SARI RECINOS MD) Vital Signs/I&O (SARI RECINOS MD) Vital Signs/I&O Capillary Refill : Less Than 3 Seconds (LENNY CROUCH MED STUDENT) Blood Pressure Mean: 104 Progress Note : Time: 18:18 Progress Note 71-year-old female presents to the emergency department chief complaint generalized fatigue and malaise. Was seen in the emergency room 2 days ago diagnosed with urinary tract infection given Rocephin and Omnicef. Blood cultures came back this morning positive for Enterococcus in the blood, E. coli in the urine. Patient denies fevers, chills, nausea vomiting. She has had decreased appetite. Patient was called by this ER this morning and advised of her blood culture results, it was advised if she was worsening or becoming symptomatic to come in. Patient's family encouraged her. Physical exam basically unremarkable, she is not febrile, not tachycardic not hypotensive. She is on metoprolol 50 mg daily. She is diabetic. She is anticoagulated on Eliquis. No chest pain, productive cough. No shortness of breath. She is COVID-negative, she is tested frequently at work. She states she has taken her Omnicef 2 doses yesterday 1 today with no adverse reactions. Case discussed with Dr. Rocha, offered admission with IV antibiotics, vancomycin and Rocephin versus watchful waiting at home continuing Omnicef and awaiting second round of blood cultures. Patient states that she is more comfortable staying in the hospital. (SARI RECINOS MD) Departure Communication (Admissions) Time/Spoke to Admitting Phy: 17:[address] Rocha (SARI RECINOS MD) Impression Primary Impression: Bacteremia Disposition: ADMITTED INPATIENT Condition: Stable Admissions Decision to Admit Reason: Admit from ER (General) Decision to Admit/Date: Jul 28, 2021 Time/Decision to Admit Time: 18:15 (SARI RECINOS MD) Departure-Patient Inst. Referrals: FERNANDO RAMOS MD (PCP) Primary Care Physician NO,LOCAL PHYSICIAN (Family) Primary Care Physician Scripts Amoxicillin/Potassium Clav (Augmentin 875-125 Tablet) 1 Each Tablet 1 EACH PO BID for 14 Days, #28 TAB Prov: DENIZ ROCHA MD 07/29/21 Verification and Attestation of Medical Student E/M Service A medical student performed and documented this service in my presence. I reviewed and verified all information documented by the medical student and made modifications to such information, when appropriate. I personally performed the physical exam and medical decision making. Sari Recinos, Jul 28, 2021,18:23 (SARI RECINOS MD) LENNY CROUCH MED STUDENT Jul 28, 2021 16:58 SARI RECINOS MD Jul 28, 2021 18:22
[2021-07-28 16:59] LABS: BILIRUBIN,URINE NEGATIVE (NEGATIVE); CLARITY,URINE CLEAR; COLOR,URINE YELLOW; GLUCOSE, URINE (UA) NEGATIVE (NEGATIVE); KETONES,URINE NEGATIVE (NEGATIVE); LEUKOCYTE ESTERASE ,URINE TRACE (NEGATIVE); NITRITE,URINE NEGATIVE (NEGATIVE); PH,URINE 6.5 (5-9); PROTEIN,URINE NEGATIVE (NEGATIVE)
[2021-07-28 17:00] LABS: ALKALINE PHOSPHATASE 73 U/L (40-136); CREATININE SERUM 0.85 MG/DL (0.60-1.30); GFR ESTIMATED 66
[2021-07-28 17:01] LABS: BUN/CREATININE RATIO 15
[2021-07-28 17:03] LABS: ALANINE AMINOTRANSFERASE < 6 U/L (0-55); INR 1.2 (0.8-1.4); PROTHROMBIN TIME PATIENT 15.6 SEC (12.2-14.7)
--- NOTE | 2021-07-28 17:05 | Diagnostic Imaging Report ---
Indication: Possible cultures Portable chest 4:48 PM There is a dual-chamber pacemaker. Heart size and pulmonary vascularity are normal. Lungs are clear. There are no effusions or pneumothoraces. IMPRESSION: No acute abnormalities in the chest Dictated by: Dictated on workstation # [id number]
[2021-07-28 17:07] LABS: AMORPHOUS SEDIMENT,UR RARE AMOR URATES /LPF; BACTERIA,URINE TRACE /HPF; RBC,URINE 0-2 /HPF
[2021-07-28] MEDS ORDERED: fentaNYL INJ 100 MCG/2 ML AMP IVP PRN (20:30)
[2021-07-28] MEDS ORDERED: MILK OF MAGNESIA 400 MG/5 ML 30 ML UDC PO PRN (20:30)
[2021-07-28] MEDS ORDERED: polyethylene glycoL POWDER 17 GM (MIRALAX) PACK PO PRN (20:30)
[2021-07-28] MEDS ORDERED: ONDANSETRON 4 MG/2 ML (SDV) Z0FRAN IV PRN (20:30)
[2021-07-28] MEDS ORDERED: VANCOMYCIN INJECTION 1,000 MG in NS (IVPB) 250 ML IV SCH (20:30)
[2021-07-28] MEDS ORDERED: diphenhydrAMINE 25 MG TAB (BENADRYL) PO PRN (20:30)
[2021-07-28] MEDS ORDERED: BISACODYL 10 MG SUPP (DULCOLAX) PR PRN (20:30)
[2021-07-28] MEDS ORDERED: CALCIUM CARBONATE 500 MG (TUMS) TAB.CHEW PO PRN (20:30)
[2021-07-28] MEDS ORDERED: ANTACID SUSP 30 ML UDC (MYLANTA) PO PRN (20:30)
[2021-07-28] MEDS ORDERED: diphenhydrAMINE 50 MG/ML INJ (BENADRYL) IVP PRN (20:30)
[2021-07-28] MEDS ORDERED: ONDANSETRON 4 MG (ZOFRAN) ORAL DISSOLVE TAB PO PRN (20:30)
[2021-07-28] MEDS ORDERED: LACTULOSE SYRUP 10GM/15ML (ENULOSE) 30ML UDC PO PRN (20:30)
[2021-07-28] MEDS ORDERED: ACETAMINOPHEN 325 MG TABLET PO PRN (20:30)
[2021-07-28] MEDS ORDERED: MELATONIN 3 MG TABLET PO PRN (20:30)
[2021-07-28] MEDS ORDERED: ALPRAZolam 0.5 MG (XANAX) TAB PO PRN (20:30)
[2021-07-28 20:52] VITALS: BP 162/76
[2021-07-28 21:00] VITALS: BP 154/75
[2021-07-28] MEDS ORDERED: RT-ALBUTEROL/IPRATROPIUM 3 ML (DUONEB) VIAL INH PRN (21:00)
[2021-07-28] MEDS: SENNOSIDES 8.6 MG (SENOKOT) TAB PO SCH (21:05)
[2021-07-28] MEDS: DOCUSATE SODIUM 100 MG (COLACE) CAP PO SCH (21:05)
[2021-07-28] MEDS: APIXABAN 5 MG (ELIQUIS) TABLET PO SCH (21:07)
[2021-07-28] MEDS ORDERED: VANCOMYCIN 1000 MG/VIAL ONE (21:08)
[2021-07-28] MEDS ORDERED: NS (IVPB) 250 ML ONE (21:08)
[2021-07-28] MEDS: inSUlin ASPART (NovoLOG) 1 UNIT/0.01 ML (CHARGE PER UNIT) SC SCH (21:10)
[2021-07-28] MEDS ORDERED: cefTRIAXone 1 GM PRE-MIX 50 ML IV SCH (22:30)
[2021-07-28] MEDS ORDERED: CATHETER FLUSH 10 ML SYR IV PRN (23:15)
[2021-07-28 23:45] VITALS: BP 136/70
[2021-07-29 04:15] VITALS: BP 140/63
[2021-07-29] MEDS: CATHETER FLUSH 10 ML SYR IV SCH ×2 (06:00→14:36)
[2021-07-29] MEDS: inSUlin ASPART (NovoLOG) 1 UNIT/0.01 ML (CHARGE PER UNIT) SC SCH ×3 (06:01→16:14)
[2021-07-29 07:01] LABS: BASOPHILS % (AUTO) 0 % (0-10); EOSINOPHILS % (AUTO) 1 % (0-10); HEMATOCRIT 27 % (35-52); HEMOGLOBIN 8.2 g/dL (11.5-16.0); LYMPHOCYTES # (AUTO) 0.8 10^3/uL (1.0-4.0); LYMPHOCYTES % (AUTO) 22 % (12-44); MEAN CORPUSCULAR HEMOGLOBIN 25 pg (25-34); MEAN CORPUSCULAR HGB CONC 31 g/dL (32-36); MEAN CORPUSCULAR VOLUME 82 fL (80-99); MEAN PLATELET VOLUME 8.3 fL (9.0-12.2); MONOCYTES # (AUTO) 0.2 10^3/uL (0.0-1.0); MONOCYTES % (AUTO) 6 % (0-12); NEUTROPHILS # (AUTO) 2.8 10^3/uL (1.8-7.8); NEUTROPHILS % (AUTO) 71 % (42-75); PLATELET COUNT 176 10^3/uL (130-400); WHITE BLOOD COUNT 3.9 10^3/uL (4.3-11.0)
[2021-07-29 07:21] LABS: ALBUMIN 3.1 GM/DL (3.2-4.5); CHLORIDE 108 MMOL/L (98-107); POTASSIUM 3.5 MMOL/L (3.6-5.0); SODIUM 139 MMOL/L (135-145)
[2021-07-29 07:23] LABS: CALCIUM 8.2 MG/DL (8.5-10.1)
[2021-07-29 07:24] LABS: GLUCOSE 143 MG/DL (70-105); TOTAL PROTEIN 6.6 GM/DL (6.4-8.2)
[2021-07-29 07:25] LABS: CARBON DIOXIDE 21 MMOL/L (21-32)
[2021-07-29 07:26] LABS: BILIRUBIN,TOTAL 0.4 MG/DL (0.1-1.0)
[2021-07-29 07:27] LABS: ALKALINE PHOSPHATASE 68 U/L (40-136); CREATININE SERUM 0.69 MG/DL (0.60-1.30); GFR ESTIMATED 84
[2021-07-29 07:28] LABS: BUN/CREATININE RATIO 13
[2021-07-29 07:30] LABS: ALANINE AMINOTRANSFERASE < 6 U/L (0-55)
[2021-07-29 07:39] VITALS: BP 141/63
[2021-07-29] MEDS ORDERED: VANCOMYCIN 1250 MG/NS 250 ML IVPB IV SCH ×2 (08:00)
[2021-07-29] MEDS: DOCUSATE SODIUM 100 MG (COLACE) CAP PO SCH (10:47)
[2021-07-29] MEDS: APIXABAN 5 MG (ELIQUIS) TABLET PO SCH (10:48)
[2021-07-29] MEDS: SENNOSIDES 8.6 MG (SENOKOT) TAB PO SCH (10:48)
[2021-07-29 11:28] VITALS: BP 132/63
[2021-07-29] MEDS ORDERED: CEFD300C3 PO (12:17)
[2021-07-29] MEDS ORDERED: AMOX-358 PO (12:30)
[2021-07-29 15:39] VITALS: BP 135/63
--- NOTE | 2021-07-29 15:55 | Discharge Summary ---
Discharge Summary Hospital Course Problems/Dx: (1) UTI (urinary tract infection) Status: Acute (2) Bacteremia Status: Acute Hospital Course Date of Admission: Jul 28, 2021 at 17:57 Admission Diagnosis : UTI, possible bacteremia Family Physician/Provider: Carloz Zayas MD Date of Discharge: 07/29/21 Discharge Diagnosis: UTI, possible bacteremia Hospital Course: Rox Oneal is a 71 year old female with PMH HTN, HLD, T2DM, HFrEF, who prese nted with weakness and was admitted with possible bacteremia. She was in the ER two days prior and was started on Omnicef for a UTI. Her blood cultures returned positive for Enterococcus faecalis. She was not septic. She had no fever and normal WBC. Her procalcitonin was normal. There were no signs or symptoms to clinically correlate a bacteremia. She was however transitioned to Augmentin to cover both her urinary tract infection and a possible bacteremia. She was discharged home in stable condition. Labs and Pending Lab Test: Laboratory Tests 07/28/21 16:25: White Blood Count 4.7, Red Blood Count 3.62L, Hemoglobin 9.4L, Hematocrit 31L, Mean Corpuscular Volume 85, Mean Corpuscular Hemoglobin 26, Mean Corpuscular Hemoglobin Concent 31L, Red Cell Distribution Width 16.2H, Platelet Count 203, Mean Platelet Volume 8.2L, Immature Granulocyte % (Auto) 0, Neutrophils (%) (Auto) 67, Lymphocytes (%) (Auto) 25, Monocytes (%) (Auto) 7, Eosinophils (%) (Auto) 1, Basophils (%) (Auto) 0, Neutrophils # (Auto) 3.1, Lymphocytes # (Auto) 1.2, Monocytes # (Auto) 0.3, Eosinophils # (Auto) 0.0, Basophils # (Auto) 0.0, Immature Granulocyte # (Auto) 0.0, Prothrombin Time 15.6H, INR Comment 1.2, Activated Partial Thromboplast Time 31, Sodium Level 141, Potassium Level 3.5L, Chloride Level 105, Carbon Dioxide Level 25, Anion Gap 11, Blood Urea Nitrogen 13, Creatinine 0.85, Estimat Glomerular Filtration Rate 66, BUN/Creatinine Ratio 15, Glucose Level 142H, Calcium Level 8.9, Corrected Calcium 9.1, Total Bilirubin 0.6, Aspartate Amino Transf (AST/SGOT) 14, Alanine Aminotransferase (ALT/SGPT) < 6, Alkaline Phosphatase 73, C-Reactive Protein High Sensitivity 3.55H, Total Protein 8.1, Albumin 3.7, Procalcitonin 0.21H 07/28/21 16:47: Lactic Acid Level 1.36 07/28/21 16:52: Urine Color YELLOW, Urine Clarity CLEAR, Urine pH 6.5, Urine Specific [place] 1.015L, Urine Protein NEGATIVE, Urine Glucose (UA) NEGATIVE, Urine Ketones NEGATIVE, Urine Nitrite NEGATIVE, Urine Bilirubin NEGATIVE, Urine Urobilinogen 0.2, Urine Leukocyte Esterase TRACEH, Urine RBC (Auto) TRACE-IH, Urine RBC 0-2, Urine WBC 2-5, Urine Crystals PRESENTH, Urine Amorphous Sediment RARE JOSEPHINE URATESH, Urine Bacteria TRACE, Urine Casts NONE, Urine Mucus NEGATIVE, Urine Culture Indicated NO 07/28/21 21:08: Glucometer 108 07/29/21 06:25: White Blood Count 3.9L, Red Blood Count 3.24L, Hemoglobin 8.2L, Hematocrit 27L, Mean Corpuscular Volume 82, Mean Corpuscular Hemoglobin 25, Mean Corpuscular Hemoglobin Concent 31L, Red Cell Distribution Width 15.8H, Platelet Count 176, Mean Platelet Volume 8.3L, Immature Granulocyte % (Auto) 0, Neutrophils (%) (Auto) 71, Lymphocytes (%) (Auto) 22, Monocytes (%) (Auto) 6, Eosinophils (%) (Auto) 1, Basophils (%) (Auto) 0, Neutrophils # (Auto) 2.8, Lymphocytes # (Auto) 0.8L, Monocytes # (Auto) 0.2, Eosinophils # (Auto) 0.0, Basophils # (Auto) 0.0, Immature Granulocyte # (Auto) 0.0, Sodium Level 139, Potassium Level 3.5L, Chloride Level 108H, Carbon Dioxide Level 21, Anion Gap 10, Blood Urea Nitrogen 9, Creatinine 0.69, Estimat Glomerular Filtration Rate 84, BUN/Creatinine Ratio 13, Glucose Level 143H, Calcium Level 8.2L, Corrected Calcium 8.9, Total Bilirubin 0.4, Aspartate Amino Transf (AST/SGOT) 13, Alanine Aminotransferase (ALT/SGPT) < 6, Alkaline Phosphatase 68, Total Protein 6.6, Albumin 3.1L Home Meds Active Augmentin 875-125 Tablet (Amoxicillin/Potassium Clav) 1 Each Tablet 1 Each PO BID 14 Days Reported Terbinafine HCl 250 Mg Tablet 250 Mg PO DAILY Celecoxib 100 Mg Capsule 100 Mg PO BID PRN Colchicine 0.6 Mg Tablet 0.6 Mg PO BID K-Tab ER (Potassium Chloride) 10 Meq Tablet.er 10 Meq PO DAILY Entresto 24 mg-26 mg Tablet (Sacubitril/Valsartan) 1 Each Tablet 1 Ea PO BID Novolog (Insulin Aspart) 100 Unit/1 Ml Susp Units SC PER PUMP Pravastatin Sodium 20 Mg Tablet 20 Mg PO HS Metoprolol Succinate 50 Mg Tab.er.24h 50 Mg PO DAILY Assessment/Pt Instructions See instructions Discharge Planning: <30 minutes discharge planning Discharge Instructions Discharge Diet: ADA Diet Activity as Tolerated: Yes Discharge Physical Examination Vital Signs Vital Signs Date Time Temp Pulse Resp B/P (MAP) Pulse Ox O2 Delivery O2 Flow Rate FiO2 07/29/21 15:39 37.0 70 18 135/63 (87) 100 Room Air 07/28/21 20:52 21 Allergies: Coded Allergies: promethazine (Verified Allergy, Intermediate, 10/02/07) clindamycin (Verified Allergy, Unknown, 09/27/20) hydrocodone (Verified Allergy, Unknown, 09/27/20) morphine (Verified Allergy, Unknown, 09/27/20) Discharge Summary Date of Admission Jul 28, 2021 at 17:57 Date of Discharge Discharge Date: Jul 29, 2021 Discharge Time: 15:55 Admission Diagnosis UTI, possible bacteremia Discharge Diagnosis (1) UTI (urinary tract infection) Status: Acute (2) Bacteremia Status: Acute DENIZ ROCHA MD Jul 29, 2021 15:55
[2021-07-30] MEDS ORDERED: TROUGH ORDER-PHARMACY XX ONE (07:00)
== END 2021-07-29 16:30 | disposition home or self-care (01) | DRG 690 ==
LOC: EDUNIT# 16:14 → ER 16:16 → 4TH 17:57
PROVIDERS: ADMIT Internal Medicine; ATTEND Internal Medicine
DX: N39.0 Urinary tract infection, site not specified (principal); I50.22 Chronic systolic (congestive) heart failure; R78.81 Bacteremia; B95.2 Enterococcus as the cause of diseases classified elsewhere; E78.5 Hyperlipidemia, unspecified; I11.0 Hypertensive heart disease with heart failure; K21.9 Gastro-esophageal reflux disease without esophagitis; E78.00 Pure hypercholesterolemia, unspecified; I48.91 Unspecified atrial fibrillation; E11.42 Type 2 diabetes mellitus with diabetic polyneuropathy; J44.9 Chronic obstructive pulmonary disease, unspecified; G89.29 Other chronic pain; M54.9 Dorsalgia, unspecified; E11.319 Type 2 diabetes mellitus with unspecified diabetic retinopathy without macular edema; Z79.4 Long term (current) use of insulin; Z86.73 Personal history of transient ischemic attack (TIA), and cerebral infarction without residual deficits; Z79.899 Other long term (current) drug therapy; Z95.0 Presence of cardiac pacemaker
CPT/HCPCS: 36415; 71045; 80053; 81000; 82947; 83605; 84145; 85025; 85610; 85730; 86141; 87040; 87088; 94760; G0378

== ENCOUNTER 2021-10-15 17:05 | Emergency (ER) | payer BC, MEDICARE ==
[~2021-10-15] VITALS: Ht 152.4 cm; Wt 54.4 kg
[~2021-10-15 17:05] MED LIST changes: +AMOX-358 PO
[2021-10-15] MEDS ORDERED: NS IV 1000 ML 1,000 ML IV SCH ×2 (18:00→19:00)
[2021-10-15 18:14] LABS: BASOPHILS % (AUTO) 0 % (0-10); EOSINOPHILS % (AUTO) 0 % (0-10); HEMATOCRIT 29 % (35-52); HEMOGLOBIN 8.9 g/dL (11.5-16.0); LYMPHOCYTES # (AUTO) 0.7 10^3/uL (1.0-4.0); LYMPHOCYTES % (AUTO) 16 % (12-44); MEAN CORPUSCULAR HEMOGLOBIN 24 pg (25-34); MEAN CORPUSCULAR HGB CONC 31 g/dL (32-36); MEAN CORPUSCULAR VOLUME 78 fL (80-99); MEAN PLATELET VOLUME 8.2 fL (9.0-12.2); MONOCYTES # (AUTO) 0.1 10^3/uL (0.0-1.0); MONOCYTES % (AUTO) 3 % (0-12); NEUTROPHILS # (AUTO) 3.6 10^3/uL (1.8-7.8); NEUTROPHILS % (AUTO) 80 % (42-75); PLATELET COUNT 190 10^3/uL (130-400); WHITE BLOOD COUNT 4.5 10^3/uL (4.3-11.0)
--- NOTE | 2021-10-15 18:24 | ED General ---
General Chief Complaint: Glucose Problems Stated Complaint: BS 338 Source of Information: Patient (LIMITED HISTORIAN/POOR MEMORY--NORMAL BASELINE FOR PT) History of Present Illness Date Seen by Provider: Oct 15, 2021 Time Seen by Provider: 17:55 Initial Comments PT ARRIVES VIA POV FROM HOME C/O ELEVATED BLOOD SUGAR PT HAS BEEN DIABETIC X 20 YEARS, HAS AN INSULIN PUMP FOR 7-8 YEARS, AND THIS PARTICULAR PUMP FOR 6 MONTHS. STATES BLOOD SUGAR AT 1700 WAS 338, SO RUSHED STRAIGHT HERE PT DID NOT GIVE HERSELF ANY INSULIN --STATES "BECAUSE THIS NEVER HAPPENED BEFORE", STATES SHE "DIDN'T KNOW WHAT TO DO" PT DOES NOT FEEL BAD PT STATES SHE HAD TOAST AND EGG FOR BREAKFAST, HAS NOT HAD ANYTHING ELSE TO EAT TODAY STATES SHE WAS SEEN AT [facility] A FEW DAYS AGO FOR URINARY SYMPTOMS --PAIN/BURNING ON URINATION AND FREQUENCY WAS DX WITH UTI, STATES THEY CALLED HER TODAY FROM THE CLINIC AND TOLD HER SHE HAD A UTI AND CALLED IN A PRESCRIPTION FOR ANTIBIOTICS, BUT PT DID NOT TESTER OPERATOR HELPER THE PRESCRIPTION. NO FEVER NO ABDOMINAL PAIN OR BACK PAIN NO NAUSEA/VOMITING NO COUGH NO SHORTNESS OF BREATH HAS HAD COVID-19 VACCINE X 2, NO BOOSTER NO FLU VACCINE PCP: DR. RAMOS-[facility] Allergies and Home Medications Allergies Coded Allergies: promethazine (Verified Allergy, Intermediate, 10/02/07) clindamycin (Verified Allergy, Unknown, 09/27/20) hydrocodone (Verified Allergy, Unknown, 09/27/20) morphine (Verified Allergy, Unknown, 09/27/20) Patient Home Medication List Amoxicillin/Potassium Clav (Augmentin 875-125 Tablet) 1 Each Tablet, 1 EACH PO BID Prescribed by: DENIZ ROCHA on 07/29/21 1230 Celecoxib (Celecoxib) 100 Mg Capsule, 100 MG PO BID PRN for ARTHRITIS PAIN, (Reported) Entered as Reported by: JOLIE العراقي on 07/26/212153 Colchicine (Colchicine) 0.6 Mg Tablet, 0.6 MG PO BID, (Reported) Entered as Reported by: JOLIE العراقي on 07/26/212153 Insulin Aspart (Novolog) 100 Unit/1 Ml Susp, UNITS SC PER PUMP, (Reported) Entered as Reported by: KINZA CHAVIRA on 09/28/20 1009 Metoprolol Succinate (Metoprolol Succinate) 50 Mg Tab.er.24h, 50 MG PO DAILY, (Reported) Entered as Reported by: KINZA CHAVIRA on 09/28/20 100 Potassium Chloride (K-Tab ER) 10 Meq Tablet.er, 10 MEQ PO DAILY, (Reported) Entered as Reported by: KINZA CHAVIRA on 09/28/20 100 Pravastatin Sodium (Pravastatin Sodium) 20 Mg Tablet, 20 MG PO HS, (Reported) Entered as Reported by: KINZA CHAVIRA on 09/28/20 100 Sacubitril/Valsartan (Entresto 24 mg-26 mg Tablet) 1 Each Tablet, 1 EA PO BID, (Reported) Entered as Reported by: KINZA CHAVIRA on 09/28/20 100 Terbinafine HCl (Terbinafine HCl) 250 Mg Tablet, 250 MG PO DAILY, (Reported) Entered as Reported by: JOLIE العراقي on 07/26/212153 Review of Systems Review of Systems Constitutional: no symptoms reported Respiratory: no symptoms reported Cardiovascular: no symptoms reported Gastrointestinal: no symptoms reported Genitourinary: see HPI Musculoskeletal: no symptoms reported Skin: no symptoms reported Psychiatric/Neurological: No Symptoms Reported Hematologic/Lymphatic: No Symptoms Reported Immunological/Allergic: no symptoms reported Past [place]-Slnssd-Xqgrwu Hx Patient Social History Tobacco Use?: No Substance use?: No Alcohol Use?: No Immunizations Up To Date Tetanus Booster (TDap): Unknown First/Initial COVID19 Vaccinat: 03/13 Second COVID19 Vaccination Jamie: 04/13 Past Medical History Surgery/Hospitalization HX: cardiac ablation, ppm, c-sect, hysterectomy, cholecystectomy, lumbar laminectomy, heart cath, htn, iddm, gerd, high cholesterol, a-fib, peripheral neuropathy, cva Surgeries: Yes Cardiac, Section, Gallbladder, Hysterectomy, Orthopedic, Pacemaker Respiratory: Yes COPD Cardiac: Yes (PACEMAKER, CARDIAC ABLATION, MAZE PROCEDURE, LEFT APPENDAGE CLIPPED) Atrial Fibrillation, High Cholesterol, Hypertension, Irregular Heartbeat Neurological: Yes (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;HX OF CVA 2019-NO RESIDUAL) Neuropathy, Stroke Reproductive Disorders: No Genitourinary: Yes Bladder Infection Gastrointestinal: Yes Gastroesophageal Reflux Musculoskeletal: Yes Chronic Back Pain Endocrine: Yes (INSULIN PUMP) Diabetes, Insulin dep HEENT: Yes (DIABETIC RETINOPATHY) Cancer: No Psychosocial: No Integumentary: No Blood Disorders: No Family Medical History PAST SURGICAL HISTORY: -LEFT EYE SURGERY FOR RETINAL BLEED 3 YEARS AGO - X 2 IN 1969, 1970 -HYSTERECTOMY 1979 -CHOLECYSTECTOMY ( OPEN ) 1983 -LEFT FOOT SURGERY 7 YEARS AGO -LUMBAR LAMINECTOMY 20 YEARS AGO -PACEMAKER 4 YEARS AGO -CARDIAC ABLATION 05/2019 -MAZE PROCEDURE 05/2020 -LEFT LATERAL APPENDAGE CLIP 05/2020 -PT REPORTS CARDIAC CATH DONE IN IN 2019 SHOWED NO SIGNIFICANT CAD. ECHOCARDIOGRAM 09/28/20--EF 55-60% MPI 09/29/20--NO INSCHEMIA OR INFARCTIONS Physical Exam Vital Signs Vital Signs - First Documented 10/15/21 17:50 Temp 36.6 Pulse 87 Resp 20 B/P (MAP) 151/74 (99) Pulse Ox 100 O2 Delivery Room Air Capillary Refill : Height, Weight, BMI Height: 5'1.00" Weight: 151lbs. 0.0oz. 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 Norm as Tested Skin: Normal Color, Warm/Dry Progress/Results/Core Measures Suspected Sepsis SIRS Temperature: Pulse: Respiratory Rate: Laboratory Tests 10/15/21 18:00: White Blood Count 4.5 Blood Pressure / Mean: Laboratory Tests 10/15/21 18:00: Creatinine 0.89, Platelet Count 190, Total Bilirubin 0.7 Results/Orders Lab Results Laboratory Tests Test 10/15/21 18:00 10/15/21 18:02 10/15/21 18:20 Range/Units White Blood Count 4.5 4.3-11.0 10^3/uL Red Blood Count 3.74 L 3.80-5.11 10^6/uL Hemoglobin 8.9 L 11.5-16.0 g/dL Hematocrit 29 L 35-52 % Mean Corpuscular Volume 78 L 80-99 fL Mean Corpuscular Hemoglobin 24 L 25-34 pg Mean Corpuscular Hemoglobin Concent 31 L 32-36 g/dL Red Cell Distribution Width 17.2 H 10.0-14.5 % Platelet Count 190 130-400 10^3/uL Mean Platelet Volume 8.2 L 9.0-12.2 fL Immature Granulocyte % (Auto) 1 % Neutrophils (%) (Auto) 80 H 42-75 % Lymphocytes (%) (Auto) 16 12-44 % Monocytes (%) (Auto) 3 0-12 % Eosinophils (%) (Auto) 0 0-10 % Basophils (%) (Auto) 0 0-10 % Neutrophils # (Auto) 3.6 1.8-7.8 10^3/uL Lymphocytes # (Auto) 0.7 L 1.0-4.0 10^3/uL Monocytes # (Auto) 0.1 0.0-1.0 10^3/uL Eosinophils # (Auto) 0.0 0.0-0.3 10^3/uL Basophils # (Auto) 0.0 0.0-0.1 10^3/uL Immature Granulocyte # (Auto) 0.0 0.0-0.1 10^3/uL Sodium Level 132 L 135-145 MMOL/L Potassium Level 3.1 L 3.6-5.0 MMOL/L Chloride Level 97 L 98-107 MMOL/L Carbon Dioxide Level 24 21-32 MMOL/L Anion Gap 11 5-14 MMOL/L Blood Urea Nitrogen 20 H 7-18 MG/DL Creatinine 0.89 0.60-1.30 MG/DL Estimat Glomerular Filtration Rate 70 BUN/Creatinine Ratio 22 Glucose Level 352 H 70-105 MG/DL Calcium Level 8.8 8.5-10.1 MG/DL Corrected Calcium 9.3 8.5-10.1 MG/DL Magnesium Level 1.9 1.6-2.4 MG/DL Total Bilirubin 0.7 0.1-1.0 MG/DL Aspartate Amino Transf (AST/SGOT) 12 5-34 U/L Alanine Aminotransferase (ALT/SGPT) 7 0-55 U/L Alkaline Phosphatase 64 40-136 U/L Total Protein 7.4 6.4-8.2 GM/DL Albumin 3.4 3.2-4.5 GM/DL Amylase Level 57 25-125 U/L Lipase 26 8-78 U/L Glucometer 328 H 70-110 MG/DL Urine Color YELLOW Urine Clarity CLEAR Urine pH 5.5 5-9 Urine Specific [place] 1.020 1.016-1.022 Urine Protein NEGATIVE NEGATIVE Urine Glucose (UA) TRACE H NEGATIVE Urine Ketones NEGATIVE NEGATIVE Urine Nitrite NEGATIVE NEGATIVE Urine Bilirubin NEGATIVE NEGATIVE Urine Urobilinogen 0.2 < = 1.0 MG/DL Urine Leukocyte Esterase NEGATIVE NEGATIVE Urine RBC (Auto) 1+ H NEGATIVE Urine RBC 0-2 /HPF Urine WBC 0-2 /HPF Urine Crystals PRESENT H /LPF Urine Amorphous Sediment FEW JOSEPHINE URATES H /LPF Urine Bacteria TRACE /HPF Urine Casts PRESENT /LPF Urine Hyaline Casts 2-5 H /LPF Urine Mucus NEGATIVE /LPF Urine Culture Indicated NO Influenza Type A (RT-PCR) Not Detected Not Detecte Influenza Type B (RT-PCR) Not Detected Not Detecte SARS-CoV-2 RNA (RT-PCR) Not Detected Not Detecte My Orders Orders - VAMSHI ZIMMERMAN DO Accucheck Stat ONCE (10/15/21 17:58) Ed Iv/Invasive Line Start (10/15/21 17:58) Monitor-Rhythm Ecg Trace Only (10/15/21 17:58) Straight Cath For Spec.-Adult (10/15/21 17:58) Amylase (10/15/21 17:58) Cbc With Automated Diff (10/15/21 17:58) Comprehensive Metabolic Panel (10/15/21 17:58) Lipase (10/15/21 17:58) Magnesium (10/15/21 17:58) Ua Culture If Indicated (10/15/21 17:58) Ed Iv/Invasive Line Start (10/15/21 17:58) Ns Iv 1000 Ml (Sodium Chloride 0.9%) (10/15/21 18:00) Covid 19 Inhouse Test (10/15/21 18:04) Influenza A And B By Pcr (10/15/21 18:04) Isolation Central Supply Req (10/15/21 18:04) Insulin (Regular) Human (Novolin R (Per (10/15/21 19:00) Ed Iv/Invasive Line Start (10/15/21 18:52) Ns Iv 1000 Ml (Sodium Chloride 0.9%) (10/15/21 19:00) Potassium Chloride (Tablet) (Klor Con Ta (10/15/21 19:00) Hemoglobin A1c (3/25/22 19:19) Beta Hydroxybutyrate (10/15/21 19:19) Accucheck Stat ONCE (10/15/21 19:29) Medications Given in ED Current Medications Medications Dose Ordered Sig/Mariza Route Start Time Stop Time Status Last Admin Dose Admin Insulin Human Regular 10 unit ONCE ONCE IV 10/15/21 19:00 10/15/21 19:01 DC 10/15/21 19:17 10 UNIT Potassium Chloride 40 meq ONCE ONCE PO 10/15/21 19:00 10/15/21 19:01 DC 10/15/21 19:17 40 MEQ Vital Signs/I&O 10/15/21 17:50 Temp 36.6 Pulse 87 Resp 20 B/P (MAP) 151/74 (99) Pulse Ox 100 O2 Delivery Room Air Capillary Refill : Point of Care Testing Finger Stick Blood Glucose: 328 Blood Glucose Action Taken: DR. ZIMMERMAN NOTIFIED Progress Note : Progress Note UNEVENTFUL ER STAY GIVEN IV FLUIDS, KCL AND INSULIN BLOOD GLUCOSE DOWN TO 222 PRIOR TO DISMISSAL Departure Impression Primary Impression: Uncontrolled diabetes mellitus Additional Impression: IDDM (insulin dependent diabetes mellitus) Disposition: HOME, SELF-CARE Condition: Stable Departure-Patient Inst. Decision time for Depature: 19:45 Referrals: FERNANDO RAMOS MD (PCP/Family) Primary Care Physician Patient Instructions: High Blood Sugar, Adult (DC), How to Prevent High Blood Sugar Emergencies in Diabetes Add. Discharge Instructions: CHECK YOUR BLOOD SUGAR AT LEAST 4 TIMES A DAY CONTINUE YOUR INSULIN PRESCRIBED TAKE YOUR REGULAR MEDICATIONS PRESCRIBED GET YOUR PRESCRIPTION FOR ANTIBIOTIC FILLED AND TAKE PRESCRIBED FOLLOW UP WITH YOUR DR IN 3-4 DAYS FOR FURTHER CARE RETURN TO ER IF PROBLEMS All discharge instructions reviewed with patient and/or family. Voiced understanding. VAMSHI ZIMMERMAN DO Oct 15, 2021 18:24
[2021-10-15 18:26] LABS: ALBUMIN 3.4 GM/DL (3.2-4.5); POTASSIUM 3.1 MMOL/L (3.6-5.0)
[2021-10-15 18:28] LABS: CALCIUM 8.8 MG/DL (8.5-10.1)
[2021-10-15 18:29] LABS: TOTAL PROTEIN 7.4 GM/DL (6.4-8.2)
[2021-10-15 18:31] LABS: BILIRUBIN,URINE NEGATIVE (NEGATIVE); CLARITY,URINE CLEAR; COLOR,URINE YELLOW; GLUCOSE, URINE (UA) TRACE (NEGATIVE); KETONES,URINE NEGATIVE (NEGATIVE); LEUKOCYTE ESTERASE ,URINE NEGATIVE (NEGATIVE); NITRITE,URINE NEGATIVE (NEGATIVE); PH,URINE 5.5 (5-9); PROTEIN,URINE NEGATIVE (NEGATIVE)
[2021-10-15 18:31] LABS: BILIRUBIN,TOTAL 0.7 MG/DL (0.1-1.0)
[2021-10-15 18:32] LABS: CREATININE SERUM 0.89 MG/DL (0.60-1.30)
[2021-10-15 18:35] LABS: MAGNESIUM 1.9 MG/DL (1.6-2.4)
[2021-10-15 18:54] LABS: AMORPHOUS SEDIMENT,UR FEW AMOR URATES /LPF; BACTERIA,URINE TRACE /HPF; RBC,URINE 0-2 /HPF; WBC,URINE 0-2 /HPF
[2021-10-15] MEDS ORDERED: inSUlin (REGULAR) HUMAN 1 UNIT/0.01 ML (CHARGE PER UNIT) IV ONE (19:00)
[2021-10-15] MEDS ORDERED: KCL 10 MEQ TAB (MICRO K) PO ONE (19:00)
[2021-10-15 20:00] VITALS: BP 137/90
== END 2021-10-15 20:00 | disposition home or self-care (01) ==
LOC: EDUNIT# 17:05 → ER 17:06
DX: E11.65 Type 2 diabetes mellitus with hyperglycemia (principal); E11.319 Type 2 diabetes mellitus with unspecified diabetic retinopathy without macular edema; E11.42 Type 2 diabetes mellitus with diabetic polyneuropathy; Z20.822 Contact with and (suspected) exposure to COVID-19
CPT/HCPCS: 36415; 51701; 80053; 81000; 82010; 82150; 82947; 83036; 83690; 83735; 85025; 87636; 93041

== ENCOUNTER 2021-10-22 15:38 | Emergency (ER) | payer BC, MEDICARE ==
[~2021-10-22] VITALS: Ht 152.4 cm; Wt 65.0 kg
[2021-10-22 16:12] LABS: BASOPHILS % (AUTO) 0 % (0-10); EOSINOPHILS % (AUTO) 0 % (0-10); HEMATOCRIT 28 % (35-52); HEMOGLOBIN 8.6 g/dL (11.5-16.0); LYMPHOCYTES # (AUTO) 0.7 10^3/uL (1.0-4.0); LYMPHOCYTES % (AUTO) 9 % (12-44); MEAN CORPUSCULAR HEMOGLOBIN 24 pg (25-34); MEAN CORPUSCULAR HGB CONC 31 g/dL (32-36); MEAN CORPUSCULAR VOLUME 76 fL (80-99); MEAN PLATELET VOLUME 8.4 fL (9.0-12.2); MONOCYTES # (AUTO) 0.2 10^3/uL (0.0-1.0); MONOCYTES % (AUTO) 3 % (0-12); NEUTROPHILS # (AUTO) 7.2 10^3/uL (1.8-7.8); NEUTROPHILS % (AUTO) 88 % (42-75); PLATELET COUNT 168 10^3/uL (130-400); WHITE BLOOD COUNT 8.2 10^3/uL (4.3-11.0)
[2021-10-22 16:19] LABS: ALBUMIN 3.3 GM/DL (3.2-4.5); CHLORIDE 94 MMOL/L (98-107); POTASSIUM 3.2 MMOL/L (3.6-5.0); SODIUM 129 MMOL/L (135-145)
[2021-10-22 16:20] LABS: CALCIUM 8.4 MG/DL (8.5-10.1)
--- NOTE | 2021-10-22 16:20 | ED General ---
General Chief Complaint: Altered Mental Status Stated Complaint: CANT WALK, MEMORY NOT GOOD AT ALL Source of Information: Patient Exam Limitations: No Limitations (TERRANCE KOENIG MED STUDENT) History of Present Illness Date Seen by Provider: Oct 22, 2021 Time Seen by Provider: 16:09 Initial Comments Mrs. Payan is a 71yo female with PMH of DM, stroke x2, heart attack x2, ablation that presents to ED today due to AMS and fever. Her sister is with her who says that around 1030 today she noticed her sister beginning to become more tired and confused. She checked her blood sugar and was 147. At baseline she is confused but her sister states that it has been a little worse this week, she heard this from patients son. Mrs. Payan is only oriented to person in the room and has confused, word salad like speech. She states she is not in any pain. She has a fever of 102, is currently being treated for UTI, and vomited once in the waiting room. Sister states she had a fall about a week ago, unsure if she hit her head, but was never seen for it. Also states that she is not on a blood thinner. She does not smoke, drink, or use drugs. (TERRANCE KOENIG MED STUDENT) Allergies and Home Medications Allergies Coded Allergies: promethazine (Verified Allergy, Intermediate, 10/02/07) clindamycin (Verified Allergy, Unknown, 09/27/20) hydrocodone (Verified Allergy, Unknown, 09/27/20) morphine (Verified Allergy, Unknown, 09/27/20) Patient Home Medication List Home Medication List Reviewed: Yes (EMMIE CHAMPAGNE MD) Amoxicillin/Potassium Clav (Augmentin 875-125 Tablet) 1 Each Tablet, 1 EACH PO BID Prescribed by: DENIZ ROCHA on 07/29/21 1230 Celecoxib (Celecoxib) 100 Mg Capsule, 100 MG PO BID PRN for ARTHRITIS PAIN, (Reported) Entered as Reported by: JOLIE العراقي on 07/26/212153 Colchicine (Colchicine) 0.6 Mg Tablet, 0.6 MG PO BID, (Reported) Entered as Reported by: JOLIE العراقي on 07/26/212153 Insulin Aspart (Novolog) 100 Unit/1 Ml Susp, UNITS SC PER PUMP, (Reported) Entered as Reported by: KINZA CHAVIRA on 09/28/20 1009 Metoprolol Succinate (Metoprolol Succinate) 50 Mg Tab.er.24h, 50 MG PO DAILY, (Reported) Entered as Reported by: KINZA CHAVIRA on 09/28/20 100 Potassium Chloride (K-Tab ER) 10 Meq Tablet.er, 10 MEQ PO DAILY, (Reported) Entered as Reported by: KINZA CHAVIRA on 09/28/20 100 Pravastatin Sodium (Pravastatin Sodium) 20 Mg Tablet, 20 MG PO HS, (Reported) Entered as Reported by: KINZA CHAVIRA on 09/28/20 100 Sacubitril/Valsartan (Entresto 24 mg-26 mg Tablet) 1 Each Tablet, 1 EA PO BID, (Reported) Entered as Reported by: KINZA CHAVIRA on 09/28/20 100 Terbinafine HCl (Terbinafine HCl) 250 Mg Tablet, 250 MG PO DAILY, (Reported) Entered as Reported by: JOLIE العراقي on 07/26/212153 Review of Systems Review of Systems Constitutional: No chills; fever EENTM: No hearing loss, No vision loss Respiratory: No cough, No short of breath Cardiovascular: No chest pain, No edema Gastrointestinal: No abdominal pain, No constipation, No diarrhea, No nausea, No vomiting Genitourinary: No dysuria, No hematuria Musculoskeletal: No joint pain, No joint swelling Skin: No lesions, No rash Psychiatric/Neurological: Denies Headache, Denies Numbness; Other (confusion) (TERRANCE KOENIG Mag[employer] STUDENT) Past Hxidgoc-Mdjczs-Myfgdq Hx Patient Social History Tobacco Use?: No Substance use?: No Alcohol Use?: No Pt feels they are or have been: No (TERRANCE KOENIG Mag[employer] STUDENT) Immunizations Up To Date Tetanus Booster (TDap): Unknown First/Initial COVID19 Vaccinat: 03/13 Second COVID19 Vaccination Jamie: 04/13 Third COVID19 Vaccination Date: N/A (TERRANCE KOENIG Mag[employer] STUDENT) Past Medical History Surgery/Hospitalization HX: cardiac ablation, ppm, c-sect, hysterectomy, cholecystectomy, lumbar laminectomy, heart cath, htn, iddm, gerd, high cholesterol, a-fib, peripheral neuropathy, cva Surgeries: Yes Cardiac, Section, Gallbladder, Hysterectomy, Orthopedic, Pacemaker Respiratory: Yes COPD Cardiac: Yes (PACEMAKER, CARDIAC ABLATION, MAZE PROCEDURE, LEFT APPENDAGE CLIPPED) Atrial Fibrillation, High Cholesterol, Hypertension, Irregular Heartbeat Neurological: Yes (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;HX OF CVA 2018-NO RESIDUAL) Neuropathy, Stroke Reproductive Disorders: No Genitourinary: Yes Bladder Infection Gastrointestinal: Yes Gastroesophageal Reflux Musculoskeletal: Yes Chronic Back Pain Endocrine: Yes (INSULIN PUMP) Diabetes, Insulin dep HEENT: Yes (DIABETIC RETINOPATHY) Cancer: No Psychosocial: No Integumentary: No Blood Disorders: No (TERRANCE KOENIG STUDENT) Family Medical History PAST SURGICAL HISTORY: -LEFT EYE SURGERY FOR RETINAL BLEED 3 YEARS AGO - X 2 IN 1969, 1970 -HYSTERECTOMY 1979 -CHOLECYSTECTOMY ( OPEN ) 1983 -LEFT FOOT SURGERY 7 YEARS AGO -LUMBAR LAMINECTOMY 20 YEARS AGO -PACEMAKER 4 YEARS AGO -CARDIAC ABLATION 05/2019 -MAZE PROCEDURE 05/2020 -LEFT LATERAL APPENDAGE CLIP 05/2020 -PT REPORTS CARDIAC CATH DONE IN IN 2019 SHOWED NO SIGNIFICANT CAD. ECHOCARDIOGRAM 09/28/20--EF 55-60% MPI 09/29/20--NO INSCHEMIA OR INFARCTIONS (TERRANCE KOENIG STUDENT) Physical Exam Vital Signs Vital Signs - First Documented 10/22/21 16:12 Temp 39.2 Pulse 107 Resp 20 B/P (MAP) 164/75 (104) Pulse Ox 98 O2 Delivery Room Air (EMMIE CHAMPAGNE MD) Vital Signs Capillary Refill : (TERRANCE KOENIG STUDENT) Height, Weight, BMI Height: 5'1.00" Weight: 151lbs. 0.0oz. 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 Norm as Tested, Other (AxO to person only) Skin: Normal Color, Warm/Dry (LIBERTY,TERRANCE MED STUDENT) Focused Exam Lactate Level 10/22/21 15:59: Lactic Acid Level 1.06 (EMMIE CHAMPAGNE MD) Lactic Acid Level Laboratory Tests Test 10/22/21 15:59 Lactic Acid Level 1.06 MMOL/L (0.50-2.00) (EMMIE CHAMPAGNE MD) Progress/Results/Core Measures Suspected Sepsis SIRS Temperature: Pulse: Respiratory Rate: Laboratory Tests 10/22/21 15:59: White Blood Count 8.2 Blood Pressure / Mean: 10/22/21 15:59: Lactic Acid Level 1.06 Laboratory Tests 10/22/21 15:59: Creatinine 0.78, Platelet Count 168, Total Bilirubin 1.1H (TERRANCE KOENIG MED STUDENT) Results/Orders Lab Results Laboratory Tests Test 10/22/21 15:59 10/22/21 16:07 10/22/21 16:12 10/22/21 16:55 Range/Units White Blood Count 8.2 4.3-11.0 10^3/uL Red Blood Count 3.63 L 3.80-5.11 10^6/uL Hemoglobin 8.6 L 11.5-16.0 g/dL Hematocrit 28 L 35-52 % Mean Corpuscular Volume 76 L 80-99 fL Mean Corpuscular Hemoglobin 24 L 25-34 pg Mean Corpuscular Hemoglobin Concent 31 L 32-36 g/dL Red Cell Distribution Width 17.1 H 10.0-14.5 % Platelet Count 168 130-400 10^3/uL Mean Platelet Volume 8.4 L 9.0-12.2 fL Immature Granulocyte % (Auto) 0 % Neutrophils (%) (Auto) 88 H 42-75 % Lymphocytes (%) (Auto) 9 L 12-44 % Monocytes (%) (Auto) 3 0-12 % Eosinophils (%) (Auto) 0 0-10 % Basophils (%) (Auto) 0 0-10 % Neutrophils # (Auto) 7.2 1.8-7.8 10^3/uL Lymphocytes # (Auto) 0.7 L 1.0-4.0 10^3/uL Monocytes # (Auto) 0.2 0.0-1.0 10^3/uL Eosinophils # (Auto) 0.0 0.0-0.3 10^3/uL Basophils # (Auto) 0.0 0.0-0.1 10^3/uL Immature Granulocyte # (Auto) 0.0 0.0-0.1 10^3/uL Neutrophils % (Manual) 95 % Lymphocytes % (Manual) 4 % Monocytes % (Manual) 1 % Hypochromasia SLIGHT Microcytosis SLIGHT Prothrombin Time 16.1 H 12.2-14.7 SEC INR Comment 1.2 0.8-1.4 Activated Partial Thromboplast Time 35 24-35 SEC D-Dimer 5.61 H 0.00-0.49 UG/ML Sodium Level 129 L 135-145 MMOL/L Potassium Level 3.2 L 3.6-5.0 MMOL/L Chloride Level 94 L 98-107 MMOL/L Carbon Dioxide Level 20 L 21-32 MMOL/L Anion Gap 15 H 5-14 MMOL/L Blood Urea Nitrogen 11 7-18 MG/DL Creatinine 0.78 0.60-1.30 MG/DL Estimat Glomerular Filtration Rate 82 BUN/Creatinine Ratio 14 Glucose Level 156 H 70-105 MG/DL Lactic Acid Level 1.06 0.50-2.00 MMOL/L Calcium Level 8.4 L 8.5-10.1 MG/DL Corrected Calcium 9.0 8.5-10.1 MG/DL Total Bilirubin 1.1 H 0.1-1.0 MG/DL Aspartate Amino Transf (AST/SGOT) 14 5-34 U/L Alanine Aminotransferase (ALT/SGPT) < 6 0-55 U/L Alkaline Phosphatase 72 40-136 U/L Troponin I < 0.028 <0.028 NG/ML C-Reactive Protein High Sensitivity 5.27 H 0.00-0.50 MG/DL Total Protein 7.6 6.4-8.2 GM/DL Albumin 3.3 3.2-4.5 GM/DL Glucometer 157 H 70-110 MG/DL Influenza Type A (RT-PCR) Not Detected Not Detecte Influenza Type B (RT-PCR) Not Detected Not Detecte SARS-CoV-2 RNA (RT-PCR) Not Detected Not Detecte Urine Color YELLOW Urine Clarity CLEAR Urine pH 6.0 5-9 Urine Specific [place] 1.020 1.016-1.022 Urine Protein TRACE H NEGATIVE Urine Glucose (UA) NEGATIVE NEGATIVE Urine Ketones NEGATIVE NEGATIVE Urine Nitrite NEGATIVE NEGATIVE Urine Bilirubin NEGATIVE NEGATIVE Urine Urobilinogen 0.2 < = 1.0 MG/DL Urine Leukocyte Esterase TRACE H NEGATIVE Urine RBC (Auto) 2+ H NEGATIVE Urine RBC 2-5 H /HPF Urine WBC 0-2 /HPF Urine Crystals PRESENT H /LPF Urine Amorphous Sediment RARE JOSEPHINE URATES H /LPF Urine Bacteria TRACE /HPF Urine Casts PRESENT /LPF Urine Hyaline Casts 0-2 H /LPF Urine Mucus SMALL H /LPF Urine Culture Indicated NO (EMMIE CHAMPAGNE MD) My Orders Orders - EMMIE CHAMPAGNE MD Acetaminophen Tablet (Tylenol Tablet) (10/22/21 16:45) Hs C Reactive Protein (10/22/21 17:24) Ns Iv 1000 Ml (Sodium Chloride 0.9%) (10/22/21 17:30) Potassium Chloride (Tablet) (Klor Con Ta (10/22/21 18:30) Magnesium (10/22/21 18:26) (EMMIE CHAMPAGNE MD) Medications Given in ED Current Medications Medications Dose Ordered Sig/Mariza Route Start Time Stop Time Status Last Admin Dose Admin Acetaminophen 1,000 mg ONCE ONCE PO 10/22/21 16:45 10/22/21 16:46 DC 10/22/21 16:41 1,000 MG Potassium Chloride 20 meq ONCE ONCE PO 10/22/21 18:30 10/22/21 18:31 DC 10/22/21 18:29 20 MEQ (EMMIE CHAMPAGNE MD) Vital Signs/I&O 10/22/21 10/22/21 10/22/21 16:12 16:26 16:41 Temp 39.2 39.2 Pulse 107 Resp 20 B/P (MAP) 164/75 (104) Pulse Ox 98 98 O2 Delivery Room Air Room Air (EMMIE CHAMPAGNE MD) Vital Signs/I&O Capillary Refill : (TERRANCE KOENIG MED STUDENT) Point of Care Testing Finger Stick Blood Glucose: 157 Blood Glucose Action Taken: RN NOT. (TERRANCE KOENIG MED STUDENT) Progress Note : Time: 16:40 Progress Note Patient was interviewed and examined along with MS 4. She appears to be encephalopathic with confusion at this time, likely secondary to her fever and what ever the source of infection is responsible for her fever. No definite acute focal neurologic deficit is appreciated. Her speech difficulties seem to be more associated with delirium than a true aphasia. She is able to speak normally at times but at other times her speech trails off into nonsensical words. She seems to lose her thought toward the end of a sentence or expression. CT of the head demonstrated no acute abnormalities. Patient is not a candidate for thrombolytics as there is an unclear last known well time and symptoms seem to be more encephalopathic in the context of fever and known urinary tract infection.. (EMMIE CHAMPAGNE MD) ECG Initial ECG Impression Date: Oct 22, 2021 Initial ECG Impression Time: 16:31 Initial ECG Rate: 103 Initial ECG Rhythm: S.Tach Initial ECG Intervals: Normal Comment Normal sinus rhythm with no ST elevation or depression. No abnormal intervals or axis deviation. (EMMIE CHAMPAGNE MD) Diagnostic Imaging Diagonstic Imaging: Xray Plain Films/CT/US/NM/MRI: chest Comments Chest x-ray viewed by me and report reviewed. See report below: NAME: RAVI PAYAN [facility] REC#: [id number] PT STATUS: REG ER : 1950 PHYSICIAN: DOMINIQUE CONWAY APRN ADMIT DATE: 10/22/21/ER Draft Date of Exam:10/22/21 CHEST 1 VIEW, AP/PA ONLY INDICATION: AMS COMPARISON: 07/28/2021. FINDINGS: Single frontal view of the chest demonstrates normal heart size and pulmonary vascularity. The lungs are well aerated and clear. No large pleural effusion or pneumothorax is seen. The visualized osseous structures show no acute abnormalities. Left-sided dual-lead pacemaker and postsurgical changes of previous cardiac valve repair are noted. IMPRESSION: No acute cardiopulmonary process. Dictated on workstation # [id number] Dict: 10/22/21 1628 Trans: 10/22/21 1629 [facility] [id number] Interpreted by: JONA DONAHUE MD Diagonstic Imaging: CT Plain Films/CT/US/NM/MRI: head Comments CT head viewed by me and report received from radiologist. No acute abnorma lities appreciated. (EMMIE CHAMPAGNE MD) Departure Impression Primary Impression: Fever Qualified Codes: R50.9 - Fever, unspecified Additional Impressions: Speech disturbance Qualified Codes: R47.9 - Unspecified speech disturbances Depression Qualified Codes: F32.A - Depression, unspecified Hyponatremia Hypokalemia Insomnia Qualified Codes: G47.00 - Insomnia, unspecified Disposition: 01 HOME, SELF-CARE Condition: Improved Departure-Patient Inst. Decision time for Depature: 18:19 (EMMIE CHAMPAGNE MD) Referrals: FERNANDO RAMOS MD (PCP/Family) Primary Care Physician Patient Instructions: Depression, Adult ED, Fever, Adult ED Add. Discharge Instructions: OnlyThe exact cause of your fever is uncertain. It may be related to a viral illness. Complete the antibiotic you are prescribed for urinary tract infection and return to care if your symptoms are worsening. Your confusion and speech difficulty definitely improved after treating fever with Tylenol. Monitor your temperature closely over the next few days and treat fever with Tylenol. Follow-up with your primary care provider soon as possible. Please call Monday morning to schedule an appointment. At that appointment I suggest that you discuss treatment of depression and seek referral to a behavioral health provider. I also suggest you seek referral back to your neurologist. You may not need a referral as an existing patient and could possibly call the neurologist directly to schedule a follow-up. At your follow-up appointments discuss other possible medical conditions that could be contributing to your symptoms including thyroid dysfunction, vitamin deficiencies such as vitamin D or vitamin B12, multiple sclerosis, etc. Drink plenty of clear liquids he had eat a well-balanced diet. You are deficient in sodium and potassium today. Eating a well-balanced diet will help keep these levels normal. You may try Seroquel as prescribed to help settle your thoughts at bedtime and help you sleep. Discuss further use with your primary care provider. Call with questions or concerns. Return to the ER if you have worsening symptoms despite following these instructions. All discharge instructions reviewed with patient and/or family. Voiced understanding. Scripts Quetiapine Fumarate (Seroquel) 25 Mg Tablet 25 MG PO HS, #30 TAB Prov: EMMIE CHAMPAGNE MD 10/22/21 Copy Copies To 1: FERNANDO RAMOS MD, DEREK MED STUDENT Oct 22, 2021 16:20 EMMIE CHAMPAGNE MD Oct 22, 2021 16:42
[2021-10-22 16:21] LABS: GLUCOSE 156 MG/DL (70-105)
[2021-10-22 16:22] LABS: TOTAL PROTEIN 7.6 GM/DL (6.4-8.2)
[2021-10-22 16:23] LABS: BILIRUBIN,TOTAL 1.1 MG/DL (0.1-1.0); CARBON DIOXIDE 20 MMOL/L (21-32)
[2021-10-22 16:25] LABS: ALKALINE PHOSPHATASE 72 U/L (40-136); CREATININE SERUM 0.78 MG/DL (0.60-1.30); GFR ESTIMATED 82
[2021-10-22 16:26] LABS: BUN/CREATININE RATIO 14
[2021-10-22 16:28] LABS: ALANINE AMINOTRANSFERASE < 6 U/L (0-55)
--- NOTE | 2021-10-22 16:29 | Diagnostic Imaging Report ---
INDICATION: AMS COMPARISON: 07/28/2021. FINDINGS: Single frontal view of the chest demonstrates normal heart size and pulmonary vascularity. The lungs are well aerated and clear. No large pleural effusion or pneumothorax is seen. The visualized osseous structures show no acute abnormalities. Left-sided dual-lead pacemaker and postsurgical changes of previous cardiac valve repair are noted. IMPRESSION: No acute cardiopulmonary process. Dictated by: Dictated on workstation # [id number]
[2021-10-22 16:37] LABS: FIBRIN DEGRADATION PRODUCTS 5.61 UG/ML (0.00-0.49); INR 1.2 (0.8-1.4); PROTHROMBIN TIME PATIENT 16.1 SEC (12.2-14.7)
--- NOTE | 2021-10-22 16:41 | Diagnostic Imaging Report ---
CLINICAL INDICATION: Patient with memory trouble and trouble walking. EXAM: Axial CT scan of the brain performed without IV contrast. High-resolution axial CT brain images with sagittal and coronal reformations were also created. Auto Exposure Controls were utilized during the CT exam to meet ALARA standards for radiation dose reduction. COMPARISON: Head CT without contrast dated 12/14/2020. FINDINGS: There is no evidence of acute intracranial process. There is no intracranial hemorrhage. There is no dense vessel sign. Stable small chronic infarct involving the right occipital lobe region. There are subtle patchy areas of low-attenuation white matter changes involving both cerebral hemispheres, likely representing mild chronic small vessel ischemic disease. There is no hydrocephalus. There is no brain herniation or midline shift. Basal cisterns are unremarkable. The extracranial soft tissues, skull, and orbits are unremarkable. Paranasal sinuses are clear. There is sclerosis and consolidation of the left mastoid air cells. There is consolidation of the left middle ear. IMPRESSION: 1: There is no evidence of acute intracranial process. There is no dense vessel sign. 2: Stable small chronic cerebral infarct involving the right occipital lobe. 3: Age-related brain parenchymal changes. Results of this report were discussed with Tremayne James APRN, via the telephone on 10/22/2021 at 1632 hours. Dictated by: Dictated on workstation # [id number]
[2021-10-22] MEDS ORDERED: ACETAMINOPHEN 500 MG TAB (TYLENOL) PO ONE (16:45)
[2021-10-22 17:00] LABS: BILIRUBIN,URINE NEGATIVE (NEGATIVE); CLARITY,URINE CLEAR; COLOR,URINE YELLOW; GLUCOSE, URINE (UA) NEGATIVE (NEGATIVE); KETONES,URINE NEGATIVE (NEGATIVE); LEUKOCYTE ESTERASE ,URINE TRACE (NEGATIVE); NITRITE,URINE NEGATIVE (NEGATIVE); PROTEIN,URINE TRACE (NEGATIVE)
[2021-10-22 17:09] LABS: BACTERIA,URINE TRACE /HPF; WBC,URINE 0-2 /HPF
[2021-10-22 17:10] LABS: AMORPHOUS SEDIMENT,UR RARE AMOR URATES /LPF; HYALINE CASTS, URINE 0-2 /LPF
[2021-10-22 17:21] LABS: HYPOCHROMASIA SLIGHT; LYMPHOCYTES % (MANUAL) 4 %; MICROCYTOSIS SLIGHT; MONOCYTES % (MANUAL) 1 %; NEUTROPHILS % (MANUAL) 95 %
[2021-10-22] MEDS ORDERED: NS IV 1000 ML 1,000 ML IV SCH (17:30)
[2021-10-22] MEDS ORDERED: KCL 10 MEQ TAB (MICRO K) PO ONE (18:30)
[2021-10-22] MEDS ORDERED: QUET25TA PO (18:38)
[2021-10-22] MEDS ORDERED: MAGNESIUM 1 GM/100 ML IVPB 100 ML IV ONE (19:15)
[2021-10-22 21:08] VITALS: BP 115/57
== END 2021-10-22 21:19 | disposition home or self-care (01) ==
LOC: EDUNIT# 15:38 → ER 15:41
DX: R50.9 Fever, unspecified (principal); R47.9 Unspecified speech disturbances; F32.9 Major depressive disorder, single episode, unspecified; E87.1 Hypo-osmolality and hyponatremia; E87.6 Hypokalemia; G47.00 Insomnia, unspecified; N39.0 Urinary tract infection, site not specified; Z20.822 Contact with and (suspected) exposure to COVID-19
CPT/HCPCS: 36415; 51702; 70450; 71045; 80053; 81000; 82947; 83605; 83735; 84484; 85007; 85027; 85379; 85610; 85730; 86141; 87040; 87636; 93041

== ENCOUNTER 2021-11-04 21:18 | Emergency (ER) | payer BC, MEDICARE ==
[~2021-11-04] VITALS: Ht 152.4 cm; Wt 65.0 kg
[~2021-11-04 21:18] MED LIST changes: +QUET25TA PO
--- NOTE | 2021-11-04 21:40 | ED General ---
General Chief Complaint: General Problems/Pain Stated Complaint: WEAKNESS Nursing Triage Note: brought in by [facility] ems for weakness, intermittant chest pain x1 day. denies chest pain at this time. Source of Information: Patient Exam Limitations: No Limitations History of Present Illness Date Seen by Provider: Nov 04, 2021 Time Seen by Provider: 21:22 Initial Comments Patient to ER by EMS [facility] with chief complaint that she was having some chest pain shortness of air for the past several days but it is short lived less than an hour intermittent. She did not take anything for it. She does not take breathing treatments nor does she have a history of coronary disease. She has never had a heart cath or stent. She states the pain is on both sides of her chest anterior. She states that since it was going away by the time EMS arrived she said she did not want to come here but they brought her in anyways. She is not having any symptoms now. She says she will follow-up with her primary care doctor. She is alert and oriented and adamant that she does not want to be here nor does she want to be worked up any further. She is not on aspirin or blood thinners. She was not given any aspirin at any point. Allergies and Home Medications Allergies Coded Allergies: promethazine (Verified Allergy, Intermediate, 10/02/07) clindamycin (Verified Allergy, Unknown, 09/27/20) hydrocodone (Verified Allergy, Unknown, 09/27/20) morphine (Verified Allergy, Unknown, 09/27/20) Patient Home Medication List Home Medication List Reviewed: Yes Amoxicillin/Potassium Clav (Augmentin 875-125 Tablet) 1 Each Tablet, 1 EACH PO BID Prescribed by: DENIZ ROCHA on 07/29/21 1230 Celecoxib (Celecoxib) 100 Mg Capsule, 100 MG PO BID PRN for ARTHRITIS PAIN, (Reported) Entered as Reported by: JOLIE العراقي on 07/26/212153 Colchicine (Colchicine) 0.6 Mg Tablet, 0.6 MG PO BID, (Reported) Entered as Reported by: JOLIE العراقي on 07/26/212153 Insulin Aspart (Novolog) 100 Unit/1 Ml Susp, UNITS SC PER PUMP, (Reported) Entered as Reported by: KINZA CHAVIRA on 09/28/20 1009 Metoprolol Succinate (Metoprolol Succinate) 50 Mg Tab.er.24h, 50 MG PO DAILY, (Reported) Entered as Reported by: KINZA CHAVIRA on 09/28/20 1009 Potassium Chloride (K-Tab ER) 10 Meq Tablet.er, 10 MEQ PO DAILY, (Reported) Entered as Reported by: KINZA CHAVIRA on 09/28/20 1009 Pravastatin Sodium (Pravastatin Sodium) 20 Mg Tablet, 20 MG PO HS, (Reported) Entered as Reported by: KINZA CHAVIRA on 09/28/20 1009 Quetiapine Fumarate (Seroquel) 25 Mg Tablet, 25 MG PO HS Prescribed by: EMMIE ROJAS on 10/22/21 183 Sacubitril/Valsartan (Entresto 24 mg-26 mg Tablet) 1 Each Tablet, 1 EA PO BID, (Reported) Entered as Reported by: KINZA CHAVIRA on 09/28/20 1009 Terbinafine HCl (Terbinafine HCl) 250 Mg Tablet, 250 MG PO DAILY, (Reported) Entered as Reported by: JOLIE العراقي on 07/26/21 029 Review of Systems Review of Systems Constitutional: No chills, No diaphoresis EENTM: No ear discharge, No hearing loss Respiratory: No cough, No short of breath Cardiovascular: No chest pain, No edema Gastrointestinal: No abdominal pain, No nausea, No vomiting Genitourinary: No discharge, No dysuria Musculoskeletal: No back pain, No joint pain All Other Systems Reviewed Negative Unless Noted: Yes Past Fuuaykh-Fmpcwk-Wluxdz Hx Patient Social History Tobacco Use?: No Substance use?: No Alcohol Use?: No Pt feels they are or have been: No Immunizations Up To Date Tetanus Booster (TDap): Unknown First/Initial COVID19 Vaccinat: 03/13 Second COVID19 Vaccination Jamie: 04/13 Third COVID19 Vaccination Date: N/A Past Medical History Surgery/Hospitalization HX: cardiac ablation, ppm, c-sect, hysterectomy, cholecystectomy, lumbar laminectomy, heart cath, htn, iddm, gerd, high cholesterol, a-fib, peripheral neuropathy, cva Surgeries: Yes Cardiac, Section, Gallbladder, Hysterectomy, Orthopedic, Pacemaker Respiratory: Yes COPD Cardiac: Yes (PACEMAKER, CARDIAC ABLATION, MAZE PROCEDURE, LEFT APPENDAGE CLIPPED) Atrial Fibrillation, High Cholesterol, Hypertension, Irregular Heartbeat Neurological: Yes (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;HX OF CVA 2019-NO RESIDUAL) Neuropathy, Stroke Reproductive Disorders: No Genitourinary: Yes Bladder Infection Gastrointestinal: Yes Gastroesophageal Reflux Musculoskeletal: Yes Chronic Back Pain Endocrine: Yes (INSULIN PUMP) Diabetes, Insulin dep HEENT: Yes (DIABETIC RETINOPATHY) Cancer: No Psychosocial: No Integumentary: No Blood Disorders: No Family Medical History PAST SURGICAL HISTORY: -LEFT EYE SURGERY FOR RETINAL BLEED 3 YEARS AGO - X 2 IN 1969, 1970 -HYSTERECTOMY 1979 -CHOLECYSTECTOMY ( OPEN ) 1983 -LEFT FOOT SURGERY 7 YEARS AGO -LUMBAR LAMINECTOMY 20 YEARS AGO -PACEMAKER 4 YEARS AGO -CARDIAC ABLATION 05/2019 -MAZE PROCEDURE 05/2020 -LEFT LATERAL APPENDAGE CLIP 05/2020 -PT REPORTS CARDIAC CATH DONE IN IN 2019 SHOWED NO SIGNIFICANT CAD. ECHOCARDIOGRAM 09/28/20--EF 55-60% MPI 09/29/20--NO INSCHEMIA OR INFARCTIONS Physical Exam Vital Signs Vital Signs - First Documented 11/04/21 21:20 Temp 36.9 Pulse 95 B/P (MAP) 167/68 (101) Pulse Ox 16 O2 Delivery Room Air Capillary Refill : Less Than 3 Seconds Height, Weight, BMI Height: 5'1.00" Weight: 151lbs. 0.0oz. [id number]; 27.00 BMI Method:Stated General Appearance: No Apparent Distress, WD/WN Eyes: Bilateral Eye Normal Inspection, Bilateral Eye PERRL, Bilateral Eye EOMI HEENT: PERRL/EOMI, TMs Normal, Normal ENT Inspection, Pharynx Normal, Moist Mucous Membranes Neck: Full Range of Motion, Normal Inspection Respiratory: Chest Non Tender, Lungs Clear, Normal Breath Sounds, No Accessory Muscle Use, No Respiratory Distress Cardiovascular: Regular Rate, Rhythm, No Edema Gastrointestinal: Normal Bowel Sounds, Non Tender, Soft Neurologic/Psychiatric: Alert, Oriented x3, No Motor/Sensory Deficits, Normal Mood/Affect, product 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 II-XII Norm as Tested, Other (Patient has mottled speech and difficult, expressive aphasia which is her baseline) Skin: Normal Color, Warm/Dry Progress/Results/Core Measures Suspected Sepsis SIRS Temperature: Pulse: 95 Respiratory Rate: Blood Pressure 167 /68 Mean: 101 Results/Orders Vital Signs/I&O 11/04/21 21:20 Temp 36.9 Pulse 95 B/P (MAP) 167/68 (101) Pulse Ox 16 O2 Delivery Room Air Capillary Refill : Less Than 3 Seconds Blood Pressure Mean: 101 Progress Note : Time: 21:37 Progress Note Shirley patient has been seen by this provider and had some physical exam and history taken she has declined a proper medical screening exam for emergency. She has declined EKG, IV blood work, chest x-ray etc. We did explain to her the risks that would be entailed if she was having a heart attack, or other dangerous reasons to have chest pain and she states that she accepts these risks and will follow up with Dr. Zayas. She does not want any further work-up at this time and is oriented x4. She is at her baseline for mentation. She has her sister and brother present and they will take her home. She has normal, aseptic vital signs. EMS report did not even endorse any chest pain at any time. Departure Impression Primary Impression: Chest pain Qualified Codes: R07.9 - Chest pain, unspecified Additional Impression: Dyspnea Qualified Codes: R06.02 - Shortness of breath Disposition: 07 AGAINST MEDICAL ADVICE Condition: Against Medical Advice Departure-Patient Inst. Decision time for Depature: 21:39 Referrals: FERNANDO ZAYAS MD (PCP/Family) Primary Care Physician Patient Instructions: Chest Pain (DC) Add. Discharge Instructions: Follow-up with Dr. Zayas at your earliest convenience. Return to the ER promptly at any time if you have repeat symptoms or need help with shortness of air, chest pain etc. 81 mg aspirin daily would be mendoza given your symptoms until you have further work-up done All discharge instructions reviewed with patient and/or family. Voiced understanding. RON ROBBINS Nov 04, 2021 21:40
[2021-11-04 21:42] VITALS: BP 165/70
== END 2021-11-04 21:49 | disposition left against medical advice (07) ==
LOC: EDUNIT# 21:18 → ER 21:20
DX: R07.9 Chest pain, unspecified (principal); R06.00 Dyspnea, unspecified; E11.9 Type 2 diabetes mellitus without complications; Z79.4 Long term (current) use of insulin
CPT/HCPCS: 99285

== ENCOUNTER 2021-12-28 13:23 | Outpatient (RCR) | payer BC, MEDICARE ==
[~2021-12-28 13:23] MED LIST changes: +OMEP20TA56 PO; -OMEP20TA7 PO
[2021-12-28 13:30] VITALS: BP 160/74
== END 2022-01-20 | disposition home or self-care (01) ==
LOC: SDC 13:23
PROVIDERS: ATTEND Nurse Practitioner Family
DX: Z45.2 Encounter for adjustment and management of vascular access device (principal); Z79.2 Long term (current) use of antibiotics
CPT/HCPCS: 36569; 76937; C1751

== ENCOUNTER 2021-12-31 01:11 | Emergency (ER) | payer MEDICARE ==
[2021-12-31 01:42] LABS: BASOPHILS % (AUTO) 0 % (0-10); EOSINOPHILS % (AUTO) 0 % (0-10); LYMPHOCYTES # (AUTO) 0.9 10^3/uL (1.0-4.0); LYMPHOCYTES % (AUTO) 17 % (12-44); MEAN CORPUSCULAR HEMOGLOBIN 27 pg (25-34); MEAN CORPUSCULAR HGB CONC 32 g/dL (32-36); MEAN CORPUSCULAR VOLUME 84 fL (80-99); MEAN PLATELET VOLUME 7.9 fL (9.0-12.2); MONOCYTES # (AUTO) 0.3 10^3/uL (0.0-1.0); MONOCYTES % (AUTO) 5 % (0-12); NEUTROPHILS % (AUTO) 77 % (42-75); PLATELET COUNT 150 10^3/uL (130-400); WHITE BLOOD COUNT 5.2 10^3/uL (4.3-11.0)
[2021-12-31 01:47] LABS: HEMATOCRIT 20 % (35-52); HEMOGLOBIN 6.5 g/dL (11.5-16.0)
[2021-12-31 01:56] LABS: ALBUMIN 2.9 GM/DL (3.2-4.5); INR 1.2 (0.8-1.4); POTASSIUM 3.5 MMOL/L (3.6-5.0)
[2021-12-31 01:56] LABS: BILIRUBIN,URINE NEGATIVE (NEGATIVE); CLARITY,URINE CLEAR; COLOR,URINE YELLOW; GLUCOSE, URINE (UA) NEGATIVE (NEGATIVE); KETONES,URINE NEGATIVE (NEGATIVE); LEUKOCYTE ESTERASE ,URINE NEGATIVE (NEGATIVE); NITRITE,URINE NEGATIVE (NEGATIVE); PH,URINE 7.5 (5-9); PROTEIN,URINE NEGATIVE (NEGATIVE)
[2021-12-31 01:59] LABS: TOTAL PROTEIN 6.3 GM/DL (6.4-8.2)
[2021-12-31 02:00] LABS: BILIRUBIN,TOTAL 0.5 MG/DL (0.1-1.0)
[2021-12-31 02:02] LABS: CREATININE SERUM 0.73 MG/DL (0.60-1.30)
[2021-12-31 02:07] LABS: BACTERIA,URINE TRACE /HPF; SQUAMOUS EPITHELIAL CELL,UR 0-2 /HPF
[2021-12-31] MEDS ORDERED: NS IV 500 ML 500 ML ONE (03:56)
[2021-12-31 04:00] VITALS: BP 95/45
[2021-12-31 04:20] VITALS: BP 96/52
[2021-12-31 04:41] VITALS: BP 118/59
--- NOTE | 2021-12-31 04:42 | ED General ---
General Chief Complaint: Fever-Adult/Adol Stated Complaint: FEVER Nursing Triage Note: TO ED VIA [facility] FROM [facility]. PER NX HOME PT HAD FEVER AND WAS GIVEN TYLENOL WHICH HELPED BUT THEN FEVER RETURNED. PT HAS RIGHT UPPER ARM PICC LINE FOR IV ANTIBIOTICS FOR ENDOCARDITIS. Source of Information: Patient, EMS, Old Records Exam Limitations: No Limitations History of Present Illness Date Seen by Provider: Dec 31, 2021 Time Seen by Provider: 01:12 Initial Comments This 71-year-old woman presents to the emergency room via EMS [facility] with concerns about fever, confusion, and bleeding around her PICC line. She reportedly has history of endocarditis which is currently being treated with IV ampicillin. She was admitted to the custodial 3 or 4 days ago. They report confusion that has been present since this admission to the custodial. Patient reportedly had a fever for EMS of 101.9, but she is afebrile on arrival. She has a recent diagnosis of anemia and is scheduled for transfusion later in the day. Allergies and Home Medications Allergies Coded Allergies: promethazine (Verified Allergy, Intermediate, 10/02/07) clindamycin (Verified Allergy, Unknown, 09/27/20) hydrocodone (Verified Allergy, Unknown, 09/27/20) morphine (Verified Allergy, Unknown, 09/27/20) Patient Home Medication List Home Medication List Reviewed: Yes Amoxicillin/Potassium Clav (Augmentin 875-125 Tablet) 1 Each Tablet, 1 EACH PO BID Prescribed by: DENIZ ROCHA on 07/29/21 1230 Celecoxib (Celecoxib) 100 Mg Capsule, 100 MG PO BID PRN for ARTHRITIS PAIN, (Reported) Entered as Reported by: JOLIE العراقي on 07/26/212153 Colchicine (Colchicine) 0.6 Mg Tablet, 0.6 MG PO BID, (Reported) Entered as Reported by: JOLIE العراقي on 07/26/212153 Insulin Aspart (Novolog) 100 Unit/1 Ml Susp, UNITS SC PER PUMP, (Reported) Entered as Reported by: KINZA CHAVIRA on 09/28/20 100 Metoprolol Succinate (Metoprolol Succinate) 50 Mg Tab.er.24h, 50 MG PO DAILY, (Reported) Entered as Reported by: KINZA CHAVIRA on 09/28/20 100 Potassium Chloride (K-Tab ER) 10 Meq Tablet.er, 10 MEQ PO DAILY, (Reported) Entered as Reported by: KINZA CHAVIRA on 09/28/20 1009 Pravastatin Sodium (Pravastatin Sodium) 20 Mg Tablet, 20 MG PO HS, (Reported) Entered as Reported by: KINZA CHAVIRA on 09/28/20 1009 Quetiapine Fumarate (Seroquel) 25 Mg Tablet, 25 MG PO HS Prescribed by: EMMIE ROJAS on 10/22/21 7268 Sacubitril/Valsartan (Entresto 24 mg-26 mg Tablet) 1 Each Tablet, 1 EA PO BID, (Reported) Entered as Reported by: KINZA CHAVIRA on 09/28/20 1009 Terbinafine HCl (Terbinafine HCl) 250 Mg Tablet, 250 MG PO DAILY, (Reported) Entered as Reported by: JOLIE العراقي on 07/26/212153 Review of Systems Review of Systems Constitutional: see HPI EENTM: no symptoms reported Respiratory: no symptoms reported Cardiovascular: see HPI Gastrointestinal: no symptoms reported Genitourinary: no symptoms reported Musculoskeletal: no symptoms reported Skin: no symptoms reported Psychiatric/Neurological: See HPI Hematologic/Lymphatic: No Symptoms Reported Immunological/Allergic: no symptoms reported Past Rlxftbh-Rqpiah-Hgsszx Hx Patient Social History Tobacco Use?: No Substance use?: No Alcohol Use?: No Immunizations Up To Date Tetanus Booster (TDap): Unknown First/Initial COVID19 Vaccinat: 03/13 Second COVID19 Vaccination Jamie: 04/13 Third COVID19 Vaccination Date: N/A Past Medical History Surgery/Hospitalization HX: cardiac ablation, ppm, c-sect, hysterectomy, cholecystectomy, lumbar laminectomy, heart cath, htn, iddm, gerd, high cholesterol, a-fib, peripheral neuropathy, cva, ENDOCARDITIS Surgeries: Yes Cardiac, Section, Gallbladder, Hysterectomy, Orthopedic, Pacemaker Respiratory: Yes COPD Cardiac: Yes (PACEMAKER, CARDIAC ABLATION, MAZE PROCEDURE, LEFT APPENDAGE CL IPPED) Atrial Fibrillation, High Cholesterol, Hypertension, Irregular Heartbeat Neurological: Yes (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;HX OF CVA 2019-NO RESIDUAL) Neuropathy, Stroke Reproductive Disorders: No Genitourinary: Yes Bladder Infection Gastrointestinal: Yes Gastroesophageal Reflux Musculoskeletal: Yes Chronic Back Pain Endocrine: Yes (INSULIN PUMP) Diabetes, Insulin dep HEENT: Yes (DIABETIC RETINOPATHY) Cancer: No Psychosocial: No Integumentary: No Blood Disorders: No Family Medical History PAST SURGICAL HISTORY: -LEFT EYE SURGERY FOR RETINAL BLEED 3 YEARS AGO - X 2 IN 1969, 1970 -HYSTERECTOMY 1979 -CHOLECYSTECTOMY ( OPEN ) 1983 -LEFT FOOT SURGERY 7 YEARS AGO -LUMBAR LAMINECTOMY 20 YEARS AGO -PACEMAKER 4 YEARS AGO -CARDIAC ABLATION 05/2019 -MAZE PROCEDURE 05/2020 -LEFT LATERAL APPENDAGE CLIP 05/2020 -PT REPORTS CARDIAC CATH DONE IN IN 2019 SHOWED NO SIGNIFICANT CAD. ECHOCARDIOGRAM 09/28/20--EF 55-60% MPI 09/29/20--NO INSCHEMIA OR INFARCTIONS Physical Exam Vital Signs Vital Signs - First Documented Capillary Refill : Less Than 3 Seconds Height, Weight, BMI Height: 5'1.00" Weight: 151lbs. 0.0oz. 68.398110iq; 27.00 BMI Method:Stated General Appearance: No Apparent Distress, WD/WN, Thin HEENT: PERRL/EOMI, Normal ENT Inspection, Pharynx Normal Neck: Normal Inspection Respiratory: Lungs Clear, Normal Breath Sounds, No Accessory Muscle Use Cardiovascular: Regular Rate, Rhythm, No Edema, No Murmur Gastrointestinal: Normal Bowel Sounds, Non Tender, Soft; No Distended Extremity: Normal Inspection, No Pedal Edema Neurologic/Psychiatric: Alert, No Motor/Sensory Deficits, floor covering printer II-XII Norm as Tested, Other (Confused conversation) Skin: Normal Color, Warm/Dry Focused Exam Lactate Level 12/31/21 01:29: Lactic Acid Level 1.08 Lactic Acid Level Laboratory Tests Test 12/31/21 01:29 Lactic Acid Level 1.08 MMOL/L (0.50-2.00) Progress/Results/Core Measures Suspected Sepsis SIRS Temperature: Pulse: 75 Respiratory Rate: 16 Laboratory Tests 12/31/21 01:29: White Blood Count 5.2 Blood Pressure 96 /52 Mean: 67 12/31/21 01:29: Lactic Acid Level 1.08 Laboratory Tests 12/31/21 01:29: Creatinine 0.73, INR Comment 1.2, Platelet Count 150, Total Bilirubin 0.5 Results/Orders Lab Results Laboratory Tests Test 12/31/21 01:29 12/31/21 01:34 Range/Units White Blood Count 5.2 4.3-11.0 10^3/uL Red Blood Count 2.42 L 3.80-5.11 10^6/uL Hemoglobin 6.5 *L 11.5-16.0 g/dL Hematocrit 20 *L 35-52 % Mean Corpuscular Volume 84 80-99 fL Mean Corpuscular Hemoglobin 27 25-34 pg Mean Corpuscular Hemoglobin Concent 32 32-36 g/dL Red Cell Distribution Width 21.8 H 10.0-14.5 % Platelet Count 150 130-400 10^3/uL Mean Platelet Volume 7.9 L 9.0-12.2 fL Immature Granulocyte % (Auto) 1 % Neutrophils (%) (Auto) 77 H 42-75 % Lymphocytes (%) (Auto) 17 12-44 % Monocytes (%) (Auto) 5 0-12 % Eosinophils (%) (Auto) 0 0-10 % Basophils (%) (Auto) 0 0-10 % Neutrophils # (Auto) 4.0 1.8-7.8 10^3/uL Lymphocytes # (Auto) 0.9 L 1.0-4.0 10^3/uL Monocytes # (Auto) 0.3 0.0-1.0 10^3/uL Eosinophils # (Auto) 0.0 0.0-0.3 10^3/uL Basophils # (Auto) 0.0 0.0-0.1 10^3/uL Immature Granulocyte # (Auto) 0.0 0.0-0.1 10^3/uL Prothrombin Time 16.0 H 12.2-14.7 SEC INR Comment 1.2 0.8-1.4 Activated Partial Thromboplast Time 39 H 24-35 SEC Sodium Level 136 135-145 MMOL/L Potassium Level 3.5 L 3.6-5.0 MMOL/L Chloride Level 104 98-107 MMOL/L Carbon Dioxide Level 23 21-32 MMOL/L Anion Gap 9 5-14 MMOL/L Blood Urea Nitrogen 13 7-18 MG/DL Creatinine 0.73 0.60-1.30 MG/DL Estimat Glomerular Filtration Rate 88 BUN/Creatinine Ratio 18 Glucose Level 122 H 70-105 MG/DL Lactic Acid Level 1.08 0.50-2.00 MMOL/L Calcium Level 8.0 L 8.5-10.1 MG/DL Corrected Calcium 8.9 8.5-10.1 MG/DL Total Bilirubin 0.5 0.1-1.0 MG/DL Aspartate Amino Transf (AST/SGOT) 17 5-34 U/L Alanine Aminotransferase (ALT/SGPT) 6 0-55 U/L Alkaline Phosphatase 66 40-136 U/L C-Reactive Protein High Sensitivity 3.50 H 0.00-0.50 MG/DL Total Protein 6.3 L 6.4-8.2 GM/DL Albumin 2.9 L 3.2-4.5 GM/DL Procalcitonin 0.08 <0.10 NG/ML Urine Color YELLOW Urine Clarity CLEAR Urine pH 7.5 5-9 Urine Specific [place] 1.010 L 1.016-1.022 Urine Protein NEGATIVE NEGATIVE Urine Glucose (UA) NEGATIVE NEGATIVE Urine Ketones NEGATIVE NEGATIVE Urine Nitrite NEGATIVE NEGATIVE Urine Bilirubin NEGATIVE NEGATIVE Urine Urobilinogen 0.2 < = 1.0 MG/DL Urine Leukocyte Esterase NEGATIVE NEGATIVE Urine RBC (Auto) NEGATIVE NEGATIVE Urine RBC 2-5 H /HPF Urine WBC NONE /HPF Urine Squamous Epithelial Cells 0-2 /HPF Urine Crystals NONE /LPF Urine Bacteria TRACE /HPF Urine Casts NONE /LPF Urine Mucus NEGATIVE /LPF Urine Culture Indicated CULTURE PENDING My Orders Orders - EMMIE CHAMPAGNE MD Cbc With Automated Diff (12/31/21:) Comprehensive Metabolic Panel (12/31/21:) Blood Culture (12/31/21:) Sputum Culture (12/31/21:) Urinalysis (12/31/21:22) Urine Culture (12/31/21:22) Protime With Inr (12/31/21:) Partial Thromboplastin Time (12/31/21:22) Chest 1 View, Ap/Pa Only (12/31/21:22) Ed Iv/Invasive Line Start (12/31/21:22) Vital Signs Adult Sepsis Patie Q15M (12/31/21:22) O2 (12/31/21:22) Remove Rings In Anticipation O (12/31/21:22) Lactic Acid Analyzer (12/31/21:22) Hs C Reactive Protein (12/31/21:22) Procalcitonin (Pct) (12/31/21:22) Red Cells Leukocytes Reduced (12/31/21 01:54) Type And Screen (12/31/21 01:54) Ns Iv 500 Ml (Sodium Chloride 0.9%) (12/31/21 03:56) Medications Given in ED Current Medications Medications Dose Ordered Sig/Mariza Route Start Time Stop Time Status Last Admin Dose Admin Sodium Chloride 500 ml @ ud STK-MED ONCE .ROUTE 12/31/21 03:56 12/31/21 04:17 DC 12/31/21 04:18 150 MLS/HR Vital Signs/I&O 12/31/21 12/31/21 12/31/21 12/31/21 01:14 01:14 04:00 04:20 Temp 37.2 36.4 36.0 Pulse 89 70 75 Resp 16 16 16 B/P (MAP) 101/44 (63) 95/45 96/52 Pulse Ox 97 100 100 O2 Delivery Room Air Room Air Room Air Simple Mask 12/31/21 04:41 Temp 35.4 Pulse 74 Resp 16 B/P (MAP) 118/59 Pulse Ox 100 O2 Delivery Room Air Capillary Refill : Less Than 3 Seconds Blood Pressure Mean: 67 Progress Note : Time: 04:50 Progress Note Work-up did not reveal evidence of sepsis. Patient was afebrile while in the ER. Due to significant anemia, transfusion was administered. Patient was stable for discharge back to the custodial with continued IV antibiotic therapy. PICC line did have blood beneath the dressing but did not demonstrate active bleeding while in the ER. They did function well with blood draw and flush. Diagnostic Imaging Diagonstic Imaging: Xray Plain Films/CT/US/NM/MRI: chest Comments Chest x-ray viewed by me. Report not yet available. No acute abnormality appreciated. Departure Impression Primary Impression: Severe anemia Additional Impression: Antibiotic long-term use Disposition: HOME, SELF-CARE Condition: Improved Departure-Patient Inst. Decision time for Depature: 04:39 Referrals: YOLANDA BARRAGAN MD (PCP/Family) Primary Care Physician Patient Instructions: Blood Transfusion Add. Discharge Instructions: Contact the primary care provider later this morning for further instructions. 1 unit of packed red blood cells was transfused in the ER due to severe anemia. No signs of sepsis were observed in the emergency room work-up. Admission for treatment of infection was therefore not necessary. Continue IV antibiotic therapy as directed. Blood under the PICC line dressing was noted but there was no active bleeding observed in the ER. PICC line appeared to function normally. Please monitor the PICC line for bleeding and functionality. Discuss PICC line management with the primary care provider. Call with questions or concerns, and return to the ER if there are worsening symptoms. All discharge instructions reviewed with patient and/or family. Voiced understanding. Copy Copies To 1: YOLANDA BARRAGAN MD Copies To 2: NALINI HIGHTOWER APRN, JOSHUA T MD Dec 31, 2021 04:42
[2021-12-31 05:09] VITALS: BP 115/54
--- NOTE | 2021-12-31 06:02 | Diagnostic Imaging Report ---
INDICATION: 71-year-old female with fever. COMPARISONS: 10/22/2021 FINDINGS: Single view of the chest shows prominent central lung markings. Some perihilar infiltrates. Background chronic parenchymal changes are present. Right-sided PICC line is seen with the tip projected over the SVC. There is a dual-chamber left-sided pacer. Soft tissues and bony thorax are unremarkable. IMPRESSION: Some perihilar infiltrates with some background chronic parenchymal changes. Dictated by: Dictated on workstation # [id number]
== END 2021-12-31 05:08 | disposition home or self-care (01) ==
LOC: EDUNIT# 01:11 → ER 01:12
DX: D64.9 Anemia, unspecified (principal); E11.42 Type 2 diabetes mellitus with diabetic polyneuropathy; E11.319 Type 2 diabetes mellitus with unspecified diabetic retinopathy without macular edema; Z79.2 Long term (current) use of antibiotics; Z95.9 Presence of cardiac and vascular implant and graft, unspecified; Z79.4 Long term (current) use of insulin; Z86.79 Personal history of other diseases of the circulatory system; Z88.1 Allergy status to other antibiotic agents
CPT/HCPCS: 71045; 80053; 81000; 83605; 84145; 85025; 85610; 85730; 86141; 86850; 86900; 86901; 86920; 87040; 87088; 99284; P9016; 36415

== ENCOUNTER → 2022-02-01 | Outpatient (CLI) | payer MEDICARE ==
--- NOTE | 2022-02-01 14:21 | Diagnostic Imaging Report ---
PROCEDURE: CT head without contrast. TECHNIQUE: Multiple contiguous axial images were obtained through the brain without the use of intravenous contrast. Auto Exposure Controls were utilized during the CT exam to meet ALARA standards for radiation dose reduction. INDICATION: Confusion and hallucinations. Correlation is made with prior head CT 10/22/2021. The ventricles and sulci are within normal limits. No sulcal effacement is seen. There is no midline shift. No acute intra-axial or extra-axial hemorrhage is detected. Cisterns are patent. Visualized paranasal sinuses are clear. IMPRESSION: No acute intracranial process is detected. Dictated by: Dictated on workstation # [id number]
== END ==
LOC: RAD 13:34
PROVIDERS: ATTEND Nurse Practitioner Family
DX: R41.0 Disorientation, unspecified (principal); R44.3 Hallucinations, unspecified
CPT/HCPCS: 70450

== ENCOUNTER → 2022-02-21 | Outpatient (CLI) | payer MEDICARE | LOC: CARD 13:30 | PROVIDERS: ATTEND Internal Medicine Cardiovascular Disease | DX: I08.3 Combined rheumatic disorders of mitral, aortic and tricuspid valves (principal); Z86.79 Personal history of other diseases of the circulatory system | CPT/HCPCS: 93306 ==

== ENCOUNTER 2022-03-07 10:52 | Outpatient (CLI) | payer MEDICARE ==
[2022-03-07 11:00] VITALS: BP 102/97
[2022-03-07] MEDS ORDERED: LINEZOLID IVPB 300 ML IV SCH (11:30)
--- NOTE | 2022-03-07 12:09 | Diagnostic Imaging Report ---
EXAMINATION: Chest, 1 view. HISTORY: PICC placement. COMPARISON: 12/31/2021. FINDINGS: A right PICC is in place with the tip overlying the low SVC. Stable left pectoral pacemaker. The lung volumes are normal. No focal consolidation is seen. No large pleural effusion or pneumothorax is seen. The cardiomediastinal silhouette is stable in size. A left atrial appendage closure device is again noted. No acute osseous abnormality is seen. IMPRESSION: 1. No focal consolidation or pleural effusion. 2. Right PICC with the tip overlying the low SVC. Dictated by: Dictated on workstation # [id number]
== END 2022-03-07 13:35 | disposition home or self-care (01) ==
LOC: SDC 10:52
PROVIDERS: ATTEND Nurse Practitioner Family
DX: Z45.2 Encounter for adjustment and management of vascular access device (principal)
CPT/HCPCS: 36569; 71045; 76937; 96365; C1751

== ENCOUNTER 2022-03-10 10:50 | Outpatient (CLI) | payer MEDICARE ==
[~2022-03-10] VITALS: Wt 58.5 kg
[2022-03-10 11:30] VITALS: BP 127/57
[2022-03-10] MEDS ORDERED: NS IV 500 ML 500 ML IV SCH (11:30)
[2022-03-10 16:31] VITALS: BP 158/67
[2022-03-10 17:22] VITALS: BP 158/67
[2022-03-10 17:44] VITALS: BP 160/82
[2022-03-10 19:38] VITALS: BP 156/82
[2022-03-10 20:27] LABS: HEMOGLOBIN 8.9 g/dL (11.5-16.0)
[2022-03-10 21:14] VITALS: BP 156/82
== END 2022-03-10 21:14 ==
LOC: SDC 10:50
PROVIDERS: ATTEND Nurse Practitioner Family
DX: D64.9 Anemia, unspecified (principal)
CPT/HCPCS: 36430; 85014; 85018; 86850; 86870; 86900; 86901; 86920; P9016; 36415

== ENCOUNTER 2022-04-05 08:02 | Outpatient (RCR) | payer MEDICARE ==
[2022-04-05 08:22] VITALS: BP 110/78
[2022-04-05 08:31] LABS: HEMOGLOBIN 7.3 g/dL (11.5-16.0)
[2022-04-05 09:15] VITALS: BP 112/81
[2022-04-05 09:16] VITALS: BP 110/78
[2022-04-05 11:00] VITALS: BP 115/80
[2022-04-05 11:14] LABS: HEMOGLOBIN 8.9 g/dL (11.5-16.0)
[2022-04-05 11:50] VITALS: BP 115/80
[2022-04-16] MEDS ORDERED: CEPH500T PO (17:20)
== END 2022-04-22 | disposition home or self-care (01) ==
LOC: SDC 08:02
PROVIDERS: ATTEND Nurse Practitioner Family
DX: D64.9 Anemia, unspecified (principal)
CPT/HCPCS: 36415; 36430; 85014; 85018; 86850; 86870; 86900; 86901; 86902; 86922

== ENCOUNTER 2022-04-15 12:51 | Outpatient (CLI) | payer MEDICARE ==
[~2022-04-15] VITALS: Ht 157.5 cm; Wt 45.8 kg
[2022-04-16] MEDS ORDERED: CEPH500T PO (17:20)
== END 2022-04-18 14:01 | disposition home or self-care (01) ==
LOC: PREOP 12:51
PROVIDERS: ATTEND Surgery
DX: Z01.818 Encounter for other preprocedural examination (principal)

== ENCOUNTER 2022-04-15 16:33 | Outpatient (RCR) | payer MEDICARE ==
[2022-04-15 16:52] LABS: HEMOGLOBIN 8.6 g/dL (11.5-16.0)
[2022-04-16] MEDS ORDERED: CEPH500T PO (17:20)
== END 2022-04-22 | disposition home or self-care (01) ==
LOC: LAB 16:33
PROVIDERS: ATTEND Nurse Practitioner Family
DX: D50.0 Iron deficiency anemia secondary to blood loss (chronic) (principal)
CPT/HCPCS: 36415; 85014; 85018

== ENCOUNTER 2022-04-16 11:49 | Emergency (ER) | payer MEDICARE ==
[~2022-04-16] VITALS: Ht 152.4 cm; Wt 58.9 kg
[2022-04-16 12:35] LABS: BASOPHILS % (AUTO) 0 % (0-10); EOSINOPHILS % (AUTO) 1 % (0-10)
[2022-04-16 12:36] LABS: HEMATOCRIT 21 % (35-52); LYMPHOCYTES # (AUTO) 1.2 10^3/uL (1.0-4.0); LYMPHOCYTES % (AUTO) 42 % (12-44); MEAN CORPUSCULAR HEMOGLOBIN 28 pg (25-34); MEAN CORPUSCULAR HGB CONC 33 g/dL (32-36); MEAN CORPUSCULAR VOLUME 87 fL (80-99); MEAN PLATELET VOLUME 8.5 fL (9.0-12.2); MONOCYTES # (AUTO) 0.1 10^3/uL (0.0-1.0); MONOCYTES % (AUTO) 4 % (0-12); NEUTROPHILS # (AUTO) 1.5 10^3/uL (1.8-7.8); NEUTROPHILS % (AUTO) 52 % (42-75); PLATELET COUNT 97 10^3/uL (130-400); WHITE BLOOD COUNT 2.8 10^3/uL (4.3-11.0)
[2022-04-16 12:39] LABS: HEMOGLOBIN 6.9 g/dL (11.5-16.0)
[2022-04-16 12:44] LABS: ALBUMIN 3.6 GM/DL (3.2-4.5)
[2022-04-16 12:45] LABS: POTASSIUM 4.6 MMOL/L (3.6-5.0)
[2022-04-16 12:46] LABS: CALCIUM 8.9 MG/DL (8.5-10.1)
[2022-04-16 12:47] LABS: TOTAL PROTEIN 6.8 GM/DL (6.4-8.2)
[2022-04-16 12:49] LABS: BILIRUBIN,TOTAL 0.3 MG/DL (0.1-1.0)
[2022-04-16 12:50] LABS: CREATININE SERUM 0.86 MG/DL (0.60-1.30)
[2022-04-16 13:22] LABS: BILIRUBIN,URINE NEGATIVE (NEGATIVE); CLARITY,URINE CLEAR; COLOR,URINE YELLOW; GLUCOSE, URINE (UA) NEGATIVE (NEGATIVE); KETONES,URINE NEGATIVE (NEGATIVE); LEUKOCYTE ESTERASE ,URINE 3+ (NEGATIVE); NITRITE,URINE POSITIVE (NEGATIVE); PROTEIN,URINE NEGATIVE (NEGATIVE)
[2022-04-16 13:43] LABS: BACTERIA,URINE LARGE /HPF; RBC,URINE 0-2 /HPF; WBC,URINE 50-100 /HPF
--- NOTE | 2022-04-16 13:49 | ED General ---
General Chief Complaint: Dizziness/Syncope Stated Complaint: WEAKNESS Nursing Triage Note: pt to room by wheelchair. this rn obtained report from [facility] care and director of rehabilitation for pt. pt is A&O to person and place at baseline. rn reports pt had hgb drawn twice yesterday. one resulted 7.1 and the other resulted 8.6. pt has recent hx of blood transfusions and chronically low hbg per nursing report. residential report states pt "almost passed out" in her room today and her roommate caught her so nurse sent her for recheck of hgb. pt can ambulate but uses wheelchair most times. pt also has picc line to right upper arm for recent iv antibiotic therapy for endocarditis per nurse report (JIAN WALSH APRN) History of Present Illness Date Seen by Provider: Apr 16, 2022 Time Seen by Provider: 12:20 Initial Comments Patient is a 72 yo F who presents to the ED from her residential where she had a near syncopal episode earlier today. Patient has a h/o anemia of unknown etiology and has had several blood transfusions in the past several weeks. Her hemoglobin yesterday was reportedly 7.1 at the nursing facility. Pt denies any bloody vomitus or stools. She states she is going "to a different hospital on Monday for more tests" to figure out more of the cause of her anemia. She denies any chest pain, shortness of air, diaphoresis, vision change, headache. No recent medication changes. Pt is not on anticoagulation. (JIAN WALSH APRN) Allergies and Home Medications Allergies Coded Allergies: promethazine (Verified Allergy, Intermediate, 10/02/07) clindamycin (Verified Allergy, Unknown, 09/27/20) hydrocodone (Verified Allergy, Unknown, 09/27/20) morphine (Verified Allergy, Unknown, 09/27/20) Patient Home Medication List Home Medication List Reviewed: Yes (JIAN WALSH APRN) Amoxicillin/Potassium Clav (Augmentin 875-125 Tablet) 1 Each Tablet, 1 EACH PO BID Prescribed by: DENIZ ROCHA on 07/29/21 1230 Celecoxib (Celecoxib) 100 Mg Capsule, 100 MG PO BID PRN for ARTHRITIS PAIN, (Reported) Entered as Reported by: JOLIE العراقي on 07/26/212153 Cephalexin (Cephalexin) 500 Mg Tablet, 500 MG PO TID Prescribed by: Jian Walsh on 04/16/22 1720 Colchicine (Colchicine) 0.6 Mg Tablet, 0.6 MG PO BID, (Reported) Entered as Reported by: JOLIE العراقي on 07/26/212153 Insulin Aspart (Novolog) 100 Unit/1 Ml Susp, UNITS SC PER PUMP, (Reported) Entered as Reported by: KINZA CHAVIRA on 09/28/20 100 Metoprolol Succinate (Metoprolol Succinate) 50 Mg Tab.er.24h, 50 MG PO DAILY, (Reported) Entered as Reported by: KINZA CHAVIRA on 09/28/20 100 Potassium Chloride (K-Tab ER) 10 Meq Tablet.er, 10 MEQ PO DAILY, (Reported) Entered as Reported by: KINZA CHAVIRA on 09/28/20 100 Pravastatin Sodium (Pravastatin Sodium) 20 Mg Tablet, 20 MG PO HS, (Reported) Entered as Reported by: KINZA CHAVIRA on 09/28/20 100 Quetiapine Fumarate (Seroquel) 25 Mg Tablet, 25 MG PO HS Prescribed by: EMMIE ROJAS on 10/22/21 183 Sacubitril/Valsartan (Entresto 24 mg-26 mg Tablet) 1 Each Tablet, 1 EA PO BID, (Reported) Entered as Reported by: KINZA CHAVIRA on 09/28/20 100 Terbinafine HCl (Terbinafine HCl) 250 Mg Tablet, 250 MG PO DAILY, (Reported) Entered as Reported by: JOLIE العراقي on 07/26/212153 Review of Systems Review of Systems Constitutional: weakness EENTM: no symptoms reported Respiratory: no symptoms reported Cardiovascular: no symptoms reported Gastrointestinal: no symptoms reported Musculoskeletal: no symptoms reported Skin: no symptoms reported Psychiatric/Neurological: No Symptoms Reported (JIAN WALSH APRN) Past Pzpdgmp-Qptfpw-Vxqlli Hx Patient Social History Tobacco Use?: No Use of E-Cig and/or Vaping dev: No Substance use?: No Alcohol Use?: No (JIAN WALSH APRN) Immunizations Up To Date Tetanus Booster (TDap): Unknown Influenza Vaccine Up-to-Date: Yes; Up-to-Date First/Initial COVID19 Vaccinat: 03/13 Second COVID19 Vaccination Jamie: 04/13 Third COVID19 Vaccination Date: N/A (JIAN WALSH APRN) Past Medical History Surgery/Hospitalization HX: cardiac ablation, ppm, c-sect, hysterectomy, cholecystectomy, lumbar laminectomy, heart cath, htn, iddm, gerd, high cholesterol, a-fib, peripheral neuropathy, cva, ENDOCARDITIS Surgeries: Yes Cardiac, Section, Gallbladder, Hysterectomy, Orthopedic, Pacemaker Respiratory: Yes COPD Cardiac: Yes (PACEMAKER, CARDIAC ABLATION, MAZE PROCEDURE, LEFT APPENDAGE CLIPPED) Atrial Fibrillation, High Cholesterol, Hypertension, Irregular Heartbeat Neurological: Yes (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;HX OF CVA 2018-NO RESIDUAL) Neuropathy, Stroke Reproductive Disorders: No Genitourinary: Yes Bladder Infection Gastrointestinal: Yes Gastroesophageal Reflux Musculoskeletal: Yes Chronic Back Pain Endocrine: Yes (INSULIN PUMP) Diabetes, Insulin dep HEENT: Yes (DIABETIC RETINOPATHY) Cancer: No Psychosocial: No Integumentary: No Blood Disorders: No (JIAN WALSH APRN) Family Medical History PAST SURGICAL HISTORY: -LEFT EYE SURGERY FOR RETINAL BLEED 3 YEARS AGO - X 2 IN 1969, 1970 -HYSTERECTOMY 1979 -CHOLECYSTECTOMY ( OPEN ) 1983 -LEFT FOOT SURGERY 7 YEARS AGO -LUMBAR LAMINECTOMY 20 YEARS AGO -PACEMAKER 4 YEARS AGO -CARDIAC ABLATION 05/2019 -MAZE PROCEDURE 05/2020 -LEFT LATERAL APPENDAGE CLIP 05/2020 -PT REPORTS CARDIAC CATH DONE IN IN 2019 SHOWED NO SIGNIFICANT CAD. ECHOCARDIOGRAM 09/28/20--EF 55-60% MPI 09/29/20--NO INSCHEMIA OR INFARCTIONS (JIAN WALSH APRN) Physical Exam Vital Signs Vital Signs - First Documented 04/16/22 04/16/22 12:00 15:15 Temp 36.6 Pulse 80 Resp 16 B/P (MAP) 105/66 (79) Pulse Ox 100 O2 Delivery Room Air (EMMIE CHAMPAGNE MD) Vital Signs Capillary Refill : (JIAN WALSH APRN) Height, Weight, BMI Height: 5'1.00" Weight: 151lbs. 0.0oz. 68.943553lw; 25.00 BMI Method:Stated General Appearance: No Apparent Distress, WD/WN HEENT: PERRL/EOMI, TMs Normal, Normal ENT Inspection, Pharynx Normal Neck: Full Range of Motion, Normal Inspection, Non Tender, Supple Respiratory: Chest Non Tender, Lungs Clear, Normal Breath Sounds, No Accessory Muscle Use, No Respiratory Distress Cardiovascular: Regular Rate, Rhythm, No Edema, No Gallop, No JVD, No Murmur, Normal Peripheral Pulses Gastrointestinal: Normal Bowel Sounds, No Organomegaly, No Pulsatile Mass, Non Tender, Soft Back: Normal Inspection, No CVA Tenderness, No Vertebral Tenderness Extremity: Normal Capillary Refill, Normal Inspection, Normal Range of Motion, Non Tender, No Calf Tenderness, No Pedal Edema Neurologic/Psychiatric: Alert, Oriented x3, No Motor/Sensory Deficits, Normal Mood/Affect Skin: Pallor (mild) (JIAN WALSH [employer]CHO[employer] SERVICES OFFICER) Progress/Results/Core Measures Suspected Sepsis SIRS Temperature: Pulse: 80 Respiratory Rate: 16 Laboratory Tests 04/16/22 12:29: White Blood Count 2.8L Blood Pressure 105 /66 Mean: 79 Laboratory Tests 04/16/22 12:29: Creatinine 0.86, Platelet Count 97L, Total Bilirubin 0.3 (JIAN WALSH APRN) Results/Orders Lab Results Laboratory Tests Test 04/16/22 12:29 04/16/22 13:03 04/16/22 13:11 04/16/22 16:32 Range/Units White Blood Count 2.8 L 4.3-11.0 10^3/uL Red Blood Count 2.44 L 3.80-5.11 10^6/uL Hemoglobin 6.9 *L 8.6 #L 11.5-16.0 g/dL Hematocrit 21 L 26 L 35-52 % Mean Corpuscular Volume 87 80-99 fL Mean Corpuscular Hemoglobin 28 25-34 pg Mean Corpuscular Hemoglobin Concent 33 32-36 g/dL Red Cell Distribution Width 18.3 H 10.0-14.5 % Platelet Count 97 L 130-400 10^3/uL Mean Platelet Volume 8.5 L 9.0-12.2 fL Immature Granulocyte % (Auto) 0 % Neutrophils (%) (Auto) 52 42-75 % Lymphocytes (%) (Auto) 42 12-44 % Monocytes (%) (Auto) 4 0-12 % Eosinophils (%) (Auto) 1 0-10 % Basophils (%) (Auto) 0 0-10 % Neutrophils # (Auto) 1.5 L 1.8-7.8 10^3/uL Lymphocytes # (Auto) 1.2 1.0-4.0 10^3/uL Monocytes # (Auto) 0.1 0.0-1.0 10^3/uL Eosinophils # (Auto) 0.0 0.0-0.3 10^3/uL Basophils # (Auto) 0.0 0.0-0.1 10^3/uL Immature Granulocyte # (Auto) 0.0 0.0-0.1 10^3/uL Percent Immature Platelet Fraction 0.5 0.0-7.6 % Sodium Level 140 135-145 MMOL/L Potassium Level 4.6 3.6-5.0 MMOL/L Chloride Level 106 98-107 MMOL/L Carbon Dioxide Level 18 L 21-32 MMOL/L Anion Gap 16 H 5-14 MMOL/L Blood Urea Nitrogen 36 H 7-18 MG/DL Creatinine 0.86 0.60-1.30 MG/DL Estimat Glomerular Filtration Rate 72 BUN/Creatinine Ratio 42 Glucose Level 113 H 70-105 MG/DL Calcium Level 8.9 8.5-10.1 MG/DL Corrected Calcium 9.2 8.5-10.1 MG/DL Magnesium Level 2.0 1.6-2.4 MG/DL Total Bilirubin 0.3 0.1-1.0 MG/DL Aspartate Amino Transf (AST/SGOT) 25 5-34 U/L Alanine Aminotransferase (ALT/SGPT) 16 0-55 U/L Alkaline Phosphatase 57 40-136 U/L Total Protein 6.8 6.4-8.2 GM/DL Albumin 3.6 3.2-4.5 GM/DL Urine Color YELLOW Urine Clarity CLEAR Urine pH 5.0 5-9 Urine Specific [place] 1.010 L 1.016-1.022 Urine Protein NEGATIVE NEGATIVE Urine Glucose (UA) NEGATIVE NEGATIVE Urine Ketones NEGATIVE NEGATIVE Urine Nitrite POSITIVE H NEGATIVE Urine Bilirubin NEGATIVE NEGATIVE Urine Urobilinogen 0.2 < = 1.0 MG/DL Urine Leukocyte Esterase 3+ H NEGATIVE Urine RBC (Auto) TRACE-I H NEGATIVE Urine RBC 0-2 /HPF Urine WBC 50-100 H /HPF Urine Crystals NONE /LPF Urine Bacteria LARGE H /HPF Urine Casts NONE /LPF Urine Mucus NEGATIVE /LPF Urine Culture Indicated YES Glucometer 100 70-110 MG/DL (EMMIE CHAMPAGNE MD) My Orders Orders - EMMIE CHAMPAGNE MD Cbc With Automated Diff (04/16/22 11:57) Comprehensive Metabolic Panel (04/16/22 11:57) Magnesium (04/16/22 11:57) Ua Culture If Indicated (04/16/22 11:57) Ed Iv/Invasive Line Start (04/16/22 11:57) Accucheck Stat ONCE (04/16/22 11:57) Red Cells Leukocytes Reduced (04/16/22 12:43) Type And Screen (04/16/22 12:43) Urine Culture (04/16/22 13:03) (EMMIE CHAMPAGNE MD) Medications Given in ED Current Medications Medications Dose Ordered Sig/Mariza Route Start Time Stop Time Status Last Admin Dose Admin Ondansetron HCl 4 mg ONCE ONCE IVP 04/16/22 17:30 04/16/22 17:31 DC 04/16/22 17:31 4 MG Sodium Chloride 250 ml @ ud STK-MED ONCE .ROUTE 04/16/22 14:38 04/16/22 14:40 DC 04/16/22 15:00 30 MLS/HR (EMMIE CHAMPAGNE MD) Vital Signs/I&O 04/16/22 04/16/22 04/16/22 04/16/22 12:00 15:00 15:15 16:06 Temp 36.6 37.0 37.0 36.8 Pulse 80 80 81 84 Resp 16 18 18 16 B/P (MAP) 105/66 (79) 134/56 127/46 154/75 Pulse Ox 100 100 100 100 O2 Delivery Room Air 04/16/22 18:00 Pulse 72 B/P (MAP) 155/65 Pulse Ox 100 (EMMIE CHAMPAGNE MD) Vital Signs/I&O Capillary Refill : (JIAN WALSH APRN) Blood Pressure Mean: 79 Point of Care Testing Finger Stick Blood Glucose: 100 Blood Glucose Action Taken: RN NOTIFIED (JIAN WALSH APRN) Progress Note : Progress Note Patient is nontoxic and well hydrated on exam. Vital signs are reassuring. No tachycardia, hypotension, or hypoxia noted. No excessive bruising or petechiae noted. CBC notable for pancytopenia. Platelets are not low enough to need urgent repletion. One unit of PRBC were transfused with improvement in Hgb from 6.9 to over 8. Will d/c home with recs for supportive care and follow-up with PCP for persistent symptoms. Return precautions for urgent symptomology discussed. Patient verbalized understanding. (JIAN WALSH APRN) Departure Impression Primary Impression: Severe anemia Additional Impression: UTI (urinary tract infection) Qualified Codes: N30.00 - Acute cystitis without hematuria Disposition: HOME, SELF-CARE Condition: Stable Departure-Patient Inst. Decision time for Depature: 17:00 (JIAN WALSH APRN) Referrals: YOLANDA BARRAGAN MD (PCP/Family) Primary Care Physician Patient Instructions: Blood Transfusion, Urinary Tract Infection, Adult (DC) Scripts Cephalexin (Cephalexin) 500 Mg Tablet 500 MG PO TID for 7 Days, #21 TAB Prov: JIAN WALSH APRN 04/16/22 ATTENDING PHYSICIAN NOTE: I was physically present as attending physician in the emergency department during the care of this patient. I received triage report regarding this patient and placed initial orders including order for transfusion of a unit of packed red blood cells. Care was transitioned to ROSA Pantoja. After he assumed care I was not directly involved in the decision making or delivery of care for this patient. (EMMIE CHAMPAGNE MD) JIAN WALSH APRN Apr 16, 2022 13:49 EMMIE CHAMPAGNE MD Apr 16, 2022 20:06
[2022-04-16] MEDS ORDERED: NS (IVPB) 250 ML ONE (14:38)
[2022-04-16 15:00] VITALS: BP 134/56
[2022-04-16 15:15] VITALS: BP 127/46
[2022-04-16 16:06] VITALS: BP 154/75
[2022-04-16 16:58] LABS: HEMOGLOBIN 8.6 g/dL (11.5-16.0)
[2022-04-16] MEDS ORDERED: CEPH500T PO (17:20)
[2022-04-16] MEDS ORDERED: ONDANSETRON 4 MG/2 ML (SDV) Z0FRAN IVP ONE (17:30)
[2022-04-16 18:00] VITALS: BP 155/65
== END 2022-04-16 18:05 | disposition home or self-care (01) ==
LOC: EDUNIT# 11:49 → ER 11:50
DX: D64.89 Other specified anemias (principal); N39.0 Urinary tract infection, site not specified; D69.6 Thrombocytopenia, unspecified; Z88.1 Allergy status to other antibiotic agents
CPT/HCPCS: 80053; 81000; 82947; 83735; 85014; 85018; 85025; 86850; 86870; 86900; 86901; 86902; 86922; 87077; 87088; 99282; P9016; 36415; 87186

== ENCOUNTER 2022-04-19 10:36 | Day surgery (SDC) | payer MEDICARE ==
[~2022-04-19] VITALS: Ht 157.5 cm; Wt 45.8 kg
[~2022-04-19 10:36] MED LIST changes: +CEPH500T PO
[2022-04-19] MEDS ORDERED: LACTATED RINGERS 1,000 ML IV STA (10:38)
[2022-04-19] MEDS ORDERED: LACTATED RINGERS 1,000 ML IV ONE (10:41)
[2022-04-19] MEDS ORDERED: HURRICAINE EXT TUBE (BENZOCAINE) XX PRN (10:45)
[2022-04-19 10:50] VITALS: BP 147/64
--- NOTE | 2022-04-19 11:55 | Progress Note-Pre Operative ---
Pre-Operative Progress Note Date of Available H&P: Apr 15, 2022 Date H&P Reviewed: Apr 19, 2022 Time H&P Reviewed: 11:55 History & Physical: H&P Reviewed, Patient Examed, No changes noted Pre-Operative Diagnosis: blood in stool, iron def anemia FAHAD FELIX DO Apr 19, 2022 11:55
[2022-04-19] MEDS ORDERED: PROPOFOL INJECTION 50 ML IV ONE (13:44)
[2022-04-19] MEDS ORDERED: MIDAZOLAM 2 MG/2 ML (VERSED) VIAL ONE ×2 (13:44→13:45)
--- NOTE | 2022-04-19 14:46 | Anesthesia-General Post-Op ---
MAC Patient Condition Mental Status/LOC: Same as Preop Cardiovascular: Satisfactory Nausea/Vomiting: Absent Respiratory: Satisfactory Pain: Controlled Complications: Absent Post Op Complications Complications None Follow Up Care/Instructions Patient Instructions None needed. Anesthesiology Discharge Order Discharge Order Patient is doing well, no complaints, stable vital signs, no apparent adverse anesthesia problems. No complications reported per nursing. CELESTINA ROBB CRNA Apr 19, 2022 14:46
[2022-04-19 14:48] VITALS: BP 100/56
[2022-04-19 14:53] VITALS: BP 150/66
[2022-04-19 15:00] VITALS: BP 150/66
--- NOTE | 2022-04-19 15:14 | Discharge Inst-Simple/Standard ---
Discharge Inst-Standard Patient Instructions/Follow Up Plan of Care/Instructions/FU: 2 weeks Rekha Activity as Tolerated: Yes Discharge Diet: Regular Diet FAHAD FELIX DO Apr 19, 2022 15:14
[2022-04-19 15:30] VITALS: BP 150/66
[2022-04-19 15:35] VITALS: BP 150/66
--- NOTE | 2022-04-19 15:44 | OPERATIVE REPORT ---
DATE OF SERVICE: 04/19/2022 PREOPERATIVE DIAGNOSES: Blood in stool, iron deficiency anemia. POSTOPERATIVE DIAGNOSES: Slight gastritis body of the stomach, colon polyps, and diverticulosis. PROCEDURES PERFORMED: EGD with biopsy, colonoscopy with snare polypectomy x5, and hot biopsy polypectomy x2. SURGEON: Fahad Da Silva DO. ANESTHESIA: Per OCCUPATIONAL HEALTH PHYSIOTHERAPIST. ESTIMATED BLOOD LOSS: Scant. COMPLICATIONS: None. INDICATIONS FOR PROCEDURE: The patient is a 72-year-old female with iron deficiency anemia and reports some blood in stools. She understands the risks and benefits of the procedure and wishes to proceed. Consent was signed in the chart. DESCRIPTION OF PROCEDURE: The patient was taken to the endoscopy suite and placed in a left lateral recumbent position. A timeout was performed. Scope was inserted in the mouth, down the esophagus, stomach and into the duodenum without difficulty. There were no polyps, masses or ulcerations in the duodenum. Scope was slowly retracted back into the stomach, where it was further insufflated. In the body of stomach, there was some slight gastritis appearance. Biopsy of this area was obtained. Scope was retroflexed noting no other pathology. Scope was returned to its normal position, slowly withdrawn to the distal esophagus, had normal appearance. No polyps, masses or ulcerations. Scope was slowly retracted back until completely removed. Digital rectal exam was performed. No palpable polyps, masses or ulcerations. Scope was inserted in the rectum and advanced all the way to cecum with minimal difficulty. Prep was adequate with irrigation and suction. Two polyps in the cecum, which snare polypectomies were performed. These were obtained for specimen. Scope was then continuously retracted back in the ascending colon, another polyp was present, which snare polypectomy was performed. Scope was then continuously and slowly retracted back into the transverse colon, which another polyp was present, which snare polypectomy was performed. Scope was then continuously and slowly retracted back into the descending colon, which snare polypectomy was performed. Scope was then continuously and slowly retracted back through the sigmoid colon. No polyps, masses or ulcerations. She did have some diverticula present. Once in the rectum, scope was retroflexed noting a couple of small polyps, which hot biopsy polypectomy was performed on these two polyps. Scope was then slowly retracted back until completely removed. RECOMMENDATIONS: The patient will not need any further colonoscopies unless has change in condition and is reevaluated. She will follow up on biopsies. We will continue on current medications. We will consider capsule endoscopy if continues to have problems. Job ID: [id number] DocumentID: [id number] Dictated Date: 04/19/2022 15:18:25 Counter Checker Date: 04/19/2022 15:43:19 Dictated By: FAHAD DA SILVA DO
== END 2022-04-19 16:32 ==
LOC: ENDO 10:36
PROVIDERS: ATTEND Surgery
DX: D12.0 Benign neoplasm of cecum (principal); D12.2 Benign neoplasm of ascending colon; D12.3 Benign neoplasm of transverse colon; D12.4 Benign neoplasm of descending colon; K62.1 Rectal polyp; D50.9 Iron deficiency anemia, unspecified; K57.30 Diverticulosis of large intestine without perforation or abscess without bleeding; Z79.899 Other long term (current) drug therapy; Z79.01 Long term (current) use of anticoagulants

== ENCOUNTER 2022-04-30 12:18 | Emergency (ER) | payer MEDICARE ==
[~2022-04-30] VITALS: Ht 157.4 cm; Wt 45.0 kg
--- NOTE | 2022-04-30 12:34 | ED Abdominal Pain ---
General Stated Complaint: ABD PAIN/DISTENDED Source of Information: Patient, Caregiver Exam Limitations: No Limitations History of Present Illness Date Seen by Provider: Apr 30, 2022 Time Seen by Provider: 12:25 Initial Comments 72-year-old female sent from local nursing facility for abdominal pain. She reportedly had an EGD 2 weeks ago. She has chronic anemia and per nursing facility report they were concerned about a "bleed." The patient states she had some blood in her stool couple weeks ago but has not had any since that time and since her procedure. She had completely recovered from her procedure and started to have diffuse abdominal bloating, cramping over the last 3 to 4 days. She denies any fevers or chills, nausea or vomiting. She had a normal formed bowel movement today. She denies any urinary or vaginal symptoms. Pain is described as diffuse bloating, cramping without radiation. No aggravating or alleviating factors. Mild to moderate. Allergies and Home Medications Allergies Coded Allergies: promethazine (Verified Allergy, Intermediate, 10/02/07) clindamycin (Verified Allergy, Unknown, 09/27/20) hydrocodone (Verified Allergy, Unknown, 09/27/20) morphine (Verified Allergy, Unknown, 09/27/20) Patient Home Medication List Home Medication List Reviewed: Yes Amoxicillin/Potassium Clav (Augmentin 500-125 Tablet) 500 Mg-125 Mg Tablet, 1 EACH PO BID Prescribed by: MITCH SAUNDERS MD on 04/30/221411 Last Action: New Order Celecoxib (Celecoxib) 100 Mg Capsule, 100 MG PO BID PRN for ARTHRITIS PAIN, (Reported) Entered as Reported by: JOLIE العراقي on 07/26/212153 Colchicine (Colchicine) 0.6 Mg Tablet, 0.6 MG PO BID, (Reported) Entered as Reported by: JOLIE العراقي on 07/26/212153 Insulin Aspart (Novolog) 100 Unit/1 Ml Susp, UNITS SC PER PUMP, (Reported) Entered as Reported by: KINZA CHAVIRA on 09/28/20 100 Metoprolol Succinate (Metoprolol Succinate) 50 Mg Tab.er.24h, 50 MG PO DAILY, (Reported) Entered as Reported by: KINZA CHAVIRA on 09/28/20 100 Potassium Chloride (K-Tab ER) 10 Meq Tablet.er, 10 MEQ PO DAILY, (Reported) Entered as Reported by: KINZA CHAVIRA on 09/28/20 1009 Pravastatin Sodium (Pravastatin Sodium) 20 Mg Tablet, 20 MG PO HS, (Reported) Entered as Reported by: KINZA CHAVIRA on 09/28/20 1009 Quetiapine Fumarate (Seroquel) 25 Mg Tablet, 25 MG PO HS Prescribed by: EMMIE ROJAS on 10/22/21 1838 Sacubitril/Valsartan (Entresto 24 mg-26 mg Tablet) 1 Each Tablet, 1 EA PO BID, (Reported) Entered as Reported by: KINZA CHAVIRA on 09/28/20 1009 Terbinafine HCl (Terbinafine HCl) 250 Mg Tablet, 250 MG PO DAILY, (Reported) Entered as Reported by: JOLIE العراقي on 07/26/21 700 Discontinued Medications Amoxicillin/Potassium Clav (Augmentin 500-125 Tablet) 500 Mg-125 Mg Tablet, 1 EACH PO BID Prescribed by: MITCH SAUNDERS MD on 04/30/22 1356 Last Action: Discontinued Review of Systems Review of Systems Constitutional: no symptoms reported EENTM: No Symptoms Reported Respiratory: No Symptoms Reported Cardiovascular: No Symptoms Reported Gastrointestinal: Abdomen Distended, Abdominal Pain Genitourinary: No Symptoms Reported Musculoskeletal: no symptoms reported Skin: no symptoms reported Psychiatric/Neurological: No Symptoms Reported Endocrine: No Symptoms Reported Hematologic/Lymphatic: No Symptoms Reported Past Wvcherw-Jbgreh-Pwnioa Hx Patient Social History Tobacco Use?: No Use of E-Cig and/or Vaping dev: No Substance use?: No Alcohol Use?: No Immunizations Up To Date Tetanus Booster (TDap): Unknown First/Initial COVID19 Vaccinat: 03/13 Second COVID19 Vaccination Jamie: 04/13 Third COVID19 Vaccination Date: 03/13 Seasonal Allergies Seasonal Allergies: No Past Medical History Surgery/Hospitalization HX: cardiac ablation, ppm, c-sect, hysterectomy, cholecystectomy, lumbar laminectomy, heart cath, htn, iddm, gerd, high cholesterol, a-fib, peripheral neuropathy, cva, ENDOCARDITIS Surgeries: Yes Cardiac, Section, Gallbladder, Hysterectomy, Orthopedic, Pacemaker Respiratory: Yes COPD Cardiac: Yes (PACEMAKER, CARDIAC ABLATION, MAZE PROCEDURE, LEFT APPENDAGE CLIPPED) Atrial Fibrillation, High Cholesterol, Hypertension, Irregular Heartbeat Neurological: Yes (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;HX OF CVA 2019-NO RESIDUAL) Neuropathy, Stroke Reproductive Disorders: No Genitourinary: Yes Bladder Infection Gastrointestinal: Yes Gastroesophageal Reflux Musculoskeletal: Yes Chronic Back Pain Endocrine: Yes (INSULIN PUMP) Diabetes, Insulin dep HEENT: Yes (DIABETIC RETINOPATHY) Cancer: No Psychosocial: No Integumentary: No Blood Disorders: No Family Medical History Reviewed Nursing Family Hx No Pertinent Family Hx PAST SURGICAL HISTORY: -LEFT EYE SURGERY FOR RETINAL BLEED 3 YEARS AGO - X 2 IN 1969, 1970 -HYSTERECTOMY 1979 -CHOLECYSTECTOMY ( OPEN ) 1983 -LEFT FOOT SURGERY 7 YEARS AGO -LUMBAR LAMINECTOMY 20 YEARS AGO -PACEMAKER 4 YEARS AGO -CARDIAC ABLATION 05/2019 -MAZE PROCEDURE 05/2020 -LEFT LATERAL APPENDAGE CLIP 05/2020 -PT REPORTS CARDIAC CATH DONE IN IN 2019 SHOWED NO SIGNIFICANT CAD. ECHOCARDIOGRAM 09/28/20--EF 55-60% MPI 09/29/20--NO INSCHEMIA OR INFARCTIONS Physical Exam Vital Signs Vital Signs - First Documented 04/30/22 12:25 Temp 36.4 Pulse 72 Resp 16 B/P (MAP) 153/74 (100) Pulse Ox 99 O2 Delivery Room Air Capillary Refill : Height/Weight/BMI Height: 5'1.00" Weight: 151lbs. 0.0oz. 68.838811tw; 18.46 BMI Method:Stated General Appearance: WD/WN, no apparent distress HEENT: PERRL/EOMI, normal ENT inspection, pharynx normal Neck: non-tender, full range of motion, supple, normal inspection Respiratory: chest non-tender, lungs clear, normal breath sounds, no respiratory distress, no accessory muscle use Cardiovascular: regular rate, rhythm, no edema, no gallop, no JVD, no murmur Gastrointestinal: normal bowel sounds, soft, no organomegaly, tenderness (Tenderness to palpation diffusely throughout the abdomen, appears to be worse in the lower quadrants bilaterally. Voluntary guarding without rebound tenderness. No mass organomegaly. No skin changes) Extremities: normal range of motion, non-tender, normal inspection, no pedal edema, no calf tenderness, normal capillary refill Back: normal inspection, no CVA tenderness Neurologic/Psychiatric: alert, oriented x 3 Skin: normal color, warm/dry Lymphatic: no adenopathy Progress/Results/Core Measures Results/Orders Lab Results Laboratory Tests Test 04/30/22 12:35 04/30/22 12:44 Range/Units White Blood Count 5.4 4.3-11.0 10^3/uL Red Blood Count 2.68 L 3.80-5.11 10^6/uL Hemoglobin 7.8 L 11.5-16.0 g/dL Hematocrit 25 L 35-52 % Mean Corpuscular Volume 93 80-99 fL Mean Corpuscular Hemoglobin 29 25-34 pg Mean Corpuscular Hemoglobin Concent 31 L 32-36 g/dL Red Cell Distribution Width 21.1 H 10.0-14.5 % Platelet Count 177 130-400 10^3/uL Mean Platelet Volume 8.5 L 9.0-12.2 fL Immature Granulocyte % (Auto) 0 % Neutrophils (%) (Auto) 65 42-75 % Lymphocytes (%) (Auto) 29 12-44 % Monocytes (%) (Auto) 5 0-12 % Eosinophils (%) (Auto) 1 0-10 % Basophils (%) (Auto) 0 0-10 % Neutrophils # (Auto) 3.5 1.8-7.8 10^3/uL Lymphocytes # (Auto) 1.5 1.0-4.0 10^3/uL Monocytes # (Auto) 0.2 0.0-1.0 10^3/uL Eosinophils # (Auto) 0.1 0.0-0.3 10^3/uL Basophils # (Auto) 0.0 0.0-0.1 10^3/uL Immature Granulocyte # (Auto) 0.0 0.0-0.1 10^3/uL Sodium Level 141 135-145 MMOL/L Potassium Level 4.5 3.6-5.0 MMOL/L Chloride Level 111 H 98-107 MMOL/L Carbon Dioxide Level 24 21-32 MMOL/L Anion Gap 6 5-14 MMOL/L Blood Urea Nitrogen 13 7-18 MG/DL Creatinine 0.74 0.60-1.30 MG/DL Estimat Glomerular Filtration Rate 86 BUN/Creatinine Ratio 18 Glucose Level 102 70-105 MG/DL Calcium Level 8.7 8.5-10.1 MG/DL Corrected Calcium 9.1 8.5-10.1 MG/DL Total Bilirubin 0.4 0.1-1.0 MG/DL Aspartate Amino Transf (AST/SGOT) 18 5-34 U/L Alanine Aminotransferase (ALT/SGPT) 12 0-55 U/L Alkaline Phosphatase 79 40-136 U/L Total Protein 6.7 6.4-8.2 GM/DL Albumin 3.5 3.2-4.5 GM/DL Lipase 39 8-78 U/L Urine Color YELLOW Urine Clarity CLEAR Urine pH 7.0 5-9 Urine Specific [place] <=1.005 1.016-1.022 Urine Protein NEGATIVE NEGATIVE Urine Glucose (UA) NEGATIVE NEGATIVE Urine Ketones NEGATIVE NEGATIVE Urine Nitrite NEGATIVE NEGATIVE Urine Bilirubin NEGATIVE NEGATIVE Urine Urobilinogen 0.2 < = 1.0 MG/DL Urine Leukocyte Esterase NEGATIVE NEGATIVE Urine RBC (Auto) NEGATIVE NEGATIVE Urine RBC RARE /HPF Urine WBC RARE /HPF Urine Squamous Epithelial Cells 0-2 /HPF Urine Crystals NONE /LPF Urine Bacteria TRACE /HPF Urine Casts NONE /LPF Urine Mucus NEGATIVE /LPF Urine Culture Indicated NO My Orders Orders - MITCH SAUNDERS DO Cbc With Automated Diff (04/30/22 12:29) Comprehensive Metabolic Panel (04/30/22 12:29) Ua Culture If Indicated (04/30/22 12:29) Lipase (04/30/22 12:29) Ct Abdomen/Pelvis W (04/30/22 12:29) Iohexol Injection (Omnipaque 350 Mg/Ml 1 (04/30/22 13:00) Received Contrast (Hold Metformin- Contr (04/30/22 13:00) Ns (Ivpb) (Sodium Chloride 0.9% Ivpb Bag (04/30/22 13:00) Sodium Chloride Flush (Catheter Flush Sy (04/30/22 13:00) Medications Given in ED Current Medications Medications Dose Ordered Sig/Mariza Route Start Time Stop Time Status Last Admin Dose Admin Iohexol 100 ml ONCE ONCE IV 04/30/22 13:00 04/30/22 13:02 DC 04/30/22 13:18 49 ML Sodium Chloride 10 ml NEEDED PRN IV 04/30/22 13:00 04/30/22 14:15 DC 04/30/22 13:18 10 ML Sodium Chloride 100 ml ONCE ONCE IV 04/30/22 13:00 04/30/22 13:02 DC 04/30/22 13:18 80 ML Vital Signs/I&O 04/30/22 04/30/22 12:25 14:10 Temp 36.4 36.4 Pulse 72 75 Resp 16 16 B/P (MAP) 153/74 (100) 149/75 Pulse Ox 99 99 O2 Delivery Room Air Room Air Departure Communication (Admissions) The patient is hemodynamically stable with a nonsurgical abdominal exam. Differential diagnosis includes diverticulitis, perforated bowel, bowel obstruction, constipation, UTI. CT abdomen pelvis shows possible duodenitis. Started on Augmentin. Urine is negative and labs are otherwise reassuring. Again abdominal exam is nonsurgical. She is discharged in stable condition with close follow-up. Questions were sought and answered. Impression Primary Impression: Duodenitis Disposition: HOME, SELF-CARE Condition: Stable Departure-Patient Inst. Referrals: YOLANDA BARRAGAN MD (PCP/Family) Primary Care Physician Patient Instructions: Abdominal Pain, Adult ED Add. Discharge Instructions: Take the antibiotics as prescribed until they are gone. Please use stool softeners like MiraLAX for constipation. Use 1 capful dissolved in liquid twice a day until you have formed but soft stools. Please have your hemoglobin rechecked on Monday or Monday. Your current hemoglobin level is close to what it typically is. Return to the emergency department for any severe concerns. Follow-up with your primary physician for any nonemergent needs. Scripts Amoxicillin/Potassium Clav (Augmentin 500-125 Tablet) 500 Mg-125 Mg Tablet 1 EACH PO BID for 7 Days, #14 TAB Prov: MITCH SAUNDERS DO 04/30/22 MITCH SAUNDERS DO Apr 30, 2022 12:34
[2022-04-30 12:41] LABS: BASOPHILS % (AUTO) 0 % (0-10); EOSINOPHILS # (AUTO) 0.1 10^3/uL (0.0-0.3); EOSINOPHILS % (AUTO) 1 % (0-10); HEMATOCRIT 25 % (35-52); HEMOGLOBIN 7.8 g/dL (11.5-16.0); LYMPHOCYTES # (AUTO) 1.5 10^3/uL (1.0-4.0); LYMPHOCYTES % (AUTO) 29 % (12-44); MEAN CORPUSCULAR HEMOGLOBIN 29 pg (25-34); MEAN CORPUSCULAR HGB CONC 31 g/dL (32-36); MEAN CORPUSCULAR VOLUME 93 fL (80-99); MEAN PLATELET VOLUME 8.5 fL (9.0-12.2); MONOCYTES # (AUTO) 0.2 10^3/uL (0.0-1.0); MONOCYTES % (AUTO) 5 % (0-12); NEUTROPHILS # (AUTO) 3.5 10^3/uL (1.8-7.8); NEUTROPHILS % (AUTO) 65 % (42-75); PLATELET COUNT 177 10^3/uL (130-400); WHITE BLOOD COUNT 5.4 10^3/uL (4.3-11.0)
[2022-04-30 12:51] LABS: BILIRUBIN,URINE NEGATIVE (NEGATIVE); CLARITY,URINE CLEAR; COLOR,URINE YELLOW; GLUCOSE, URINE (UA) NEGATIVE (NEGATIVE); KETONES,URINE NEGATIVE (NEGATIVE); LEUKOCYTE ESTERASE ,URINE NEGATIVE (NEGATIVE); NITRITE,URINE NEGATIVE (NEGATIVE); PROTEIN,URINE NEGATIVE (NEGATIVE)
[2022-04-30 12:53] LABS: ALBUMIN 3.5 GM/DL (3.2-4.5); POTASSIUM 4.5 MMOL/L (3.6-5.0)
[2022-04-30 12:54] LABS: CALCIUM 8.7 MG/DL (8.5-10.1)
[2022-04-30 12:55] LABS: TOTAL PROTEIN 6.7 GM/DL (6.4-8.2)
[2022-04-30 12:57] LABS: BILIRUBIN,TOTAL 0.4 MG/DL (0.1-1.0)
[2022-04-30 12:59] LABS: CREATININE SERUM 0.74 MG/DL (0.60-1.30)
[2022-04-30] MEDS ORDERED: CATHETER FLUSH 10 ML SYR IV PRN (13:00)
[2022-04-30] MEDS ORDERED: HOLD METFORMIN - RECEIVED CONTRAST 20 ML VIAL IV SCH (13:00)
[2022-04-30] MEDS ORDERED: NS 100 ML (IVPB) BAG IV ONE (13:00)
[2022-04-30] MEDS ORDERED: IOHEXOL 350 MG/ML 100 ML (OMNIPAQUE 350) VIAL IV ONE (13:00)
[2022-04-30 13:03] LABS: BACTERIA,URINE TRACE /HPF; SQUAMOUS EPITHELIAL CELL,UR 0-2 /HPF; WBC,URINE RARE /HPF
[2022-04-30 13:05] LABS: RBC,URINE RARE /HPF
--- NOTE | 2022-04-30 13:46 | Diagnostic Imaging Report ---
EXAMINATION: CT abdomen and pelvis with contrast from 04/30/2022. TECHNIQUE: Multiple contiguous axial images were obtained through the abdomen and pelvis after administration of intravenous contrast. Auto Exposure Controls were utilized during the CT exam to meet ALARA standards for radiation dose reduction. All CT scans use one or more of the following dose optimizing techniques: automated exposure control, MA and/or KvP adjustment based on patient size and exam type or iterative reconstruction. INDICATION: Diffuse abdominal pain and guarding. Left upper and lower abdominal pain, recent EGD and colonoscopy. COMPARISON: 10/13/2017. FINDINGS: Scattered atelectasis and/or scar noted in the visualized lung bases. The nonopacified liver is unremarkable other than hepatic steatosis. The gallbladder is not seen, likely surgically absent. The spleen is enlarged. This is increased in size since the previous CT. Evidence of old granulomatous disease noted. The pancreas appears unremarkable. Adrenal glands are normal. There is focal fat stranding about the duodenal sweep which may be secondary to duodenitis. No adjacent free air or abscess is appreciated. A focal fluid collection adjacent to the duodenal sweep, likely a duodenal diverticulum. Kidneys are unremarkable. There is diffuse atherosclerotic disease. There are findings of diffuse constipation. No obstructive process is seen. The osseous structures appear intact with no acute osseous abnormality appreciated. There is kyphoplasty change within the L1 vertebral body. IMPRESSION: 1. Inflammatory change surrounding the duodenal sweep, likely due to focal duodenitis. No adjacent free air is seen with a small collection of air along the superior border of the proximal duodenum, most likely a duodenal diverticulum. 2. Splenomegaly of uncertain etiology. Not mentioned in the body of the report, scattered minimally prominent lymph nodes noted within the retroperitoneum of uncertain etiology as well. Dictated by: Dictated on workstation # [id number]
[2022-04-30] MEDS ORDERED: AMOX-355 PO ×2 (13:56→14:12)
[2022-04-30 14:10] VITALS: BP 149/75
== END 2022-04-30 14:14 | disposition home or self-care (01) ==
LOC: EDUNIT# 12:18 → ER 12:21
DX: K29.80 Duodenitis without bleeding (principal); E11.42 Type 2 diabetes mellitus with diabetic polyneuropathy; Z90.49 Acquired absence of other specified parts of digestive tract; Z96.41 Presence of insulin pump (external) (internal); Z79.4 Long term (current) use of insulin
CPT/HCPCS: 36415; 74177; 80053; 81000; 83690; 85025

== ENCOUNTER 2022-07-13 09:31 | Emergency (ER) | payer MEDICARE ==
[~2022-07-13] VITALS: Ht 154 cm; Wt 46.0 kg
[~2022-07-13 09:31] MED LIST changes: +AMOX-355 PO
--- NOTE | 2022-07-13 10:28 | ED Lower Extremity ---
General Chief Complaint: Trauma-Non Activation Stated Complaint: FALL Nursing Triage Note: ARRIVED VIA AMB WITH WALKER TO ROOM 06. PT HAD A UNWINTTNESSED FALL AT [facility] 1830 YESTERDAY. PT STATES SHE TRIPPED OVER HERSELF AND FELL. DENIES LOC BUT DID HIT HER HEAD ON THE RIGHT SIDED BY HER EAR. PT DOES TAKE A BLOOD THINNER. DENIES PAIN. History of Present Illness Date Seen by Provider: Jul 13, 2022 Time Seen by Provider: 10:00 Initial Comments 12-year-old female with PMH of dementia/CAD/A. fib on Eliquis/HTN, is here from the [facility] after having a fall that was unwitnessed at 1830 yesterday. Staff from the [facility] that accompanied the patient stated that she tripped over a step and fell, hitting her right sided forehead. Patient complains of right-sided forehead and right maxillary pain. Denies LOC, blurry vision, headache, hearing disturbances, bleeding. Allergies and Home Medications Allergies Coded Allergies: promethazine (Verified Allergy, Intermediate, 10/02/07) clindamycin (Verified Allergy, Unknown, 09/27/20) hydrocodone (Verified Allergy, Unknown, 09/27/20) morphine (Verified Allergy, Unknown, 09/27/20) Patient Home Medication List Home Medication List Reviewed: Yes Amoxicillin/Potassium Clav (Augmentin 500-125 Tablet) 500 Mg-125 Mg Tablet, 1 EACH PO BID Prescribed by: MITCH SAUNDERS MD on 04/30/22 141 Celecoxib (Celecoxib) 100 Mg Capsule, 100 MG PO BID PRN for ARTHRITIS PAIN, (Reported) Entered as Reported by: JOLIE العراقي on 07/26/212153 Colchicine (Colchicine) 0.6 Mg Tablet, 0.6 MG PO BID, (Reported) Entered as Reported by: JOLIE العراقي on 07/26/212153 Insulin Aspart (Novolog) 100 Unit/1 Ml Susp, UNITS SC PER PUMP, (Reported) Entered as Reported by: KINZA CHAVIRA on 09/28/20 100 Metoprolol Succinate (Metoprolol Succinate) 50 Mg Tab.er.24h, 50 MG PO DAILY, (Reported) Entered as Reported by: KINZA CHAVIRA on 09/28/20 100 Potassium Chloride (K-Tab ER) 10 Meq Tablet.er, 10 MEQ PO DAILY, (Reported) Entered as Reported by: KINZA CHAVIRA on 09/28/20 1009 Pravastatin Sodium (Pravastatin Sodium) 20 Mg Tablet, 20 MG PO HS, (Reported) Entered as Reported by: KINZA CHAVIRA on 09/28/20 1009 Quetiapine Fumarate (Seroquel) 25 Mg Tablet, 25 MG PO HS Prescribed by: EMMIE ROJAS on 10/22/21 1838 Sacubitril/Valsartan (Entresto 24 mg-26 mg Tablet) 1 Each Tablet, 1 EA PO BID, (Reported) Entered as Reported by: KINZA CHAVIRA on 09/28/20 1009 Terbinafine HCl (Terbinafine HCl) 250 Mg Tablet, 250 MG PO DAILY, (Reported) Entered as Reported by: JOLIE العراقي on 07/26/212153 Review of Systems Constitutional: no symptoms reported EENTM: other (Swelling over the right frontal area) Respiratory: no symptoms reported Cardiovascular: no symptoms reported Gastrointestinal: no symptoms reported Genitourinary: no symptoms reported Musculoskeletal: no symptoms reported Skin: no symptoms reported Psychiatric/Neurological: No Symptoms Reported Past Kmounsh-Qocuqe-Labpns Hx Patient Social History Tobacco Use?: No Substance use?: No Alcohol Use?: No Immunizations Up To Date Tetanus Booster (TDap): Unknown First/Initial COVID19 Vaccinat: 03/13 Second COVID19 Vaccination Jamie: 04/13 Third COVID19 Vaccination Date: 03/13 Seasonal Allergies Seasonal Allergies: No Past Medical History Surgery/Hospitalization HX: cardiac ablation, ppm, c-sect, hysterectomy, cholecystectomy, lumbar laminectomy, heart cath, htn, iddm, gerd, high cholesterol, a-fib, peripheral neuropathy, cva, ENDOCARDITIS Surgeries: Yes Cardiac, Section, Gallbladder, Hysterectomy, Orthopedic, Pacemaker Respiratory: Yes COPD Cardiac: Yes (PACEMAKER, CARDIAC ABLATION, MAZE PROCEDURE, LEFT APPENDAGE CLIPPED) Atrial Fibrillation, High Cholesterol, Hypertension, Irregular Heartbeat Neurological: Yes (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;HX OF CVA 2019-NO RESIDUAL) Neuropathy, Stroke Reproductive Disorders: No Genitourinary: Yes Bladder Infection Gastrointestinal: Yes Gastroesophageal Reflux Musculoskeletal: Yes Chronic Back Pain Endocrine: Yes (INSULIN PUMP) Diabetes, Insulin dep HEENT: Yes (DIABETIC RETINOPATHY) Cancer: No Psychosocial: No Integumentary: No Blood Disorders: No Family Medical History No Pertinent Family Hx PAST SURGICAL HISTORY: -LEFT EYE SURGERY FOR RETINAL BLEED 3 YEARS AGO - X 2 IN 1970, 1970 -HYSTERECTOMY 1979 -CHOLECYSTECTOMY ( OPEN ) 1983 -LEFT FOOT SURGERY 7 YEARS AGO -LUMBAR LAMINECTOMY 20 YEARS AGO -PACEMAKER 4 YEARS AGO -CARDIAC ABLATION 05/2019 -MAZE PROCEDURE 05/2020 -LEFT LATERAL APPENDAGE CLIP 05/2020 -PT REPORTS CARDIAC CATH DONE IN IN 2019 SHOWED NO SIGNIFICANT CAD. ECHOCARDIOGRAM 09/28/20--EF 55-60% MPI 09/29/20--NO INSCHEMIA OR INFARCTIONS Physical Exam Vital Signs Vital Signs - First Documented 07/13/22 09:35 Temp 36.3 Pulse 70 Resp 16 B/P (MAP) 148/87 (107) Pulse Ox 100 O2 Delivery Room Air Capillary Refill : Less Than 3 Seconds Height, Weight, BMI Height: 5'1.00" Weight: 151lbs. 0.0oz. 68.232784hs; 19.00 BMI Method:Stated General Appearance: WD/WN, no apparent distress HEENT: PERRL/EOMI, normal ENT inspection, other (Maxillary sinus tenderness on palpation, and tenderness to right frontal area with mild swelling) Neck: non-tender, full range of motion, supple, normal inspection Cardiovascular: regular rate, rhythm Respiratory: chest non-tender, lungs clear Gastrointestinal: non tender, soft Back: normal inspection, no vertebral tenderness Neurologic/Tendon: normal sensation, normal motor functions, normal tendon functions Neurologic/Psychiatric: [facility] chemist II-XII nml as tested, no motor/sensory deficits, alert, normal mood/affect (Speaks like a person with dementia), oriented x 3 Skin: normal color Progress/Results/Core Measures Results/Orders My Orders Orders - CELIA WEISS MD Ct Head/Face/Cervical Wo (07/13/22 10:10) Vital Signs/I&O 07/13/22 09:35 Temp 36.3 Pulse 70 Resp 16 B/P (MAP) 148/87 (107) Pulse Ox 100 O2 Delivery Room Air Blood Pressure Mean: 107 Progress Progress Note : Progress Note 1. FALL: - CT HEAD/ MAXILLOFACIAL/ CERVICAL: no acute finding - Pt is on Eliquis -Follow-up with PCP within the next 7 days -Concussion precautions given -The patient was seen in the ED, and treated appropriately to presentation at a specific point in time. Patient and her [facility] nurse is informed that there is a possibility that disease and illness can evolve and change in acuity rapidly or slowly after patient is discharged from the ER. Precautionary advice given to the patient for immediate return to ER if symptoms worsen or do not resolve, and to seek emergency care sooner rather than later. Pt and [facility] staff also advised on the importance of PCP follow up and compliance with management and follow up plan with PCP and/or specialist, as this is part of the management plan. Staff verbally expressed understanding. Diagnostic Imaging Diagonstic Imaging: CT Plain Films/CT/US/NM/MRI: facial bones, c-spine, head Comments [facility] [place] NAME: RAVI PAYAN [facility] REC#: [id number] PT STATUS: REG ER : 1950 PHYSICIAN: CELIA WEISS MD ADMIT DATE: 07/13/22/ER Draft Date of Exam:07/13/22 CT HEAD/FACE/CERVICAL WO CLINICAL INDICATION: Patient fell last night. No complaints. EXAM: Axial Head CT without IV contrast with sagittal and coronal reformations. Axial Maxillofacial CT scan without IV contrast with sagittal and coronal reformations. Axial CT scan of the cervical spine with sagittal and coronal reformations. Auto Exposure Controls were utilized during the CT exam to meet ALARA standards for radiation dose reduction. COMPARISON: CT scan of the head without contrast dated 02/01/2022. CT scan of the head and cervical spine without contrast dated 10/13/2017. FINDINGS: Head and maxillofacial CT: There is skull streak artifact which obscures portions of the brainstem, posterior fossa, and portions of the brain near the skull. There is no evidence of acute cerebral infarct, intracranial hemorrhage, or gross mass effect. Likely small area of encephalomalacia involving the medial aspect of the right occipital lobe. There is mild chronic small vessel ischemic disease and leukoaraiosis. The brain parenchymal volume appears appropriate for patient's age. There is normal mirnada-white matter distinction. There is no significant midline shift or herniation. There is no evidence of hydrocephalus. The basal cisterns are unremarkable. The skull, extracranial soft tissue, and orbits are unremarkable. There is small amount of fluid and secretions involving the sphenoid sinus. There is consolidation involving the left mastoid air cells and left middle ear region. Cervical spine: There is no acute cervical spine fracture or dislocation. There is straightening of the cervical spine posture. There are cervical spine vertebral body spurs with diffuse disk bulges. There are small posterior disk herniations at the C3-C4, C4-C5, C5-C6, and C6-C7 levels which cause at least mild central canal narrowing. There is no significant neck soft tissue abnormality. There is interval development of a 6 mm x 11 mm nodular area in the right lung apex with spiculations extending to the pleural surface. IMPRESSION: 1: There is no evidence of acute intracranial process. There is no skull or maxillofacial fracture. 2: Cervical spine degenerative disease with no acute fracture or dislocation. 3: There is a nodular area involving the right lung apex measuring 11 mm x [address] scan of the chest in three months is suggested to evaluate for interval change. Dictated on workstation # [id number] Dict: 07/13/22 1037 Trans: 07/13/22 1104 [id number] Interpreted by: SYED HERNANDEZ MD Electronically signed by: Departure Impression Primary Impression: Fall (on) (from) other stairs and steps, initial encounter Additional Impression: Hx of [facility] use of blood thinners Disposition: 01 HOME, SELF-CARE Condition: Stable Departure-Patient Inst. Referrals: YOLANDA BARRAGAN MD (PCP/Family) Primary Care Physician Patient Instructions: Concussion in Adults, Preventing Falls in Older Adults Add. Discharge Instructions: -Follow-up with PCP within the next 7 days -Concussion precautions given All discharge instructions reviewed with patient and/or family. Voiced understanding. CELIA WEISS MD Jul 13, 2022 10:28
--- NOTE | 2022-07-13 11:05 | Diagnostic Imaging Report ---
CLINICAL INDICATION: Patient fell last night. No complaints. EXAM: Axial Head CT without IV contrast with sagittal and coronal reformations. Axial Maxillofacial CT scan without IV contrast with sagittal and coronal reformations. Axial CT scan of the cervical spine with sagittal and coronal reformations. Auto Exposure Controls were utilized during the CT exam to meet ALARA standards for radiation dose reduction. COMPARISON: CT scan of the head without contrast dated 02/01/2022. CT scan of the head and cervical spine without contrast dated 10/13/2017. FINDINGS: Head and maxillofacial CT: There is skull streak artifact which obscures portions of the brainstem, posterior fossa, and portions of the brain near the skull. There is no evidence of acute cerebral infarct, intracranial hemorrhage, or gross mass effect. Likely small area of encephalomalacia involving the medial aspect of the right occipital lobe. There is mild chronic small vessel ischemic disease and leukoaraiosis. The brain parenchymal volume appears appropriate for patient's age. There is normal miranda-white matter distinction. There is no significant midline shift or herniation. There is no evidence of hydrocephalus. The basal cisterns are unremarkable. The skull, extracranial soft tissue, and orbits are unremarkable. There is small amount of fluid and secretions involving the sphenoid sinus. There is consolidation involving the left mastoid air cells and left middle ear region. Cervical spine: There is no acute cervical spine fracture or dislocation. There is straightening of the cervical spine posture. There are cervical spine vertebral body spurs with diffuse disk bulges. There are small posterior disk herniations at the C3-C4, C4-C5, C5-C6, and C6-C7 levels which cause at least mild central canal narrowing. There is no significant neck soft tissue abnormality. There is interval development of a 6 mm x 11 mm nodular area in the right lung apex with spiculations extending to the pleural surface. IMPRESSION: 1: There is no evidence of acute intracranial process. There is no skull or maxillofacial fracture. 2: Cervical spine degenerative disease with no acute fracture or dislocation. 3: There is a nodular area involving the right lung apex measuring 11 mm x [address] scan of the chest in three months is suggested to evaluate for interval change. Dictated by: Dictated on workstation # [id number]
[2022-07-13 12:05] VITALS: BP 144/91
== END 2022-07-13 12:21 | disposition home or self-care (01) ==
LOC: EDUNIT# 09:31 → ER 09:33
DX: R22.0 Localized swelling, mass and lump, head (principal); E11.319 Type 2 diabetes mellitus with unspecified diabetic retinopathy without macular edema; I48.91 Unspecified atrial fibrillation; Z79.01 Long term (current) use of anticoagulants; Z79.4 Long term (current) use of insulin; W01.10XA Fall on same level from slipping, tripping and stumbling with subsequent striking against unspecified object, initial encounter; Y92.129 Unspecified place in nursing home as the place of occurrence of the external cause
CPT/HCPCS: 70450; 70486; 72125

== ENCOUNTER 2022-07-25 12:42 | Emergency (ER) | payer MEDICARE ==
[~2022-07-25] VITALS: Ht 167 cm; Wt 68.0 kg
--- NOTE | 2022-07-25 13:07 | ED Fall/Injury ---
General Chief Complaint: Trauma-Non Activation Stated Complaint: FALL Nursing Triage Note: PT PRESENTS TO ED VIA EMS FROM THE [facility] FOR FALL FROM BED TO FLOOR. PT REPROTS R HIP PAIN. NO LOC. PT DID HIT HEAD. History of Present Illness Date Seen by Provider: Jul 25, 2022 Time Seen by Provider: 12:50 Initial Comments 72 year old alf resident from [facility] slid out of bed to floor today. Brought to ED via EMS. Staff did not witness fall but responded immediately. Patient reports no LOC. She is on Eliquis and had fall 07/13/22 and evaluated in this ED. Patient denies headache, main complaint is right hip pain. Patient reports using W/C for mobility or is steady with walker per staff. Occurred: just prior to arrival Severity: mild Injuries/Pain Location: pelvis, lower extremity Context: unknown Loss of Consciousness: no loss of consciousness Associated Symptoms (Fall): Denies Symptoms Allergies and Home Medications Allergies Coded Allergies: promethazine (Verified Allergy, Intermediate, 10/02/07) clindamycin (Verified Allergy, Unknown, 09/27/20) hydrocodone (Verified Allergy, Unknown, 09/27/20) morphine (Verified Allergy, Unknown, 09/27/20) Patient Home Medication List Home Medication List Reviewed: Yes Amoxicillin/Potassium Clav (Augmentin 500-125 Tablet) 500 Mg-125 Mg Tablet, 1 EACH PO BID Prescribed by: MITCH SAUNDERS MD on 04/30/22 141 Celecoxib (Celecoxib) 100 Mg Capsule, 100 MG PO BID PRN for ARTHRITIS PAIN, (Reported) Entered as Reported by: JOLIE العراقي on 07/26/212153 Colchicine (Colchicine) 0.6 Mg Tablet, 0.6 MG PO BID, (Reported) Entered as Reported by: JOLIE العراقي on 07/26/212153 Insulin Aspart (Novolog) 100 Unit/1 Ml Susp, UNITS SC PER PUMP, (Reported) Entered as Reported by: KINZA CHAVIRA on 09/28/20 100 Metoprolol Succinate (Metoprolol Succinate) 50 Mg Tab.er.24h, 50 MG PO DAILY, (Reported) Entered as Reported by: KINZA CHAVIRA on 09/28/20 1009 Potassium Chloride (K-Tab ER) 10 Meq Tablet.er, 10 MEQ PO DAILY, (Reported) Entered as Reported by: KINZA CHAVIRA on 09/28/20 1009 Pravastatin Sodium (Pravastatin Sodium) 20 Mg Tablet, 20 MG PO HS, (Reported) Entered as Reported by: KINZA CHAVIRA on 09/28/20 1009 Quetiapine Fumarate (Seroquel) 25 Mg Tablet, 25 MG PO HS Prescribed by: EMMIE ROJAS on 10/22/21 1838 Sacubitril/Valsartan (Entresto 24 mg-26 mg Tablet) 1 Each Tablet, 1 EA PO BID, (Reported) Entered as Reported by: KINZA CHAVIRA on 09/28/20 1009 Terbinafine HCl (Terbinafine HCl) 250 Mg Tablet, 250 MG PO DAILY, (Reported) Entered as Reported by: JOLIE العراقي on 07/26/212153 Review of Systems Review of Systems Constitutional: no symptoms reported, see HPI Musculoskeletal: see HPI, joint pain (right hip) All Other Systems Reviewed Negative Unless Noted: Yes Past Txhckoz-Tvdmsm-Xyajwu Hx Patient Social History Tobacco Use?: No Smoking Status: Unknown if Ever Smoked Substance use?: No Alcohol Use?: No Pt feels they are or have been: No Immunizations Up To Date Tetanus Booster (TDap): Unknown First/Initial COVID19 Vaccinat: 03/13 Second COVID19 Vaccination Jamie: 04/13 Third COVID19 Vaccination Date: 03/13 Seasonal Allergies Seasonal Allergies: No Past Medical History Surgery/Hospitalization HX: cardiac ablation, ppm, c-sect, hysterectomy, cholecystectomy, lumbar laminectomy, heart cath, htn, iddm, gerd, high cholesterol, a-fib, peripheral neuropathy, cva, ENDOCARDITIS, DM, ANXIETY Surgeries: Yes Cardiac, Section, Gallbladder, Hysterectomy, Orthopedic, Pacemaker Respiratory: Yes COPD Cardiac: Yes (PACEMAKER, CARDIAC ABLATION, MAZE PROCEDURE, LEFT APPENDAGE CLIPPED) Atrial Fibrillation, High Cholesterol, Hypertension, Irregular Heartbeat Neurological: Yes (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;HX OF CVA 2019-NO RESIDUAL) Neuropathy, Stroke Reproductive Disorders: No Genitourinary: Yes Bladder Infection Gastrointestinal: Yes Gastroesophageal Reflux Musculoskeletal: Yes Chronic Back Pain Endocrine: Yes (INSULIN PUMP) Diabetes, Insulin dep HEENT: Yes (DIABETIC RETINOPATHY) Cancer: No Psychosocial: No Integumentary: No Blood Disorders: No Family Medical History Reviewed Nursing Family Hx No Pertinent Family Hx PAST SURGICAL HISTORY: -LEFT EYE SURGERY FOR RETINAL BLEED 3 YEARS AGO - X 2 IN 1969, 1970 -HYSTERECTOMY 1979 -CHOLECYSTECTOMY ( OPEN ) 1983 -LEFT FOOT SURGERY 7 YEARS AGO -LUMBAR LAMINECTOMY 20 YEARS AGO -PACEMAKER 4 YEARS AGO -CARDIAC ABLATION 05/2019 -MAZE PROCEDURE 05/2020 -LEFT LATERAL APPENDAGE CLIP 05/2020 -PT REPORTS CARDIAC CATH DONE IN IN 2019 SHOWED NO SIGNIFICANT CAD. ECHOCARDIOGRAM 09/28/20--EF 55-60% MPI 09/29/20--NO INSCHEMIA OR INFARCTIONS Physical Exam Vital Signs Vital Signs - First Documented 07/25/22 07/25/22 12:46 14:17 Temp 36.0 Pulse 63 Resp 18 B/P (MAP) 127/73 (91) Pulse Ox 100 O2 Delivery Room Air Capillary Refill : Less Than 3 Seconds Height, Weight, BMI Height: 5'1.00" Weight: 151lbs. 0.0oz. 68.231476op; 24.00 BMI Method:Stated General Appearance: WD/WN, no apparent distress HEENT: PERRL/EOMI, normal ENT inspection, pharynx normal, other (no areas of ecchymosis, abrasions or contusions to head. ) Neck: non-tender, full range of motion, supple, normal inspection; No tender lateral, No tender midline Cardiovascular: normal peripheral pulses, regular rate, rhythm Respiratory: chest non-tender, lungs clear, normal breath sounds Gastrointestinal: normal bowel sounds, non tender, soft Back: normal inspection, no vertebral tenderness Extremities: normal range of motion (UEs and Left LE. ), normal inspection, normal capillary refill, pelvis stable, other (pain with palpatin of right hip and ROM. Full active ROM to both hips. ) Neurologic/Psychiatric: no motor/sensory deficits, alert, normal mood/affect Progress/Results/Core Measures Results/Orders My Orders Orders - DAVID SIMEON Ct Head Wo (07/25/22 12:51) Pelvis With Right Hip 2-3views (07/25/22 12:51) Vital Signs/I&O 07/25/22 07/25/22 12:46 14:17 Temp 36.0 36.0 Pulse 63 65 Resp 18 18 B/P (MAP) 127/73 (91) 129/69 Pulse Ox 100 100 O2 Delivery Room Air Blood Pressure Mean: 91 Progress Progress Note : Time: 12:50 Progress Note Patient assessed. Will obtain CT head due to Eliquis and possible head injury; x-ray pelvis and right hip. Will wait on diagnostic studies prior to labs. patient declines need for pain medicine 1320 no fracture or d/l pelvis and right hip. 1330 CT head negative. Discharge planning in place to return to [facility]. Patient declines any needs. 1345 sitting up in Wheelchair, transferred with min asst. No pain to hips with ROM. Eating crackers and drinking water. 1410 LTC staff here to transfer back. Diagnostic Imaging Diagonstic Imaging: Xray Plain Films/CT/US/NM/MRI: pelvis, hip Comments NAME: RAVI PAYAN MED REC#: [id number] PT STATUS: REG ER : 1950 PHYSICIAN: DAVID SIMEON ADMIT DATE: 07/25/22/ER Draft Date of Exam:07/25/22 PELVIS WITH RIGHT HIP 2-3VIEWS EXAMINATION: Right hip unilateral, 2 or 3 views (w/pelvis when done). HISTORY: Hip injury. COMPARISON: 10/13/2017. FINDINGS: There is mild bilateral hip joint osteoarthritis. No fracture is seen. No dislocation. IMPRESSION: No fracture is seen in the pelvis or right hip. Dictated on workstation # [id number] Dict: 07/25/22 1313 Trans: 07/25/22 1317 [id number] Interpreted by: YOLANDA NASCIMENTO MD Electronically signed by: Reviewed: Reviewed by Me Diagonstic Imaging: CT Plain Films/CT/US/NM/MRI: head Comments NAME: RAVI PAYAN MED REC#: [id number] PT STATUS: REG ER : 1950 PHYSICIAN: DAVID SIMEON ADMIT DATE: 07/25/22/ER Draft Date of Exam:07/25/22 CT HEAD WO PROCEDURE: CT head without contrast. TECHNIQUE: Multiple contiguous axial images were obtained through the brain without the use of intravenous contrast. Auto Exposure Controls were utilized during the CT exam to meet ALARA standards for radiation dose reduction. INDICATION: Head trauma, anticoagulation. FINDINGS: The ventricles are normal in size, shape, and position. There are no masses or hemorrhages. There are no extra-axial fluid collections. IMPRESSION: No acute abnormality is seen in the head. Dictated on workstation # [id number] Dict: 07/25/22 1309 Trans: 07/25/22 1331 [id number] Interpreted by: MARGARITA CARRASCO MD Electronically signed by: Reviewed: Reviewed by Me Departure Impression Primary Impression: Fall from bed, initial encounter Disposition: HOME, SELF-CARE Condition: Improved Departure-Patient Inst. Decision time for Depature: 13:28 Referrals: YOLANDA BARRAGAN MD (PCP/Family) Primary Care Physician Patient Instructions: Preventing Falls in Older Adults Add. Discharge Instructions: continue activity as tolerated. All measures to prevent falls. Follow up with Primary Care, if new problems or patient has new complaints. Return to Emergency Dept for urgent healthcare problems. All discharge instructions reviewed with patient and/or family. Voiced understanding. DAVID SIMEON Jul 25, 2022 13:07
--- NOTE | 2022-07-25 13:17 | Diagnostic Imaging Report ---
EXAMINATION: Right hip unilateral, 2 or 3 views (w/pelvis when done). HISTORY: Hip injury. COMPARISON: 10/13/2017. FINDINGS: There is mild bilateral hip joint osteoarthritis. No fracture is seen. No dislocation. IMPRESSION: No fracture is seen in the pelvis or right hip. Dictated by: Dictated on workstation # [id number]
--- NOTE | 2022-07-25 13:32 | Diagnostic Imaging Report ---
PROCEDURE: CT head without contrast. TECHNIQUE: Multiple contiguous axial images were obtained through the brain without the use of intravenous contrast. Auto Exposure Controls were utilized during the CT exam to meet ALARA standards for radiation dose reduction. INDICATION: Head trauma, anticoagulation. FINDINGS: The ventricles are normal in size, shape, and position. There are no masses or hemorrhages. There are no extra-axial fluid collections. IMPRESSION: No acute abnormality is seen in the head. Dictated by: Dictated on workstation # [id number]
[2022-07-25 14:17] VITALS: BP 129/69
== END 2022-07-25 14:17 | disposition home or self-care (01) ==
LOC: EDUNIT# 12:42 → ER 12:43
DX: M25.551 Pain in right hip (principal); Z79.01 Long term (current) use of anticoagulants; W06.XXXA Fall from bed, initial encounter; Y92.129 Unspecified place in nursing home as the place of occurrence of the external cause
CPT/HCPCS: 70450

== ENCOUNTER 2022-08-02 22:17 | Emergency (ER) | payer MEDICARE ==
--- NOTE | 2022-08-02 22:37 | ED Lower Extremity ---
General Chief Complaint: Trauma-Non Activation Stated Complaint: FALL Nursing Triage Note: PT ARRIVAL TO ER VIA [facility] WITH COMPLAINT OF HEADACHE AFTER UNWITNESSED FALL. PT GOT UP FROM BED, LOST BALANCE AND FELL AND STRUCK BACK OF HEAD. PT REMEMBERS FALLING AND DENIES LOSS OF CONSCIOUSNESS. PAIN TO BACK OF HEAD. PATIENT HAS NO BLEEDING OR OBVIOUS SIGNS OF TRAUMA. PT UNABLE TO DESCRIBE PAIN, BUT STATES THAT ITS NOT BAD. History of Present Illness Date Seen by Provider: Aug 02, 2022 Time Seen by Provider: 22:35 Initial Comments 72-year-old female with PMH of dementia and taking blood thinner, who lives in a half-way came by EMS with complaints of headache after an unwitnessed fall at the half-way. Patient lost her balance after getting out of bed and fell hitting the back of her head on the floor. Denies LOC, nausea and vomiting, dizziness, blurry vision, hearing disturbances. Patient has dementia so it is a little bit difficult to obtain a thorough history. Allergies and Home Medications Allergies Coded Allergies: promethazine (Verified Allergy, Intermediate, 10/02/07) clindamycin (Verified Allergy, Unknown, 09/27/20) hydrocodone (Verified Allergy, Unknown, 09/27/20) morphine (Verified Allergy, Unknown, 09/27/20) Patient Home Medication List Home Medication List Reviewed: Yes Amoxicillin/Potassium Clav (Augmentin 500-125 Tablet) 500 Mg-125 Mg Tablet, 1 EACH PO BID Prescribed by: MITCH SAUNDERS MD on 04/30/22 141 Celecoxib (Celecoxib) 100 Mg Capsule, 100 MG PO BID PRN for ARTHRITIS PAIN, (Reported) Entered as Reported by: JOLIE العراقي on 07/26/212153 Colchicine (Colchicine) 0.6 Mg Tablet, 0.6 MG PO BID, (Reported) Entered as Reported by: JOLIE العراقي on 07/26/212153 Insulin Aspart (Novolog) 100 Unit/1 Ml Susp, UNITS SC PER PUMP, (Reported) Entered as Reported by: KINZA CHAVIRA on 09/28/201008 Metoprolol Succinate (Metoprolol Succinate) 50 Mg Tab.er.24h, 50 MG PO DAILY, (Reported) Entered as Reported by: KINZA CHAVIRA on 09/28/20 100 Potassium Chloride (K-Tab ER) 10 Meq Tablet.er, 10 MEQ PO DAILY, (Reported) Entered as Reported by: KINZA CHAVIRA on 09/28/20 1009 Pravastatin Sodium (Pravastatin Sodium) 20 Mg Tablet, 20 MG PO HS, (Reported) Entered as Reported by: KINZA CHAVIRA on 09/28/20 1009 Quetiapine Fumarate (Seroquel) 25 Mg Tablet, 25 MG PO HS Prescribed by: EMMIE ROJAS on 10/22/21 1838 Sacubitril/Valsartan (Entresto 24 mg-26 mg Tablet) 1 Each Tablet, 1 EA PO BID, (Reported) Entered as Reported by: KINZA CHAVIRA on 09/28/20 1009 Terbinafine HCl (Terbinafine HCl) 250 Mg Tablet, 250 MG PO DAILY, (Reported) Entered as Reported by: JOLIE العراقي on 07/26/212153 Review of Systems Constitutional: no symptoms reported EENTM: see HPI, other (Headache) Respiratory: no symptoms reported Cardiovascular: no symptoms reported Gastrointestinal: no symptoms reported Genitourinary: no symptoms reported Musculoskeletal: no symptoms reported Skin: no symptoms reported Psychiatric/Neurological: No Symptoms Reported Past Ozwadtn-Tdfwjl-Ztyujf Hx Patient Social History Tobacco Use?: No Use of E-Cig and/or Vaping dev: No Substance use?: No Alcohol Use?: No Pt feels they are or have been: No Immunizations Up To Date Tetanus Booster (TDap): Unknown Influenza Vaccine Up-to-Date: Yes; Up-to-Date First/Initial COVID19 Vaccinat: 03/13 Second COVID19 Vaccination Jamie: 04/13 Third COVID19 Vaccination Date: 03/13 COVID19 Vaccine Chemical Radiation Technician: LURDES Seasonal Allergies Seasonal Allergies: No Past Medical History Surgery/Hospitalization HX: cardiac ablation, ppm, c-sect, hysterectomy, cholecystectomy, lumbar laminectomy, heart cath, htn, iddm, gerd, high cholesterol, a-fib, peripheral neuropathy, cva, ENDOCARDITIS, DM, ANXIETY Surgeries: Yes Cardiac, Section, Gallbladder, Hysterectomy, Orthopedic, Pacemaker Respiratory: Yes COPD Cardiac: Yes (PACEMAKER, CARDIAC ABLATION, MAZE PROCEDURE, LEFT APPENDAGE CLIPPED) Atrial Fibrillation, High Cholesterol, Hypertension, Irregular Heartbeat Neurological: Yes (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;HX OF CVA 2019-NO RESIDUAL) Neuropathy, Stroke Reproductive Disorders: No Genitourinary: Yes Bladder Infection Gastrointestinal: Yes Gastroesophageal Reflux Musculoskeletal: Yes Chronic Back Pain Endocrine: Yes (INSULIN PUMP) Diabetes, Insulin dep HEENT: Yes (DIABETIC RETINOPATHY) Cancer: No Psychosocial: No Integumentary: No Blood Disorders: No Family Medical History No Pertinent Family Hx PAST SURGICAL HISTORY: -LEFT EYE SURGERY FOR RETINAL BLEED 3 YEARS AGO - X 2 IN 1969, 1970 -HYSTERECTOMY 1979 -CHOLECYSTECTOMY ( OPEN ) 1983 -LEFT FOOT SURGERY 7 YEARS AGO -LUMBAR LAMINECTOMY 20 YEARS AGO -PACEMAKER 4 YEARS AGO -CARDIAC ABLATION 05/2019 -MAZE PROCEDURE 05/2020 -LEFT LATERAL APPENDAGE CLIP 05/2020 -PT REPORTS CARDIAC CATH DONE IN IN 2019 SHOWED NO SIGNIFICANT CAD. ECHOCARDIOGRAM 09/28/20--EF 55-60% MPI 09/29/20--NO INSCHEMIA OR INFARCTIONS Physical Exam Vital Signs Vital Signs - First Documented 08/02/22 22:19 Temp 36.5 Pulse 79 Resp 18 B/P (MAP) 126/61 (82) Pulse Ox 100 O2 Delivery Room Air Capillary Refill : Less Than 3 Seconds Height, Weight, BMI Height: 5'1.00" Weight: 151lbs. 0.0oz. 68.433675mg; 24.00 BMI Method:Stated General Appearance: WD/WN, no apparent distress HEENT: PERRL/EOMI, normal ENT inspection, TMs normal Neck: non-tender, full range of motion, supple, normal inspection Cardiovascular: regular rate, rhythm Respiratory: chest non-tender, lungs clear Gastrointestinal: non tender, soft Neurologic/Tendon: normal sensation, normal motor functions Neurologic/Psychiatric: operations officer II-XII nml as tested, no motor/sensory deficits, alert, normal mood/affect, other (Patient has dementia ) Skin: normal color Progress/Results/Core Measures Results/Orders My Orders Orders - CELIA WEISS MD Ct Head/Cervical Spine Wo (08/02/22 22:37) Vital Signs/I&O 08/02/22 22:19 Temp 36.5 Pulse 79 Resp 18 B/P (MAP) 126/61 (82) Pulse Ox 100 O2 Delivery Room Air Blood Pressure Mean: 82 Progress Progress Note : Progress Note 1. FALL: - CT HEAD & C-SPINE: see report below, no acute findings, read by stat rad -We will discharge patient back to half-way -Fall precautions -Follow-up with PCP within the next 3 to 7 days -Concussion precautions given -jail informed of plan and follow-up Diagnostic Imaging Diagonstic Imaging: CT Plain Films/CT/US/NM/MRI: c-spine, head Comments No acute hemorrhage, hydrocephalus, or mass-effect. Correlate with left mastoiditis. C-spine shows no acute fracture or subluxation. Departure Impression Primary Impression: Fall from bed, initial encounter Disposition: 01 HOME, SELF-CARE Condition: Stable Departure-Patient Inst. Referrals: YOLANDA BARRAGAN MD (PCP/Family) Primary Care Physician Patient Instructions: Concussion, Adult (DC), Preventing Falls ED Add. Discharge Instructions: -Fall precautions -Follow-up with PCP within the next 3 to 7 days -Concussion precautions given All discharge instructions reviewed with patient and/or family. Voiced understanding. CELIA WEISS MD Aug 02, 2022 22:37
[2022-08-02 23:54] VITALS: BP 105/55
--- NOTE | 2022-08-03 07:25 | Diagnostic Imaging Report ---
PROCEDURE: CT head and CT cervical spine without contrast. TECHNIQUE: Multiple contiguous axial images were obtained through the brain and cervical spine without the use of intravenous contrast. Sagittal and coronal reformations through the cervical spine were then performed. Auto Exposure Controls were utilized during the CT exam to meet ALARA standards for radiation dose reduction. INDICATION: Trauma. Fall. COMPARISON: CT head without contrast 08/12/2022. FINDINGS: CT HEAD: Moderate generalized parenchymal volume loss. No CT evidence of an acute territorial infarction. No intracranial hemorrhage, mass effect, hydrocephalus or extra-axial fluid collections. Osseous structures are intact. Nonspecific left mastoid effusion. CT CERVICAL SPINE: Normal alignment. Vertebral body heights are preserved. No fractures. Mild to moderate spondylotic changes. No high-grade spinal canal stenosis is evident by CT. Moderate atherosclerotic calcifications in the carotid bifurcations. Lung apices are clear. IMPRESSION: 1. No acute intracranial or cervical spine CT findings. 2. Nonspecific left mastoid effusion. Agree with preliminary interpretation. Dictated by: Dictated on workstation # [id number]
== END 2022-08-03 00:04 | disposition home or self-care (01) ==
LOC: EDUNIT# 22:17 → ER 22:19
DX: R51.9 Headache, unspecified (principal); H70.92 Unspecified mastoiditis, left ear; W06.XXXA Fall from bed, initial encounter; Y92.129 Unspecified place in nursing home as the place of occurrence of the external cause
CPT/HCPCS: 70450; 72125

== ENCOUNTER 2022-08-29 20:36 | Emergency (ER) | payer MEDICARE ==
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
--- NOTE | 2022-08-29 21:48 | Diagnostic Imaging Report ---
PROCEDURE: CT head and CT cervical spine without contrast. TECHNIQUE: Multiple contiguous axial images were obtained through the brain and cervical spine without the use of intravenous contrast. Sagittal and coronal reformations through the cervical spine were then performed. Auto Exposure Controls were utilized during the CT exam to meet ALARA standards for radiation dose reduction. INDICATION: Head and neck injury after fall. COMPARISON: 07/25/2022 and 07/13/2022. FINDINGS: CT HEAD: The ventricles and cortical sulci are diffusely prominent, likely from generalized parenchymal volume loss. There is no midline shift or mass effect. No acute intracranial hemorrhage is seen. There is no CT evidence of acute territorial ischemia. The calvarium appears intact. The visualized paranasal sinuses appear clear. There is fluid in the left mastoid air cells. This is stable since the prior study. CT CERVICAL SPINE: There is straightening of the cervical lordosis. There are mild degenerative changes throughout the cervical spine. No acute fracture is seen. Vertebral body heights are preserved. The qhcts-ln-rxmm is somewhat large. No bony fragments or hyperdense fluid collections are seen in the spinal canal. Soft tissues about the cervical spine demonstrate no acute abnormality. There is scarring in the right lung apex. There is a subcentimeter nodule in the left thyroid. IMPRESSION: 1. No acute intracranial hemorrhage or calvarium fracture. 2. Nonspecific fluid in the left mastoid air cells appears stable. 3. Mild degenerative change in the cervical spine with no acute fracture seen. Dictated by: Dictated on workstation # [id number]
[2022-08-29 22:43] VITALS: BP 157/63
== END 2022-08-29 22:43 | disposition home or self-care (01) ==
LOC: EDUNIT# 20:36 → ER 20:38
DX: S09.90XA Unspecified injury of head, initial encounter (principal); F03.90 Unspecified dementia, unspecified severity, without behavioral disturbance, psychotic disturbance, mood disturbance, and anxiety; Z79.01 Long term (current) use of anticoagulants; W18.30XA Fall on same level, unspecified, initial encounter; W22.8XXA Striking against or struck by other objects, initial encounter
CPT/HCPCS: 70450; 72125

== ENCOUNTER 2022-12-14 15:52 | Emergency (ER) | payer MEDICARE, MEDICAID ==
[2022-12-14] MEDS ORDERED: ASPIRIN 81 MG CHEW (CHILDREN'S ASA) PO ONE (16:00)
[2022-12-14 16:08] LABS: BASOPHILS % (AUTO) 0 % (0-10); EOSINOPHILS # (AUTO) 0.2 10^3/uL (0.0-0.3); EOSINOPHILS % (AUTO) 3 % (0-10); HEMATOCRIT 32 % (35-52); HEMOGLOBIN 10.9 g/dL (11.5-16.0); LYMPHOCYTES # (AUTO) 2.2 10^3/uL (1.0-4.0); LYMPHOCYTES % (AUTO) 41 % (12-44); MEAN CORPUSCULAR HEMOGLOBIN 31 pg (25-34); MEAN CORPUSCULAR HGB CONC 34 g/dL (32-36); MEAN CORPUSCULAR VOLUME 92 fL (80-99); MEAN PLATELET VOLUME 9.1 fL (9.0-12.2); MONOCYTES # (AUTO) 0.3 10^3/uL (0.0-1.0); MONOCYTES % (AUTO) 5 % (0-12); NEUTROPHILS # (AUTO) 2.7 10^3/uL (1.8-7.8); NEUTROPHILS % (AUTO) 51 % (42-75); PLATELET COUNT 163 10^3/uL (130-400); WHITE BLOOD COUNT 5.4 10^3/uL (4.3-11.0)
--- NOTE | 2022-12-14 16:11 | ED Chest Pain ---
General Chief Complaint: Chest Pain Stated Complaint: CHEST PAIN Nursing Triage Note: PT SENT BY FACILITY FOR REPORTS OF LETHARGY, LOW BP, AND CHEST PAIN THAT BEGAN THIS MORNING. PER FACILITY RN, PT HAD TO BE STERNAL RUBBED IN ORDER TO BE WOKEN UP BUT WAS ABLE TO EAT BREAKFAST AND LUNCH. PT AWAKE AND ALERT AT TIME OF TRIAGE. ORIENTED TO PERSON ONLY. HAS HX OF DEMENTIA. PT APPEARS TO BE SLIGHTLY SOB AT THIS TIME. History of Present Illness Date Seen by Provider: December 14, 2022 Time Seen by Provider: 15:55 Initial Comments 72 year old female presents via retail delivery driver from [facility] for chest pain present for 1 hour. No report received prior to her arrival. Nursing staff called by retail delivery driver and report obtained: patient is DNR. [facility] she has been "unresponsive and required sternal rub to arouse" since this morning. Staff reports she was up to eat breakfast and lunch, then returned to her bed. Staff did not provide her medications today, because she wa s not very alert. Asked staff if there was concern with aspiration, if she was not alert but was able to eat and they did not have concern for aspiration. Patient has advanced dementia, upon asking her she reports everything hurts from her head to her toes. She reports pain with light touch and palpation. She denies chest pain but keeps stating everything hurts. She has a pacemaker. Unable to determine history or today's events, due to dementia. Patient's is resident at same [facility], her son was notified. Patient was alert upon arrival to exam room. She ambulated from wheelchair to bed with minimal assistance. Past medical: ardiac ablation, heart cath, htn, IDDM, high cholesterol, a-fib, peripheral neuropathy, CVA, Endocarditis. Timing/Duration: 1 hour ASA po WAREHOUSE REPRESENTATIVE: No (per staff at LT) NTG SL WAREHOUSE REPRESENTATIVE: No Associated Symptoms: denies symptoms (unable to obtain accurate history) Allergies and Home Medications Allergies Coded Allergies: promethazine (Verified Allergy, Intermediate, 10/02/07) clindamycin (Verified Allergy, Unknown, 09/27/20) hydrocodone (Verified Allergy, Unknown, 09/27/20) morphine (Verified Allergy, Unknown, 09/27/20) Patient Home Medication List Home Medication List Reviewed: Yes Amoxicillin/Potassium Clav (Augmentin 500-125 Tablet) 500 Mg-125 Mg Tablet, 1 EACH PO BID Prescribed by: MITCH SAUNDERS MD on 04/30/22 1412 Celecoxib (Celecoxib) 100 Mg Capsule, 100 MG PO BID PRN for ARTHRITIS PAIN, (Reported) Entered as Reported by: JOLIE العراقي on 07/26/212153 Colchicine (Colchicine) 0.6 Mg Tablet, 0.6 MG PO BID, (Reported) Entered as Reported by: JOLIE العراقي on 07/26/212153 Insulin Aspart (Novolog) 100 Unit/1 Ml Susp, UNITS SC PER PUMP, (Reported) Entered as Reported by: KINZA CHAVIRA on 09/28/20 100 Metoprolol Succinate (Metoprolol Succinate) 50 Mg Tab.er.24h, 50 MG PO DAILY, (Reported) Entered as Reported by: KINZA CHAVIRA on 09/28/201008 Potassium Chloride (K-Tab ER) 10 Meq Tablet.er, 10 MEQ PO DAILY, (Reported) Entered as Reported by: KINZA CHAVIRA on 09/28/201008 Pravastatin Sodium (Pravastatin Sodium) 20 Mg Tablet, 20 MG PO HS, (Reported) Entered as Reported by: KINZA CHAVIRA on 09/28/201008 Quetiapine Fumarate (Seroquel) 25 Mg Tablet, 25 MG PO HS Prescribed by: EMMIE ROJAS on 10/22/21 183 Sacubitril/Valsartan (Entresto 24 mg-26 mg Tablet) 1 Each Tablet, 1 EA PO BID, (Reported) Entered as Reported by: KINZA CHAVIRA on 09/28/201008 Terbinafine HCl (Terbinafine HCl) 250 Mg Tablet, 250 MG PO DAILY, (Reported) Entered as Reported by: JOLIE العراقي on 07/26/212153 Review of Systems Review of Systems Constitutional: no symptoms reported, see HPI Respiratory: See HPI, Shortness of Air (mild with talking but SaO2 on RA 99- 100%) Cardiovascular: See HPI, Chest Pain (per staff at [facility], patient denies chest pain, just reports pain "all over" ) Gastrointestinal: No Symptoms Reported, See HPI Genitourinary: No Symptoms Reported, See HPI, Other (brief in place) All Other Systems Reviewed Negative Unless Noted: Yes Past Jeienkr-Lqyhel-Vwjyxu Hx Patient Social History Tobacco Use?: No Substance use?: No Alcohol Use?: No Pt feels they are or have been: No Immunizations Up To Date Tetanus Booster (TDap): Unknown First/Initial COVID19 Vaccinat: 03/13 Second COVID19 Vaccination Jamie: 04/13 Third COVID19 Vaccination Date: 03/13 Seasonal Allergies Seasonal Allergies: No Past Medical History Surgery/Hospitalization HX: cardiac ablation, ppm, c-sect, hysterectomy, cholecystectomy, lumbar laminectomy, heart cath, htn, iddm, gerd, high cholesterol, a-fib, peripheral neuropathy, cva, ENDOCARDITIS, DM, ANXIETY Surgeries: Yes Cardiac, Section, Gallbladder, Hysterectomy, Orthopedic, Pacemaker Respiratory: Yes COPD Cardiac: Yes (PACEMAKER, CARDIAC ABLATION, MAZE PROCEDURE, LEFT APPENDAGE CLIPPED) Atrial Fibrillation, High Cholesterol, Hypertension, Irregular Heartbeat Neurological: Yes (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;HX OF CVA 2018-NO RESIDUAL) Neuropathy, Stroke Reproductive Disorders: No Genitourinary: Yes Bladder Infection Gastrointestinal: Yes Gastroesophageal Reflux Musculoskeletal: Yes Chronic Back Pain Endocrine: Yes (INSULIN PUMP) Diabetes, Insulin dep HEENT: Yes (DIABETIC RETINOPATHY) Cancer: No Psychosocial: No Integumentary: No Blood Disorders: No Family Medical History Reviewed Nursing Family Hx No Pertinent Family Hx PAST SURGICAL HISTORY: -LEFT EYE SURGERY FOR RETINAL BLEED 3 YEARS AGO - X 2 IN 1969, 1970 -HYSTERECTOMY 1979 -CHOLECYSTECTOMY ( OPEN ) 1983 -LEFT FOOT SURGERY 7 YEARS AGO -LUMBAR LAMINECTOMY 20 YEARS AGO -PACEMAKER 4 YEARS AGO -CARDIAC ABLATION 05/2019 -MAZE PROCEDURE 05/2020 -LEFT LATERAL APPENDAGE CLIP 05/2020 -PT REPORTS CARDIAC CATH DONE IN IN 2019 SHOWED NO SIGNIFICANT CAD. ECHOCARDIOGRAM 09/28/20--EF 55-60% MPI 09/29/20--NO INSCHEMIA OR INFARCTIONS Physical Exam Vital Signs Vital Signs - First Documented 12/14/22 12/14/22 15:55 17:06 Temp 36.7 Pulse 82 Resp 20 B/P (MAP) 109/55 Pulse Ox 100 O2 Delivery Room Air Capillary Refill : Less Than 3 Seconds Height, Weight, BMI Height: 5'1.00" Weight: 151lbs. 0.0oz. 68.091235rk; 24.00 BMI Method:Stated General Appearance: No Apparent Distress, WD/WN Neck: Full Range of Motion, Normal Inspection, Non Tender, Supple Respiratory: Chest Non Tender, Lungs Clear, Decreased Breath Sounds Cardiovascular: Regular Rate, Rhythm, No Edema, No Murmur, Normal Peripheral Pulses Gastrointestinal: Normal Bowel Sounds, Non Tender, Soft Neurologic/Psychiatric: Alert Skin: Normal Color, Warm/Dry Progress/Results/Core Measures Results/Orders Lab Results Laboratory Tests Test 12/14/22 16:00 Range/Units White Blood Count 5.4 4.3-11.0 10^3/uL Red Blood Count 3.47 L 3.80-5.11 10^6/uL Hemoglobin 10.9 L 11.5-16.0 g/dL Hematocrit 32 L 35-52 % Mean Corpuscular Volume 92 80-99 fL Mean Corpuscular Hemoglobin 31 25-34 pg Mean Corpuscular Hemoglobin Concent 34 32-36 g/dL Red Cell Distribution Width 13.6 10.0-14.5 % Platelet Count 163 130-400 10^3/uL Mean Platelet Volume 9.1 9.0-12.2 fL Immature Granulocyte % (Auto) 0 % Neutrophils (%) (Auto) 51 42-75 % Lymphocytes (%) (Auto) 41 12-44 % Monocytes (%) (Auto) 5 0-12 % Eosinophils (%) (Auto) 3 0-10 % Basophils (%) (Auto) 0 0-10 % Neutrophils # (Auto) 2.7 1.8-7.8 10^3/uL Lymphocytes # (Auto) 2.2 1.0-4.0 10^3/uL Monocytes # (Auto) 0.3 0.0-1.0 10^3/uL Eosinophils # (Auto) 0.2 0.0-0.3 10^3/uL Basophils # (Auto) 0.0 0.0-0.1 10^3/uL Immature Granulocyte # (Auto) 0.0 0.0-0.1 10^3/uL Prothrombin Time 15.0 H 12.2-14.7 SEC INR Comment 1.2 0.8-1.4 Activated Partial Thromboplast Time 36 H 24-35 SEC Sodium Level 143 135-145 MMOL/L Potassium Level 4.8 3.6-5.0 MMOL/L Chloride Level 106 98-107 MMOL/L Carbon Dioxide Level 26 21-32 MMOL/L Anion Gap 11 5-14 MMOL/L Blood Urea Nitrogen 18 7-18 MG/DL Creatinine 0.95 0.60-1.30 MG/DL Estimat Glomerular Filtration Rate 64 BUN/Creatinine Ratio 19 Glucose Level 123 H 70-105 MG/DL Calcium Level 9.6 8.5-10.1 MG/DL Corrected Calcium 9.5 8.5-10.1 MG/DL Magnesium Level 1.9 1.6-2.4 MG/DL Total Bilirubin 0.4 0.1-1.0 MG/DL Aspartate Amino Transf (AST/SGOT) 23 5-34 U/L Alanine Aminotransferase (ALT/SGPT) 9 0-55 U/L Alkaline Phosphatase 71 40-136 U/L Myoglobin 24.3 10.0-92.0 NG/ML Troponin I < 0.028 <0.028 NG/ML Total Protein 7.4 6.4-8.2 GM/DL Albumin 4.1 3.2-4.5 GM/DL My Orders Orders - DAVID SIMEON Cbc With Automated Diff (12/14/22 15:55) Magnesium (12/14/22 15:55) Chest 1 View, Ap/Pa Only (12/14/22 15:55) Comprehensive Metabolic Panel (12/14/22 15:55) Myoglobin Serum (12/14/22 15:55) Protime With Inr (12/14/22 15:55) Partial Thromboplastin Time (12/14/22 15:55) O2 (12/14/22 15:55) Monitor-Rhythm Ecg Trace Only (12/14/22 15:55) Ed Iv/Invasive Line Start (12/14/22 15:55) Troponin I Antonietta (12/14/22 15:55) Aspirin Chewable Tablet (Baby Aspirin Ch (12/14/22 16:00) Medications Given in ED Current Medications Medications Dose Ordered Sig/Mariza Route Start Time Stop Time Status Last Admin Dose Admin Aspirin 324 mg ONCE ONCE PO 12/14/22 16:00 12/14/22 16:01 DC 12/14/22 16:05 324 MG Vital Signs/I&O 12/14/22 12/14/22 12/14/22 15:55 17:05 17:06 Temp 36.7 Pulse 82 83 Resp 20 20 B/P (MAP) 109/55 Pulse Ox 100 97 O2 Delivery Room Air Room Air Room Air Progress Progress Note : Time: 15:55 Progress Note Patient assessed, labs will be obtained, aspirin 324 mg, chest x-ray and EKG. No ST elevation noted on EKG. 1645 labs normal with no elevation in troponin. Patient continues to deny chest pain but states generalized pain and points to different areas of her body with pain. She transferred from bed to wheelchair with minimal assistance. 1700 [facility] notified, will return to pick patient up. 1720 patient in wheelchair, having crackers. No complaints, transferred to toilet with min assistance. 1725 [facility] staff here to transport. Initial ECG Impression Date: December 14, 2022 Initial ECG Impression Time: 15:59 Initial ECG Rate: 82 Initial ECG Rhythm: Normal Sinus Initial ECG Intervals: Normal Initial ECG Intervals UT 197, QRS D 93, QT 376, QTc 414. Fowler P216, RR 72, T85. Initial ECG Impression: Normal Initial ECG Comparisson: Unchanged Diagnostic Imaging Diagonstic Imaging: Xray Plain Films/CT/US/NM/MRI: chest Comments NAME: RAVI PAYAN [facility] REC#: [id number] PT STATUS: REG ER : 1950 PHYSICIAN: DAVID SIMEON ADMIT DATE: 12/14/22/ER Signed Date of Exam:12/14/22 CHEST 1 VIEW, AP/PA ONLY CHEST 1 VIEW, AP/PA ONLY Indication: Chest pain. Comparison: 03/07/2022 Findings: No focal airspace disease in the visualized lungs. No pleural effusion or pneumothorax. Heart is normal in size. Stable left pectoral transvenous pacemaker. Impression: 1. No acute cardiopulmonary process by portable radiography. Dictated by: Dictated on workstation # [id number] Dict: 12/14/22 1622 Trans: 12/14/22 1622 [facility] [id number] Interpreted by: DAWN FELICIANO MD Electronically signed by: DAWN FELICIANO MD 12/14/221621 Reviewed: Reviewed by Me Departure Impression Primary Impression: Chest pain Qualified Codes: R07.9 - Chest pain, unspecified Additional Impression: Dementia Qualified Codes: F03.B3 - Unspecified dementia, moderate, with mood disturbance Disposition: 01 HOME, SELF-CARE Condition: Stable Departure-Patient Inst. Decision time for Depature: 16:40 Referrals: YOLANDA BARRAGAN MD (PCP/Family) Primary Care Physician Patient Instructions: Chest Pain That Is Not Caused by the Heart (DC) Add. Discharge Instructions: Continue activity as tolerated. Continue all home medications. If patient is able to eat she should be able to take her medications. Follow-up with Dr. Barragan if symptoms or not improving or worsen. Return to the emergency department for new, urgent healthcare needs. All discharge instructions reviewed with patient and/or family. Voiced understanding. DAVID SIMEON December 14, 2022 16:11
[2022-12-14 16:21] LABS: ALBUMIN 4.1 GM/DL (3.2-4.5); CHLORIDE 106 MMOL/L (98-107); INR 1.2 (0.8-1.4); POTASSIUM 4.8 MMOL/L (3.6-5.0); SODIUM 143 MMOL/L (135-145)
[2022-12-14 16:22] LABS: CALCIUM 9.6 MG/DL (8.5-10.1)
[2022-12-14 16:23] LABS: GLUCOSE 123 MG/DL (70-105); TOTAL PROTEIN 7.4 GM/DL (6.4-8.2)
[2022-12-14 16:24] LABS: CARBON DIOXIDE 26 MMOL/L (21-32)
--- NOTE | 2022-12-14 16:24 | Diagnostic Imaging Report ---
CHEST 1 VIEW, AP/PA ONLY Indication: Chest pain. Comparison: 03/07/2022 Findings: No focal airspace disease in the visualized lungs. No pleural effusion or pneumothorax. Heart is normal in size. Stable left pectoral transvenous pacemaker. Impression: 1. No acute cardiopulmonary process by portable radiography. Dictated by: Dictated on workstation # [id number]
[2022-12-14 16:25] LABS: BILIRUBIN,TOTAL 0.4 MG/DL (0.1-1.0)
[2022-12-14 16:27] LABS: ALKALINE PHOSPHATASE 71 U/L (40-136); CREATININE SERUM 0.95 MG/DL (0.60-1.30); GFR ESTIMATED 64
[2022-12-14 16:28] LABS: BUN/CREATININE RATIO 19
[2022-12-14 16:30] LABS: ALANINE AMINOTRANSFERASE 9 U/L (0-55); MAGNESIUM 1.9 MG/DL (1.6-2.4)
[2022-12-14 17:06] VITALS: BP 109/55
== END 2022-12-14 17:20 | disposition home or self-care (01) ==
LOC: EDUNIT# 15:52 → ER 15:53
DX: R07.9 Chest pain, unspecified (principal); F03.90 Unspecified dementia, unspecified severity, without behavioral disturbance, psychotic disturbance, mood disturbance, and anxiety; E11.319 Type 2 diabetes mellitus with unspecified diabetic retinopathy without macular edema; Z79.4 Long term (current) use of insulin; Z96.41 Presence of insulin pump (external) (internal)
CPT/HCPCS: 36415; 71045; 80053; 83735; 83874; 84484; 85025; 85610; 85730; 93005; 93041

== ENCOUNTER 2023-06-26 19:29 | Emergency (ER) | payer MEDICARE, MEDICAID ==
[~2023-06-26] VITALS: Ht 152.4 cm; Wt 45.3 kg
[~2023-06-26 19:29] MED LIST changes: +CELE-112 PO; -CELE100C84 PO; +POTA-185 PO; -POTA10TA PO
[2023-06-26 19:34] VITALS: BP 147/62
--- NOTE | 2023-06-26 19:44 | ED General ---
General Chief Complaint: Glucose Problems Stated Complaint: LOW BLOOD SUGAR Nursing Triage Note: PATIENT ARRIVED FROM [facility], PATIENT WAS GIVEN 10 NOVOLOG BEFORE DINNER, DID NOT EAT DINNER, FOUND UNRESPONSIVE BS 42, GIVEN IM GLUCAGON 1847, 185 BS 62, RESPONSIVE WITH STERNAL RUB. EMS 1911 FSBS 127, UNRESPONIVE EXCEPT TO PAINFUL STIMULI 1923 FSBS 97 Source of Information: EMS Exam Limitations: Physical Impairments History of Present Illness Date Seen by Provider: Jun 26, 2023 Time Seen by Provider: 19:34 Initial Comments Patient is a 73-year-old female presents from [facility] by ambulance with chief complaint hypoglycemia and altered mental status. According to the record she has a history of dementia and is on the dementia care unit. She was given 10 units of insulin prior to dinner but decided not to eat. Staff later went down to her room, checked on her and found her poorly responsive with low blood sugar. She was given glucagon IM, blood sugar came up to 62. She was reportedly responsive to sternal rub, localizing pain. EMS had blood sugars in the 100 range. On arrival patient's vital signs are stable. She appears to be intentionally not responding. She squeezes her eyes closed when I attempt to open her lids to evaluate pupils. She grabs at this examiner with nailbed pressure. Says "ow". She will not answer any questions, will not nod her head yes or no. Completely mute. HPI, review of systems unobtainable from the patient. Timing/Duration: 1-3 Hours Severity: Severe Allergies and Home Medications Allergies Coded Allergies: promethazine (Verified Allergy, Intermediate, 10/02/07) clindamycin (Verified Allergy, Unknown, 09/27/20) hydrocodone (Verified Allergy, Unknown, 09/27/20) morphine (Verified Allergy, Unknown, 09/27/20) Patient Home Medication List Home Medication List Reviewed: Yes Amoxicillin/Potassium Clav (Augmentin 500-125 Tablet) 500 Mg-125 Mg Tablet, 1 EACH PO BID Prescribed by: MITCH SAUNDERS MD on 04/30/22 141 Celecoxib (Celecoxib) 100 Mg Capsule, 100 MG PO BID PRN for ARTHRITIS PAIN, (Reported) Entered as Reported by: JOLIE العراقي on 07/26/212153 Cephalexin (Cephalexin) 500 Mg Tablet, 500 MG PO TID Prescribed by: SARI JAMES on 06/26/232149 Colchicine (Colchicine) 0.6 Mg Tablet, 0.6 MG PO BID, (Reported) Entered as Reported by: JOLIE العراقي on 07/26/212153 Insulin Aspart (Novolog) 100 Unit/1 Ml Susp, UNITS SC PER PUMP, (Reported) Entered as Reported by: KINZA CHAVIRA on 09/28/20 100 Metoprolol Succinate (Metoprolol Succinate) 50 Mg Tab.er.24h, 50 MG PO DAILY, (Reported) Entered as Reported by: KINZA CHAVIRA on 09/28/20 100 Potassium Chloride (K-Tab ER) 10 Meq Tablet.er, 10 MEQ PO DAILY, (Reported) Entered as Reported by: KINZA CHAVIRA on 09/28/201008 Pravastatin Sodium (Pravastatin Sodium) 20 Mg Tablet, 20 MG PO HS, (Reported) Entered as Reported by: KINZA CHAVIRA on 09/28/20 100 Quetiapine Fumarate (Seroquel) 25 Mg Tablet, 25 MG PO HS Prescribed by: EMMIE ROJAS on 10/22/211837 Sacubitril/Valsartan (Entresto 24 mg-26 mg Tablet) 1 Each Tablet, 1 EA PO BID, (Reported) Entered as Reported by: KINZA CHAVIRA on 09/28/201008 Terbinafine HCl (Terbinafine HCl) 250 Mg Tablet, 250 MG PO DAILY, (Reported) Entered as Reported by: JOLIE العراقي on 07/26/212153 Review of Systems Review of Systems Constitutional: see HPI Review of systems unobtainable secondary to behavior disturbance/dementia Past Ngycevo-Wmcdju-Keuybz Hx Immunizations Up To Date Tetanus Booster (TDap): Unknown First/Initial COVID19 Vaccinat: 03/13 Second COVID19 Vaccination Jamie: 04/13 Third COVID19 Vaccination Date: 03/13 Seasonal Allergies Seasonal Allergies: No Past Medical History Surgery/Hospitalization HX: cardiac ablation, ppm, c-sect, hysterectomy, cholecystectomy, lumbar laminectomy, heart cath, htn, iddm, gerd, high cholesterol, a-fib, peripheral neuropathy, cva, ENDOCARDITIS, DM, ANXIETY Surgeries: Yes Cardiac, Section, Gallbladder, Hysterectomy, Orthopedic, Pacemaker Respiratory: Yes COPD Cardiac: Yes (PACEMAKER, CARDIAC ABLATION, MAZE PROCEDURE, LEFT APPENDAGE CLIPPED) Atrial Fibrillation, High Cholesterol, Hypertension, Irregular Heartbeat Neurological: Yes (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;HX OF CVA 2018-NO RESIDUAL) Neuropathy, Stroke Reproductive Disorders: No Genitourinary: Yes Bladder Infection Gastrointestinal: Yes Gastroesophageal Reflux Musculoskeletal: Yes Chronic Back Pain Endocrine: Yes (INSULIN PUMP) Diabetes, Insulin dep HEENT: Yes (DIABETIC RETINOPATHY) Cancer: No Psychosocial: No Integumentary: No Blood Disorders: No Family Medical History No Pertinent Family Hx PAST SURGICAL HISTORY: -LEFT EYE SURGERY FOR RETINAL BLEED 3 YEARS AGO - X 2 IN 1969, 1970 -HYSTERECTOMY 1979 -CHOLECYSTECTOMY ( OPEN ) 1983 -LEFT FOOT SURGERY 7 YEARS AGO -LUMBAR LAMINECTOMY 20 YEARS AGO -PACEMAKER 4 YEARS AGO -CARDIAC ABLATION 05/2019 -MAZE PROCEDURE 05/2020 -LEFT LATERAL APPENDAGE CLIP 05/2020 -PT REPORTS CARDIAC CATH DONE IN IN 2019 SHOWED NO SIGNIFICANT CAD. ECHOCARDIOGRAM 09/28/20--EF 55-60% MPI 09/29/20--NO INSCHEMIA OR INFARCTIONS Physical Exam Vital Signs Vital Signs - First Documented 06/26/23 19:34 Pulse 62 Resp 16 B/P (MAP) 147/62 (90) Pulse Ox 100 O2 Delivery Room Air Capillary Refill : Less Than 3 Seconds Height, Weight, BMI Height: 5'1.00" Weight: 151lbs. 0.0oz. [id number]; 19.00 BMI Method:Stated General Appearance: No Apparent Distress, Thin Eyes: Bilateral Eye Normal Inspection, Bilateral Eye PERRL, Bilateral Eye EOMI HEENT: PERRL/EOMI, Other (Mildly dry mucous membranes) Respiratory: Lungs Clear, Normal Breath Sounds, No Accessory Muscle Use, No Respiratory Distress Cardiovascular: Regular Rate, Rhythm, Normal Peripheral Pulses Gastrointestinal: Normal Bowel Sounds, Soft; No Distended Genital/Rectal: Normal Genital Exam Extremity: Normal Capillary Refill, Normal Inspection, No Pedal Edema Neurologic/Psychiatric: Other (Patient will not open her eyes to command. She squeezes her eyes shut to painful stimuli i.e. sternal rub, nailbed pressure. She reaches for this examiner's hand when I try to stimulate her. She said "ow" on sternal rub. She withdraws to painful stimuli of all 4 extremities. Refuses to open her eyes and answer questions) Progress/Results/Core Measures Suspected Sepsis SIRS Temperature: Pulse: 62 Respiratory Rate: 16 Laboratory Tests 06/26/23 19:39: White Blood Count 6.3 Blood Pressure 147 /62 Mean: 90 Laboratory Tests 06/26/23 19:39: Creatinine 1.10, Platelet Count 144, Total Bilirubin 0.2 Results/Orders Lab Results Laboratory Tests Test 06/26/23 19:34 06/26/23 19:39 06/26/23 19:42 06/26/23 20:25 Range/Units Glucometer 113 H 82 70-110 MG/DL White Blood Count 6.3 4.3-11.0 10^3/uL Red Blood Count 3.25 L 3.80-5.11 10^6/uL Hemoglobin 10.0 L 11.5-16.0 g/dL Hematocrit 31 L 35-52 % Mean Corpuscular Volume 95 80-99 fL Mean Corpuscular Hemoglobin 31 25-34 pg Mean Corpuscular Hemoglobin Concent 33 32-36 g/dL Red Cell Distribution Width 12.9 10.0-14.5 % Platelet Count 144 130-400 10^3/uL Mean Platelet Volume 9.2 9.0-12.2 fL Immature Granulocyte % (Auto) 0 % Neutrophils (%) (Auto) 74 42-75 % Lymphocytes (%) (Auto) 19 12-44 % Monocytes (%) (Auto) 7 0-12 % Eosinophils (%) (Auto) 1 0-10 % Basophils (%) (Auto) 0 0-10 % Neutrophils # (Auto) 4.6 1.8-7.8 10^3/uL Lymphocytes # (Auto) 1.2 1.0-4.0 10^3/uL Monocytes # (Auto) 0.4 0.0-1.0 10^3/uL Eosinophils # (Auto) 0.0 0.0-0.3 10^3/uL Basophils # (Auto) 0.0 0.0-0.1 10^3/uL Immature Granulocyte # (Auto) 0.0 0.0-0.1 10^3/uL Sodium Level 146 H 135-145 MMOL/L Potassium Level 3.1 L 3.6-5.0 MMOL/L Chloride Level 109 H 98-107 MMOL/L Carbon Dioxide Level 27 21-32 MMOL/L Anion Gap 10 5-14 MMOL/L Blood Urea Nitrogen 45 H 7-18 MG/DL Creatinine 1.10 0.60-1.30 MG/DL Estimat Glomerular Filtration Rate 53 BUN/Creatinine Ratio 41 Glucose Level 90 70-105 MG/DL Calcium Level 9.3 8.5-10.1 MG/DL Corrected Calcium 9.3 8.5-10.1 MG/DL Total Bilirubin 0.2 0.1-1.0 MG/DL Aspartate Amino Transf (AST/SGOT) 27 5-34 U/L Alanine Aminotransferase (ALT/SGPT) 18 0-55 U/L Alkaline Phosphatase 62 40-136 U/L Total Protein 7.3 6.4-8.2 GM/DL Albumin 4.0 3.2-4.5 GM/DL Urine Color YELLOW Urine Clarity CLOUDY Urine pH 6.5 5-9 Urine Specific [place] 1.020 1.016-1.022 Urine Protein NEGATIVE NEGATIVE Urine Glucose (UA) NEGATIVE NEGATIVE Urine Ketones NEGATIVE NEGATIVE Urine Nitrite NEGATIVE NEGATIVE Urine Bilirubin NEGATIVE NEGATIVE Urine Urobilinogen 0.2 < = 1.0 MG/DL Urine Leukocyte Esterase 1+ H NEGATIVE Urine RBC (Auto) NEGATIVE NEGATIVE Urine RBC NONE /HPF Urine WBC 50-100 H /HPF Urine Squamous Epithelial Cells 0-2 /HPF Urine Crystals NONE /LPF Urine Bacteria LARGE H /HPF Urine Casts NONE /LPF Urine Mucus NEGATIVE /LPF Urine Culture Indicated YES Test 06/26/23 22:04 Range/Units Glucometer 91 70-110 MG/DL My Orders Orders - SARI JAMES MD Ed Iv/Invasive Line Start (06/26/23 19:44) Cbc And Automated Diff (06/26/23 19:44) Comprehensive Metabolic Panel (06/26/23 19:44) Ua Culture If Indicated (06/26/23 19:44) Urine Culture (06/26/23 19:42) Ceftriaxone Iv/Im (Ceftriaxone Iv/Im) (06/26/23 21:15) Medications Given in ED Current Medications Medications Dose Ordered Sig/Mariza Route Start Time Stop Time Status Last Admin Dose Admin Ceftriaxone Sodium 1000 mg/ Sodium Chloride 50 ml @ 100 mls/hr ONCE ONCE IV 06/26/23 21:15 06/26/23 21:44 DC 06/26/23 21:19 100 MLS/HR Vital Signs/I&O 06/26/23 19:34 Pulse 62 Resp 16 B/P (MAP) 147/62 (90) Pulse Ox 100 O2 Delivery Room Air Capillary Refill : Less Than 3 Seconds Blood Pressure Mean: 90 Point of Care Testing Finger Stick Blood Glucose: 113 Progress Note : Time: 21:49 Progress Note Patient seen and evaluated by me. Evaluation today includes history and physical exam. History obtained from EMS as the patient is not answering ques tions. CBC, comprehensive metabolic panel and urinalysis are ordered. Patient's blood sugar was checked again on arrival, 113. Vital signs stable. Mucous membranes a little bit dry. Heart is regular, not tachycardic. Blood pressure is good, 140s over 60s. Room air sats 100%. Lungs are clear. Heart rhythm is regular. Abdomen is soft and apparently nondistended. She does w ithdraw to nailbed pressure to all 4 extremities. Again the patient grimaces and squeezes her eyes shut as I am trying to evaluate pupils. Differential diagnosis includes behavior disturbance, infection such as urinary tract, hypoglycemia; acute stroke Labs independently reviewed and interpreted by me. Her CBC is normal except for slightly low hemoglobin at 10, hematocrit at 31. Her chemistry shows slightly low potassium at 3.1. BUN is 45, creatinine 1.1. Serum blood sugar was 90. Her urine shows evidence of infection with 1+ leukocyte Estrace, 50-100 white blood cells and large bacteria, this is a catheterized specimen. Patient was monitored in the emergency department, we were hoping that she would slowly start to become more responsive. After labs were obtained, serial blood sugars were monitored. She stayed within normal range. She was given a gram of Rocephin IV for her urinary tract infection. Her nurse, Kaity RN brought in 8 ounces of orange juice and when the straw was put to her lips she drank it all down. Suspect that this "altered mental status"/poor responsiveness is all behavioral due to her dementia. No clinical or objective findings to warrant further studies from the emergency department at this time. Consideration for head CT however history and physical examination did not support the need at this time. Report is called to the senior living and she will be transported back to [facility], operated by [facility] and rehab. Departure Impression Primary Impression: UTI (urinary tract infection) Qualified Codes: N30.00 - Acute cystitis without hematuria Disposition: HOME, SELF-CARE Condition: Stable Departure-Patient Inst. Decision time for Depature: 21:49 Referrals: YOLANDA BARRAGAN MD (PCP/Family) Primary Care Physician Patient Instructions: Urinary Tract Infection, Adult ED Add. Discharge Instructions: Rox has a urinary tract infection this evening. She was given 1 g of Rocephin IV. She has been sent a prescription for cephalexin 500 mg tablets, one 3 times a day for 5 days starting tomorrow afternoon. Basic laboratory studies ordered, CBC, comprehensive metabolic panel and UA. Her blood work is all within normal range. Neurologic exam does not reveal any concerning findings for acute ischemic or hemorrhagic stroke. I believe her altered mental status is more behavioral at this point. Frequent blood sugar checks. Encourage oral intake. Return to the emergency department for any new, concerning or emergent complaints. Scripts Cephalexin (Cephalexin) 500 Mg Tablet 500 MG PO TID for 5 Days, #15 TAB 0 Refills Prov: SARI JAMES MD 06/26/23 Copy Copies To 1: YOLANDA BARRAGAN MD, KATHRYN M MD Jun 26, 2023 19:44
[2023-06-26 19:50] LABS: BASOPHILS % (AUTO) 0 % (0-10); EOSINOPHILS % (AUTO) 1 % (0-10); HEMATOCRIT 31 % (35-52); LYMPHOCYTES # (AUTO) 1.2 10^3/uL (1.0-4.0); LYMPHOCYTES % (AUTO) 19 % (12-44); MEAN CORPUSCULAR HEMOGLOBIN 31 pg (25-34); MEAN CORPUSCULAR HGB CONC 33 g/dL (32-36); MEAN CORPUSCULAR VOLUME 95 fL (80-99); MEAN PLATELET VOLUME 9.2 fL (9.0-12.2); MONOCYTES # (AUTO) 0.4 10^3/uL (0.0-1.0); MONOCYTES % (AUTO) 7 % (0-12); NEUTROPHILS # (AUTO) 4.6 10^3/uL (1.8-7.8); NEUTROPHILS % (AUTO) 74 % (42-75); PLATELET COUNT 144 10^3/uL (130-400); WHITE BLOOD COUNT 6.3 10^3/uL (4.3-11.0)
[2023-06-26 20:01] LABS: POTASSIUM 3.1 MMOL/L (3.6-5.0)
[2023-06-26 20:02] LABS: CALCIUM 9.3 MG/DL (8.5-10.1)
[2023-06-26 20:03] LABS: TOTAL PROTEIN 7.3 GM/DL (6.4-8.2)
[2023-06-26 20:05] LABS: BILIRUBIN,TOTAL 0.2 MG/DL (0.1-1.0)
[2023-06-26 20:07] LABS: CREATININE SERUM 1.1 MG/DL (0.60-1.30)
[2023-06-26 20:16] LABS: BACTERIA,URINE LARGE /HPF; BILIRUBIN,URINE NEGATIVE (NEGATIVE); CLARITY,URINE CLOUDY; COLOR,URINE YELLOW; GLUCOSE, URINE (UA) NEGATIVE (NEGATIVE); KETONES,URINE NEGATIVE (NEGATIVE); LEUKOCYTE ESTERASE ,URINE 1+ (NEGATIVE); NITRITE,URINE NEGATIVE (NEGATIVE); PH,URINE 6.5 (5-9); PROTEIN,URINE NEGATIVE (NEGATIVE); SQUAMOUS EPITHELIAL CELL,UR 0-2 /HPF; WBC,URINE 50-100 /HPF
[2023-06-26] MEDS ORDERED: cefTRIAXone IV/IM 1,000 MG in NS (IVPB) 50 ML 50 ML IV ONE (21:15)
[2023-06-26] MEDS ORDERED: CEPH500T PO (21:50)
== END 2023-06-26 22:51 | disposition home or self-care (01) ==
LOC: EDUNIT# 19:29 → ER 19:31
DX: N39.0 Urinary tract infection, site not specified (principal); E11.319 Type 2 diabetes mellitus with unspecified diabetic retinopathy without macular edema; Z79.4 Long term (current) use of insulin
CPT/HCPCS: 36415; 80053; 81000; 82947; 85025; 87088; 87106; 87186